=== PATIENT | male | born 1955 | race Caucasian/White ===

== ENCOUNTER 2016-12-03 18:49 | Inpatient (IN) | payer MEDICARE, OTHER ==
[2016-12-03] MEDS ORDERED: NS 0.9% 1000 ML* 1,000 ML IV ONE (20:17)
[2016-12-03 20:46] LABS: Hematocrit 45 % (42-52); Hemoglobin 15.4 g/dl (14.0-18.0); Mean Corpuscular HGB Conc 34 g/dl (31-36); Mean Corpuscular Hemoglobin 32 pg (27-31); Mean Corpuscular Volume 94 fL (80-94); Mean Platelet Volume 8 um3 (7.4-10.4); Red Blood Count 4.82 10^6/ul (4.0-5.4); Red Cell Distribution Width 14 % (10.5-15); White Blood Count 17.1 10^3/ul (3.5-10.8)
[2016-12-03 21:00] LABS: Albumin 4.2 g/dL (3.2-5.2); BUN/Creatinine Ratio 23.9 (8-20); C Reactive Protein 15.57 mg/L (< 5.00); Calcium 9.9 mg/dL (8.6-10.3); EGFR African American 88.7 (>60); Globulin 3.9 g/dL (2-4); Total Bilirubin 0.7 mg/dL (0.2-1.0); Total Protein 8.1 g/dL (6.4-8.9)
[2016-12-03 21:04] LABS: Troponin I 0.12 ng/mL (<0.04)
--- NOTE | 2016-12-03 21:22 | RAD ---
INDICATION: Shortness of breath and cough. COMPARISON: Comparison is made with a prior study from February 28, 2015. TECHNIQUE: Dual-energy PA and lateral views of the chest were obtained. FINDINGS: The heart is within normal limits in size. Mediastinal contours appear normal. The lungs are underinflated and clear. No pleural effusion is seen. IMPRESSION: NO EVIDENCE FOR ACUTE FINDING.
[2016-12-03] MEDS ORDERED: Aspirin Low Dose CHEW TAB* 81 MG ONE (21:25)
[2016-12-03] MEDS ORDERED: Aspirin Low Dose CHEW TAB* 81 MG PO ONE (21:25)
[2016-12-03] MEDS ORDERED: Albuterol 2.5 MG/3 ML NEB.SOL* (0.083%) INH PRN (21:27)
[2016-12-03] MEDS ORDERED: Nicotine Inhaler* 10 MG AMP INH PRN (21:27)
[2016-12-03] MEDS ORDERED: Ondansetron INJ* 2 MG/ML VIAL IV PRN (21:27)
[2016-12-03] MEDS ORDERED: Melatonin (NF) 3 MG TAB PO PRN (21:27)
[2016-12-03] MEDS ORDERED: Ropinirole TAB* 0.5 MG TAB PO ONE (21:42)
--- NOTE | 2016-12-03 22:23 | HP ---
H&P (Free Text) History and Physical: PCP: Mark Lowry MD Date/Time of Evaluation: 12/03/20162124 CC: SOB HPI: Mrs Flower is a 61YO male HX DM2, HTN, HLD, obesity who presents reporting onset around noon of SOB progressing over the next 2 hours to a 6/10 including some light-headedness, but without any chest discomfort, N/V, or palpitations. He relates laying still helped the SOB and activity made it worse. Currently he is symptom free. PMedHx DM2 HTN HLD asthma bipolar disorder hypothyroidism GERD Ambulatory Orders Nursing to reconcile. Atorvastatin* [Lipitor*] 40 mg PO DAILY 01/12/15 Divalproex Sodium [Depakote] 1,500 mg PO BEDTIME 01/12/15 Levothyroxine TAB* [Synthroid TAB*] 75 mcg PO DAILY 01/12/15 Lisinopril [Lisinopril 20 MG-] 20 mg PO DAILY 01/12/15 Folic Acid TAB* [Folvite TAB*] 1 mg PO DAILY 03/01/15 tiaGABine TAB(*) [Gabitril*] 4 mg PO BEDTIME 03/01/15 Canagliflozin (NF) [Invokana (NF)] 100 mg PO DAILY 12/03/16 Carbidopa/Levodop 25/100 MG(*) [Sinemet 25/100 TAB(*)] 1.5 tab PO TID 12/03/16 Docusate CAP* [Colace Cap*] 100 mg PO DAILY 12/03/16 Hydrochlorothiazide TAB* [Hydrodiuril TAB*] 12.5 mg PO QAM 12/03/16 Lurasidone (NF) [Latuda (NF)] 40 mg PO DAILY 12/03/16 Melatonin 5 mg PO BEDTIME PRN 12/03/16 Mometasone/Formoter 200/5 MDI* [Dulera 200/5 MDI*] 1 puff INH BID 12/03/16 Promethazine TAB* [Phenergan TAB*] 25 mg PO Q6H PRN 12/03/16 QUEtiapine TAB* [SEROquel TAB*] 200 mg PO BEDTIME 12/03/16 Suvorexant [Belsomra] 10 mg PO BEDTIME 12/03/16 rOPINIRole TAB* [Requip TAB*] 0.5 mg PO DAILY 12/03/16 Allergies Ampicillin Allergy (Unknown, Verified 03/02/15 13:23) Rash And Itching Propranolol [From Inderal] Allergy (Unknown, Verified 03/02/15 13:23) Rash And Itching PSurgHx tonsillectomy hyoid suspension SocHx: trivial smoking HX, no alcohol or recreational drugs; , lives alone; 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 Father is alive at 80 with CAD. ROS: as above, otherwise reviewed and all were negative Constitutional: NAD, normally developed, obese white male vitals: Vital Signs Temp 37.1 C 12/03/16 19:05 Pulse 116 12/03/16 21:39 Resp 20 12/03/16 21:30 BP 169/101 12/03/16 21:39 Pulse Ox 94 12/03/16 21:39 Intake & Output 12/02/16 12/03/16 12/03/16 23:59 11:59 23:59 Weight 117.934 kg HEENM: atraumatic; sclera/conjunctiva: non-icteric/clear; blephara: normal; hearing: clinically intact; oropharynx: clear, mucosa moist Neck: soft tissue: non-tender; thyroid: normal Pulmonary: clear to auscultation bilaterally, good aeration, no accessory muscle use CV: RR/RR, normal S1S2, no carotid bruit, no jugular venous distention, 2+ B DP/ PT, no edema Abdominal: soft, non-distended, non-tender, no rebound/guarding/rigidity, normoactive bowel sounds, no hepatosplenomegaly or masses, no costovertebral angle tenderness Musculoskeletal: general: grossly intact, no palpable tenderness Integumental: normal appearance and texture Psychiatric orientation: AA&O to PPS affect: calm mood: cooperative eye contact: good content: reliable responses: timely insight: good Testing: Lab Results 12/03/16 12/03/16 12/03/16 Range/Units 20:36 20:36 20:36 WBC 17.1 H (3.5-10.8) 10^3/ul RBC 4.82 (4.0-5.4) 10^6/ul Hgb 15.4 (14.0-18.0) g/dl Hct 45 (42-52) % MCV 94 (80-94) fL MCH 32 H (27-31) pg MCHC 34 (31-36) g/dl RDW 14 (10.5-15) % Plt Count 288 (150-450) 10^3/ul MPV 8 (7.4-10.4) um3 Neut % (Auto) 84.4 H (38-83) % Lymph % (Auto) 8.5 L (25-47) % Alfalfa % (Auto) 6.5 (1-9) % Eos % (Auto) 0.1 (0-6) % Baso % (Auto) 0.5 (0-2) % Absolute Neuts (auto) 14.4 H (1.5-7.7) 10^3/ul Absolute Lymphs (auto) 1.4 (1.0-4.8) 10^3/ul Absolute Monos (auto) 1.1 H (0-0.8) 10^3/ul Absolute Eos (auto) 0 (0-0.6) 10^3/ul Absolute Basos (auto) 0.1 (0-0.2) 10^3/ul Absolute Nucleated RBC 0 10^3/ul Nucleated RBC % 0 Sodium 136 (133-145) mmol/L Potassium 4.0 (3.5-5.0) mmol/L Chloride 100 L (101-111) mmol/L Carbon Dioxide 28 (22-32) mmol/L Anion Gap 8 (2-11) mmol/L BUN 26 H (6-24) mg/dL Creatinine 1.09 (0.67-1.17) mg/dL Est GFR ( Amer) 88.7 (>60) Est GFR (Non-Af Amer) 69.0 (>60) BUN/Creatinine Ratio 23.9 H (8-20) Glucose 91 (70-100) mg/dL Lactic Acid 2.0 (0.5-2.0) mmol/L Calcium 9.9 (8.6-10.3) mg/dL Total Bilirubin 0.70 (0.2-1.0) mg/dL AST 43 H (13-39) U/L ALT 5 L (7-52) U/L Alkaline Phosphatase 71 (34-104) U/L Troponin I 0.12 H* (<0.04) ng/mL C-Reactive Protein 15.57 H (< 5.00) mg/L B-Natriuretic Peptide ( - 100) pg/mL Total Protein 8.1 (6.4-8.9) g/dL Albumin 4.2 (3.2-5.2) g/dL Globulin 3.9 (2-4) g/dL Albumin/Globulin Ratio 1.1 (1-3) / Range/Units 20:36 WBC (3.5-10.8) 10^3/ul RBC (4.0-5.4) 10^6/ul Hgb (14.0-18.0) g/dl Hct (42-52) % MCV (80-94) fL MCH (27-31) pg MCHC (31-36) g/dl RDW (10.5-15) % Plt Count (150-450) 10^3/ul MPV (7.4-10.4) um3 Neut % (Auto) (38-83) % Lymph % (Auto) (25-47) % Alfalfa % (Auto) (1-9) % Eos % (Auto) (0-6) % Baso % (Auto) (0-2) % Absolute Neuts (auto) (1.5-7.7) 10^3/ul Absolute Lymphs (auto) (1.0-4.8) 10^3/ul Absolute Monos (auto) (0-0.8) 10^3/ul Absolute Eos (auto) (0-0.6) 10^3/ul Absolute Basos (auto) (0-0.2) 10^3/ul Absolute Nucleated RBC 10^3/ul Nucleated RBC % Sodium (133-145) mmol/L Potassium (3.5-5.0) mmol/L Chloride (101-111) mmol/L Carbon Dioxide (22-32) mmol/L Anion Gap (2-11) mmol/L BUN (6-24) mg/dL Creatinine (0.67-1.17) mg/dL Est GFR ( Amer) (>60) Est GFR (Non-Af Amer) (>60) BUN/Creatinine Ratio (8-20) Glucose (70-100) mg/dL Lactic Acid (0.5-2.0) mmol/L Calcium (8.6-10.3) mg/dL Total Bilirubin (0.2-1.0) mg/dL AST (13-39) U/L ALT (7-52) U/L Alkaline Phosphatase (34-104) U/L Troponin I (<0.04) ng/mL C-Reactive Protein (< 5.00) mg/L B-Natriuretic Peptide 47 ( - 100) pg/mL Total Protein (6.4-8.9) g/dL Albumin (3.2-5.2) g/dL Globulin (2-4) g/dL Albumin/Globulin Ratio (1-3) ECG, personally reviewed: RBBB tachycardia rate 103, no ischemia, Q-waves II/III /AVF CXR, personally reviewed: IMPRESSION: NO EVIDENCE FOR ACUTE FINDING. Impression: 61F HX DM2, obesity & HTN presenting with SOB and elevated troponin DIAGNOSIS & PLAN Primary SOB & elevated troponin ? anginal equivalent : telemetry : trend troponin : aspirin : metoprolol : consider cardiology consult in AM pending above evaluation : supplemental oxygen : plan for chemical NST in AM : supportive care Secondary DM2 : continue canagliflozin : consistent carb diet once taking PO after stress test : Q4H glucometry Parkinsonism : continue carbi/levodopa HTN : continue lisinopril & HCTZ HLD : continue atorvastatin asthma : continue mometasone/formoterol bipolar disorder : continue divalproex, tiagabine, lurasidone, ropinirole, & quetiapine hypothyroidism : continue levothyroxine insomnia : continue suvorexant GERD : omeprazole Admission Rational: CDU observation for r/o ACS DVTp: heparin SQ Code Status: full
[2016-12-03] MEDS ORDERED: CMCS: Melatonin (NF) 3 MG TAB PO PRN (22:47)
[2016-12-03] MEDS ORDERED: Mouth Piece, Nicotine* 1 EACH CARTRIDGE INH ONE (23:00)
--- NOTE | 2016-12-03 23:49 | ED ---
I, Robbie,Ary, scribed for Tyler Pacheco MD on 12/03/16 at 2014 . Shortness of Breath - HPI Summary HPI Summary: This 61 y/o male presents to ED for exertional SOB since 2 days ago. Positive general weakness. Negative SOB or calf swelling. Ambulation makes SOB worse. Lying down does not make SOB worse. Pt expresses concern that his recent start of Ambien may have caused his SOB and weakness. PMHx includes DM type II that is controlled with insulin and oral agent, Parkinson disease, TINO with CPAP, and asthma that is controlled with inhaler. He does not use any long acting inhaler. Pt is not walker dependent at his baseline. Stress test was done about a year ago in [place]. - History of Current Complaint Chief Complaint: EDRespiratoryDistress Time Seen by Provider: 12/03/16 20:01 Hx Obtained From: Patient, Medical Records Onset/Duration: Gradual Onset, Resolved Dyspnea At: Exertion Aggrevating Factors: Movement Alleviating Factors: Oxygen Associated Signs & Symptoms: Negative - Allergy/Home Medications Allergies/Adverse Reactions: Allergies Allergy/AdvReac Type Severity Reaction Status Date / Time Ampicillin Allergy Unknown Rash And Verified 03/02/15 13:23 Itching Propranolol [From Inderal] Allergy Unknown Rash And Verified 03/02/15 13:23 Itching Home Medications: Home Medications Canagliflozin (NF) [Invokana (NF)] 100 mg PO DAILY 12/03/16 [History Confirmed 12/03/16] Carbidopa/Levodop 25/100 MG(*) [Sinemet 25/100 TAB(*)] 1.5 tab PO TID 12/03/16 [ History Confirmed 12/03/16] Docusate CAP* [Colace Cap*] 100 mg PO DAILY 12/03/16 [History Confirmed 12/03/16 ] Hydrochlorothiazide TAB* [Hydrodiuril TAB*] 12.5 mg PO QAM 12/03/16 [History Confirmed 12/03/16] Lurasidone (NF) [Latuda (NF)] 40 mg PO DAILY 12/03/16 [History Confirmed ] Melatonin 5 mg PO BEDTIME PRN 12/03/16 [History Confirmed 12/03/16] Mometasone/Formoter 200/5 MDI* [Dulera 200/5 MDI*] 1 puff INH BID 12/03/16 [ History Confirmed 12/03/16] Promethazine TAB* [Phenergan TAB*] 25 mg PO Q6H PRN 12/03/16 [History Confirmed 12/03/16] QUEtiapine TAB* [SEROquel TAB*] 200 mg PO BEDTIME 12/03/16 [History Confirmed ] Suvorexant [Belsomra] 10 mg PO BEDTIME 12/03/16 [History Confirmed 12/03/16] rOPINIRole TAB* [Requip TAB*] 0.5 mg PO DAILY 12/03/16 [History Confirmed ] PMH/Surg Hx/FS Hx/Imm Hx Endocrine/Hematology History: Reports: Hx Diabetes, Hx Thyroid Disease - hypothyroid medicated with synthroid 75 mcg Cardiovascular History: Reports: Hx Hypercholesterolemia, Hx Hypertension, Other Cardiovascular Problems/Disorders - CAD, IDDM II, HIGH CHOLESTEROL Denies: Hx Angina, Hx Coronary Artery Disease, Hx Myocardial Infarction, Hx Valvular Heart Disease Respiratory History: Reports: Hx Asthma Denies: Hx Chronic Obstructive Pulmonary Disease (COPD) GI History: Reports: Hx Gastroesophageal Reflux Disease Sensory History: Reports: Hx Contacts or Glasses Opthamlomology History: Reports: Hx Contacts or Glasses Psychiatric History: Reports: Hx Anxiety, Hx Depression, Hx Inpatient Treatment - located within [facility] in [place], [place], Hx Bipolar Disorder Denies: Hx Eating Disorder, Hx of Violent Episodes Against Others - Surgical History Hx Anesthesia Reactions: No - Immunization History Date of Tetanus Vaccine: unknown Date of Influenza Vaccine: unknown Infectious Disease History: No Infectious Disease History: Denies: Traveled Outside the in Last 30 Days - Family History Known Family History: Positive: Other - Positive bipolar and schizophrenia - Social History Alcohol Use: Rare Alcohol Amount: 1beer/1 drink daily for a long time Substance Use Type: Reports: None Substance Use Comment - Amount & Last Used: uses 1-2 drinks of alcohol daily and several bowls of marijuana daily. Hx Tobacco Use: Yes Smoking Status (MU): Light Every Day Tobacco Smoker Type: Cigarettes Have You Smoked in the Last Year: Yes Review of Systems Negative: Fever Negative: Chest Pain Positive: Shortness Of Breath Negative: Edema Positive: Weakness - general All Other Systems Reviewed And Are Negative: Yes Physical Exam - Summary Physical Exam Summary: The patient is well-nourished in no acute distress and in no acute pain. The skin is warm and dry and skin color reflects adequate perfusion. HEENT: The head is normocephalic and atraumatic. The pupils are equal and reactive. The conjunctivae are clear and without drainage. Nares are patent and without drainage. Mouth reveals moist mucous membranes and the throat is without erythema and exudate. The external ears are intact. The ear canals are patent and without drainage. The tympanic membranes are intact. Neck is supple with full range of motion and non-tender. There are no carotid bruits. There is no neck vein distension. Respiratory: Chest is non-tender. Lungs are clear to auscultation and breath sounds are symmetrical and equal. Cardiovascular: Hear is regular rate and rhythm. Tachycardia with tremor secondary to Parkinson dz. There is no murmur or rub auscultated. There is no peripheral edema and pulses are symmetrical and equal. Abdomen: The abdomen is soft and non-tender. There are normal bowel sounds heard in all four quadrants and there is no organomegaly palpated. Musculoskeletal: There is no back pain noted. Extremities are non-tender with full range of motion. There is good capillary refill les sthan 2 seconds. There is no peripheral edema or calf tenderness elicited. Neurological: Patient is alert and oriented to person, place and time. The patient has symmetrical motor strength in all four extremities. Cranial nerves are grossly intact. Deep tendon reflexes are symmetrical and equal in all four extremities. Resting tremor secondary to Parkinson disease, mostly involving LUE arm. Psychiatric: The patient has an appropriate affect and does not exhibit any anxiety or depression. Triage Information Reviewed: Yes Vital Signs On Initial Exam: Initial Vitals BP 147/88 12/03/16 19:04 Vital Signs Reviewed: Yes - [place] Coma Scale Coma Scale Total: 15 Diagnostics - Vital Signs Vital Signs Temp Pulse Resp BP Pulse Ox 12/03/16 19:05 98.7 F 109 31 147/88 97 12/03/16 19:04 147/88 - Laboratory Lab Results: Lab Results 12/03/16 12/03/16 12/03/16 Range/Units 20:36 20:36 20:36 WBC 17.1 H (3.5-10.8) 10^3/ul RBC 4.82 (4.0-5.4) 10^6/ul Hgb 15.4 (14.0-18.0) g/dl Hct 45 (42-52) % MCV 94 (80-94) fL MCH 32 H (27-31) pg MCHC 34 (31-36) g/dl RDW 14 (10.5-15) % Plt Count 288 (150-450) 10^3/ul MPV 8 (7.4-10.4) um3 Neut % (Auto) 84.4 H (38-83) % Lymph % (Auto) 8.5 L (25-47) % Bond % (Auto) 6.5 (1-9) % Eos % (Auto) 0.1 (0-6) % Baso % (Auto) 0.5 (0-2) % Absolute Neuts (auto) 14.4 H (1.5-7.7) 10^3/ul Absolute Lymphs (auto) 1.4 (1.0-4.8) 10^3/ul Absolute Monos (auto) 1.1 H (0-0.8) 10^3/ul Absolute Eos (auto) 0 (0-0.6) 10^3/ul Absolute Basos (auto) 0.1 (0-0.2) 10^3/ul Absolute Nucleated RBC 0 10^3/ul Nucleated RBC % 0 Sodium 136 (133-145) mmol/L Potassium 4.0 (3.5-5.0) mmol/L Chloride 100 L (101-111) mmol/L Carbon Dioxide 28 (22-32) mmol/L Anion Gap 8 (2-11) mmol/L BUN 26 H (6-24) mg/dL Creatinine 1.09 (0.67-1.17) mg/dL Est GFR ( Amer) 88.7 (>60) Est GFR (Non-Af Amer) 69.0 (>60) BUN/Creatinine Ratio 23.9 H (8-20) Glucose 91 (70-100) mg/dL Lactic Acid 2.0 (0.5-2.0) mmol/L Calcium 9.9 (8.6-10.3) mg/dL Total Bilirubin 0.70 (0.2-1.0) mg/dL AST 43 H (13-39) U/L ALT 5 L (7-52) U/L Alkaline Phosphatase 71 (34-104) U/L Troponin I 0.12 H* (<0.04) ng/mL C-Reactive Protein 15.57 H (< 5.00) mg/L B-Natriuretic Peptide ( - 100) pg/mL Total Protein 8.1 (6.4-8.9) g/dL Albumin 4.2 (3.2-5.2) g/dL Globulin 3.9 (2-4) g/dL Albumin/Globulin Ratio 1.1 (1-3) 12/03/16 Range/Units 20:36 WBC (3.5-10.8) 10^3/ul RBC (4.0-5.4) 10^6/ul Hgb (14.0-18.0) g/dl Hct (42-52) % MCV (80-94) fL MCH (27-31) pg MCHC (31-36) g/dl RDW (10.5-15) % Plt Count (150-450) 10^3/ul MPV (7.4-10.4) um3 Neut % (Auto) (38-83) % Lymph % (Auto) (25-47) % Bond % (Auto) (1-9) % Eos % (Auto) (0-6) % Baso % (Auto) (0-2) % Absolute Neuts (auto) (1.5-7.7) 10^3/ul Absolute Lymphs (auto) (1.0-4.8) 10^3/ul Absolute Monos (auto) (0-0.8) 10^3/ul Absolute Eos (auto) (0-0.6) 10^3/ul Absolute Basos (auto) (0-0.2) 10^3/ul Absolute Nucleated RBC 10^3/ul Nucleated RBC % Sodium (133-145) mmol/L Potassium (3.5-5.0) mmol/L Chloride (101-111) mmol/L Carbon Dioxide (22-32) mmol/L Anion Gap (2-11) mmol/L BUN (6-24) mg/dL Creatinine (0.67-1.17) mg/dL Est GFR ( Amer) (>60) Est GFR (Non-Af Amer) (>60) BUN/Creatinine Ratio (8-20) Glucose (70-100) mg/dL Lactic Acid (0.5-2.0) mmol/L Calcium (8.6-10.3) mg/dL Total Bilirubin (0.2-1.0) mg/dL AST (13-39) U/L ALT (7-52) U/L Alkaline Phosphatase (34-104) U/L Troponin I (<0.04) ng/mL C-Reactive Protein (< 5.00) mg/L B-Natriuretic Peptide 47 ( - 100) pg/mL Total Protein (6.4-8.9) g/dL Albumin (3.2-5.2) g/dL Globulin (2-4) g/dL Albumin/Globulin Ratio (1-3) Result Diagrams: 12/03/16 20:36 12/03/16 20:36 Lab Statement: Any lab studies that have been ordered have been reviewed, and results considered in the medical decision making process. - Radiology CXR Xray Interpretation: No Acute Changes Radiology Interpretation Completed By: Radiologist Course/Dx - Course Assessment/Plan: This 61 y/o male presents to ED for exertional SOB and weakness since 2 days ago. Pt expresses concerns that his Ambien may be reason for his weakness and exertional dyspnea. Upon examination pt is noted with resting tremor mostly involving LUE arm secondary to Parkinson disease. Blood work indicates elevated trop of 0.12. Plan of care is discussed with primary health organisation manager hospitalist Dr. Cullen, who is agreeable to admit. - Diagnoses Differential Diagnosis/HQI/PQRI: Positive: CHF, NV, Pneumonia, Unstable Angina Provider Diagnoses: Dyspnea on exertion, Elevated troponin - Physician Notifications Discussed Care of Patient With: Jordan Cullen Time Discussed With Above Provider: 21:26 Instructed by Provider To: Admit As Inpatient Discharge - Discharge Plan Condition: Stable Disposition: ADMITTED TO [facility] documentation as recorded by the Robbie bean Soohyun accurately reflects the service I personally performed and the decisions made by , Tyler Pacheco MD.
[2016-12-04] MEDS: Morphine INJ* 2 MG/ML 1 ML SYRINGE IV PRN ×3 (02:31→14:10)
[2016-12-04] MEDS: Acetaminophen TAB* 325 MG PO PRN ×2 (03:55→14:11)
[2016-12-04 04:59] LABS: Hematocrit 42 % (42-52); Mean Corpuscular HGB Conc 33 g/dl (31-36); Mean Corpuscular Hemoglobin 32 pg (27-31); Mean Corpuscular Volume 95 fL (80-94); Mean Platelet Volume 8 um3 (7.4-10.4); Red Blood Count 4.41 10^6/ul (4.0-5.4); Red Cell Distribution Width 15 % (10.5-15); White Blood Count 13.5 10^3/ul (3.5-10.8)
[2016-12-04] MEDS: Heparin VIAL(*) 5000 UNITS/ML VIAL (FIVE THOUSAND) SUBCUT SCH ×2 (05:27→13:05)
[2016-12-04 05:36] LABS: BUN/Creatinine Ratio 22.2 (8-20); Calcium 9.1 mg/dL (8.6-10.3); EGFR African American 81.8 (>60); EGFR Non-African American 63.6 (>60); Potassium 3.8 mmol/L (3.5-5.0)
[2016-12-04 05:38] LABS: Troponin I 0.14 ng/mL (<0.04)
[2016-12-04] MEDS ORDERED: Omeprazole CAP* 20 MG PO SCH (06:00)
[2016-12-04] MEDS ORDERED: Levothyroxine TAB* 100 MCG TAB PO SCH (06:00)
[2016-12-04] MEDS ORDERED: PTO:Canagliflozin (NF) 100 MG TAB PO SCH ×2 (09:00→17:00)
[2016-12-04] MEDS ORDERED: Lisinopril TAB* 10 MG PO SCH (09:00)
[2016-12-04] MEDS ORDERED: Docusate CAP* 100 MG PO SCH ×2 (09:00)
[2016-12-04] MEDS ORDERED: LURASIDONE 40 MG PO SCH ×2 (09:00→17:00)
[2016-12-04] MEDS ORDERED: Atorvastatin* 40 MG TAB PO SCH (09:00)
[2016-12-04] MEDS ORDERED: Folic Acid TAB* 1 MG PO SCH (09:00)
[2016-12-04] MEDS ORDERED: Aspirin EC Low Dose* 81 MG TAB.EC PO SCH (09:00)
[2016-12-04] MEDS ORDERED: Hydrochlorothiazide TAB* 25 MG PO SCH (09:00)
[2016-12-04] MEDS ORDERED: Ropinirole TAB* 0.5 MG TAB PO SCH (09:00)
[2016-12-04] MEDS: Mometasone/Formoter 200/5 MDI INH SCH ×2 (11:20→20:32)
--- NOTE | 2016-12-04 11:31 | RAD ---
INDICATION: Short of breath. Chest pain. Elevated troponins COMPARISON: August 06, 2012 TECHNIQUE: A single day SPECT protocol was utilized. Rest images were acquired following the intravenous injection of 10.7 millicuries of technetium 99m tetrofosmin. Pharmacologic stress images were acquired following the intravenous administration of 25.6 millicuries of technetium 99m tetrofosmin. Examination is limited due to lack of CT attenuation related to shoulder immobility FINDINGS: There is a small fixed lateral wall defect. This defect is smaller on the stress than the rest images. No ischemic defects are seen. The cardiac chamber size is normal. There are no wall motion abnormalities. The ejection fraction is calculated at 74 percent during stress. IMPRESSION: SMALL FIXED LATERAL WALL DEFECT. NO ISCHEMIC DEFECT. NORMAL WALL MOTION AND EJECTION FRACTION ASSESSMENT: LOW-RISK Based on imaging criteria from ACC/AHA 2002 Guideline Update for the Management of Patients With Chronic Stable Angina Table 23. Noninvasive Risk Stratification.
[2016-12-04 11:53] VITALS: BP 146/68
[2016-12-04] MEDS: Carbidopa/Levodop 25/100 MG TAB(*) PO SCH ×2 (11:58→16:18)
[2016-12-04] MEDS ORDERED: Potassium Chlor TAB* 20 MEQ TAB.ER PO ONE (12:41)
[2016-12-04 13:06] LABS: Magnesium 2.1 mg/dL (1.9-2.7)
[2016-12-04] MEDS ORDERED: Iodixanol* (CONTRAST) 320 MG/ML 100 ML SDV IV ONE (14:18)
--- NOTE | 2016-12-04 15:36 | RAD ---
INDICATION: Shortness of breath. Elevated troponin. Weakness. Question potential pulmonary embolism. COMPARISON: December 03, 2016 chest radiograph. TECHNIQUE: Multidetector CT images were obtained from the lung apices to the upper abdomen with 92 mL Visipaque 320 IV contrast. Pulmonary angiogram protocol. Multiplanar reformation including with maximum intensity projection. REPORT: Aside from minimal bilateral dependent subsegmental atelectasis the lungs and pleural spaces are clear. Negative for pneumothorax. Negative for thoracic lymphadenopathy. Negative for cardiomegaly or pericardial effusion. Normal diameter thoracic aorta with minimal atherosclerotic plaque. Negative for thoracic aortic dissection. No filling defects are identified from the main to the subsegmental pulmonary arteries to indicate presence of a pulmonary embolism. Limited images through the upper abdomen are remarkable for prior cholecystectomy. Mild thoracic degenerative spondylosis. Negative for suspicious focal osseous lesions. IMPRESSION: 1. No evidence for pulmonary embolism. 2. No acute intrathoracic process evident.
--- NOTE | 2016-12-04 15:57 | DCNOTE ---
Patient seen this morning. No recurrent episodes today. Feels back to his baseline, has been ambulating around the unit, no chest pain. On exam, RRR, s1 and s2 present, no m/g/r, lungs CTA B/L, no w/r/r, LUE tremor, no LE edema D-dimer mildly elevated, CTA negative. Unclear what may have caused patient's troponin elevation. No ischemia noted on stress test. Will discharge home.
[2016-12-04] MEDS ORDERED: Divalproex DR TAB(*) 500 MG PO SCH (21:00)
[2016-12-04] MEDS ORDERED: TIAGABINE 4 MG PO SCH (21:00)
[2016-12-04] MEDS ORDERED: QUEtiapine TAB* 100 MG PO SCH (21:00)
[2016-12-04] MEDS ORDERED: (Suvorexant [Belsomra] 10 MG) PO SCH (21:00)
--- NOTE | 2016-12-05 06:01 | DS ---
CC: Collin Lowry MD * DISCHARGE SUMMARY: DATE OF ADMISSION: 12/03/16 DATE OF DISCHARGE: 12/04/16 PRIMARY CARE PHYSICIAN: Collin Lowry MD PRINCIPAL DISCHARGE DIAGNOSIS: Shortness of breath. SECONDARY DIAGNOSES: 1. Type 2 diabetes. 2. Hypertension. 3. Hyperlipidemia. 4. Asthma. 5. Bipolar disorder. 6. Hypothyroidism. 7. Gastroesophageal reflux disease. DISCHARGE MEDICATION REGIMEN: 1. Aspirin 81 mg daily by mouth daily. 2. Belsomra 10 mg by mouth at bedtime. 3. Folic acid 1 mg by mouth daily. 4. Dulera 1 puff inhaled 2 times daily. 5. Lisinopril 20 mg by mouth daily. 6. Seroquel 200 mg by mouth at bedtime. 7. Tiagabine 4 mg by mouth at bedtime. 8. Hydrochlorothiazide 12.5 mg by mouth daily. 9. Melatonin 5 mg by mouth at bedtime as needed for sleep. 10. Atorvastatin 40 mg by mouth daily. 11. Invokana 100 mg by mouth daily. 12. Depakote 1500 mg by mouth at bedtime. 13. Sinemet 25/100 1.5 tablets by mouth 3 times daily. 14. Colace 100 mg by mouth daily. 15. Ropinirole 0.5 mg by mouth daily. 16. Latuda 40 mg by mouth daily. 17. Promethazine 25 mg by mouth every 6 hours as needed for nausea. 18. Synthroid 100 mcg by mouth daily. STUDIES DONE DURING HOSPITALIZATION: Chest x-ray, impression: No evidence for acute finding. Nuclear cardiac stress test, impression: Small fixed lateral wall defect, no ischemic defect, normal wall motion and ejection fraction. CTA of the chest, impression: No evidence for pulmonary embolism, no acute intrathoracic process evident. HISTORY OF PRESENT ILLNESS AND HOSPITAL SUMMARY: Please see the full history and physical by Dr. Jordan Cullen for full details. Briefly, Mr. Flower is a 61- year-old male with a past medical history as above who presented to the hospital with about 2 hours of shortness of breath. It was not associated with any chest pain, nausea, vomiting and palpitations. The patient's symptoms resolved shortly after arriving in the hospital. He was found to have a mildly elevated troponin of 0.12. There were no significant EKG changes. The patient underwent a nuclear cardiac stress test that showed a fixed defect; however, no inducible ischemic changes. The etiology of his symptoms was unclear. I checked a D-dimer, which was minimally elevated, which prompted a CTA of the chest, which was also negative. The patient's symptoms did not recur while here at the hospital. It is unclear as to what may have caused this troponin elevation; however, does not seem to be an acute cardiac event. The patient will be discharged on his home medication with the addition of a baby aspirin. He should follow up with his PCP as an outpatient. TIME SPENT: Total time spent on this discharge 45 minutes. This is a summary of the hospitalization. Please see the full medical record for further details. [id number]/[id number] #: [id number] [facility]
== END 2016-12-04 19:15 | disposition home or self-care (01) | DRG 204 ==
LOC: ED 18:49 → MEDTELE 21:24
PROVIDERS: ADMIT Hospitalist; ATTEND Hospitalist
PROC: 4A12XM4 Monitoring of Cardiac Stress, External Approach (ICD-10-PCS; principal; 2016-12-03)
DX: R06.02 Shortness of breath (principal); G20 Parkinson's disease; R79.89 Other specified abnormal findings of blood chemistry; I10 Essential (primary) hypertension; E11.9 Type 2 diabetes mellitus without complications; E78.5 Hyperlipidemia, unspecified; J45.909 Unspecified asthma, uncomplicated; F31.9 Bipolar disorder, unspecified; E03.9 Hypothyroidism, unspecified; K21.9 Gastro-esophageal reflux disease without esophagitis; Z79.82 Long term (current) use of aspirin; E66.9 Obesity, unspecified; Z88.1 Allergy status to other antibiotic agents; Z88.8 Allergy status to other drugs, medicaments and biological substances; Z82.49 Family history of ischemic heart disease and other diseases of the circulatory system; G47.00 Insomnia, unspecified; G47.33 Obstructive sleep apnea (adult) (pediatric); E78.00 Pure hypercholesterolemia, unspecified; F41.9 Anxiety disorder, unspecified; F32.9 Major depressive disorder, single episode, unspecified; Z81.8 Family history of other mental and behavioral disorders; Z72.89 Other problems related to lifestyle; F17.210 Nicotine dependence, cigarettes, uncomplicated
CPT/HCPCS: 36415; 71020; 71275; 78452; 80048; 80053; 83605; 83735; 83880; 84484; 85025; 85379; 85730; 86140; 93005; 93017; 99406; A9270-GY; A9502; J1644; J2270; Q9967

== ENCOUNTER 2016-12-27 03:54 | Observation (INO) | payer MEDICARE, OTHER ==
[2016-12-27] MEDS ORDERED: NS 0.9% 1000 ML* 1,000 ML IV ONE ×2 (04:30→05:12)
[2016-12-27 04:40] LABS: Hematocrit 39 % (42-52); Hemoglobin 13.1 g/dl (14.0-18.0); Mean Corpuscular HGB Conc 34 g/dl (31-36); Mean Corpuscular Hemoglobin 32 pg (27-31); Mean Corpuscular Volume 96 fL (80-94); Mean Platelet Volume 7 um3 (7.4-10.4); Red Blood Count 4.08 10^6/ul (4.0-5.4); Red Cell Distribution Width 15 % (10.5-15); White Blood Count 7.9 10^3/ul (3.5-10.8)
[2016-12-27 04:59] LABS: Albumin 3.6 g/dL (3.2-5.2); BUN/Creatinine Ratio 19.7 (8-20); Calcium 9.2 mg/dL (8.6-10.3); EGFR African American 62.8 (>60); EGFR Non-African American 48.9 (>60); Globulin 3.1 g/dL (2-4); Potassium 3.8 mmol/L (3.5-5.0); Total Bilirubin 0.4 mg/dL (0.2-1.0); Total Protein 6.7 g/dL (6.4-8.9)
[2016-12-27 05:01] LABS: Troponin I 0.01 ng/mL (<0.04)
--- NOTE | 2016-12-27 06:49 | ED ---
Victorino Farias Benjamin, scribed for Seda Tanner MD on 12/27/16 at 0453 . Complex/Multi-Sys Presentation - HPI Summary HPI Summary: 61yo male reports waking up with weakness yesterday around 1700 hour. Pt also reports difficulty urinating for couple of days. Denies CP. Pt is diabetic. Pt is sleepy in room, and isnt giving full history. - History Of Current Complaint Chief Complaint: EDWeakness Time Seen by Provider: 12/27/16 04:07 Hx Obtained From: Patient Onset/Duration: Sudden Onset, Lasting Days - 1 day Timing: Constant Severity Currently: Mild Severity Initially: Mild Location: Negative Associated Signs And Symptoms: Positive: Weakness. Negative: Chest Pain - Allergies/Home Medications Allergies/Adverse Reactions: Allergies Allergy/AdvReac Type Severity Reaction Status Date / Time Ampicillin Allergy Unknown Rash And Verified 12/04/16 14:52 Itching Propranolol [From Inderal] Allergy Unknown Rash And Verified 12/04/16 14:52 Itching PMH/Surg Hx/FS Hx/Imm Hx Endocrine/Hematology History: Reports: Hx Diabetes, Hx Thyroid Disease - hypothyroid medicated with synthroid 75 mcg Cardiovascular History: Reports: Hx Hypercholesterolemia, Hx Hypertension, Other Cardiovascular Problems/Disorders - CAD, IDDM II, HIGH CHOLESTEROL Denies: Hx Angina, Hx Coronary Artery Disease, Hx Myocardial Infarction, Hx Valvular Heart Disease Respiratory History: Reports: Hx Asthma, Hx Sleep Apnea Denies: Hx Chronic Obstructive Pulmonary Disease (COPD) GI History: Reports: Hx Gastroesophageal Reflux Disease Sensory History: Denies: Hx Contacts or Glasses, Hx Hearing Aid Opthamlomology History: Denies: Hx Contacts or Glasses Neurological History: Reports: Other Neuro Impairments/Disorders - parkinson's Psychiatric History: Reports: Hx Anxiety, Hx Depression, Hx Inpatient Treatment - multiple in [place], [place], Hx Bipolar Disorder Denies: Hx Eating Disorder, Hx of Violent Episodes Against Others - Surgical History Surgery Procedure, Year, and Place: tonsillectomy, hyiod suspension Hx Anesthesia Reactions: No - Immunization History Date of Tetanus Vaccine: unknown Date of Influenza Vaccine: unknown Infectious Disease History: Denies: Traveled Outside the in Last 30 Days - Family History Known Family History: Positive: Hypertension, Other - Positive bipolar and schizophrenia - Social History Occupation: Unemployed Lives: Alone Alcohol Use: None Alcohol Amount: 1beer/1 drink daily for a long time Substance Use Type: Reports: None Substance Use Comment - Amount & Last Used: uses 1-2 drinks of alcohol daily and several bowls of marijuana daily. Hx Tobacco Use: Yes Smoking Status (MU): Light Every Day Tobacco Smoker Type: Cigarettes Have You Smoked in the Last Year: Yes Review of Systems Positive: Fatigue Eyes: Negative ENT: Negative Cardiovascular: Negative Negative: Chest Pain Respiratory: Negative Gastrointestinal: Negative Genitourinary: Negative Musculoskeletal: Negative Skin: Negative Positive: Weakness Psychological: Normal All Other Systems Reviewed And Are Negative: Yes Physical Exam Triage Information Reviewed: Yes Vital Signs On Initial Exam: Initial Vitals Temp Pulse Resp BP Pulse Ox 97.8 F 75 18 93/57 96 12/27/16 03:59 12/27/16 03:59 12/27/16 03:59 12/27/16 03:59 12/27/16 03:59 Vital Signs Reviewed: Yes Appearance: Positive: No Pain Distress, Well-Nourished. Negative: Well- Appearing - pt is sleepy on exam Skin: Positive: Warm, Skin Color Reflects Adequate Perfusion, Dry Head/Face: Positive: Normal Head/Face Inspection Eyes: Positive: EOMI, KIRA, Conjunctiva Clear ENT: Positive: Hearing grossly normal, Pharynx normal Neck: Positive: Supple, Nontender Respiratory/Lung Sounds: Positive: Clear to Auscultation, Breath Sounds Present Cardiovascular: Positive: RRR, Pulses are Symmetrical in both Upper and Lower Extremities Abdomen Description: Positive: Nontender, Soft Bowel Sounds: Positive: Present Musculoskeletal: Positive: Strength/ROM Intact Neurological: Positive: Sensory/Motor Intact, Alert, Oriented to Person Place, Time Psychiatric: Positive: Affect/Mood Appropriate - [place] Coma Scale Coma Scale Total: 15 Diagnostics - Vital Signs Vital Signs Temp Pulse Resp BP Pulse Ox 12/27/16 04:31 97 12/27/16 04:04 97.8 F 75 18 93/57 96 12/27/16 03:59 97.8 F 75 18 96 - Laboratory Lab Results: Lab Results 12/27/16 Range/Units 04:10 WBC 7.9 (3.5-10.8) 10^3/ul RBC 4.08 (4.0-5.4) 10^6/ul Hgb 13.1 L (14.0-18.0) g/dl Hct 39 L (42-52) % MCV 96 H (80-94) fL MCH 32 H (27-31) pg MCHC 34 (31-36) g/dl RDW 15 (10.5-15) % Plt Count 264 (150-450) 10^3/ul MPV 7 L (7.4-10.4) um3 Neut % (Auto) 56.8 (38-83) % Lymph % (Auto) 30.0 (25-47) % [place] % (Auto) 9.3 H (1-9) % Eos % (Auto) 2.2 (0-6) % Baso % (Auto) 1.7 (0-2) % Absolute Neuts (auto) 4.5 (1.5-7.7) 10^3/ul Absolute Lymphs (auto) 2.4 (1.0-4.8) 10^3/ul Absolute Monos (auto) 0.7 (0-0.8) 10^3/ul Absolute Eos (auto) 0.2 (0-0.6) 10^3/ul Absolute Basos (auto) 0.1 (0-0.2) 10^3/ul Absolute Nucleated RBC 0 10^3/ul Nucleated RBC % 0 Result Diagrams: 12/27/16 04:10 12/27/16 04:10 Lab Statement: Any lab studies that have been ordered have been reviewed, and results considered in the medical decision making process. - Radiology CXR Xray Interpretation: No Acute Changes Radiology Interpretation Completed By: ED Physician - EKG 0409. Cardiac Rate: NL - 73bpm EKG Rhythm: Sinus Rhythm ST Segment: Normal EKG Interpretation: RBBB EKG Comparison: No Significant Change - unchanged from EKG taken at 12/05/16 Complex Multi-Symp Course/Dx Course Of Treatment: Reviewed pts medication and allergy lists. Blood pressure noted.61 yo male with near syncope labs essentially normal except for a slightly elevated lactic acid, who feels better after 2L NS, who describes difficulty with urination. He is awaiting for a 2nd lactic and for urine and a bladder scan he will be sign out to Dr. Pacheco this am. Of note his room air 02 sat is normal. 0647 pt had an episode where his hr might have dipped into the 30's will get pt admitted for obv - Diagnoses Provider Diagnoses: Near syncope Discharge - Discharge Plan Condition: Stable Disposition: OTHER Discharge Disposition Comment: pt to be signed out to Dr. Pacheco for evaluation Referrals: Collin Lowry MD [Primary Care Provider] - The documentation as recorded by the Victorino bean Benjamin accurately reflects the service I personally performed and the decisions made by me, Seda Tanner MD.
[2016-12-27 07:31] LABS: Urine Bilirubin Negative (Negative); Urine Glucose 3+(>=500 mg/dL) (Negative); Urine Nitrite Negative (Negative)
[2016-12-27] MEDS ORDERED: Promethazine TAB* 25 MG PO PRN (08:06)
--- NOTE | 2016-12-27 08:15 | RAD ---
HISTORY: Shortness of breath COMPARISONS: December 03, 2016 VIEWS: 2: frontal portable view of the chest at 4:50 AM FINDINGS: LINES AND TUBES: None. CARDIOMEDIASTINAL SILHOUETTE: The cardiomediastinal silhouette is normal for portable technique. PLEURA: The costophrenic angles are sharp. No pleural abnormalities are noted. LUNG PARENCHYMA: The lungs are clear. ABDOMEN: The upper abdomen is clear. There is no subphrenic gas. BONES AND SOFT TISSUES: No bone or soft tissue abnormalities are noted. IMPRESSION: NO ACTIVE CARDIOPULMONARY DISEASE.
--- NOTE | 2016-12-27 08:18 | ADMNOTE ---
Subjective Date of Service: 12/27/16 Interval History: ADMISSION HISTORY AND PHYSICAL EXAM: Allergies Allergy/AdvReac Type Severity Reaction Status Date / Time Ampicillin Allergy Unknown Rash And Verified 12/27/16 07:18 Itching Propranolol [From Inderal] Allergy Unknown Rash And Verified 12/27/16 07:18 Itching Home Medications Medication Instructions Recorded Confirmed Type Atorvastatin* [Lipitor 40 MG*] 40 mg PO DAILY 01/12/15 12/27/16 History Divalproex Sodium [Depakote] 1,500 mg PO BEDTIME 01/12/15 12/27/16 History Levothyroxine TAB* [Synthroid 75 100 mcg PO DAILY 01/12/15 12/27/16 History MCG TAB*] Lisinopril [Lisinopril 20 MG-] 20 mg PO DAILY 01/12/15 12/27/16 History Folic Acid TAB* [Folvite TAB*] 1 mg PO DAILY 03/01/15 12/27/16 History tiaGABine TAB(*) [Gabitril 2 MG*] 4 mg PO BEDTIME 03/01/15 12/27/16 History Canagliflozin (NF) [Invokana (NF)] 100 mg PO DAILY 12/03/16 12/27/16 History Carbidopa/Levodop 25/100 MG(*) 1.5 tab PO TID 12/03/16 12/27/16 History [Sinemet 25/100 TAB(*)] Hydrochlorothiazide TAB* 12.5 mg PO QAM 12/03/16 12/27/16 History [Hydrodiuril TAB*] Lurasidone (NF) [Latuda (NF)] 40 mg PO DAILY 12/03/16 12/27/16 History Melatonin 5 mg PO BEDTIME PRN 12/03/16 12/27/16 History Promethazine TAB* [Phenergan Tab*] 25 mg PO Q6H PRN 12/03/16 12/27/16 History QUEtiapine TAB* [Seroquel TAB*] 200 mg PO BEDTIME 12/03/16 12/27/16 History rOPINIRole TAB* [Requip TAB*] 0.5 mg PO DAILY 12/03/16 12/27/16 History Aspirin EC Low Dose* [Ecotrin EC 81 mg PO DAILY #30 tab.ec 12/04/16 12/27/16 Rx Low Dose 81 MG*] Suvorexant [Belsomra] 10 mg PO BEDTIME 12/04/16 12/27/16 Rx HPI: Patient awoke at 2 AM to urinate, could not get OOB and called 911. He fell 2 days ago and skinned his knees, bumped his head. He states he has frequent falls. No assistive devices. Hungry. Family History: Findings - Mother of suicide in her 70's. Father has CAD. Social History: Findings - Lives alone. Father is his SDM. . 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 No alcohol or tobacco use. Past Medical History: Findings - Bipolar, DM, HT, HL Review of Systems - Measurements Intake and Output: Intake and Output Last 24 Hours 12/25/16 12/26/16 12/27/16 12/28/16 06:59 06:59 06:59 06:59 Intake Total 1999 Balance 1999 Weight 260 lb Intake: IV Fluids 1999 - Review of Systems Constitutional Symptoms: Positive: Weight Loss - 10 lbs Dermatology: Positive: Normal HEENT: Positive: Normal Eyes: Positive: Normal Thyroid: Positive: Normal Pulmonary: Positive: Normal Cardiology: Positive: Normal Gastroenterology: Positive: Difficulty Swallowing Genital - Urinary: Positive: Normal Genitourinary - Male: Negative: Prostatism, Erectile Dysfunction, Family Hx of Prostate Cancer, Other Musculoskeletal: Negative: Joint Pain, Joint Stiffness, Arthritis, Osteoporosis, Low Back Pain , Sciatica, Joint Deformities, Kyphoscoliosis, Other Endocrinology: Positive: Diabetes Mellitus Hematologic/Lymphatic: Negative: Anemia, Easy Brusing, Hx Leukemia, Hx Lymphoma, Use of Anticoagulant, Use of Antiplatelet Drugs, Other Neurology: Positive: Other - Parkinson's Psychiatry: Positive: Other - bipolar Allergic/Immunologic: Negative: Hx Anaphylaxis, Hx Angioedema, Hx Environmental, Hx Seasonal, Athsma, Hx HIV, Immunocompromise, Swollen Glands LymphNodes, Other Objective Active Medications: Aspirin (Aspirin Ec Low Dose*) 81 mg PO DAILY YESSY Atorvastatin Calcium (Lipitor*) 40 mg PO DAILY YESSY Canagliflozin (Invokana (Nf)) 100 mg PO DAILY YESSY Carbidopa/Levodopa (Sinemet 25/100 Tab(*)) 1.5 tab PO TID YESSY Divalproex Sodium (Depakote Dr Tab(*)) 1,500 mg PO BEDTIME YESSY Folic Acid (Folvite Tab*) 1 mg PO DAILY [facility] Levothyroxine Sodium (Synthroid Tab*) 100 mcg PO DAILY YESSY Lurasidone HCl (Latuda (Nf)) 40 mg PO DAILY YESSY Promethazine HCl (Phenergan Tab*) 25 mg PO Q6H PRN PRN Reason: NAUSEA Quetiapine Fumarate (Seroquel Tab*) 200 mg PO BEDTIME YESSY Ropinirole HCl (Requip Tab*) 0.5 mg PO DAILY YESSY Tiagabine HCl (Gabitril*) 4 mg PO BEDTIME YESSY Vital Signs 12/27/16 12/27/16 12/27/16 03:59 04:04 04:31 Temperature 97.8 F 97.8 F Pulse Rate 75 75 Respiratory 18 18 Rate Blood Pressure 93/57 93/57 (mmHg) O2 Sat by Pulse 96 96 97 Oximetry 12/27/16 12/27/16 12/27/16 05:00 06:00 06:42 Temperature Pulse Rate 66 65 66 Respiratory 16 13 15 Rate Blood Pressure 116/77 99/67 115/75 (mmHg) O2 Sat by Pulse 98 99 98 Oximetry 12/27/16 12/27/16 12/27/16 07:24 07:25 07:30 Temperature Pulse Rate 63 64 Respiratory Rate Blood Pressure 112/65 111/68 (mmHg) O2 Sat by Pulse 97 95 Oximetry Oxygen Devices in Use Now: None Appearance: Alert, supine on ED stretcher. Neutral affect. Looks comfortable. Eyes: No Scleral Icterus Ears/Nose/Mouth/Throat: Clear Oropharnyx, Mucous Membranes Moist Neck: NL Appearance and Movements; NL JVP, No Thyroid Enlargement, Masses Respiratory: Symmetrical Chest Expansion and Respiratory Effort, Clear to Auscultation, Clear to Percussion Cardiovascular: NL Sounds; No Murmurs; No JVD, RRR, No Edema, - Abdominal: NL Sounds; No Tenderness; No Distention, No Hepatosplenomegaly, - Extremities: No Edema, No Clubbing, Cyanosis Skin: No Nodules or Sclerosis, - - Both knees have fresh abrasions. Red area R zoroastrian/scalp Neurological: Alert and Oriented x 3, NL Sensation, - - marked parkinosonian tremor L arm Result Diagrams: 12/27/16 04:10 12/27/16 04:10 Additional Lab and Data: Lab Results 12/27/16 Range/Units 04:10 WBC 7.9 (3.5-10.8) 10^3/ul RBC 4.08 (4.0-5.4) 10^6/ul Hgb 13.1 L (14.0-18.0) g/dl Hct 39 L (42-52) % MCV 96 H (80-94) fL MCH 32 H (27-31) pg MCHC 34 (31-36) g/dl RDW 15 (10.5-15) % Plt Count 264 (150-450) 10^3/ul MPV 7 L (7.4-10.4) um3 Neut % (Auto) 56.8 (38-83) % Lymph % (Auto) 30.0 (25-47) % [place] % (Auto) 9.3 H (1-9) % Eos % (Auto) 2.2 (0-6) % Baso % (Auto) 1.7 (0-2) % Absolute Neuts (auto) 4.5 (1.5-7.7) 10^3/ul Absolute Lymphs (auto) 2.4 (1.0-4.8) 10^3/ul Absolute Monos (auto) 0.7 (0-0.8) 10^3/ul Absolute Eos (auto) 0.2 (0-0.6) 10^3/ul Absolute Basos (auto) 0.1 (0-0.2) 10^3/ul Absolute Nucleated RBC 0 10^3/ul Nucleated RBC % 0 Assess/Plan/Problems-Billing Assessment: - Patient Problems (1) Frequent falls Current Visit: Yes Status: Acute Code(s): R29.6 - REPEATED FALLS SNOMED Code(s): 362747290 Comment: PT eval requested. Needs outpt fup with PCP, ? neurologist. SW eval. (2) Dizziness Current Visit: Yes Status: Acute Code(s): R42 - DIZZINESS AND GIDDINESS SNOMED Code(s): 190828879 Comment: NSS ordered. Stop thiazide, reduce lisinopril to 5 mg daily. Orthostatic VS requested. (3) Diabetes Current Visit: No Status: Acute Code(s): E11.9 - TYPE 2 DIABETES MELLITUS WITHOUT COMPLICATIONS SNOMED Code(s): 58247699 Comment: FS glucose qid-hs with parameters. Continue home DM med. (4) Bipolar 1 disorder Current Visit: No Status: Acute Code(s): F31.9 - BIPOLAR DISORDER, UNSPECIFIED SNOMED Code(s): 119792961 Comment: Continue home psych meds. (5) Swallowing disorder Current Visit: Yes Status: Acute Code(s): R13.10 - DYSPHAGIA, UNSPECIFIED SNOMED Code(s): 48828628 Comment: SP swallow eval requested.
[2016-12-27] MEDS: Carbidopa/Levodop 25/100 MG TAB(*) PO SCH ×3 (08:28→20:34)
[2016-12-27] MEDS: Atorvastatin* 40 MG TAB PO SCH (08:28)
[2016-12-27] MEDS: Aspirin EC Low Dose* 81 MG TAB.EC PO SCH (08:28)
[2016-12-27] MEDS: Folic Acid TAB* 1 MG PO SCH (08:51)
[2016-12-27 08:52] LABS: TSH (Thyroid Stimulating Horm) 1.08 mcIU/mL (0.34-5.60)
[2016-12-27] MEDS ORDERED: Ropinirole TAB* 0.5 MG TAB PO SCH (09:00)
[2016-12-27] MEDS ORDERED: LURASIDONE 40 MG PO SCH (09:00)
[2016-12-27] MEDS: CANAGLIFLOZIN 100 MG PO SCH (10:33)
[2016-12-27] MEDS: Levothyroxine TAB* 75 MCG TAB PO SCH (10:50)
[2016-12-27] MEDS: Lisinopril TAB* 5 MG PO SCH (10:50)
[2016-12-27] MEDS: NS 0.9% 1000 ML* 1,000 ML IV SCH (10:51)
[2016-12-27] MEDS ORDERED: Saline NASAL SPRAY 0.65%* BTL BOTH NARES PRN (11:46)
[2016-12-27] MEDS ORDERED: Acetaminophen TAB* 325 MG ONE (12:02)
[2016-12-27] MEDS: Acetaminophen TAB* 325 MG PO PRN (12:04)
[2016-12-27] MEDS ORDERED: NS 0.9% 1000 ML* 1,000 ML IV SCH (18:30)
[2016-12-27] MEDS: Ropinirole TAB* 0.5 MG TAB PO SCH (20:34)
--- NOTE | 2016-12-27 20:54 | CONS ---
NEUROLOGY CONSULTATION: DATE OF CONSULT: 12/27/16 REQUESTING PROVIDER: Dr. Yeyo Brice. REASON FOR CONSULT: Frequent falls. 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 He reports that over the past few weeks, he has had increased difficulty with upper extremity weakness where he is having a hard time pushing himself up out of his bed. In addition, he says once he does get up out of bed, at times when he begins walking, he becomes generally weak and will have falls. He denies any vertigo or specific balance problems that are contributing to these falls. He is not aware of these falls being mechanical. He has fallen on his knees several times in the past 3 weeks or so. His father had contacted my office and left a message indicating that he has been "going downhill for 3 weeks in the setting of some medication changes," but Wei indicates that only in the past week has he had any med changes and his falling and weakness have been going on longer than that. He is not exactly sure of the medicine changes, but it appears that he has been started on Latuda about a week ago and he believes also Geodon by Miesha Roche, his psychiatric provider. I tried to inquire with him about how he is taking ropinirole at home, which has been prescribed for his tremor, but he is not sure of the dosing. He has visiting nurses who come in and set up his pill box and it alarms for him 3 times a day so he takes his medication. At this point, in the day, I tried to contact his father, but was unsuccessful. I also tried to contact Miesha Roche, [facility], but the office is already closed. On his medication list as entered in [employer], the ropinirole dose was incorrect. He should be taking according to my office records 0.5 mg twice a day with an additional dose in the afternoon of 0.25 mg. [employer] indicated he was prescribed 0.5 mg daily which is incorrect. He is also taking carbidopa/levodopa 25/100 mg 1-1/2 tablets 3 times daily. In my followup with him in the office, he has indicated variable efficacy of this medication. Most recently, he has been referred to the [facility] and on their evaluation, they felt that his tremor was most likely drug- induced parkinsonism and ordered a DaTscan, which was normal and not supportive of idiopathic Parkinson's disease. The recommendation was for his psychiatric providers to try to get him off some of the potentially offending medications including Depakote and quetiapine as well as limiting promethazine. I am not sure if this may be why Miesha has started some of these new medications in an attempt to then get him off some these other offending medications. PAST MEDICAL HISTORY: 1. Bipolar disorder. 2. 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 3. Diabetes. 4. Hypertension. 5. Hyperlipidemia. HOME MEDICATIONS: 1. Invokana 100 mg daily. 2. Lipitor 40 mg daily. 3. Aspirin 81 mg daily. 4. Hydrochlorothiazide 12.5 mg q.a.m. 5. Folic acid 1 mg daily. 6. Depakote 1500 mg at bedtime. 7. Carbidopa/levodopa 25/100 mg 1-1/2 tablets 3 times daily. 8. Latuda 40 mg daily. 9. Geodon (the patient reported this medication but is unsure of the dose). 10. Lisinopril 20 mg. 11. Levothyroxine 100 mcg daily. 12. Quetiapine 200 mg at bedtime. 13. Promethazine 25 mg q.6 hours p.r.n. 14. Melatonin 5 mg at bedtime p.r.n. 15. Gabitril 4 mg at bedtime. 16. Ropinirole is prescribed 0.5 mg in the morning, 0.25 mg in the afternoon and 0.5 mg in the evening. 17. Belsomra 10 mg at bedtime. ALLERGIES: AMPICILLIN and PROPRANOLOL cause rash and itching. FAMILY HISTORY: Mother of suicide in her 70s. Father has coronary artery disease. SOCIAL HISTORY: He lives alone, but his father lives next door. He is . 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 No alcohol or tobacco abuse. REVIEW OF SYSTEMS: He denies any recent illness or infection. Otherwise as per the HPI. PHYSICAL EXAM: Vital Signs: Temperature 97.6, blood pressure 131/75, heart rate 87, oxygen saturation 95% on room air. I note that orthostatic vital signs were obtained this morning and the blood pressure overall was unremarkable, but the heart rate indicates that in the lying position, he was 75, in the sitting position 118, and standing 87. I am not sure if this is true or if this was semiconductor manufacturing technician error. On general examination, he is an obese man, in no acute distress. His heart is in regular rate and rhythm with no murmurs, rubs, or gallops. Lungs are clear to auscultation bilaterally. Carotids reveal no bruits. No has no significant joint swelling or erythema. Skin exam shows that he has some abrasions in various stages of healing on his knees bilaterally. On neurologic examination, he is fully awake, alert, and oriented. His speech is fluent without dysarthria or aphasia. On cranial nerve testing, pupils are equal, round, and reactive from 4 to 2 mm bilaterally. His versions are full without nystagmus. Mir are full to confrontation. He has mild hypomimia. Face has full strength. Hearing is intact to voice. Palate elevates symmetrically and the tongue is midline. On motor examination, he has cogwheel rigidity in the left upper extremity as well as paratonia versus rigidity in the right upper extremity. There is no pronator drift. He has a variable tremor in the left greater than right arm. At times, this is low amplitude and pill rolling approximately 3 Hz while other times there is a flapping quality to it. When he is engaged in different aspects of the exam, this tremor often quiets down completely. His strength is essentially full in the upper and lower extremities though he indicated with testing his left triceps, he had pain in his left shoulder and testing his left wrist extension, he had pain in the wrist. Sensation is intact to light touch in the upper and lower extremities. Reflexes are 2+ in the upper and lower extremities with downgoing toes. Romberg is negative. His gait is narrow based with short strides. He has flat feet. His variable tremor is noted bilaterally when he walks. DIAGNOSTIC STUDIES/LAB DATA: His CMP was notable for an elevated creatinine of 1.47 and an elevated BUN of 29. Glucose of 120. TSH 1.08. His initial lactate was 2.3 down to 1.3 when measured 2 hours later. CBC is notable for hematocrit of 39, hemoglobin of 13.1, and slightly elevated MCV and MCH of 96 and 32 respectively. His urinalysis showed trace ketones and 3+ glucose. IMPRESSION AND PLAN: Wei Flower is a 61-year-old man with a history of bipolar disorder as well as tremor and parkinsonism, which is likely drug induced related to his psychiatric medications. He is admitted for falls. He is treated with both ropinirole and Sinemet with unclear benefit at this point. He recently had an evaluation at the [facility], which concurs that his tremor is most likely drug induced with possible psychogenic component as opposed to from idiopathic Parkinson's disease. Nevertheless, he has felt that he has potentially gotten some benefit from his tremor medications. It is not clear to me at this time if he is taking his ropinirole as it has been prescribed. Certainly, the medication reconciliation here is incorrect in terms of the ropinirole, but I am not sure if that was the patient reported or not. For the time being, I have changed the dose being given in the hospital to reflect that which is in my outpatient record. Tomorrow, it would be helpful if we could again touch with his father and/or visiting nurse, who prepares his medication to determine whether he is taking it as prescribed or not. I have also added on a CK level. Overall, his exam appears similar to that which I see in the office. So, it is unclear to me neurologically speaking why he is having increased falls and this generalized sense of weakness which he describes intermittently. It may also be helpful to discuss with Miesha Roche NP, her plan going forward with the psychiatric medications in terms of his tremor. There is nothing particularly suspicious in his labs that would explain his recurrent falls either. Thank you for this consultation. Dr. Shahid takes over the service [facility] and will receive sign out on the patient. [id number]/[facility] #: [id number] [facility]IT[facility]issett
[2016-12-27] MEDS ORDERED: Divalproex DR TAB(*) 500 MG PO SCH (21:00)
[2016-12-27] MEDS ORDERED: TIAGABINE 4 MG PO SCH (21:00)
[2016-12-27] MEDS ORDERED: QUEtiapine TAB* 100 MG PO SCH (21:00)
[2016-12-28] MEDS: Acetaminophen TAB* 325 MG PO PRN ×2 (02:17→06:29)
[2016-12-28] MEDS ORDERED: CMCS: Melatonin (NF) 3 MG TAB PO PRN (03:29)
[2016-12-28] MEDS: NS 0.9% 1000 ML* 1,000 ML IV SCH (03:45)
[2016-12-28] MEDS: Levothyroxine TAB* 75 MCG TAB PO SCH (05:21)
[2016-12-28] MEDS ORDERED: Levothyroxine TAB* 100 MCG TAB PO SCH (06:00)
[2016-12-28] MEDS: Ropinirole TAB* 0.5 MG TAB PO SCH (08:21)
[2016-12-28] MEDS: Folic Acid TAB* 1 MG PO SCH (08:22)
[2016-12-28] MEDS: Aspirin EC Low Dose* 81 MG TAB.EC PO SCH (08:22)
[2016-12-28] MEDS: Carbidopa/Levodop 25/100 MG TAB(*) PO SCH (08:22)
[2016-12-28] MEDS: Atorvastatin* 40 MG TAB PO SCH (08:23)
[2016-12-28] MEDS: Lisinopril TAB* 5 MG PO SCH (08:23)
[2016-12-28] MEDS: CANAGLIFLOZIN 100 MG PO SCH (08:24)
[2016-12-28 11:57] VITALS: BP 132/82
[2016-12-28] MEDS ORDERED: Ropinirole TAB* 0.5 MG TAB PO SCH (13:00)
--- NOTE | 2016-12-29 04:56 | DS ---
CC: Dr. Lowry; Dr. Mcgowan DISCHARGE SUMMARY: DATE OF ADMISSION: DATE OF DISCHARGE: 12/28/16 HISTORY OF PRESENT ILLNESS: This 61-year-old came to the emergency room complaining he was too weak to get out of bed at 2 in the morning. He called 911. He is followed by Dr. Mcgowan for movement dis order. He has some Parkinsonian's features from his psychotropic medications that he has taken for many years, but some of his movement disorder is not really explained. The patient has frequent falls at home. He had abrasions on both knees, very superficial, but fresh . He said he was dizzy at times. The patient also said he had trouble swallowing. The patient had a swallow evaluation and the swallowing eval showed he tolerated thin liquids and re gular solids without any difficulty. He also had a physical therapy evaluation. He had decreased b alance on mobility from baseline. He may benefit from PT. He walked with a straight cane. Home an d/or outpatient PT was recommended. The morning of discharge, the patient said he felt better and w as very anxious to go home. He seemed to have a more positive affect. In the hospital, I stopped his thiazide and cut his lisinopril from 20 to 5 mg daily based on the fa ct that his blood pressure was 93/57 during the night, it was 132/81 at 11 in the morning after rece iving his 5 mg lisinopril dose. His Latuda was also stopped. There was some concern that some of h is new medications may have made him more confused. DISCHARGE DIAGNOSES: 1. Frequent falls. 2. Dizziness. 3. Diabetes. 4. Bipolar disorder. 5. Swallowing disorder, resolved. DISCHARGE MEDICATIONS: 1. Lisinopril 5 mg daily. 2. Ropinirole 0.25 mg daily. 3. Saline nasal spay 1 spray both nares every 4 hours p.r.n. 4. Levothyroxine 100 mcg daily. 5. Divalproex 1500 mg at bedtime. 6. Atorvastatin 40 mg daily. 7. Tiagabine 4 mg h.s. 8. Folic acid 1 mg daily. 9. Promethazine 25 mg every 6 hours p.r.n. 10. Ropinirole 0.5 mg daily. 11. Carbidopa/L-dopa 25/100 one and a half tablets t.i.d. 12. Invokana 100 mg daily. 13. Melatonin 5 mg h.s. p.r.n. 14. Quetiapine 200 mg h.s. 15. Aspirin 81 mg daily. [id number]/[facility] #: [id number]
== END 2016-12-28 13:03 | disposition home or self-care (01) ==
LOC: ED 03:54 → MEDTELE 07:51
PROVIDERS: ADMIT Internal Medicine; ATTEND Internal Medicine
DX: R53.1 Weakness (principal); Z91.81 History of falling; R42 Dizziness and giddiness; E11.9 Type 2 diabetes mellitus without complications; F31.9 Bipolar disorder, unspecified; R13.19 Other dysphagia; K21.9 Gastro-esophageal reflux disease without esophagitis; E03.9 Hypothyroidism, unspecified; I45.10 Unspecified right bundle-branch block; Z79.899 Other long term (current) drug therapy; Z79.82 Long term (current) use of aspirin; Z79.84 Long term (current) use of oral hypoglycemic drugs; F17.210 Nicotine dependence, cigarettes, uncomplicated; R55 Syncope and collapse
CPT/HCPCS: 36415; 71010; 80053; 81003; 82550; 83605; 83880; 84443; 84484; 85025; 85379; 85610; 85730; 87040; 93005; 96360; 96361; 99284; A9270-GY; G0378; G8978-GP-CI; G8979-GP-CH; G8980-GP-CI; G8996-GN-CH; G8997-GN-CH; G8998-GN-CH

== ENCOUNTER 2016-12-29 07:10 | Inpatient (IN) | payer MEDICARE, OTHER ==
[2016-12-29] MEDS: Carbidopa/Levodop 25/100 MG TAB(*) PO SCH ×3 (10:33→21:07)
[2016-12-29] MEDS: Ropinirole TAB* 0.5 MG TAB PO SCH ×2 (10:34→10:35)
[2016-12-29] MEDS: Atorvastatin* 40 MG TAB PO SCH (10:35)
[2016-12-29] MEDS: Levothyroxine TAB* 75 MCG TAB PO SCH (10:35)
[2016-12-29] MEDS: Folic Acid TAB* 1 MG PO SCH (10:36)
[2016-12-29] MEDS: Aspirin EC Low Dose* 81 MG TAB.EC PO SCH (10:36)
[2016-12-29] MEDS: Enoxaparin(*) 40 MG/0.4 ML SYR SUBCUT SCH (10:37)
--- NOTE | 2016-12-29 10:49 | ED ---
Eve Farias Edward, scribed for Porfirio Agee MD on 12/29/16 at 0717 . Neurological HPI - HPI Summary HPI Summary: 61 y/o male presents to the ED s/p sudden onset fall out of bed this morning (1x ). Pt reports epistaxis and abrasions on his forehead and bilateral knees s/p fall. The sx are not alleviated or aggravated by anything. Associated sx: resting tremor - chronic. Pt was seen in the hospital yesterday for similar symptoms by Dr. Brice. Denies neck pain. Pt accompanied by his father in the ED. - History of Current Complaint Stated Complaint: WEAKNESS, FALL OUT OF BED Hx Obtained From: Patient Onset/Duration: Sudden Onset, Started minutes ago - This morning Number of Episodes: 1 Frequency: Episodes x___ - 1 Aggravating: Nothing Alleviating: Nothing Associated Signs and Symptoms: Positive: Trauma: Recent - Fall out of bed, Epistaxis - 1x s/p fall. With abrasions on forehead and knees. Negative: Neck Pain/Stiffness - Additional Pertinent History Primary Care Physician: VITALY - Allergy/Home Medications Allergies/Adverse Reactions: Allergies Allergy/AdvReac Type Severity Reaction Status Date / Time Ampicillin Allergy Unknown Rash And Verified 12/27/16 07:18 Itching Propranolol [From Inderal] Allergy Unknown Rash And Verified 12/27/16 07:18 Itching PMH/Surg Hx/FS Hx/Imm Hx Previously Healthy: No Endocrine/Hematology History: Reports: Hx Diabetes, Hx Thyroid Disease - hypothyroid medicated with synthroid 75 mcg Cardiovascular History: Reports: Hx Hypercholesterolemia, Hx Hypertension, Other Cardiovascular Problems/Disorders - CAD, IDDM II, HIGH CHOLESTEROL Denies: Hx Angina, Hx Coronary Artery Disease, Hx Myocardial Infarction, Hx Valvular Heart Disease Respiratory History: Reports: Hx Asthma, Hx Sleep Apnea Denies: Hx Chronic Obstructive Pulmonary Disease (COPD) GI History: Reports: Hx Gastroesophageal Reflux Disease Musculoskeletal History: Denies: Hx Arthritis, Hx Osteoporosis Sensory History: Denies: Hx Contacts or Glasses, Hx Hearing Aid Opthamlomology History: Denies: Hx Contacts or Glasses Neurological History: Reports: Other Neuro Impairments/Disorders - parkinson's Psychiatric History: Reports: Hx Anxiety, Hx Depression, Hx Inpatient Treatment - multiple in [place], [place], Hx Bipolar Disorder Denies: Hx Eating Disorder, Hx of Violent Episodes Against Others - Surgical History Surgery Procedure, Year, and Place: tonsillectomy, hyiod suspension Hx Anesthesia Reactions: No - Immunization History Date of Tetanus Vaccine: unknown Date of Influenza Vaccine: unknown - Family History Known Family History: Positive: Hypertension, Other - Positive bipolar and schizophrenia - Social History Alcohol Use: None Alcohol Amount: 1beer/1 drink daily for a long time Hx Substance Use: No Substance Use Type: Reports: None Substance Use Comment - Amount & Last Used: uses 1-2 drinks of alcohol daily and several bowls of marijuana daily. Hx Tobacco Use: Yes Smoking Status (MU): Light Every Day Tobacco Smoker Type: Cigarettes Have You Smoked in the Last Year: Yes Review of Systems Constitutional: Negative Eyes: Negative Positive: Epistaxis - s/p fall Cardiovascular: Negative Respiratory: Negative Gastrointestinal: Negative Genitourinary: Negative Musculoskeletal: Negative Skin: Other - Abrasions on forehead and bilateral knees Neurological: Other - Resting tremor Psychological: Normal All Other Systems Reviewed And Are Negative: Yes Physical Exam Triage Information Reviewed: Yes Vital Signs On Initial Exam: Initial Vitals Temp Pulse Resp BP Pulse Ox 98.5 F 93 20 148/81 94 12/29/16 07:19 12/29/16 07:19 12/29/16 07:19 12/29/16 07:19 12/29/16 07:19 Vital Signs Reviewed: Yes Appearance: Positive: Well-Appearing, No Pain Distress Skin: Positive: Warm, Skin Color Reflects Adequate Perfusion, Dry, Other - Abrasions on forehead and bilateral knees of varying ages Head/Face: Positive: Normal Head/Face Inspection Eyes: Positive: Normal ENT: Positive: Normal ENT inspection Neck: Positive: Supple, Nontender Respiratory/Lung Sounds: Positive: Clear to Auscultation, Breath Sounds Present Cardiovascular: Positive: RRR Abdomen Description: Positive: Nontender, Soft Bowel Sounds: Positive: Present Musculoskeletal: Positive: Edema Left - Mild peripheral edema of the ankles, Edema Right - Mild peripheral edema of the ankles Neurological: Positive: Other - Resting tremor Psychiatric: Positive: Normal, Affect/Mood Appropriate Diagnostics - Vital Signs Vital Signs Temp Pulse Resp BP Pulse Ox 12/29/16 09:30 99.3 F 99 18 156/76 99 12/29/16 09:27 98.5 F 87 18 151/93 12/29/16 08:00 87 151/93 97 12/29/16 07:30 91 130/88 93 12/29/16 07:27 98.5 F 93 20 148/81 94 12/29/16 07:26 94 94 12/29/16 07:25 148/81 12/29/16 07:19 98.5 F 93 20 148/81 94 - Laboratory Lab Results: Lab Results 12/29/16 Range/Units 10:09 POC Glucose (mg/dL) 110 H (70-100) mg/dL Lab Statement: Any lab studies that have been ordered have been reviewed, and results considered in the medical decision making process. Course/Dx - Course Course Of Treatment: Mr. Flower just went home yesterday and then was unable to get out of bed safetly this AM. He fell again sustaining some mild abrasions. He is being admitted back to the hospitalist. - Diagnoses Provider Diagnoses: Weakness - Physician Notifications Discussed Care Of Patient With: Jhonatan Brice Time Discussed With Above Provider: 19:25 Instructed by Provider To: Admit As Inpatient Discharge - Discharge Plan Condition: Stable Disposition: ADMITTED TO [facility] Referrals: Collin Lowry MD [Primary Care Provider] - The documentation as recorded by the Eve bean Edward accurately reflects the service I personally performed and the decisions made by me, Porfirio Agee MD.
[2016-12-29] MEDS ORDERED: Ibuprofen TAB* 600 MG ONE (14:32)
[2016-12-29] MEDS: Ibuprofen TAB* 600 MG PO PRN ×2 (14:33→21:06)
--- NOTE | 2016-12-29 16:01 | ADMNOTE ---
Subjective Date of Service: 12/29/16 Interval History: ADMISSION HISTORY AND PHYSICAL EXAM: Allergies Allergy/AdvReac Type Severity Reaction Status Date / Time Ampicillin Allergy Unknown Rash And Verified 12/27/16 07:18 Itching Propranolol [From Inderal] Allergy Unknown Rash And Verified 12/27/16 07:18 Itching Home Medications Medication Instructions Recorded Confirmed Type Atorvastatin* [Lipitor 40 MG*] 40 mg PO DAILY 01/12/15 12/29/16 History Divalproex Sodium [Depakote] 1,500 mg PO BEDTIME 01/12/15 12/29/16 History Levothyroxine TAB* [Synthroid 75 100 mcg PO DAILY 01/12/15 12/29/16 History MCG TAB*] Folic Acid TAB* [Folvite TAB*] 1 mg PO DAILY 03/01/15 12/29/16 History tiaGABine TAB(*) [Gabitril 2 MG*] 4 mg PO BEDTIME 03/01/15 12/29/16 History Canagliflozin (NF) [Invokana (NF)] 100 mg PO DAILY 12/03/16 12/29/16 History Carbidopa/Levodop 25/100 MG(*) 1.5 tab PO TID 12/03/16 12/29/16 History [Sinemet 25/100 TAB(*)] Melatonin 5 mg PO BEDTIME PRN 12/03/16 12/29/16 History Promethazine TAB* [Phenergan Tab*] 25 mg PO Q6H PRN 12/03/16 12/29/16 History QUEtiapine TAB* [Seroquel TAB*] 200 mg PO BEDTIME 12/03/16 12/29/16 History rOPINIRole TAB* [Requip TAB*] 0.5 mg PO DAILY 12/03/16 12/29/16 History Aspirin EC Low Dose* [Ecotrin EC 81 mg PO DAILY #30 tab.ec 12/04/16 12/29/16 Rx Low Dose 81 MG*] Lisinopril TAB* [Prinivil TAB 5 5 mg PO DAILY #30 tab 12/28/16 12/29/16 Rx MG*] Ropinirole TAB* [Requip TAB*] 0.25 mg PO DAILY tab 12/28/16 12/29/16 Rx Saline NASAL SPRAY 0.65%* [Sodium 1 spray BOTH NARES Q4H PRN #0 btl 12/28/16 Rx Chloride 0.65% Nasal [place]*] HPI: Patient called 911 when he fell at home and could not get up. C/O L shoulder pain. Review of Systems - Measurements Intake and Output: Intake and Output Last 24 Hours 12/27/16 12/28/16 12/29/16 12/30/16 06:59 06:59 06:59 06:59 Intake Total 120 Balance 120 Weight 260 lb Intake: Oral 120 Other: Estimated Void Medium # Bowel Movements 0 # Voids 1 - Review of Systems Constitutional Symptoms: Negative: Weight Gain, Weight Loss, Weakness, Fatigue, Fever, Night Sweats, Unexplained Falls, Other Dermatology: Positive: Normal HEENT: Positive: Normal Eyes: Positive: Normal Thyroid: Positive: Normal Pulmonary: Positive: Normal Cardiology: Positive: Normal Gastroenterology: Positive: Normal Genital - Urinary: Positive: Normal Musculoskeletal: Positive: Joint Pain - L shoulder Endocrinology: Positive: Normal Hematologic/Lymphatic: Negative: Anemia, Easy Brusing, Hx Leukemia, Hx Lymphoma, Use of Anticoagulant, Use of Antiplatelet Drugs, Other Neurology: Positive: Other - movement disorder Psychiatry: Positive: Other - bipolar Allergic/Immunologic: Negative: Hx Anaphylaxis, Hx Angioedema, Hx Environmental, Hx Seasonal, Athsma, Hx HIV, Immunocompromise, Swollen Glands LymphNodes, Other Objective Active Medications: Aspirin (Aspirin Ec Low Dose*) 81 mg PO DAILY [facility] Last Admin: 12/29/16 10:36 Dose: 81 mg Atorvastatin Calcium (Lipitor*) 40 mg PO DAILY [facility] Last Admin: 12/29/16 10:35 Dose: 40 mg Carbidopa/Levodopa (Sinemet 25/100 Tab(*)) 1.5 tab PO TID [facility] Last Admin: 12/29/16 13:11 Dose: 1.5 tab Divalproex Sodium (Depakote Dr Tab(*)) 1,500 mg PO BEDTIME [facility] Enoxaparin Sodium (Lovenox(*)) 40 mg SUBCUT Q24H [facility] Last Admin: 12/29/16 10:37 Dose: 40 mg Folic Acid (Folvite Tab*) 1 mg PO DAILY [facility] Last Admin: 12/29/16 10:36 Dose: 1 mg Ibuprofen (Motrin Tab*) 600 mg PO Q6H PRN PRN Reason: PAIN Last Admin: 12/29/16 14:33 Dose: 600 mg Levothyroxine Sodium (Synthroid Tab*) 100 mcg PO DAILY@0600 [facility] Last Admin: 12/29/16 10:35 Dose: 100 mcg Promethazine HCl (Phenergan Tab*) 25 mg PO Q6H PRN PRN Reason: NAUSEA Quetiapine Fumarate (Seroquel Tab*) 200 mg PO BEDTIME [facility] Ropinirole HCl (Requip Tab*) 0.25 mg PO DAILY [facility] Last Admin: 12/29/16 10:34 Dose: 0.25 mg Ropinirole HCl (Requip Tab*) 0.5 mg PO DAILY [facility] Last Admin: 12/29/16 10:35 Dose: 0.5 mg Sodium Chloride (Sodium Chloride 0.65% Nasal [place]*) 1 spray BOTH NARES Q4H PRN PRN Reason: CONGESTION Tiagabine HCl (Gabitril*) 4 mg PO BEDTIME [facility] Vital Signs 12/29/16 12/29/16 09:27 09:30 Temperature 98.5 F 99.3 F Pulse Rate 87 99 Respiratory 18 18 Rate Blood Pressure 151/93 156/76 (mmHg) O2 Sat by Pulse 99 Oximetry Oxygen Devices in Use Now: None Appearance: Alert, in a chair. Looks apprehensive. Ears/Nose/Mouth/Throat: Clear Oropharnyx, Mucous Membranes Moist Neck: NL Appearance and Movements; NL JVP, No Thyroid Enlargement, Masses Respiratory: Symmetrical Chest Expansion and Respiratory Effort, Clear to Auscultation, Clear to Percussion Cardiovascular: NL Sounds; No Murmurs; No JVD, RRR, No Edema, - Abdominal: NL Sounds; No Tenderness; No Distention, No Hepatosplenomegaly, - Extremities: No Edema, No Clubbing, Cyanosis, - Skin: No Nodules or Sclerosis, - - abrasions both knees. Red area R forehead nuchanged from 2 days ago. Neurological: Alert and Oriented x 3, NL Sensation, - - violent large tremor L arm, stops when he concentrates on something else. Additional Lab and Data: Lab Results 12/29/16 Range/Units 10:09 POC Glucose (mg/dL) 110 H (70-100) mg/dL Assess/Plan/Problems-Billing Assessment: - Patient Problems (1) Bipolar 1 disorder Current Visit: No Status: Acute Code(s): F31.9 - BIPOLAR DISORDER, UNSPECIFIED SNOMED Code(s): 906796378 Comment: Continue home psych meds. Psych consult requested. (2) Frequent falls Current Visit: No Status: Acute Code(s): R29.6 - REPEATED FALLS SNOMED Code(s): 151510439 Comment: PT eval requested. Needs outpt fup with PCP, ? neurologist. MARCUS muse. (3) Hypothyroid Current Visit: No Status: Acute Code(s): E03.9 - HYPOTHYROIDISM, UNSPECIFIED SNOMED Code(s): 65827096 Comment: Continue levothyroxine. TSH wnl 12/27/16. (4) Diabetes Current Visit: No Status: Acute Code(s): E11.9 - TYPE 2 DIABETES MELLITUS WITHOUT COMPLICATIONS SNOMED Code(s): 92012221 Comment: FS glucose qid-hs with parameters. Home DM med not available.
--- NOTE | 2016-12-29 17:14 | RAD ---
Indication: Left shoulder pain after fall. 3 views of left shoulder are reviewed. AC joint arthritis is noted. Cortical irregularity is noted at the humeral head of uncertain etiology. This may represent degenerative changes although an impaction fracture of the humeral head is not totally excluded. The study is limited due to body habitus. IMPRESSION: Cortical irregularity humeral head at the glenohumeral articulation which may represent degenerative changes although a small impaction fracture is not totally excluded.
[2016-12-29] MEDS: TIAGABINE PO SCH (21:05)
[2016-12-29] MEDS: Divalproex DR TAB(*) 500 MG PO SCH (21:05)
[2016-12-29] MEDS: QUEtiapine TAB* 100 MG PO SCH (21:06)
[2016-12-30] MEDS: Ibuprofen TAB* 600 MG PO PRN ×3 (03:32→19:35)
[2016-12-30] MEDS: Levothyroxine TAB* 75 MCG TAB PO SCH (05:35)
[2016-12-30] MEDS ORDERED: Acetaminophen TAB* 325 MG ONE (07:55)
[2016-12-30] MEDS ORDERED: oxyCODONE TAB* 5 MG TAB ONE (07:56)
[2016-12-30] MEDS: oxyCODONE TAB* 5 MG TAB PO PRN ×4 (07:59→21:29)
[2016-12-30] MEDS: Aspirin EC Low Dose* 81 MG TAB.EC PO SCH (08:00)
[2016-12-30] MEDS: Acetaminophen TAB* 325 MG PO SCH ×4 (08:01→21:22)
[2016-12-30] MEDS: Atorvastatin* 40 MG TAB PO SCH (08:02)
[2016-12-30] MEDS: Carbidopa/Levodop 25/100 MG TAB(*) PO SCH ×4 (08:03→21:23)
[2016-12-30] MEDS: Enoxaparin(*) 40 MG/0.4 ML SYR SUBCUT SCH (08:04)
[2016-12-30] MEDS: Ropinirole TAB* 0.5 MG TAB PO SCH ×2 (08:05)
[2016-12-30] MEDS: Folic Acid TAB* 1 MG PO SCH (08:05)
[2016-12-30] MEDS ORDERED: Pneumococcal *Vac Polyvalent 0.5 ML VIAL IM ONE (09:00)
[2016-12-30] MEDS ORDERED: Influenza VAC *QUAD* 2017-18* 0.5 ML SYRINGE IM ONE (09:00)
[2016-12-30] MEDS ORDERED: Magnesium Hydroxide LIQ* 30 ML UDC PO ONE (10:36)
--- NOTE | 2016-12-30 10:45 | PN ---
Subjective Date of Service: 12/30/16 Interval History: C/O abdominal pain. He states his last BM was 2 days ago. No other new c/o. Objective Active Medications: Acetaminophen (Tylenol Tab*) 650 mg PO QID [facility] Last Admin: 12/30/16 08:01 Dose: 650 mg Aspirin (Aspirin Ec Low Dose*) 81 mg PO DAILY [facility] Last Admin: 12/30/16 08:00 Dose: 81 mg Atorvastatin Calcium (Lipitor*) 40 mg PO DAILY [facility] Last Admin: 12/30/16 08:02 Dose: 40 mg Carbidopa/Levodopa (Sinemet 25/100 Tab(*)) 1.5 tab PO TID [facility] Last Admin: 12/30/16 08:03 Dose: 1.5 tab Divalproex Sodium (Depakote Dr Tab(*)) 1,500 mg PO BEDTIME [facility] Last Admin: 12/29/16 21:05 Dose: 1,500 mg Enoxaparin Sodium (Lovenox(*)) 40 mg SUBCUT Q24H [facility] Last Admin: 12/30/16 08:04 Dose: 40 mg Folic Acid (Folvite Tab*) 1 mg PO DAILY [facility] Last Admin: 12/30/16 08:05 Dose: 1 mg Ibuprofen (Motrin Tab*) 600 mg PO Q6H PRN PRN Reason: PAIN Last Admin: 12/30/16 07:37 Dose: 600 mg Levothyroxine Sodium (Synthroid Tab*) 100 mcg PO DAILY@0600 [facility] Last Admin: 12/30/16 05:35 Dose: 100 mcg Magnesium Hydroxide (Milk Of Magnesia Liq*) 60 ml PO ONCE ONE Stop: 12/30/16 10:37 Oxycodone HCl (Roxycodone Tab*) 5 mg PO Q4H PRN PRN Reason: PAIN Last Admin: 12/30/16 07:59 Dose: 5 mg Polyethylene Glycol/Electrolytes (Miralax*) 17 gm PO 0800,2100 [facility] Promethazine HCl (Phenergan Tab*) 25 mg PO Q6H PRN PRN Reason: NAUSEA Quetiapine Fumarate (Seroquel Tab*) 200 mg PO BEDTIME [facility] Last Admin: 12/29/16 21:06 Dose: 200 mg Ropinirole HCl (Requip Tab*) 0.25 mg PO DAILY [facility] Last Admin: 12/30/16 08:05 Dose: 0.25 mg Ropinirole HCl (Requip Tab*) 0.5 mg PO DAILY [facility] Last Admin: 12/30/16 08:05 Dose: 0.5 mg Sodium Chloride (Sodium Chloride 0.65% Nasal [place]*) 1 spray BOTH NARES Q4H PRN PRN Reason: CONGESTION Tiagabine HCl (Gabitril*) 4 mg PO BEDTIME [facility] Last Admin: 12/29/16 21:05 Dose: 4 mg Vital Signs 12/29/16 12/29/16 12/29/16 11:47 16:04 19:13 Temperature 97.9 F 97.8 F 97.5 F Pulse Rate 101 122 146 Respiratory 20 20 Rate Blood Pressure 119/97 130/96 123/87 (mmHg) O2 Sat by Pulse 97 100 95 Oximetry 12/29/16 12/30/16 12/30/16 23:35 03:57 07:38 Temperature 98.2 F 97.8 F 97.5 F Pulse Rate 71 74 76 Respiratory 16 16 14 Rate Blood Pressure 106/52 149/71 166/125 (mmHg) O2 Sat by Pulse 97 94 99 Oximetry 12/30/16 12/30/16 12/30/16 07:40 07:59 08:13 Temperature Pulse Rate 71 Respiratory 16 16 Rate Blood Pressure 121/88 (mmHg) O2 Sat by Pulse Oximetry 12/30/16 09:59 Temperature Pulse Rate Respiratory 16 Rate Blood Pressure (mmHg) O2 Sat by Pulse Oximetry Oxygen Devices in Use Now: None Appearance: Alert, supine and partly on his L side in bed. Neutral affect. Looks comfortable. Eyes: No Scleral Icterus Neck: NL Appearance and Movements; NL JVP, No Thyroid Enlargement, Masses Cardiovascular: NL Sounds; No Murmurs; No JVD, RRR, No Edema, - Extremities: No Edema, No Clubbing, Cyanosis, - Skin: No Nodules or Sclerosis, - - Red area R forehead unchanged. Both knees bandaged. Neurological: Alert and Oriented x 3, NL Sensation, - - Gross tremors of LUE start when he notices me in the room. Additional Lab and Data: Lab Results 12/29/16 Range/Units 10:09 POC Glucose (mg/dL) 110 H (70-100) mg/dL Assess/Plan/Problems-Billing Assessment: - Patient Problems (1) Bipolar 1 disorder Current Visit: No Status: Acute Code(s): F31.9 - BIPOLAR DISORDER, UNSPECIFIED SNOMED Code(s): 254401821 Comment: Continue home psych meds. Psych consult requested. (2) Frequent falls Current Visit: No Status: Acute Code(s): R29.6 - REPEATED FALLS SNOMED Code(s): 555319662 Comment: PT eval requested. Needs outpt fup with PCP, ? neurologist. MARCUS muse. (3) Hypothyroid Current Visit: No Status: Acute Code(s): E03.9 - HYPOTHYROIDISM, UNSPECIFIED SNOMED Code(s): 45962972 Comment: Continue levothyroxine. TSH wnl 12/27/16. (4) Diabetes Current Visit: No Status: Acute Code(s): E11.9 - TYPE 2 DIABETES MELLITUS WITHOUT COMPLICATIONS SNOMED Code(s): 17657192 Comment: FS glucose qid-hs with parameters. Home DM med not available. (5) NIRANJAN (acute kidney injury) Current Visit: Yes Status: Acute Code(s): N17.9 - ACUTE KIDNEY FAILURE, UNSPECIFIED SNOMED Code(s): 80267021 Comment: Repeat BMP 12/31. (6) Left humeral fracture Current Visit: Yes Status: Acute Code(s): S42.302A - UNSP FRACTURE OF SHAFT OF HUMERUS, LEFT ARM, INIT SNOMED Code(s): 25425919 Comment: Small cortical irregularity may or may not be an impacted fx. Discussed with Dr. Yarbrough. Activity as tolerated, fup with orthopedist as outpt.
[2016-12-30] MEDS: Promethazine TAB* 25 MG PO PRN ×2 (13:16→19:35)
[2016-12-30] MEDS ORDERED: Polyethylene Glycol 3350* 17 GM PACKET ONE (14:30)
--- NOTE | 2016-12-30 15:58 | CONS ---
PSYCHIATRIC CONSULTATION: DATE OF CONSULT/DICTATION: 12/30/16 ATTENDING PHYSICIAN: Yeyo Brice MD. 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 SUBJECTIVE HISTORY: Mr. Flower is a 61-year-old white male with a history of bipolar disorder as well as alcohol and cannabis use disorders, who is currently admitted to the medical service secondary to several recent falls, who Psychiatry is asked to see due to questions as to whether his psychotropic medications are contributing to his unsteadiness and tendency to fall. The patient was initially admitted for falls on the of this month, discharged a day later on the , only to return soon thereafter following another fall in his home. The patient states that he lives alone in an apartment here in [place] and has very little support. I noticed as I entered the room that he is tremulous with purposeless movements in his upper extremities, in particular a flapping tremor to his left upper extremity. The patient indicates that this started only approximately 6 months ago. Around that time he saw a neurologist , Dr. Mcgowan, who stopped his Abilify. Unfortunately, this did not improve. When I ask him about his mood functioning, he states that he is fine and has not had a mood episode in over 2 years. With that being said, he has undergone several recent med changes mostly due to concerns over his movement disorder. The patient denies suicidal or homicidal ideations at this time. He denies recent abuse of drugs or alcohol; however, I do not see any toxicology studies from his 2 recent visits. He denies any need for psychiatric hospitalization. PAST PSYCHIATRIC HISTORY: The patient does have several prior psychiatric admissions. He states that he had close to 6 hospitalizations in [place], [place] prior to moving back to the [facility]. Here at [facility] he has had 3 admissions including 1 in 2009 and 2 in 2015. He states that he has been on Depakote for several years and feels like this medication is working. His valproic acid level is therapeutic at 95. Seroquel has been in his regimen for several years as well and he denies having an issue with this. For several months during early 2016 he was on Abilify, but blames this medication for causing his tremulousness. Thereafter he was started on Latuda by Miesha Roche at the [facility], but this was discontinued upon presentation to the hospital due to concerns that it may be causing parkinsonian symptoms. Prior med trials include fluoxetine, sertraline, escitalopram, citalopram, bupropion, venlafaxine, duloxetine and lithium as well as aripiprazole and lurasidone. The patient does endorse a history of suicidal ideations, but he denies any suicide attempts. For years he has been seeing Dr. Sanchez at the [facility], but since Dr. Sanchez has retired he has been seeing Miesha Roche. SUBSTANCE ABUSE HISTORY: The patient has a history of drinking roughly 5 days per week according to prior documentation, although he denies abusing alcohol or drugs recently. He did have an extensive history of cannabis abuse, but states that he has discontinued this. He also used to abuse cigarettes roughly a quarter pack per day, although he denies doing this recently. 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 He has also had an umbilical hernia repair and uvuloplasty for sleep apnea. CURRENT MEDICATIONS: Include the followin. He is taking aspirin 81 mg daily. 2. Lipitor 40 mg daily. 3. L-dopa 1.5 tablets p.o. t.i.d. 4. Depakote 1500 mg p.o. at bedtime. 5. Lovenox 40 mg subcutaneously once daily. 6. Folic acid 1 mg p.o. daily. 7. Ibuprofen 600 mg every 6 hours for pain. 8. Synthroid 100 mcg p.o. daily. 9. MiraLAX 17 g twice daily. 10. Promethazine 25 mg every 6 hours as needed for nausea. 11. Quetiapine 200 mg p.o. q.h.s. 12. Mirapex 0.75 mg daily. 13. Oxycodone 5 mg every 4 hours as needed for pain. 14. Tiagabine 4 mg p.o. q. bedtime. ALLERGIES: He is allergic to AMPICILLIN and PROPRANOLOL. FAMILY HISTORY: Both his mother and his brother of completed suicide. SOCIAL HISTORY: The patient is currently living in the [address] next door to his father. He was born in [place], but raised in [place], [place] , to an intact family, although his mother did 10 years ago apparently of suicide. He is the oldest of 3 brothers and as previously noted, one of his brothers is of suicide. The patient has been twice and twice, his last divorce was approximately 4 years ago. He does have 3 children through his second marriage, ages 23, 21 and 15, and all 3 of them live with their mother in [place], [place]. Currently, he is somewhat estranged from his family. He does state he has 2 grandkids. 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 He has no formal or legal history. He is currently and he is denying jewish or spiritual interests. MENTAL STATUS EXAM: The patient is an aging white male with a golden who is sitting upright in a chair watching football, is dressed in a patient gown and is somewhat disheveled. He makes fairly good eye contact, although at times he closes his eyes, appearing to fall asleep. Speech is somewhat garbled and difficult to understand. Mood is euthymic with a full affect. Thought process is linear, although somewhat slowed. Thought content is significant for his concern over his movement disorder. Psychomotor functioning shows that he does show tremulousness in both upper extremities with worst tremors on the left hand side. He denies suicidal or homicidal ideations. Insight and judgment are fair given his willingness to follow up with outpatient treatment. He denies auditory or visual hallucinations. Cognitively, he is awake and alert with what would appear to be an average intellect. DIAGNOSES: As follows: Juliette I: Bipolar disorder, currently euthymic. Alcohol use disorder by history and cannabis use disorder by history. Juliette II: Deferred. Juliette III: Parkinsonism, diabetes, asthma, hypothyroidism, gastroesophageal reflux disease, hypertension, chronic obstructive pulmonary disease, history of ulcers, sinusitis, history of football related traumatic brain injury, chronic back pain. Juliette IV: Severe primary support stressors. Juliette V: Currently 51. ASSESSMENT: The patient is a 61-year-old white male with a history of bipolarity as well as alcohol and cannabis abuse, which are in questionable remission, who returns for his second hospitalization in 2 days due to difficulty ambulating, unsteadiness and falling in his apartment. Psychiatry is asked to ascertain whether his psychiatric medications might be contributing to his medical status. He is only on one neuroleptic at this time, which is quetiapine, which is less likely to cause parkinsonian symptoms. I think he would benefit from a neurological consultation for this problem, but I certainly would not recommend changing his psychotropic regimen as he appears to be psychiatrically stable at this time. RECOMMENDATIONS TO PRIMARY TEAM: Recommend continuation of Depakote 1500 mg p.o. q.h.s. and Seroquel 200 mg p.o. q.h.s. Would exercise caution on the use of further neuroleptics given his obvious parkinsonian symptoms. Primary team may wish to consult the neurology service for adjustments in his L-dopa. His outpatient followup is set with Miesha Roche at [facility]. Psychiatry is grateful for the consultation. We are signing off at this time, but can be re-consulted if any acute issues arise or if there are further questions. [id number]/[facility] #: [id number] DENEEN
[2016-12-30] MEDS: Polyethylene Glycol 3350* 17 GM PACKET PO SCH ×2 (17:02→21:25)
[2016-12-30] MEDS: Saline NASAL SPRAY 0.65%* BTL BOTH NARES PRN (17:18)
[2016-12-30] MEDS: Divalproex DR TAB(*) 500 MG PO SCH (21:21)
[2016-12-30] MEDS: TIAGABINE PO SCH (21:22)
[2016-12-30] MEDS: QUEtiapine TAB* 100 MG PO SCH (21:23)
[2016-12-30] MEDS: CMCS: Melatonin (NF) 3 MG TAB PO PRN (22:22)
[2016-12-31] MEDS: Levothyroxine TAB* 75 MCG TAB PO SCH (06:16)
[2016-12-31] MEDS: oxyCODONE TAB* 5 MG TAB PO PRN ×4 (06:18→19:43)
[2016-12-31 06:33] LABS: Hematocrit 38 % (42-52); Hemoglobin 12.7 g/dl (14.0-18.0); Mean Corpuscular HGB Conc 33 g/dl (31-36); Mean Corpuscular Hemoglobin 32 pg (27-31); Mean Corpuscular Volume 95 fL (80-94); Mean Platelet Volume 8 um3 (7.4-10.4); Red Blood Count 3.99 10^6/ul (4.0-5.4); Red Cell Distribution Width 15 % (10.5-15); White Blood Count 8.6 10^3/ul (3.5-10.8)
[2016-12-31 06:49] LABS: BUN/Creatinine Ratio 18.3 (8-20); Calcium 8.8 mg/dL (8.6-10.3); EGFR African American 88.7 (>60); Potassium 3.6 mmol/L (3.5-5.0)
[2016-12-31] MEDS: Promethazine TAB* 25 MG PO PRN ×2 (08:55→17:53)
--- NOTE | 2016-12-31 09:13 | PN ---
Subjective Date of Service: 12/31/16 Interval History: No new c/o, seems content. Objective Active Medications: Acetaminophen (Tylenol Tab*) 650 mg PO QID [facility] Last Admin: 12/30/16 21:22 Dose: 650 mg Aspirin (Aspirin Ec Low Dose*) 81 mg PO DAILY [facility] Last Admin: 12/30/16 08:00 Dose: 81 mg Atorvastatin Calcium (Lipitor*) 40 mg PO DAILY [facility] Last Admin: 12/30/16 08:02 Dose: 40 mg Canagliflozin (Invokana (Nf)) 100 mg PO DAILY [facility] Carbidopa/Levodopa (Sinemet 25/100 Tab(*)) 1.5 tab PO TID [facility] Last Admin: 12/30/16 21:23 Dose: 1.5 tab Divalproex Sodium (Depakote Dr Tab(*)) 1,500 mg PO BEDTIME [facility] Last Admin: 12/30/16 21:21 Dose: 1,500 mg Enoxaparin Sodium (Lovenox(*)) 40 mg SUBCUT Q24H [facility] Last Admin: 12/30/16 08:04 Dose: 40 mg Folic Acid (Folvite Tab*) 1 mg PO DAILY [facility] Last Admin: 12/30/16 08:05 Dose: 1 mg Ibuprofen (Motrin Tab*) 600 mg PO Q6H PRN PRN Reason: PAIN Last Admin: 12/30/16 19:35 Dose: 600 mg Levothyroxine Sodium (Synthroid Tab*) 100 mcg PO DAILY@0600 [facility] Last Admin: 12/31/16 06:16 Dose: 100 mcg Melatonin (Melatonin (Nf)) 3 mg PO BEDTIME PRN PRN Reason: INSOMNIA Last Admin: 12/30/16 22:22 Dose: 3 mg Oxycodone HCl (Roxycodone Tab*) 5 mg PO Q4H PRN PRN Reason: PAIN Last Admin: 12/31/16 06:18 Dose: 5 mg Polyethylene Glycol/Electrolytes (Miralax*) 17 gm PO 0800,2100 [facility] Last Admin: 12/30/16 21:25 Dose: Not Given Promethazine HCl (Phenergan Tab*) 25 mg PO Q6H PRN PRN Reason: NAUSEA Last Admin: 12/31/16 08:55 Dose: 25 mg Quetiapine Fumarate (Seroquel Tab*) 200 mg PO BEDTIME [facility] Last Admin: 12/30/16 21:23 Dose: 200 mg Ropinirole HCl (Requip Tab*) 0.25 mg PO DAILY [facility] Last Admin: 12/30/16 08:05 Dose: 0.25 mg Ropinirole HCl (Requip Tab*) 0.5 mg PO DAILY [facility] Last Admin: 12/30/16 08:05 Dose: 0.5 mg Sodium Chloride (Sodium Chloride 0.65% Nasal [place]*) 1 spray BOTH NARES Q4H PRN PRN Reason: CONGESTION Last Admin: 12/30/16 17:18 Dose: 1 spray Tiagabine HCl (Gabitril*) 4 mg PO BEDTIME [facility] Last Admin: 12/30/16 21:22 Dose: 4 mg Vital Signs 12/30/16 12/30/16 12/30/16 09:59 11:28 12:00 Temperature 97.6 F Pulse Rate 73 Respiratory 16 14 18 Rate Blood Pressure 146/79 (mmHg) O2 Sat by Pulse 96 Oximetry 12/30/16 12/30/16 12/30/16 14:00 17:02 18:57 Temperature 98.0 F Pulse Rate 64 Respiratory 16 16 20 Rate Blood Pressure 135/66 (mmHg) O2 Sat by Pulse 91 Oximetry 12/30/16 12/30/16 12/30/16 19:02 21:29 23:22 Temperature 98.1 F Pulse Rate 64 Respiratory 16 16 18 Rate Blood Pressure 153/83 (mmHg) O2 Sat by Pulse 92 Oximetry 12/30/16 12/31/16 12/31/16 23:29 03:36 06:18 Temperature Pulse Rate 63 Respiratory 18 15 16 Rate Blood Pressure 113/54 (mmHg) O2 Sat by Pulse 95 Oximetry 12/31/16 07:57 Temperature 97.5 F Pulse Rate 62 Respiratory 13 Rate Blood Pressure 128/63 (mmHg) O2 Sat by Pulse 96 Oximetry Oxygen Devices in Use Now: None Appearance: Alert, in a chair. In good spirits. Looks comfortable. Eyes: No Scleral Icterus Neurological: Alert and Oriented x 3, NL Sensation, - Result Diagrams: 12/31/16 06:18 12/31/16 06:19 Additional Lab and Data: Lab Results 12/29/16 Range/Units 10:09 POC Glucose (mg/dL) 110 H (70-100) mg/dL Assess/Plan/Problems-Billing Assessment: - Patient Problems (1) Bipolar 1 disorder Current Visit: No Status: Acute Code(s): F31.9 - BIPOLAR DISORDER, UNSPECIFIED SNOMED Code(s): 163943446 Comment: Continue home psych meds. Psych consult requested. (2) Frequent falls Current Visit: No Status: Acute Code(s): R29.6 - REPEATED FALLS SNOMED Code(s): 538576878 Comment: PT eval requested. Needs outpt fup with PCP, ? neurologist. SW eval. (3) Hypothyroid Current Visit: No Status: Acute Code(s): E03.9 - HYPOTHYROIDISM, UNSPECIFIED SNOMED Code(s): 09258009 Comment: Continue levothyroxine. TSH wnl 12/27/16. (4) Diabetes Current Visit: No Status: Acute Code(s): E11.9 - TYPE 2 DIABETES MELLITUS WITHOUT COMPLICATIONS SNOMED Code(s): 02794447 Comment: FS glucose qid-hs with parameters. Home DM med not available. (5) NIRANJAN (acute kidney injury) Current Visit: Yes Status: Acute Code(s): N17.9 - ACUTE KIDNEY FAILURE, UNSPECIFIED SNOMED Code(s): 70292059 Comment: Repeat BMP 12/31. (6) Left humeral fracture Current Visit: Yes Status: Acute Code(s): S42.302A - UNSP FRACTURE OF SHAFT OF HUMERUS, LEFT ARM, INIT SNOMED Code(s): 63189779 Comment: Small cortical irregularity may or may not be an impacted fx. Discussed with Dr. Yarbrough. Activity as tolerated, fup with orthopedist as outpt.
[2016-12-31] MEDS: Saline NASAL SPRAY 0.65%* BTL BOTH NARES PRN ×2 (09:42→21:17)
[2016-12-31] MEDS: Acetaminophen TAB* 325 MG PO SCH ×4 (09:43→21:14)
[2016-12-31] MEDS: Aspirin EC Low Dose* 81 MG TAB.EC PO SCH (09:43)
[2016-12-31] MEDS: Atorvastatin* 40 MG TAB PO SCH (09:44)
[2016-12-31] MEDS: Enoxaparin(*) 40 MG/0.4 ML SYR SUBCUT SCH ×2 (09:44→09:54)
[2016-12-31] MEDS: Carbidopa/Levodop 25/100 MG TAB(*) PO SCH ×3 (09:44→21:14)
[2016-12-31] MEDS: Folic Acid TAB* 1 MG PO SCH (09:44)
[2016-12-31] MEDS: Polyethylene Glycol 3350* 17 GM PACKET PO SCH ×2 (09:45→21:40)
[2016-12-31] MEDS: Ropinirole TAB* 0.5 MG TAB PO SCH ×2 (09:45)
[2016-12-31] MEDS: PTO: Canagliflozin (NF) 100 MG TAB PO SCH (10:45)
[2016-12-31] MEDS: Divalproex DR TAB(*) 500 MG PO SCH (21:14)
[2016-12-31] MEDS: TIAGABINE PO SCH (21:15)
[2016-12-31] MEDS: QUEtiapine TAB* 100 MG PO SCH (21:15)
[2016-12-31] MEDS: CMCS: Melatonin (NF) 3 MG TAB PO PRN (21:53)
[2017-01-01] MEDS: oxyCODONE TAB* 5 MG TAB PO PRN ×3 (00:17→13:16)
[2017-01-01] MEDS: Levothyroxine TAB* 75 MCG TAB PO SCH (06:15)
[2017-01-01] MEDS: Saline NASAL SPRAY 0.65%* BTL BOTH NARES PRN ×3 (07:01→12:32)
[2017-01-01] MEDS: Ropinirole TAB* 0.5 MG TAB PO SCH ×2 (07:47→07:48)
[2017-01-01] MEDS: Polyethylene Glycol 3350* 17 GM PACKET PO SCH ×2 (07:47→20:58)
[2017-01-01] MEDS: Enoxaparin(*) 40 MG/0.4 ML SYR SUBCUT SCH (07:47)
[2017-01-01] MEDS: Carbidopa/Levodop 25/100 MG TAB(*) PO SCH ×3 (07:48→20:54)
[2017-01-01] MEDS: Atorvastatin* 40 MG TAB PO SCH (07:49)
[2017-01-01] MEDS: Aspirin EC Low Dose* 81 MG TAB.EC PO SCH (07:49)
[2017-01-01] MEDS: Acetaminophen TAB* 325 MG PO SCH ×4 (07:49→20:51)
[2017-01-01] MEDS: Folic Acid TAB* 1 MG PO SCH (07:49)
[2017-01-01] MEDS: Promethazine TAB* 25 MG PO PRN ×3 (07:50→21:00)
[2017-01-01] MEDS: PTO: Canagliflozin (NF) 100 MG TAB PO SCH (07:50)
[2017-01-01] MEDS: TIAGABINE PO SCH (20:51)
[2017-01-01] MEDS: CMCS: Melatonin (NF) 3 MG TAB PO PRN (20:51)
[2017-01-01] MEDS: QUEtiapine TAB* 100 MG PO SCH (20:52)
[2017-01-01] MEDS: Divalproex DR TAB(*) 500 MG PO SCH (20:52)
--- NOTE | 2017-01-01 20:57 | PN ---
Subjective Date of Service: 01/01/17 Interval History: Pt attests has not been able to get up out of bed without assistance since admission. Uses lowered bed at home to roll out then gets up on fours(learned "trained" at "[facility]". Does not feel safe going home yet as his weakness comes at night (likely related to psych meds). Father also does not think safe for home-going yet. Debo (CM at [facility]) denies pt had been using geodon, though does list gabapentin. Mood stable. s/p abilify depot ~ 1 month ago. Objective Active Medications: Acetaminophen (Tylenol Tab*) 650 mg PO QID [facility] Last Admin: 01/01/17 17:40 Dose: 650 mg Aspirin (Aspirin Ec Low Dose*) 81 mg PO DAILY [facility] Last Admin: 01/01/17 07:49 Dose: 81 mg Atorvastatin Calcium (Lipitor*) 40 mg PO DAILY [facility] Last Admin: 01/01/17 07:49 Dose: 40 mg Canagliflozin (Invokana (Nf)) 100 mg PO DAILY [facility] Last Admin: 01/01/17 07:50 Dose: 100 mg Carbidopa/Levodopa (Sinemet 25/100 Tab(*)) 1.5 tab PO TID [facility] Last Admin: 01/01/17 13:14 Dose: 1.5 tab Divalproex Sodium (Depakote Dr Tab(*)) 1,500 mg PO BEDTIME [facility] Last Admin: 12/31/16 21:14 Dose: 1,500 mg Enoxaparin Sodium (Lovenox(*)) 40 mg SUBCUT Q24H [facility] Last Admin: 01/01/17 07:47 Dose: 40 mg Folic Acid (Folvite Tab*) 1 mg PO DAILY [facility] Last Admin: 01/01/17 07:49 Dose: 1 mg Ibuprofen (Motrin Tab*) 600 mg PO Q6H PRN PRN Reason: PAIN Last Admin: 12/30/16 19:35 Dose: 600 mg Levothyroxine Sodium (Synthroid Tab*) 100 mcg PO DAILY@0600 [facility] Last Admin: 01/01/17 06:15 Dose: 100 mcg Melatonin (Melatonin (Nf)) 3 mg PO BEDTIME PRN PRN Reason: INSOMNIA Last Admin: 12/31/16 21:53 Dose: 3 mg Oxycodone HCl (Roxycodone Tab*) 5 mg PO Q4H PRN PRN Reason: PAIN Last Admin: 01/01/17 13:16 Dose: 5 mg Polyethylene Glycol/Electrolytes (Miralax*) 17 gm PO 0800,2100 [facility] Last Admin: 01/01/17 07:47 Dose: Not Given Promethazine HCl (Phenergan Tab*) 25 mg PO Q6H PRN PRN Reason: NAUSEA Last Admin: 01/01/17 13:16 Dose: 25 mg Quetiapine Fumarate (Seroquel Tab*) 200 mg PO BEDTIME [facility] Last Admin: 12/31/16 21:15 Dose: 200 mg Ropinirole HCl (Requip Tab*) 0.25 mg PO DAILY [facility] Last Admin: 01/01/17 07:48 Dose: 0.25 mg Ropinirole HCl (Requip Tab*) 0.5 mg PO DAILY [facility] Last Admin: 01/01/17 07:47 Dose: 0.5 mg Sodium Chloride (Sodium Chloride 0.65% Nasal [place]*) 1 spray BOTH NARES Q4H PRN PRN Reason: CONGESTION Last Admin: 01/01/17 12:32 Dose: 1 spray Tiagabine HCl (Gabitril*) 4 mg PO BEDTIME [facility] Last Admin: 12/31/16 21:15 Dose: 4 mg Vital Signs 12/31/16 12/31/16 01/01/17 21:43 23:22 00:17 Temperature 97.5 F Pulse Rate 72 Respiratory 18 20 16 Rate Blood Pressure 123/69 (mmHg) O2 Sat by Pulse 94 Oximetry 01/01/17 01/01/17 01/01/17 02:17 03:47 07:29 Temperature 97.5 F 97.3 F Pulse Rate 74 69 Respiratory 16 16 16 Rate Blood Pressure 120/66 149/72 (mmHg) O2 Sat by Pulse 97 97 Oximetry 01/01/17 01/01/17 01/01/17 07:50 08:00 09:50 Temperature Pulse Rate Respiratory 18 18 18 Rate Blood Pressure (mmHg) O2 Sat by Pulse Oximetry 01/01/17 01/01/17 01/01/17 10:57 10:58 13:16 Temperature 98.1 F 98.1 F Pulse Rate 84 84 Respiratory 18 18 18 Rate Blood Pressure 157/60 157/60 (mmHg) O2 Sat by Pulse 90 90 Oximetry 01/01/17 01/01/17 01/01/17 15:16 16:07 17:16 Temperature 97.9 F Pulse Rate 85 Respiratory 18 16 18 Rate Blood Pressure 163/87 (mmHg) O2 Sat by Pulse 94 Oximetry 01/01/17 20:04 Temperature 98.1 F Pulse Rate 91 Respiratory 16 Rate Blood Pressure 131/82 (mmHg) O2 Sat by Pulse 99 Oximetry Oxygen Devices in Use Now: None Appearance: Uncomfortable appearing. Eyes: No Scleral Icterus, PERRLA Ears/Nose/Mouth/Throat: NL Teeth, Lips, Gums, Mucous Membranes Moist Neck: NL Appearance and Movements; NL JVP Respiratory: Symmetrical Chest Expansion and Respiratory Effort, Clear to Auscultation Cardiovascular: NL Sounds; No Murmurs; No JVD, RRR Neurological: Alert and Oriented x 3, - - Intermittent resting and intention tremor much worse on left >right. FTN worse on left. No pronator drift. CNII- XII seemingly intact vs slight inability to track fully to right? Rigidity in b/ l UE. tenderness right shoulder but active ROM intact Result Diagrams: 12/31/16 06:18 12/31/16 06:19 Additional Lab and Data: Lab Results 12/29/16 Range/Units 10:09 POC Glucose (mg/dL) 110 H (70-100) mg/dL Assess/Plan/Problems-Billing Assessment: 61 year old male PMH bipolar disorder with suicidal ideation, likely drug induced tremor/dystonia 2/2 psychiatric medication presenting with worsening tremor and inability to get out of bed at night 2/2. Likely medication side effects causing secondary parkinsonism. Multiple falls. Bounceback. Able to ambulate well once standing. - Patient Problems (1) Other drug induced secondary Parkinsonism Current Visit: Yes Status: Acute Code(s): G21.19 - OTHER DRUG INDUCED SECONDARY PARKINSONISM SNOMED Code(s): 8370769 Comment: Appreciate recent Psych and Neuro recs. Suspect abilify depot (very long lasting) and other psych meds contributing to tremor, rigidity and intermittent akathisia. Will touch base with Neuro about potential benzotropine trial and possible wean off l-dopa (and then also could stop phenergan). (2) Medication side effect Current Visit: Yes Status: Acute Code(s): T88.7XXA - UNSP ADVERSE EFFECT OF DRUG OR MEDICAMENT, INIT ENCNTR SNOMED Code(s): 09374274 Comment: long half lives and severe mood disorder increase complexity and risk. Will need close outpatient follow-up with [facility]. Consider taper off l-dopa. Hold gabapentin qpm (3) Bipolar 1 disorder Current Visit: No Status: Acute Code(s): F31.9 - BIPOLAR DISORDER, UNSPECIFIED SNOMED Code(s): 475601904 Comment: continue seroquel, depakote. Appreciate pysch recs. ?Continue ropinirole, tiagabine and l-dopa for now but would like to wean off. (4) Diabetes Current Visit: No Status: Acute Code(s): E11.9 - TYPE 2 DIABETES MELLITUS WITHOUT COMPLICATIONS SNOMED Code(s): 16131044 Comment: FS glucose qid-hs with parameters. Home DM med not available. (5) Frequent falls Current Visit: No Status: Acute Code(s): R29.6 - REPEATED FALLS SNOMED Code(s): 966496516 Comment: OT eval requested. PT discharged though pt states they needed to help him get out of bed. Status and Disposition: medicine inpatient. Goal discharge 01/02 Attending: Payam Manley
[2017-01-02] MEDS ORDERED: Levothyroxine TAB* 100 MCG TAB PO SCH (06:00)
[2017-01-02 08:18] VITALS: BP 130/60
[2017-01-02] MEDS: Polyethylene Glycol 3350* 17 GM PACKET PO SCH (08:33)
[2017-01-02] MEDS: Acetaminophen TAB* 325 MG PO SCH (08:33)
[2017-01-02] MEDS: Aspirin EC Low Dose* 81 MG TAB.EC PO SCH (08:35)
[2017-01-02] MEDS: Atorvastatin* 40 MG TAB PO SCH (08:35)
[2017-01-02] MEDS: Carbidopa/Levodop 25/100 MG TAB(*) PO SCH (08:36)
[2017-01-02] MEDS: PTO: Canagliflozin (NF) 100 MG TAB PO SCH (08:36)
[2017-01-02] MEDS: Enoxaparin(*) 40 MG/0.4 ML SYR SUBCUT SCH (08:37)
[2017-01-02] MEDS: Ropinirole TAB* 0.5 MG TAB PO SCH ×2 (08:38)
[2017-01-02] MEDS: Folic Acid TAB* 1 MG PO SCH (08:38)
[2017-01-02] MEDS: oxyCODONE TAB* 5 MG TAB PO PRN (08:39)
[2017-01-02] MEDS: Promethazine TAB* 25 MG PO PRN (08:39)
--- NOTE | 2017-01-03 15:50 | DS ---
DISCHARGE SUMMARY: DATE OF ADMISSION: 12/30/16 DATE OF DISCHARGE: 01/02/17 ADMITTING PHYSICIAN: Yeyo Brice MD ATTENDING PHYSICIANS: While inpatient, Yeyo Brice MD and Payam Manley MD PRIMARY CARE PHYSICIAN: Collin Lowry MD PRIMARY PSYCHIATRIST: Miesha Roche NP, of [facility]. PRIMARY NEUROLOGIST: Maria Eugenia Mcgowan MD CHIEF COMPLAINT: Inability to get out of bed secondary to weakness and continued progressive tremors. 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 HISTORY OF PRESENT ILLNESS AND HOSPITAL COURSE: The patient with past medical history of severe bipolar disorder with suicidal ideation and recent inpatient psychiatric admission for same, which required Abilify Depo injections, tremors , insomnia, obesity, diabetes mellitus, hypertension, hyperlipidemia, asthma, GERD, hypothyroidism, who was recently admitted with falls and progressive tremors. The patient had been admitted on 12/27/16 to 12/28/16 for exactly the same symptoms as bringing in this admission and unable to get out of bed in the middle of the night and therefore called 911. He follows with Dr. Mcgowan for movement disorders and has been evaluated in [place] with Dr. Barrett, who evaluated for idiopathic Parkinson disease, but with that study, which was negative. At that time, his Latuda had been stopped. There had been coordination in the outpatient setting between Dr. Mcgowan and [facility] or the planned cooperation in terms of adjusting his psychiatric medications to try to relieve his tremors, which are thought to be side effects from his antipsychotic medications, which also would include the Abilify Depo shot he got. As mentioned, his Latuda was stopped. He was also noted on this admission to, at some point, be taking gabapentin at night after discussion with Flores, bottle caser of [facility] and this was not continued on admission into the hospital. Dr. Fernandez of Psychiatry evaluated the patient and suggested continuing the patient's Seroquel 200 mg at night along with Depakote [address] Mcgowan was also consulted with concern for potential titration of L-dopa and questioning the indication for his tiagabine 4 mg p.o. q. bedtime (she did not prescribe this medication). She had evaluated him on previous admission on and at that time had clarified her suggestions for his home going and correct dose of ropinirole 0.5 mg b.i.d. with additional 0.25 mg in the afternoon and on this admission suggested no further changes until outpatient followup could be had between her and Miesha Roche NP. The patient was evaluated by Physical Therapy and was deemed to have no acute needs for further physical therapy while inpatient. The patient was an inconsistent historian and family members were appropriately concerned about his tremors, ability to care for himself at home especially at night concerning his long list of psychoactive medications that are likely contributing to some of his potential altered mental status or weakness at night in the setting of trying to treat his both insomnia and severe mood disorder. The patient was further evaluated by Occupational Therapy after concern by patient's father that the patient had not been able to get out of bed unassisted. This was not corroborated by multiple reports from nurses and eventually the patient himself that he had indeed been able to get in and out of his hospital bed without issue for several days during admission and this was confirmed with occupational and physical therapy documentation. DISCHARGE MEDICATIONS: Include: 1. Aspirin 81 mg daily. 2. Lipitor 40 mg daily. 3. Invokana 100 mg p.o. daily. 4. Carbidopa/levodopa 25/100 mg 1.5 tabs p.o. t.i.d. 5. Depakote 1500 mg p.o. at bedtime. 6. Folic acid 1 mg p.o. daily. 7. Synthroid 75 mcg p.o. daily. 8. Lisinopril 5 mg p.o. daily. 9. Phenergan 12.5 mg p.o. q.6 p.r.n. 10. Seroquel 200 mg p.o. at bedtime. 11. Ropinirole 0.5 mg p.o. b.i.d. morning and night with additional 0.25 mg in the afternoon. 12. Tiagabine 4 mg p.o. at bedtime. 13. Melatonin 12 mg p.o. at bedtime. DISCHARGE DISPOSITION: Home. DISCHARGE DIET: Carbohydrate consistent, unchanged. FOLLOWUP: The patient will need to be seen by primary care physician, Dr. Mcgowan (Neurology) and psychiatrist at [facility] (Miesha Roche). [id number]/[facility] #: [id number] DENEEN
== END 2017-01-02 13:55 | disposition home health service (06) | DRG 57 ==
LOC: ED 07:10 → MED 08:37 → OBSVTOIN 12-30 09:00 → INTOOBSV 12-31 09:00 → MED 01-01 16:31
PROVIDERS: ADMIT Internal Medicine; ATTEND Internal Medicine
PROC: 3E0234Z Introduction of Serum, Toxoid and Vaccine into Muscle, Percutaneous Approach (ICD-10-PCS; principal; 2016-12-30)
PROC: 3E0234Z Introduction of Serum, Toxoid and Vaccine into Muscle, Percutaneous Approach (ICD-10-PCS; 2016-12-30)
DX: G21.19 Other drug induced secondary parkinsonism (principal); N17.9 Acute kidney failure, unspecified; R45.851 Suicidal ideations; Z68.42 Body mass index [BMI] 45.0-49.9, adult; F31.81 Bipolar II disorder; S42.302A Unspecified fracture of shaft of humerus, left arm, initial encounter for closed fracture; E11.9 Type 2 diabetes mellitus without complications; I10 Essential (primary) hypertension; E03.9 Hypothyroidism, unspecified; R29.6 Repeated falls; W06.XXXA Fall from bed, initial encounter; E78.00 Pure hypercholesterolemia, unspecified; I25.10 Atherosclerotic heart disease of native coronary artery without angina pectoris; K21.9 Gastro-esophageal reflux disease without esophagitis; F41.9 Anxiety disorder, unspecified; F12.90 Cannabis use, unspecified, uncomplicated; F17.210 Nicotine dependence, cigarettes, uncomplicated; G47.33 Obstructive sleep apnea (adult) (pediatric); G89.29 Other chronic pain; M54.9 Dorsalgia, unspecified; J44.9 Chronic obstructive pulmonary disease, unspecified; R41.82 Altered mental status, unspecified; R53.1 Weakness; E66.9 Obesity, unspecified; E78.5 Hyperlipidemia, unspecified; T43.505A Adverse effect of unspecified antipsychotics and neuroleptics, initial encounter; Z88.0 Allergy status to penicillin; Z88.8 Allergy status to other drugs, medicaments and biological substances; Y92.003 Bedroom of unspecified non-institutional (private) residence as the place of occurrence of the external cause; Z82.49 Family history of ischemic heart disease and other diseases of the circulatory system; Z81.8 Family history of other mental and behavioral disorders; Z72.89 Other problems related to lifestyle; Y92.9 Unspecified place or not applicable; Z87.820 Personal history of traumatic brain injury; Z23 Encounter for immunization; Z79.82 Long term (current) use of aspirin
CPT/HCPCS: 36415; 80048; 80164; 85025; 90686; 90732; A9270-GY; G0378; J1650

== ENCOUNTER 2017-03-28 13:58 | Emergency (ER) | payer MEDICARE, MEDICAID ==
[2017-03-28 15:05] LABS: Urine Appearance Clear; Urine Blood Negative (Negative); Urine Color Yellow; Urine Ketones Trace (Negative); Urine Protein Negative (Negative); Urine Specific Gravity 1.033 (1.010-1.030); Urine Urobilinogen Negative (Negative)
[2017-03-28 15:13] LABS: ABS Basophils 0.1 10^3/ul (0-0.2); ABS Eosinophils 0.2 10^3/ul (0-0.6); ABS Lymphocytes 2.2 10^3/ul (1.0-4.8); ABS Monocytes 0.7 10^3/ul (0-0.8); ABS Neutrophils 5.4 10^3/ul (1.5-7.7); ABS Nucleated RBC 0 10^3/ul; Eosinophil % 1.9 % (0-6); Hematocrit 43 % (42-52); Hemoglobin 14.4 g/dl (14.0-18.0); Lymphocyte % 25.6 % (25-47); Mean Corpuscular HGB Conc 33 g/dl (31-36); Mean Corpuscular Hemoglobin 32 pg (27-31); Mean Corpuscular Volume 96 fL (80-94); Mean Platelet Volume 7 um3 (7.4-10.4); Nucleated Red Blood Cells % 0; Platelet Count 284 10^3/ul (150-450); Red Blood Count 4.49 10^6/ul (4.0-5.4); Red Cell Distribution Width 14 % (10.5-15); White Blood Count 8.5 10^3/ul (3.5-10.8)
[2017-03-28 15:26] LABS: EGFR Non-African American 78.9 (>60)
--- NOTE | 2017-03-28 15:46 | RAD ---
HISTORY: Worsening parkinsonism, weakness, diaphoresis COMPARISONS: December 27, 2016 VIEWS: 2: Frontal and lateral views of the chest. FINDINGS: CARDIOMEDIASTINAL SILHOUETTE: The cardiomediastinal silhouette is normal. NOREEN: The noreen are normal. PLEURA: The costophrenic angles are sharp. No pleural abnormalities are noted. LUNG PARENCHYMA: The lungs are clear. ABDOMEN: The upper abdomen is clear. There is no subphrenic gas. BONES AND SOFT TISSUES: No bone or soft tissue abnormalities are noted. OTHER: None. IMPRESSION: NO ACTIVE CARDIOPULMONARY DISEASE.
[2017-03-28 17:11] VITALS: BP 183/132
--- NOTE | 2017-04-18 20:14 | ED ---
Eve Farias Edward, scribed for Bart Santiago MD on 03/28/17 at 1445 . Neurological HPI - HPI Summary HPI Summary: 61 y/o male L[place] c/o multiple episodes of LE motor weakness this morning. Not aggravated or alleviated by anything. Pt states he stumbled a couple of times this morning while at [employer]. Pt is part of their day program. Pt lives alone at [place]. Denies injury. PMHx Parkinson's. Pt normally uses no support. Denies LÓPEZ. - History of Current Complaint Chief Complaint: EDHypertension Stated Complaint: WEAKNESS Hx Obtained From: Patient Onset/Duration: Started hours ago Timing: Intermittent Episodes Lasting: Pain Intensity: 0 Aggravating: Nothing Alleviating: Nothing Associated Signs and Symptoms: Positive: Weakness - LE motor weakness - stumbled multiple times today. Negative: Headache - Additional Pertinent History Primary Care Physician: VITALY - Allergy/Home Medications Allergies/Adverse Reactions: Allergies Allergy/AdvReac Type Severity Reaction Status Date / Time Ampicillin Allergy Unknown Rash And Verified 03/30/17 23:05 Itching Propranolol [From Inderal] Allergy Unknown Rash And Verified 03/30/17 23:05 Itching PMH/Surg Hx/FS Hx/Imm Hx Previously Healthy: No Endocrine/Hematology History: Reports: Hx Diabetes, Hx Thyroid Disease - hypothyroid medicated with synthroid 75 mcg Cardiovascular History: Reports: Hx Hypercholesterolemia, Hx Hypertension, Other Cardiovascular Problems/Disorders - CAD, IDDM II, HIGH CHOLESTEROL Denies: Hx Angina, Hx Coronary Artery Disease, Hx Myocardial Infarction, Hx Valvular Heart Disease Respiratory History: Reports: Hx Asthma, Hx Sleep Apnea Denies: Hx Chronic Obstructive Pulmonary Disease (COPD) GI History: Reports: Hx Gastroesophageal Reflux Disease Musculoskeletal History: Denies: Hx Arthritis, Hx Osteoporosis Sensory History: Denies: Hx Contacts or Glasses, Hx Hearing Aid Opthamlomology History: Denies: Hx Contacts or Glasses Neurological History: Reports: Other Neuro Impairments/Disorders - parkinson's Psychiatric History: Reports: Hx Anxiety, Hx Depression, Hx Inpatient Treatment - multiple in [place], [place], Hx Bipolar Disorder Denies: Hx Eating Disorder, Hx of Violent Episodes Against Others - Surgical History Surgery Procedure, Year, and Place: tonsillectomy, hyiod suspension Hx Anesthesia Reactions: No - Immunization History Date of Tetanus Vaccine: UTD Date of Influenza Vaccine: 01/2017 Infectious Disease History: No Infectious Disease History: Denies: Traveled Outside the [place] in Last 30 Days - Family History Known Family History: Positive: Hypertension, Other - Positive bipolar and schizophrenia - Social History Alcohol Use: Rare Alcohol Amount: 1beer/1 drink daily for a long time Hx Substance Use: No Substance Use Type: Reports: Marijuana Substance Use Comment - Amount & Last Used: uses 1-2 drinks of alcohol daily and several bowls of marijuana daily. Hx Tobacco Use: Yes Smoking Status (MU): Former Smoker Type: Cigarettes Have You Smoked in the Last Year: Yes Review of Systems Constitutional: Negative Eyes: Negative ENT: Negative Cardiovascular: Negative Respiratory: Negative Gastrointestinal: Negative Genitourinary: Negative Musculoskeletal: Negative Skin: Negative Positive: Weakness - motor weakness - stumbled Psychological: Normal All Other Systems Reviewed And Are Negative: Yes Physical Exam - Summary Physical Exam Summary: Appearance: Well-appearing, Well-nourished Skin: Warm, Dry, No rash Eyes: Normal, PERRL, EOMI, sclera anicteric ENT: Normal Neck: Supple, nontender Respiratory: Clear to auscultation Cardiovascular: S1, S2, no murmur, no rub, no gallop Abdomen: Soft, nontender, no organomegaly Bowel sounds: Present Musculoskeletal: Normal, Strength/ROM Intact, no edema, pulses symmetrical Neurological: A&Ox3, cranial nerves II-XII WNL, follows commands, gait not tested, sensation intact to pin and light touch. Resting tremor, intermittently worse. Worse on the L than on the R. Cog wheeling on both sides. Psychiatric: flat affect, behavior appropriate, dressed appropriately, judgment intact Triage Information Reviewed: Yes Vital Signs On Initial Exam: Initial Vitals Temp Pulse Resp BP Pulse Ox 98.8 F 93 16 150/110 96 03/28/17 14:13 03/28/17 14:13 03/28/17 14:13 03/28/17 14:13 03/28/17 14:13 Vital Signs Reviewed: Yes - Ayla Coma Scale Coma Scale Total: 15 Diagnostics - Vital Signs Vital Signs Temp Pulse Resp BP Pulse Ox 03/28/17 14:13 98.8 F 93 16 150/110 96 - Laboratory Lab Results: Lab Results 03/28/17 03/28/17 03/28/17 Range/Units 14:08 14:58 14:58 WBC 8.5 (3.5-10.8) 10^3/ul RBC 4.49 (4.0-5.4) 10^6/ul Hgb 14.4 (14.0-18.0) g/dl Hct 43 (42-52) % MCV 96 H (80-94) fL MCH 32 H (27-31) pg MCHC 33 (31-36) g/dl RDW 14 (10.5-15) % Plt Count 284 (150-450) 10^3/ul MPV 7 L (7.4-10.4) um3 Neut % (Auto) 63.5 (38-83) % Lymph % (Auto) 25.6 (25-47) % [place] % (Auto) 8.0 (1-9) % Eos % (Auto) 1.9 (0-6) % Baso % (Auto) 1.0 (0-2) % Absolute Neuts (auto) 5.4 (1.5-7.7) 10^3/ul Absolute Lymphs (auto) 2.2 (1.0-4.8) 10^3/ul Absolute Monos (auto) 0.7 (0-0.8) 10^3/ul Absolute Eos (auto) 0.2 (0-0.6) 10^3/ul Absolute Basos (auto) 0.1 (0-0.2) 10^3/ul Absolute Nucleated RBC 0 10^3/ul Nucleated RBC % 0 Sodium 138 (133-145) mmol/L Potassium TNP Chloride 103 (101-111) mmol/L Carbon Dioxide 29 (22-32) mmol/L Anion Gap 6 (2-11) mmol/L BUN 22 (6-24) mg/dL Creatinine 0.97 (0.67-1.17) mg/dL Est GFR ( Amer) 101.5 (>60) Est GFR (Non-Af Amer) 78.9 (>60) BUN/Creatinine Ratio 22.7 H (8-20) Glucose 109 H (70-100) mg/dL Calcium 9.1 (8.6-10.3) mg/dL Total Bilirubin 0.40 (0.2-1.0) mg/dL AST TNP ALT 9 (7-52) U/L Alkaline Phosphatase 71 (34-104) U/L Total Protein 7.2 (6.4-8.9) g/dL Albumin 3.8 (3.2-5.2) g/dL Globulin 3.4 (2-4) g/dL Albumin/Globulin Ratio 1.1 (1-3) Urine Color Yellow Urine Appearance Clear Urine pH 5.0 (5-9) Ur Specific [place] 1.033 H (1.010-1.030) Urine Protein Negative (Negative) Urine Ketones Trace H (Negative) Urine Blood Negative (Negative) Urine Nitrate Negative (Negative) Urine Bilirubin Negative (Negative) Urine Urobilinogen Negative (Negative) Ur Leukocyte Esterase Negative (Negative) Urine Glucose 3+(>=500 mg/dl) H (Negative) 03/28/17 Range/Units 15:40 WBC (3.5-10.8) 10^3/ul RBC (4.0-5.4) 10^6/ul Hgb (14.0-18.0) g/dl Hct (42-52) % MCV (80-94) fL MCH (27-31) pg MCHC (31-36) g/dl RDW (10.5-15) % Plt Count (150-450) 10^3/ul MPV (7.4-10.4) um3 Neut % (Auto) (38-83) % Lymph % (Auto) (25-47) % [place] % (Auto) (1-9) % Eos % (Auto) (0-6) % Baso % (Auto) (0-2) % Absolute Neuts (auto) (1.5-7.7) 10^3/ul Absolute Lymphs (auto) (1.0-4.8) 10^3/ul Absolute Monos (auto) (0-0.8) 10^3/ul Absolute Eos (auto) (0-0.6) 10^3/ul Absolute Basos (auto) (0-0.2) 10^3/ul Absolute Nucleated RBC 10^3/ul Nucleated RBC % Sodium (133-145) mmol/L Potassium 4.1 Chloride (101-111) mmol/L Carbon Dioxide (22-32) mmol/L Anion Gap (2-11) mmol/L BUN (6-24) mg/dL Creatinine (0.67-1.17) mg/dL Est GFR ( Amer) (>60) Est GFR (Non-Af Amer) (>60) BUN/Creatinine Ratio (8-20) Glucose (70-100) mg/dL Calcium (8.6-10.3) mg/dL Total Bilirubin (0.2-1.0) mg/dL AST 14 ALT (7-52) U/L Alkaline Phosphatase (34-104) U/L Total Protein (6.4-8.9) g/dL Albumin (3.2-5.2) g/dL Globulin (2-4) g/dL Albumin/Globulin Ratio (1-3) Urine Color Urine Appearance Urine pH (5-9) Ur Specific [place] (1.010-1.030) Urine Protein (Negative) Urine Ketones (Negative) Urine Blood (Negative) Urine Nitrate (Negative) Urine Bilirubin (Negative) Urine Urobilinogen (Negative) Ur Leukocyte Esterase (Negative) Urine Glucose (Negative) Result Diagrams: 03/28/17 14:58 03/28/17 15:40 Lab Statement: Any lab studies that have been ordered have been reviewed, and results considered in the medical decision making process. - Radiology CXR Xray Interpretation: No Acute Changes Radiology Interpretation Completed By: ED Physician Course/Dx - Course Assessment/Plan: CXR NAD. LABS WITHOUT SIGNIFICANT ABNORMALITIES. SPOKE WITH Dr. WINN, WHO DOESN'T RECOMMEND PT BE ADMITTED. SUGGESTS PSYCHOTROPIC MEDICATION INDUCED PARKINSONISM. PT WILL BE D/C HOME. - Diagnoses Provider Diagnoses: Parkinsonian induced stumbling - Physician Notifications Discussed Care Of Patient With: Maria Eugenia Winn Time Discussed With Above Provider: 15:40 Instructed by Provider To: Other - D/C Discharge - Discharge Plan Condition: Good Disposition: HOME Patient Education Materials: Parkinson Disease (ED) Referrals: Collin Lowry MD [Primary Care Provider] - The documentation as recorded by the Eve bean Edward accurately reflects the service I personally performed and the decisions made by me, Bart Santiago MD.
== END 2017-03-28 17:11 | disposition home or self-care (01) ==
LOC: ED 13:58
DX: G20 Parkinson's disease (principal); R53.1 Weakness; E11.9 Type 2 diabetes mellitus without complications; Z86.79 Personal history of other diseases of the circulatory system
CPT/HCPCS: 36415; 71020; 80053; 81003; 85025; 99282

== ENCOUNTER 2017-03-29 01:05 | Emergency (ER) | payer MEDICARE, OTHER ==
--- NOTE | 2017-03-29 01:48 | ED ---
Complex/Multi-Sys Presentation - HPI Summary HPI Summary: 61M presents with increase weakness and SOB today. He states that the SOB started this evening. He was seen today in the ED and discharge with weakness. He had normal labs then. He states he may feel like he has the flu. He denies any chest pain or abdominal pain. He was started on tegretol today instead of levodopa. He states he has been on this medication in the past and it has caused weakness. He does not know if the weakness is a medication reaction or if he is becoming ill. He denies any cough. He denies any n/v. He denies any dysuria. He denies any fever. He denies any palpitation. nothing makes the weakness or SOB better. He has PMH of Parkinsonism. He had normal wbc, cmp, and chest xray earlier today. - History Of Current Complaint Chief Complaint: EDWeakness Time Seen by Provider: 03/29/17 01:29 - Allergies/Home Medications Allergies/Adverse Reactions: Allergies Allergy/AdvReac Type Severity Reaction Status Date / Time Ampicillin Allergy Unknown Rash And Verified 12/27/16 07:18 Itching Propranolol [From Inderal] Allergy Unknown Rash And Verified 12/27/16 07:18 Itching Home Medications: Home Medications Lisinopril TAB* [Prinivil TAB 5 MG*] 20 mg PO DAILY 03/29/17 [History Confirmed 03/29/17] Pantoprazole TAB (NF) [Protonix TAB (NF)] 40 mg PO DAILY 03/29/17 [History Confirmed 03/29/17] carBAMazepine TAB(*) [TEGretol TAB(*)] 200 mg PO BID 03/29/17 [History Confirmed 03/29/17] rOPINIRole TAB* [Requip TAB*] 0.5 mg PO TID 03/29/17 [History Confirmed 03/29/17 ] PMH/Surg Hx/FS Hx/Imm Hx Endocrine/Hematology History: Reports: Hx Diabetes, Hx Thyroid Disease - hypothyroid medicated with synthroid 75 mcg Cardiovascular History: Reports: Hx Hypercholesterolemia, Hx Hypertension, Other Cardiovascular Problems/Disorders - CAD, IDDM II, HIGH CHOLESTEROL Denies: Hx Angina, Hx Coronary Artery Disease, Hx Myocardial Infarction, Hx Valvular Heart Disease Respiratory History: Reports: Hx Asthma, Hx Sleep Apnea Denies: Hx Chronic Obstructive Pulmonary Disease (COPD) GI History: Reports: Hx Gastroesophageal Reflux Disease Musculoskeletal History: Denies: Hx Arthritis, Hx Osteoporosis Sensory History: Denies: Hx Contacts or Glasses, Hx Hearing Aid Opthamlomology History: Denies: Hx Contacts or Glasses Neurological History: Reports: Other Neuro Impairments/Disorders - parkinson's Psychiatric History: Reports: Hx Anxiety, Hx Depression, Hx Inpatient Treatment - multiple in [place], [place], Hx Bipolar Disorder Denies: Hx Eating Disorder, Hx of Violent Episodes Against Others - Surgical History Surgery Procedure, Year, and Place: tonsillectomy, hyiod suspension Hx Anesthesia Reactions: No - Immunization History Date of Tetanus Vaccine: UTD Date of Influenza Vaccine: 01/2017 Infectious Disease History: No Infectious Disease History: Denies: Traveled Outside the [place] in Last 30 Days - Family History Known Family History: Positive: Hypertension, Other - Positive bipolar and schizophrenia - Social History Alcohol Use: Rare Alcohol Amount: 1beer/1 drink daily for a long time Hx Substance Use: No Substance Use Type: Reports: Marijuana Substance Use Comment - Amount & Last Used: uses 1-2 drinks of alcohol daily and several bowls of marijuana daily. Hx Tobacco Use: Yes Smoking Status (MU): Former Smoker Type: Cigarettes Have You Smoked in the Last Year: Yes Review of Systems Negative: Fever Negative: Chest Pain Positive: Shortness Of Breath Positive: Weakness All Other Systems Reviewed And Are Negative: Yes Physical Exam Triage Information Reviewed: Yes Vital Signs On Initial Exam: Initial Vitals Temp Pulse Resp BP Pulse Ox 97.3 F 97 20 128/78 94 03/29/17 01:07 03/29/17 01:07 03/29/17 01:07 03/29/17 01:07 03/29/17 01:07 Vital Signs Reviewed: Yes Appearance: Positive: Well-Appearing Skin: Positive: Warm, Dry Head/Face: Positive: Normal Head/Face Inspection Eyes: Positive: Normal, EOMI, KIRA, Conjunctiva Clear ENT: Positive: Normal ENT inspection, Pharynx normal, TMs normal Respiratory/Lung Sounds: Positive: Clear to Auscultation, Breath Sounds Present Cardiovascular: Positive: Normal, RRR Abdomen Description: Positive: Nontender, Soft Bowel Sounds: Positive: Present Musculoskeletal: Positive: Other - tremor greater L>R Neurological: Positive: Sensory/Motor Intact Psychiatric: Positive: Other - flat Diagnostics - Vital Signs Vital Signs Temp Pulse Resp BP Pulse Ox 03/29/17 01:07 97.3 F 97 20 128/78 94 - Laboratory Lab Statement: Any lab studies that have been ordered have been reviewed, and results considered in the medical decision making process. - EKG No standard instances Cardiac Rate: NL EKG Rhythm: Sinus Rhythm EKG Interpretation: similiar to previous ekg, sinus rhythm EKG Comparison: No Significant Change Complex Multi-Symp Course/Dx Course Of Treatment: 61M presents with increase weakness and SOB today. He states that the SOB started this evening. He was seen today in the ED and discharge with weakness. He had normal labs then. He states he may feel like he has the flu. He denies any chest pain or abdominal pain. He was started on tegretol today instead of levodopa. He states he has been on this medication in the past and it has caused weakness. He does not know if the weakness is a medication reaction or if he is becoming ill. He denies any cough. He denies any n/v. He denies any dysuria. He denies any fever. He denies any palpitation. nothing makes the weakness or SOB better. He has PMH of Parkinsonism. He had normal wbc, cmp, and chest xray earlier today. lungs CTA. abdomen soft nontender. will get troponin, d-dimer and ekg. ekg same as previous. patient signed out to dr schultz pending lab work up. - Diagnoses Differential Diagnoses/HQI/PQRI: Urinary Tract Infection, Other - flu, PE Provider Diagnoses: Weakness, Shortness of breath Discharge - Discharge Plan Condition: Stable Disposition: OTHER Discharge Disposition Comment: signed out to dr schultz pending lab work Referrals: Collin Lowry MD [Primary Care Provider] -
[2017-03-29 02:42] LABS: Magnesium 1.9 mg/dL (1.9-2.7)
[2017-03-29 02:45] LABS: Troponin I 0.03 ng/mL (<0.04)
[2017-03-29 03:30] VITALS: BP 124/92
--- NOTE | 2017-03-29 06:15 | ED ---
Teddy Farias Angela, lucilleed for Abelardo Jorge on 03/29/17 at 0242 . Progress - Progress Note Progress Note: This pt was signed out by LOY Tejeda, pending disposition, awaiting lab work. Pt is a 61 y/o male presenting to [facility] c/o increased weakness and SOB today. He states that the SOB started this evening. He was seen in the ED last night ( 03/28/17) and discharged with weakness. He had normal labs then. Pt will be discharged to home, in stable condition, with a diagnosis of weakness and history of Parkinson's disease. Course/Dx - Course Course Of Treatment: Pt is a 61 y/o male presenting to [facility] c/o increased weakness and SOB today. This pt was signed out by LOY Tejeda. Pt was seen in the ED yesterday (03/28/17) and had normal labs. All bloodwork today within normal limits. Therefore, pt will be discharged to home. Pt will be discharged to home, in stable condition, with a diagnosis of weakness and history of Parkinson's disease. - Diagnoses Provider Diagnoses: Weakness, History of Parkinson's disease The documentation as recorded by the Teddy bean Angela accurately reflects the service I personally performed and the decisions made by Luisito rocha Emmanuel.
== END 2017-03-29 03:49 ==
LOC: ED 01:05
DX: R53.1 Weakness (principal); R06.02 Shortness of breath; Z86.69 Personal history of other diseases of the nervous system and sense organs
CPT/HCPCS: 36415; 83735; 83880; 84484; 85379; 87502; 93005; 99283

== ENCOUNTER 2017-03-30 21:16 | Inpatient (IN) | payer MEDICARE, OTHER ==
[2017-03-30] MEDS ORDERED: NS 0.9% 1000 ML* 1,000 ML IV ONE ×2 (21:28→23:02)
[2017-03-30] MEDS ORDERED: Acetaminophen TAB* 325 MG PO ONE (21:31)
[2017-03-30 22:11] LABS: Hematocrit 43 % (42-52); Hemoglobin 14.9 g/dl (14.0-18.0); Mean Corpuscular HGB Conc 35 g/dl (31-36); Mean Corpuscular Hemoglobin 33 pg (27-31); Mean Corpuscular Volume 95 fL (80-94); Mean Platelet Volume 8 um3 (7.4-10.4); Red Blood Count 4.54 10^6/ul (4.0-5.4); Red Cell Distribution Width 14 % (10.5-15); White Blood Count 14.1 10^3/ul (3.5-10.8)
[2017-03-30 22:13] LABS: Urine Bacteria Absent (Absent); Urine Bilirubin Negative (Negative); Urine Glucose 3+(>=500 mg/dL) (Negative); Urine Nitrite Negative (Negative)
[2017-03-30 22:17] LABS: Albumin 3.8 g/dL (3.2-5.2); BUN/Creatinine Ratio 30.5 (8-20); Calcium 9.5 mg/dL (8.6-10.3); EGFR African American 92.7 (>60); Globulin 3.6 g/dL (2-4); Potassium 4.5 mmol/L (3.5-5.0); Total Bilirubin 0.6 mg/dL (0.2-1.0); Total Protein 7.4 g/dL (6.4-8.9)
[2017-03-30 22:19] LABS: Troponin I 0.03 ng/mL (<0.04)
--- NOTE | 2017-03-30 23:27 | ED ---
Jennifer Farias Jason, scribed for Abelardo Jorge on 03/30/17 at 2144 . Complex/Multi-Sys Presentation - HPI Summary HPI Summary: This patient is a 61 year old M presenting [facility] accompanied by male with a chief complaint of weakness since 3 days ago. The patient complains of increased weakness and "not feeling well" for the past 3 days. The patient was found on floor and has had repeated falls. The patient rates the pain 0/10 in severity. Symptoms aggravated by nothing. Symptoms alleviated by nothing. Patient denies loss of consciousness and injury. - History Of Current Complaint Chief Complaint: EDWeakness Time Seen by Provider: 03/30/17 21:23 Hx Obtained From: Patient Onset/Duration: Gradual Onset, Lasting Days - since 3 days ago, Still Present Timing: Constant Aggravating Factor(s): nothing Alleviating Factor(s): nothing Associated Signs And Symptoms: Positive: Other - general weakness. Pt denies LOC and injury. - Allergies/Home Medications Allergies/Adverse Reactions: Allergies Allergy/AdvReac Type Severity Reaction Status Date / Time Ampicillin Allergy Unknown Rash And Verified 03/30/17 23:05 Itching Propranolol [From Inderal] Allergy Unknown Rash And Verified 03/30/17 23:05 Itching PMH/Surg Hx/FS Hx/Imm Hx Previously Healthy: No Endocrine/Hematology History: Reports: Hx Diabetes, Hx Thyroid Disease - hypothyroid medicated with synthroid 75 mcg Cardiovascular History: Reports: Hx Hypercholesterolemia, Hx Hypertension, Other Cardiovascular Problems/Disorders - CAD, IDDM II, HIGH CHOLESTEROL Denies: Hx Angina, Hx Coronary Artery Disease, Hx Myocardial Infarction, Hx Valvular Heart Disease Respiratory History: Reports: Hx Asthma, Hx Sleep Apnea Denies: Hx Chronic Obstructive Pulmonary Disease (COPD) GI History: Reports: Hx Gastroesophageal Reflux Disease Musculoskeletal History: Denies: Hx Arthritis, Hx Osteoporosis Sensory History: Denies: Hx Contacts or Glasses, Hx Hearing Aid Opthamlomology History: Denies: Hx Contacts or Glasses Neurological History: Reports: Other Neuro Impairments/Disorders - parkinson's Psychiatric History: Reports: Hx Anxiety, Hx Depression, Hx Inpatient Treatment - multiple in [place], [place], Hx Bipolar Disorder Denies: Hx Eating Disorder, Hx of Violent Episodes Against Others - Surgical History Surgery Procedure, Year, and Place: tonsillectomy, hyiod suspension Hx Anesthesia Reactions: No - Immunization History Date of Tetanus Vaccine: UTD Date of Influenza Vaccine: 01/2017 Infectious Disease History: No Infectious Disease History: Denies: Traveled Outside the [place] in Last 30 Days - Family History Known Family History: Positive: Hypertension, Other - Positive bipolar and schizophrenia - Social History Alcohol Use: Rare Alcohol Amount: 1beer/1 drink daily for a long time Hx Substance Use: No Substance Use Type: Reports: Marijuana Substance Use Comment - Amount & Last Used: uses 1-2 drinks of alcohol daily and several bowls of marijuana daily. Hx Tobacco Use: Yes Smoking Status (MU): Former Smoker Type: Cigarettes Have You Smoked in the Last Year: Yes Review of Systems Negative: Fever Neurological: Negative - LOC, injury Positive: Weakness All Other Systems Reviewed And Are Negative: Yes Physical Exam - Summary Physical Exam Summary: Appearance: weak Skin: warm, dry, reflects adequate perfusion Head/face: normal Eyes: EOMI, KIRA ENT: normal Neck: supple, non-tender Respiratory: CTA, breath sounds present Cardiovascular: tachycardia Abdomen: non-tender, soft Bowel: present Musculoskeletal: abrasion of the bilateral knees. Neuro: involuntary tremors Triage Information Reviewed: Yes Vital Signs On Initial Exam: Initial Vitals Temp Pulse Resp BP Pulse Ox 101 F 125 26 169/78 98 03/30/17 21:25 03/30/17 21:25 03/30/17 21:25 03/30/17 21:25 03/30/17 21:25 Vital Signs Reviewed: Yes Diagnostics - Vital Signs Vital Signs Temp Pulse Resp BP Pulse Ox 03/30/17 21:25 101 F 125 26 169/78 98 - Laboratory Lab Results: Lab Results 03/30/17 03/30/17 03/30/17 Range/Units 21:52 21:52 21:52 WBC 14.1 H (3.5-10.8) 10^3/ul RBC 4.54 (4.0-5.4) 10^6/ul Hgb 14.9 (14.0-18.0) g/dl Hct 43 (42-52) % MCV 95 H (80-94) fL MCH 33 H (27-31) pg MCHC 35 (31-36) g/dl RDW 14 (10.5-15) % Plt Count 300 (150-450) 10^3/ul MPV 8 (7.4-10.4) um3 Neut % (Auto) 82.5 (38-83) % Lymph % (Auto) 9.5 L (25-47) % [place] % (Auto) 7.3 (1-9) % Eos % (Auto) 0.2 (0-6) % Baso % (Auto) 0.5 (0-2) % Absolute Neuts (auto) 11.6 H (1.5-7.7) 10^3/ul Absolute Lymphs (auto) 1.3 (1.0-4.8) 10^3/ul Absolute Monos (auto) 1.0 H (0-0.8) 10^3/ul Absolute Eos (auto) 0 (0-0.6) 10^3/ul Absolute Basos (auto) 0.1 (0-0.2) 10^3/ul Absolute Nucleated RBC 0.01 10^3/ul Nucleated RBC % 0 Sodium 138 (133-145) mmol/L Potassium 4.5 (3.5-5.0) mmol/L Chloride 104 (101-111) mmol/L Carbon Dioxide 27 (22-32) mmol/L Anion Gap 7 (2-11) mmol/L BUN 32 H (6-24) mg/dL Creatinine 1.05 (0.67-1.17) mg/dL Est GFR ( Amer) 92.7 (>60) Est GFR (Non-Af Amer) 72.0 (>60) BUN/Creatinine Ratio 30.5 H (8-20) Glucose 110 H (70-100) mg/dL Calcium 9.5 (8.6-10.3) mg/dL Total Bilirubin 0.60 (0.2-1.0) mg/dL AST 30 (13-39) U/L ALT 13 (7-52) U/L Alkaline Phosphatase 61 (34-104) U/L Total Creatine Kinase 1106 H (10-223) U/L Troponin I 0.03 (<0.04) ng/mL Total Protein 7.4 (6.4-8.9) g/dL Albumin 3.8 (3.2-5.2) g/dL Globulin 3.6 (2-4) g/dL Albumin/Globulin Ratio 1.1 (1-3) Urine Color Yellow Urine Appearance Clear Urine pH 5.0 (5-9) Ur Specific [place] 1.029 (1.010-1.030) Urine Protein Negative (Negative) Urine Ketones 1+ H (Negative) Urine Blood 1+ H (Negative) Urine Nitrate Negative (Negative) Urine Bilirubin Negative (Negative) Urine Urobilinogen Negative (Negative) Ur Leukocyte Esterase Negative (Negative) Urine WBC (Auto) Absent (Absent) Urine RBC (Auto) 1+(3-5/hpf) H (Absent) Ur Squamous Epith Cells Present H (Absent) Urine Bacteria Absent (Absent) Urine Glucose 3+(>=500 mg/dl) H (Negative) Influenza A (Rapid) (Negative) Influenza B (Rapid) (Negative) 03/30/17 Range/Units 22:12 WBC (3.5-10.8) 10^3/ul RBC (4.0-5.4) 10^6/ul Hgb (14.0-18.0) g/dl Hct (42-52) % MCV (80-94) fL MCH (27-31) pg MCHC (31-36) g/dl RDW (10.5-15) % Plt Count (150-450) 10^3/ul MPV (7.4-10.4) um3 Neut % (Auto) (38-83) % Lymph % (Auto) (25-47) % [place] % (Auto) (1-9) % Eos % (Auto) (0-6) % Baso % (Auto) (0-2) % Absolute Neuts (auto) (1.5-7.7) 10^3/ul Absolute Lymphs (auto) (1.0-4.8) 10^3/ul Absolute Monos (auto) (0-0.8) 10^3/ul Absolute Eos (auto) (0-0.6) 10^3/ul Absolute Basos (auto) (0-0.2) 10^3/ul Absolute Nucleated RBC 10^3/ul Nucleated RBC % Sodium (133-145) mmol/L Potassium (3.5-5.0) mmol/L Chloride (101-111) mmol/L Carbon Dioxide (22-32) mmol/L Anion Gap (2-11) mmol/L BUN (6-24) mg/dL Creatinine (0.67-1.17) mg/dL Est GFR ( Amer) (>60) Est GFR (Non-Af Amer) (>60) BUN/Creatinine Ratio (8-20) Glucose (70-100) mg/dL Calcium (8.6-10.3) mg/dL Total Bilirubin (0.2-1.0) mg/dL AST (13-39) U/L ALT (7-52) U/L Alkaline Phosphatase (34-104) U/L Total Creatine Kinase (10-223) U/L Troponin I (<0.04) ng/mL Total Protein (6.4-8.9) g/dL Albumin (3.2-5.2) g/dL Globulin (2-4) g/dL Albumin/Globulin Ratio (1-3) Urine Color Urine Appearance Urine pH (5-9) Ur Specific [place] (1.010-1.030) Urine Protein (Negative) Urine Ketones (Negative) Urine Blood (Negative) Urine Nitrate (Negative) Urine Bilirubin (Negative) Urine Urobilinogen (Negative) Ur Leukocyte Esterase (Negative) Urine WBC (Auto) (Absent) Urine RBC (Auto) (Absent) Ur Squamous Epith Cells (Absent) Urine Bacteria (Absent) Urine Glucose (Negative) Influenza A (Rapid) Negative (Negative) Influenza B (Rapid) Negative (Negative) Result Diagrams: 03/30/17 21:52 03/30/17 21:52 Lab Statement: Any lab studies that have been ordered have been reviewed, and results considered in the medical decision making process. - Radiology cxr Radiology Interpretation Completed By: ED Physician - Normal x-ray, no findings. - EKG 2135 Cardiac Rate: Tachycardia EKG Rhythm: Sinus Tachycardia - 110 bpm Complex Multi-Symp Course/Dx Course Of Treatment: This patient is a 61 year old M presenting to [facility] accompanied by male with a chief complaint of weakness since 3 days ago. Bloodwork/UA obtained. An EKG reveals sinus tachycardia at 110 bpm and a RBBB. CXR reveals no findings. Influenza A and B test result is negative. We discussed patient care with Dr. Robles and they recommended admission. The patient is agreeable with this plan. Dx of Weakness, fever, dehydration, and Parkinsons. - Diagnoses Differential Diagnoses/HQI/PQRI: Metabolic Abnormality, Sepsis, Urinary Tract Infection, Other - parkinson disease Provider Diagnoses: Weakness, Dehydration, Fever, Parkinson disease, Falls frequently Discharge - Discharge Plan Condition: Stable Disposition: ADMITTED TO [facility] Referrals: Collin Lowry MD [Primary Care Provider] - The documentation as recorded by the Jennifer bean Jason accurately reflects the service I personally performed and the decisions made by Luisito rocha Emmanuel.
[2017-03-30] MEDS ORDERED: Dextrose 50% Syringe 50 ML* 25 GM/50 ML SYRINGE IV PUSH PRN (23:50)
[2017-03-31 00:24] LABS: C Reactive Protein 10.42 mg/L (< 5.00)
[2017-03-31] MEDS: CMCS: Melatonin (NF) 3 MG TAB PO SCH ×2 (01:13→22:35)
[2017-03-31] MEDS: Divalproex DR TAB(*) 500 MG PO SCH ×2 (01:53→21:18)
[2017-03-31] MEDS: QUEtiapine TAB* 100 MG PO SCH ×2 (01:53→21:19)
--- NOTE | 2017-03-31 02:17 | HP ---
CC: Dr. Lowry; Dr. Mcgowan * HISTORY AND PHYSICAL: DATE OF ADMISSION: 03/30/17 PRIMARY CARE PROVIDER: Dr. Lowry. CHIEF COMPLAINT: Falls and generalized weakness. HISTORY OF PRESENT ILLNESS: Mr. 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 The previous two times , the patient had no leukocytosis and his workup is basically unremarkable and was sent home. Today, he presents with his younger brother who found him down. The patient stated that he had been falling almost on a daily basis. Today, once again he tried to get up and he stated that his legs were so weak, they gave up from underneath him and he fell. He stated that he did not lose consciousness. He is a rather poor historian and very withdrawn and it is difficulty to get the entire history from him. He prefers answering to the questioning with yes and no only and he stated himself that he is a man of few words. Either way, his CPKs are elevated over 1000 and his temperature when he presented to the ED was 101 degrees and he is going to be admitted with a diagnosis of falls and fever. So far, there is no source of infection evident and it is possible that he has an inflammatory reaction to rhabdomyolysis. PAST MEDICAL HISTORY: 1. History of bipolar disorder, severe with hospitalizations in the past and suicidal attempts in the past. 2. 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 The patient had an evaluation in [place] movement disorders and had a DaTscan, which was normal and not supportive of Parkinson's disease. 3. History of diabetes type 2. 4. Hypertension. 5. Hyperlipidemia. 6. Hypothyroidism. 7. Status post uvuloplasty for obstructive sleep apnea in the past. 8. Obesity. 9. 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 10. Chronic back pain. 11. History of umbilical hernia repair. CURRENT MEDICATIONS: Include: 1. Aspirin 81 mg daily. 2. Lipitor 40 mg daily. 3. Invokana 100 mg daily. 4. Depakote 1500 mg at bedtime. 5. Folic acid 1 mg daily. 6. Synthroid 75 mcg daily. 7. Lisinopril 5 mg daily. 8. Seroquel 200 mg at bedtime. 9. Melatonin 12 mg at bedtime. 10. Tegretol 200 mg b.i.d. FAMILY HISTORY: Mother and brother of suicide. Father had history of heart disease. SOCIAL HISTORY: The patient has history of cannabis and alcohol abuse. Currently he denies. He denies smoking. 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 His father who lives next door is his surrogate. REVIEW OF SYSTEMS: Please see history of present illness. Apart from fall and generalized weakness, the patient has no other complaints. Specifically, he has had fevers in the past. He denies losing consciousness. He denies chest pain or shortness of breath. All the remaining 12 systems were reviewed with the patient and were otherwise negative. PHYSICAL EXAMINATION GENERAL: The patient is a very pleasant 61-year-old obese male, who is in no acute distress. The patient is alert and oriented x3, rather poor historian. VITAL SIGNS: Blood pressure 154/79, heart rate of 116 and regular, respiratory rate 29, oxygen saturation 96% on room air, temperature of 101.0. HEENT: Head: Atraumatic, normocephalic. Eyes: Pupils are equal, reactive to light and accommodation. Oropharynx clear. Mucosa moist. NECK: Supple. No JVD, no bruits bilaterally. RESPIRATORY: Clear to auscultation bilaterally. CARDIOVASCULAR: Regular rate and rhythm. No murmurs. ABDOMEN: Soft and nontender. Bowel sounds are present in all 4 quadrants. EXTREMITIES: There is no edema. Pulses are 2+ bilaterally. There is no clubbing or cyanosis. NEURO EVALUATION: Speech clear. Cranial nerves II through XII are grossly intact. Motor strength is 5/5 bilaterally. The patient has coarse resting tremors, the worst in the left upper extremity than right upper extremity. There are no tremors in bilateral lower extremities. SKIN: On evaluation of the patient's skin, the patient has nonblanchable petechiae like pinpoint lesions in bilateral feet, which are in linear distribution and according to the patient are due to bug bites in his house. The patient has very superficial abrasions in bilateral knees. DIAGNOSTIC STUDIES/LAB DATA: Shows white blood cell count of 14.1, hemoglobin of 14.9, hematocrit of 43, and platelets of 300. Sodium was 138, potassium 4.5, chloride 104, carbon dioxide 27, BUN 32, creatinine 1.05. Liver function tests unremarkable. CPK of 1106. Troponin of 0.03. C-reactive protein is pending at the time of dictation. Portable chest x-ray reviewed by myself prior to the official radiologist's report and it shows no pulmonary infiltrates. The patient's EKG shows sinus tachycardia with a heart rate of 110 beats per minute, right bundle branch block. ASSESSMENT AND PLAN: 1. Generalized weakness, falls, and increased tremors and the patient with history of parkinsonian tremor with possibility of psychogenic component. At this point, the patient is going to be continued on his medications which is Tegretol, Depakote, and Seroquel. I will ask the patient to be evaluated by Physical Therapy, Occupational Therapy as well as Neurology consultation in regards to medications adjustment. The patient stated that Sinemet as well as Requip was discontinued in the recent past. 2. In regards to the patient's fever. So far, there are no symptoms that would indicate that the patient has a source of infection some place. His flu test was also negative. At this point, I will observe the patient without any empiric antibiotic treatment. Blood cultures were already obtained. There is also no evidence of infection on physical exam. It is possible that the patient has an inflammatory reaction due to rhabdomyolysis. 3. In regards to the patient's rhabdomyolysis, the patient is going to be placed on intravenous hydration. His CPKs are planning to be rechecked in the morning. 4. For his diabetes, the patient is going to be placed on a sliding scale and his Invokana is going to be held. 5. For dyslipidemia, Lipitor is going to be held due to elevated CPKs. 6. The patient's code status is full and his surrogate is his father. TIME SPENT: Approximately 70 minutes were spent on admission of this patient. [id number]/[facility] #: [id number] DENEEN
[2017-03-31] MEDS: NS 0.9% 1000 ML* 1,000 ML IV SCH ×3 (03:26→20:54)
[2017-03-31] MEDS: Levothyroxine TAB* 75 MCG TAB PO SCH (05:39)
[2017-03-31] MEDS: Heparin VIAL(*) 5000 UNITS/ML VIAL (FIVE THOUSAND) SUBCUT SCH ×3 (05:39→22:35)
[2017-03-31] MEDS: Acetaminophen TAB* 325 MG PO PRN (05:39)
[2017-03-31] MEDS: Morphine INJ* 2 MG/ML 1 ML SYRINGE (TWO MG - NEW SYRINGE VERSION) IV PRN ×3 (07:09→21:19)
[2017-03-31 07:19] LABS: Hematocrit 40 % (42-52); Hemoglobin 13.4 g/dl (14.0-18.0); Mean Corpuscular HGB Conc 34 g/dl (31-36); Mean Corpuscular Hemoglobin 32 pg (27-31); Mean Corpuscular Volume 96 fL (80-94); Mean Platelet Volume 7 um3 (7.4-10.4); Red Blood Count 4.13 10^6/ul (4.0-5.4); Red Cell Distribution Width 14 % (10.5-15); White Blood Count 9.7 10^3/ul (3.5-10.8)
[2017-03-31 07:30] LABS: Albumin 3.3 g/dL (3.2-5.2); BUN/Creatinine Ratio 30.9 (8-20); Calcium 8.8 mg/dL (8.6-10.3); EGFR African American 105.3 (>60); EGFR Non-African American 81.9 (>60); Globulin 3.1 g/dL (2-4); Potassium 3.8 mmol/L (3.5-5.0); Total Bilirubin 0.5 mg/dL (0.2-1.0); Total Protein 6.4 g/dL (6.4-8.9)
--- NOTE | 2017-03-31 07:43 | RAD ---
HISTORY: Fever COMPARISONS: March 28, 2017 VIEWS: 1: frontal portable view of the chest at 10:05 PM FINDINGS: LINES AND TUBES: None. CARDIOMEDIASTINAL SILHOUETTE: The cardiomediastinal silhouette is normal for portable technique. PLEURA: The costophrenic angles are sharp. No pleural abnormalities are noted. LUNG PARENCHYMA: The lungs are clear. ABDOMEN: The upper abdomen is clear. There is no subphrenic gas. BONES AND SOFT TISSUES: No bone or soft tissue abnormalities are noted. IMPRESSION: NO ACTIVE CARDIOPULMONARY DISEASE.
[2017-03-31] MEDS: Folic Acid TAB* 1 MG PO SCH (08:06)
[2017-03-31] MEDS: carBAMazepine TAB(*) 200 MG PO SCH ×2 (08:06→21:18)
[2017-03-31] MEDS: Docusate CAP* 100 MG PO SCH ×2 (08:06→21:19)
[2017-03-31] MEDS: Aspirin EC Low Dose* 81 MG TAB.EC PO SCH (08:06)
[2017-03-31] MEDS: Insulin LISPRO* 1 UNITS UNIT SUBCUT SCH ×4 (08:13→21:20)
--- NOTE | 2017-03-31 14:06 | PN ---
Subjective Date of Service: 03/31/17 Interval History: . Interviewed and examined patient at bedside; Discussed case with Dr. Robles (hosp) and Dr. Hendricks (neuro); Reviewed previous notes and radiology results; Head CT ordered for fall and headache. Repeat CK levels in AM for rhabdo patient is still weak and with tremor that in a bit atypical, as per neuro. EMG ordered for tomorrow AM. Family History: Unchanged from Admission Social History: Unchanged from Admission Past Medical History: Unchanged from Admission Objective Active Medications: . Acetaminophen (Tylenol Tab*) 650 mg PO Q4H PRN PRN Reason: FEVER/PAIN Last Admin: 03/31/17 05:39 Dose: 650 mg Aspirin (Aspirin Ec Low Dose*) 81 mg PO DAILY [facility] Last Admin: 03/31/17 08:06 Dose: 81 mg Carbamazepine (Tegretol Tab(*)) 200 mg PO BID [facility] Last Admin: 03/31/17 08:06 Dose: 200 mg Dextrose (D50w Syringe 50 Ml*) 12.5 gm IV PUSH .FOR FS < 60 - SS PRN PRN Reason: FS < 60 Divalproex Sodium (Depakote Dr Tab(*)) 1,500 mg PO BEDTIME [facility] Last Admin: 03/31/17 01:53 Dose: 1,500 mg Docusate Sodium (Colace Cap*) 100 mg PO BID [facility] Last Admin: 03/31/17 08:06 Dose: 100 mg Folic Acid (Folvite Tab*) 1 mg PO DAILY [facility] Last Admin: 03/31/17 08:06 Dose: 1 mg Heparin Sodium (Porcine) (Heparin Vial(*)) 5,000 units SUBCUT Q8HR [facility] Last Admin: 03/31/17 05:39 Dose: 5,000 units Sodium Chloride (Ns 0.9% 1000 Ml*) 1,000 mls @ 125 mls/hr IV PER RATE [facility] Last Admin: 03/31/17 12:03 Dose: 125 mls/hr Insulin Human Lispro (Humalog*) 0 units SUBCUT ACHS [facility] PRN Reason: Protocol Last Admin: 03/31/17 12:03 Dose: 1 unit Levothyroxine Sodium (Synthroid Tab*) 75 mcg PO DAILY@0600 [facility] Last Admin: 03/31/17 05:39 Dose: 75 mcg Melatonin (Melatonin (Nf)) 3 mg PO BEDTIME [facility] Last Admin: 03/31/17 01:13 Dose: 3 mg Morphine Sulfate (Morphine Inj (Syringe)*) 1 mg IV Q4H PRN PRN Reason: PAIN Last Admin: 03/31/17 11:22 Dose: 1 mg Quetiapine Fumarate (Seroquel Tab*) 200 mg PO BEDTIME [facility] Last Admin: 03/31/17 01:53 Dose: 200 mg . Vital Signs - 8 hr 03/31/17 03/31/17 03/31/17 07:09 07:28 08:14 Temperature 97.5 F Pulse Rate 73 Respiratory 16 14 16 Rate Blood Pressure 121/77 (mmHg) O2 Sat by Pulse 92 Oximetry 03/31/17 03/31/17 03/31/17 09:07 11:22 11:53 Temperature 98.2 F Pulse Rate 76 Respiratory 16 16 18 Rate Blood Pressure 135/87 (mmHg) O2 Sat by Pulse 96 Oximetry Oxygen Devices in Use Now: None Appearance: NAD at rest. Ears/Nose/Mouth/Throat: Clear Oropharnyx Neck: Trachea Midline Respiratory: Symmetrical Chest Expansion and Respiratory Effort Cardiovascular: NL Sounds; No Murmurs; No JVD Abdominal: NL Sounds; No Tenderness; No Distention Lymphatic: No Cervical Adenopathy Extremities: No Edema Skin: No Rash or Ulcers Neurological: Alert and Oriented x 3, NL Sensation, - - resting tremor in hands bilaterally. Lines/Tubes/Other Access: Clean, Dry and Intact Peripheral IV Nutrition: Taking PO's Result Diagrams: 03/31/17 07:10 03/31/17 07:10 Additional Lab and Data: . Assess/Plan/Problems-Billing . Assessment: 61 yo man with h/o drug-induced Parkinsonism, bipolar disorder, h/o TBI as child , DM-II, htn, hl, hypothyroid, now with generalized weakness, falls, increased tremor and elevated tremor Admitted to medicine with neurology consult Appreciate neurology guidance Head CT --> no ICH, but involutional changes and sulcal enlargement raising possibility of NPH... EMG pending tomorrow consider LP to assess for NPH... repeating CK to ensure to inflammatory myopathy and truly related to fall/crush injury as the most likely explanation. - Patient Problems (1) Fall Current Visit: Yes Status: Chronic Priority: High Comment: - unclear reason - neuro workup underway - NPH? - parkinsonism / tremor --> EMG pending (2) Rhabdomyolysis Current Visit: Yes Status: Acute Priority: High Code(s): M62.82 - RHABDOMYOLYSIS Comment: - follow CK...
--- NOTE | 2017-03-31 15:22 | RAD ---
HISTORY: Fall, head trauma COMPARISONS: February 28, 2015 TECHNIQUE: Multiple contiguous axial CT scans were obtained of the head without intravenous contrast. FINDINGS: HEMORRHAGE/INFARCT: There is no hemorrhage or acute infarct. MASSES/SHIFT: There is no mass or shift. EXTRA-AXIAL SPACES: There are no extra-axial fluid collections. SULCI AND VENTRICLES: There is diffuse enlargement of the sulci and ventricles. This is slightly progressed from the previous examination. There is somewhat disproportionate enlargement of the sulci and ventricles. CEREBRUM: There are no focal parenchymal abnormalities. BRAINSTEM: There are no focal parenchymal abnormalities. CEREBELLUM: There are no focal parenchymal abnormalities. VESSELS: The vessels are grossly normal. PARANASAL SINUSES: There is opacification right maxillary sinus with osteitis of the surrounding bone ORBITS: The orbits are unremarkable. BONES AND SOFT TISSUE: No bone or soft tissue abnormalities are noted. OTHER: None IMPRESSION: 1. DIFFUSE INVOLUTIONAL CHANGE, WITH SOMEWHAT DISPROPORTIONATE SULCAL ENLARGEMENT. THIS MAY SUGGEST THE PRESENCE OF NORMAL PRESSURE HYDROCEPHALUS IN THE CORRECT CLINICAL SETTING. 2. NO ACUTE INTRACRANIAL PATHOLOGY. 3. CHRONIC RIGHT MAXILLARY SINUSITIS
[2017-03-31] MEDS ORDERED: QUEtiapine TAB* 100 MG PO SCH (21:00)
[2017-03-31] MEDS ORDERED: Divalproex DR TAB(*) 500 MG PO SCH (21:00)
--- NOTE | 2017-03-31 23:59 | CONS ---
CONSULTATION REPORT: DATE OF CONSULT: 03/31/17 PATIENT OF: Dr. Robles, Dr. Lowry, and Dr. Mcgowan. HISTORY OF PRESENT ILLNESS: I am seeing this 61-year-old man for increasing falls with a history of drug-induced parkinsonism as well as possible psychogenic component to his tremor. He presented to the ER 3 times in the past few days because of generalized weakness and falls. His younger brother found him the day of admission, yesterday, down on the ground and his legs were so weak, they gave out from under him and he notes that this increased falling has been going on for the past 3 weeks' [address] and that Dr[address] Mcgowan was not aware of it; however, on reviewing prior notes, both in-hospital and outpatient, she has dealt with increasing falling in this man. He notes he does not lose consciousness and he says he trips when he falls, but it is hard to get a consistent history. His tremor is persisting, but it is not worse. He was admitted yesterday for repeated presentation to the ER, but now with a fever to 101 and an elevated CPK. Dr. Mcgowan had seen him in December in hospital for the generalized sense of weakness and increased falls and did not have good neurological explanation for this. His strength is 5/5 at that point and his gait was narrow based and was short stride. She also saw him more recently on 02/05/17 as an outpatient and at that point, his CAT scan done up at [facility] was normal. His Romberg was negative and his gait was narrow based and stable with short stride. PAST MEDICAL HISTORY: Other medical problems include bipolar disorder, drug- induced parkinsonism, diabetes, hypertension, hyperlipidemia, chronic back pain , past history of traumatic brain injury, hypothyroidism, and bipolar disease. PAST SURGICAL HISTORY: He is status post uvuloplasty and umbilical herniorrhaphy. MEDICATIONS: On admission include: 1. Aspirin 81 mg daily. 2. Lipitor 40 mg daily. 3. Invokana 100 mg daily. 4. Depakote 1500 at bedtime. 5. Folic acid 1 mg daily. 6. Synthroid 75 mcg daily. 7. Lisinopril 5 mg daily. 8. Seroquel 200 mg at bedtime. 9. Melatonin 12 mg at bedtime. 10. Tegretol 200 mg b.i.d. FAMILY HISTORY: His mother and brother of suicide. The father had a history of heart disease. SOCIAL HISTORY: He has history of cannabis and alcohol abuse. He denies any drug or alcohol abuse currently and does not smoke. 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 REVIEW OF SYSTEMS: Negative other than some headache that is mild, now 2/10, but it was worse earlier today and he could not put a number to it. PHYSICAL EXAM: Temperature 98.2, pulse 76, respiratory rate 18, blood pressure 135/87. He is alert and oriented with normal speech and comprehension. Cranial nerves II through XII are normal. Discs were sharp. Motor exam revealed an odd tremor that would fluctuate, it is usually more prominent on the left side but occasionally would become more prominent on the right, it would go down. It was progressing tremor that fluctuated greatly in intensity over the course of time, but it also had a forceful wrist extension component at times. There was some resistance to range of movement, but I could not detect for sure any cogwheel rigidity. He was able to stand, but his gait was wide based and it was somewhat shuffling. Reflexes were 1+ and equal. Toes were downgoing. Chest: Clear. Cardiovascular: Regular rate and rhythm. Abdomen: Soft with positive bowel sounds. DIAGNOSTIC STUDIES/LAB DATA: His workup included a CPK of initially 1106 upon presentation; today, it is 819. Rest of the BMP was normal other than BUN initially of 32, now 29. Today, his glucose has been 131. His C-reactive protein was 10.4. White count initially 14.1, currently today 9.7; hematocrit 40; platelets 245. UA had 1+ ketones, 1+ blood, glucose 3+. No CT scan was obtained on admission. IMPRESSION AND PLAN: I discussed with Dr. Thomas I would get a CT of his head to make sure that there is no head trauma from his recent fall that was high enough to bump his CPK up to above 1000. I think his elevated CPK is likely from the fall and seems to be going back to baseline, but Dr. Thomas will be getting another one in the morning as well as a sed rate. I do not think this is likely to be an underlying myopathy. His strength is 5/5 today and was with Dr. Mcgowan in the past. His gait was different today than it had been when she had seen him most recently as January. This is hard to evaluate in a person who may have some functional overlay in terms of his tremor. So, I am not sure if this is a clear finding but it would make sense to check an EMG/ nerve conduction study on him tomorrow. His gait was narrow based within the past month or two. Even at the time when he was having falls in his history that he told me today distinctly that his falls began after he had last seen Dr. Mcgowan 3 or 4 weeks ago. So, it is hard to sort this all out, but it would be reasonable to follow up the CPK, check his sed rate, and do EMG/nerve conduction on him as well as obtain a CT scan as outlined. Dr. Walker will be picking up his care tomorrow. Thank you for sharing his care. [id number]/[facility] #: [id number] DENEEN
[2017-04-01] MEDS: NS 0.9% 1000 ML* 1,000 ML IV SCH (05:21)
[2017-04-01] MEDS: Heparin VIAL(*) 5000 UNITS/ML VIAL (FIVE THOUSAND) SUBCUT SCH ×3 (05:59→21:43)
[2017-04-01] MEDS: Levothyroxine TAB* 75 MCG TAB PO SCH (05:59)
[2017-04-01 07:11] LABS: Hematocrit 38 % (42-52); Hemoglobin 12.9 g/dl (14.0-18.0); Mean Corpuscular HGB Conc 34 g/dl (31-36); Mean Corpuscular Hemoglobin 32 pg (27-31); Mean Corpuscular Volume 96 fL (80-94); Mean Platelet Volume 7 um3 (7.4-10.4); Red Blood Count 3.98 10^6/ul (4.0-5.4); Red Cell Distribution Width 14 % (10.5-15); White Blood Count 6.5 10^3/ul (3.5-10.8)
[2017-04-01 07:26] LABS: BUN/Creatinine Ratio 24.7 (8-20); Calcium 8.5 mg/dL (8.6-10.3); EGFR African American 118.2 (>60); EGFR Non-African American 91.9 (>60); Potassium 4.1 mmol/L (3.5-5.0)
[2017-04-01] MEDS: Insulin LISPRO* 1 UNITS UNIT SUBCUT SCH ×4 (07:40→20:24)
[2017-04-01] MEDS: Morphine INJ* 2 MG/ML 1 ML SYRINGE (TWO MG - NEW SYRINGE VERSION) IV PRN ×4 (07:47→21:44)
[2017-04-01] MEDS: carBAMazepine TAB(*) 200 MG PO SCH ×2 (07:48→20:23)
[2017-04-01] MEDS: Docusate CAP* 100 MG PO SCH ×2 (07:48→20:23)
[2017-04-01] MEDS: Folic Acid TAB* 1 MG PO SCH (07:48)
[2017-04-01] MEDS: Aspirin EC Low Dose* 81 MG TAB.EC PO SCH (07:48)
--- NOTE | 2017-04-01 10:42 | PN ---
PROGRESS NOTE: DATE OF SERVICE: 04/01/17 LOCATION: Currently in room 404, bed 1. PATIENT OF: Dr. Robles, Dr. Lowry and Dr. Mcgowan. HISTORY OF PRESENT ILLNESS: Overnight, the patient states that he has had no new issues. He continues to have tremor. He is complaining of some left shoulder pain, reported 8/10 by the nurse overnight. Morphine was given. Otherwise, no new issues overnight. CURRENT MEDICATIONS: 1. Tylenol. 2. Aspirin 81 mg daily. 3. Tegretol 200 mg p.o. b.i.d. 4. Depakote 1500 mg p.o. at bedtime. 5. Colace 100 mg p.o. b.i.d. 6. Folic acid 1 mg p.o. daily. 7. Insulin. 8. Synthroid 75 mcg daily. 9. Melatonin 3 mg at bedtime. 10. Morphine 1 mg IV q.4 hours p.r.n. pain. 11. Seroquel 200 mg p.o. at bedtime. PHYSICAL EXAMINATION: Vital Signs: Temperature of 97.3, pulse is 66, respiratory rate of 18, blood pressure 148/92 to 132/77 to 152/81, satting in the high 90s. General: He is a well-nourished, well-developed gentleman in no acute distress sitting up in this hospital bed. He is awake, pleasant, responsive. Chest: Clear to auscultation bilaterally. Cardiovascular: Regular rate and rhythm. Abdomen: Soft, nontender. Extremities: No significant clubbing. He has a bruise on his right knee with a small laceration healing. Speech is fluent. There is no dysarthria. He is alert and oriented x3. Cranial nerves II through XII are intact. Motor exam: He is moving all extremities. Tone is normal. When I initially saw him this morning , he had no tremor. When I started speaking with him, he had tremor bilaterally in the upper extremities. It appeared to be symmetric. His tone appeared to be increased throughout, but no cogwheeling was appreciated. Tremor with [id number] bilaterally. There was no ataxia. No past pointing. [id number] was normal. DTRs were 1+ throughout with downgoing Babinski. Sensation was intact to light touch and pinprick throughout. I did not walk him this morning. Physical Therapy will see him. LABORATORY DATA: White count 6.5 this morning, down from 14.1 on admission. Hemoglobin is 12.9, hematocrit 38. His CK is improved to 288 this morning, glucose of 148 to 154 to 124. He did have a CT of the brain yesterday, I reviewed, which showed some atrophy with questionable disproportionate focal enlargement. No acute intracranial pathology noted. ASSESSMENT AND PLAN: Mr. Flower is a 61-year-old gentleman with a history of possible drug-induced tremor, fluctuating course, but concerned that there may be a psychogenic component to the tremor as well, apparently has been seen in the ER multiple times over the last few days due to weakness and falls, was admitted on the 16 after a fall, used to complain of some shoulder pain and is receiving morphine for that. Initial CK was elevated but has improved and suspect it was likely related to the trauma or the fall. He is scheduled for an EMG nerve conduction study today to rule out any underlying myopathy, although my suspicion is low. His CT scan did show some focal enlargement, ventriculomegaly, which suggests a possibility of underlying normal pressure hydrocephalus, although he is young for this diagnosis. I am going to hold on a lumbar puncture at this point. I would consider formal neurocognitive testing first. He denies any history of bladder or bowel problems. Gait reported to be more shuffling. We will have Physical Therapy evaluate him today and get a better sense of his functionality and gait. Follow up his EMG and make further recommendations, although at this point my suspicion for an underlying myopathy is low. Certainly, he could have some underlying drug-induced Parkinson's, which could be predisposing him to falls as well. I would not start him on any parkinsonian medications at this point given his history of psychiatric disease. He is on Seroquel, he typically has the least amount of parkinsonism symptoms, would continue this for now, but Psychiatry may want to consider removing the antipsychotic in the future given his symptoms. We will continue to follow him and make further recommendations as necessary. [id number]/[facility] #: [id number] DENEEN
[2017-04-01] MEDS: Acetaminophen TAB* 325 MG PO PRN (17:23)
[2017-04-01] MEDS: Divalproex DR TAB(*) 500 MG PO SCH (20:22)
[2017-04-01] MEDS: QUEtiapine TAB* 100 MG PO SCH (20:23)
[2017-04-01] MEDS: CMCS: Melatonin (NF) 3 MG TAB PO SCH (20:23)
[2017-04-01] MEDS ORDERED: diPHENhydraMINE PO* 25 MG PO ONE (22:43)
[2017-04-02] MEDS: Morphine INJ* 2 MG/ML 1 ML SYRINGE (TWO MG - NEW SYRINGE VERSION) IV PRN ×4 (03:12→16:35)
[2017-04-02] MEDS: Levothyroxine TAB* 75 MCG TAB PO SCH (05:52)
[2017-04-02] MEDS: Heparin VIAL(*) 5000 UNITS/ML VIAL (FIVE THOUSAND) SUBCUT SCH ×3 (05:52→21:24)
[2017-04-02] MEDS: Acetaminophen TAB* 325 MG PO PRN ×2 (07:43→11:48)
[2017-04-02] MEDS: Insulin LISPRO* 1 UNITS UNIT SUBCUT SCH ×4 (08:10→21:25)
[2017-04-02] MEDS: Folic Acid TAB* 1 MG PO SCH (09:28)
[2017-04-02] MEDS: Docusate CAP* 100 MG PO SCH ×2 (09:28→21:25)
[2017-04-02] MEDS: carBAMazepine TAB(*) 200 MG PO SCH ×2 (09:28→21:24)
[2017-04-02] MEDS: Aspirin EC Low Dose* 81 MG TAB.EC PO SCH (09:28)
[2017-04-02] MEDS ORDERED: HYDROmorphone INJ* 2 MG/ML CARPUJECT SYRINGE IV SLOW PU ONE (11:04)
--- NOTE | 2017-04-02 16:37 | PN ---
Subjective Date of Service: 04/01/17 Interval History: . - no new complaints - originally refused placement, but on reconsideration, he was mainly concerned about the financial cost and acknowledges he needs subacute rehab and assistance to bedpan, etc. (it took several nurses to get him up to the commode) - labs improved (CK) - gentle hydration - EMG reportedly normal Family History: Unchanged from Admission Social History: Unchanged from Admission Past Medical History: Unchanged from Admission Objective Active Medications: . Acetaminophen (Tylenol Tab*) 650 mg PO Q4H PRN PRN Reason: FEVER/PAIN Last Admin: 04/02/17 11:48 Dose: 650 mg Aspirin (Aspirin Ec Low Dose*) 81 mg PO DAILY [facility] Last Admin: 04/02/17 09:28 Dose: 81 mg Carbamazepine (Tegretol Tab(*)) 200 mg PO BID [facility] Last Admin: 04/02/17 09:28 Dose: 200 mg Dextrose (D50w Syringe 50 Ml*) 12.5 gm IV PUSH .FOR FS < 60 - SS PRN PRN Reason: FS < 60 Divalproex Sodium (Depakote Dr Tab(*)) 1,500 mg PO BEDTIME [facility] Last Admin: 04/01/17 20:22 Dose: 1,500 mg Docusate Sodium (Colace Cap*) 100 mg PO BID [facility] Last Admin: 04/02/17 09:28 Dose: 100 mg Folic Acid (Folvite Tab*) 1 mg PO DAILY [facility] Last Admin: 04/02/17 09:28 Dose: 1 mg Heparin Sodium (Porcine) (Heparin Vial(*)) 5,000 units SUBCUT Q8HR [facility] Last Admin: 04/02/17 14:46 Dose: 5,000 units Insulin Human Lispro (Humalog*) 0 units SUBCUT ACHS [facility] PRN Reason: Protocol Last Admin: 04/02/17 12:56 Dose: Not Given Levothyroxine Sodium (Synthroid Tab*) 75 mcg PO DAILY@0600 [facility] Last Admin: 04/02/17 05:52 Dose: 75 mcg Melatonin (Melatonin (Nf)) 3 mg PO BEDTIME [facility] Last Admin: 04/01/17 20:23 Dose: 3 mg Morphine Sulfate (Morphine Inj (Syringe)*) 1 mg IV Q4H PRN PRN Reason: PAIN Last Admin: 04/02/17 11:34 Dose: 1 mg Quetiapine Fumarate (Seroquel Tab*) 200 mg PO BEDTIME [facility] Last Admin: 04/01/17 20:23 Dose: 200 mg . Vital Signs - 8 hr 04/02/17 04/02/17 04/02/17 08:45 11:28 11:34 Temperature 97.6 F Pulse Rate 165 Respiratory 16 18 16 Rate Blood Pressure 157/84 (mmHg) O2 Sat by Pulse 84 Oximetry 04/02/17 12:55 Temperature Pulse Rate Respiratory 16 Rate Blood Pressure (mmHg) O2 Sat by Pulse Oximetry Oxygen Devices in Use Now: None Appearance: NAD at rest. variable tremor Eyes: No Scleral Icterus Ears/Nose/Mouth/Throat: Clear Oropharnyx Neck: NL Appearance and Movements; NL JVP Respiratory: Symmetrical Chest Expansion and Respiratory Effort, Clear to Auscultation Cardiovascular: NL Sounds; No Murmurs; No JVD Abdominal: NL Sounds; No Tenderness; No Distention Lymphatic: No Cervical Adenopathy Extremities: No Edema, - - upper extremity tremor - variable in nature (comes and goes randomly) Skin: No Rash or Ulcers Neurological: Alert and Oriented x 3, - Lines/Tubes/Other Access: Clean, Dry and Intact Peripheral IV Nutrition: Taking PO's Result Diagrams: 04/01/17 07:02 04/01/17 07:02 Additional Lab and Data: . Assess/Plan/Problems-Billing . Assessment: 61 yo man with h/o drug-induced Parkinsonism, bipolar disorder, h/o TBI as child , DM-II, htn, hl, hypothyroid, now with generalized weakness, falls, increased tremor and elevated tremor Admitted to medicine with neurology consult Appreciate neurology guidance Head CT --> no ICH, but involutional changes and sulcal enlargement raising possibility of NPH...though clinically not a likely dx. EMG normal. - Patient Problems (1) Fall Current Visit: Yes Status: Chronic Priority: High Comment: - unclear reasons - neuro workup inconclusive - possible drug induced parkinsonism - plan to place in rehab...will request psych consult for possible psychogenic component. (2) Rhabdomyolysis Current Visit: Yes Status: Acute Priority: High Code(s): M62.82 - RHABDOMYOLYSIS Comment: - resolved.
--- NOTE | 2017-04-02 16:46 | PN ---
Subjective Date of Service: 04/02/17 Interval History: . Stable clinically No improvement Requesting more opiates secondary to "tremor-related pain" Family History: Unchanged from Admission Social History: Unchanged from Admission Past Medical History: Unchanged from Admission Objective Active Medications: . Acetaminophen (Tylenol Tab*) 650 mg PO Q4H PRN PRN Reason: FEVER/PAIN Last Admin: 04/02/17 11:48 Dose: 650 mg Aspirin (Aspirin Ec Low Dose*) 81 mg PO DAILY [facility] Last Admin: 04/02/17 09:28 Dose: 81 mg Carbamazepine (Tegretol Tab(*)) 200 mg PO BID [facility] Last Admin: 04/02/17 09:28 Dose: 200 mg Dextrose (D50w Syringe 50 Ml*) 12.5 gm IV PUSH .FOR FS < 60 - SS PRN PRN Reason: FS < 60 Divalproex Sodium (Depakote Dr Tab(*)) 1,500 mg PO BEDTIME [facility] Last Admin: 04/01/17 20:22 Dose: 1,500 mg Docusate Sodium (Colace Cap*) 100 mg PO BID [facility] Last Admin: 04/02/17 09:28 Dose: 100 mg Folic Acid (Folvite Tab*) 1 mg PO DAILY [facility] Last Admin: 04/02/17 09:28 Dose: 1 mg Heparin Sodium (Porcine) (Heparin Vial(*)) 5,000 units SUBCUT Q8HR [facility] Last Admin: 04/02/17 14:46 Dose: 5,000 units Insulin Human Lispro (Humalog*) 0 units SUBCUT ACHS [facility] PRN Reason: Protocol Last Admin: 04/02/17 12:56 Dose: Not Given Levothyroxine Sodium (Synthroid Tab*) 75 mcg PO DAILY@0600 [facility] Last Admin: 04/02/17 05:52 Dose: 75 mcg Melatonin (Melatonin (Nf)) 3 mg PO BEDTIME [facility] Last Admin: 04/01/17 20:23 Dose: 3 mg Morphine Sulfate (Morphine Inj (Syringe)*) 1 mg IV Q4H PRN PRN Reason: PAIN Last Admin: 04/02/17 11:34 Dose: 1 mg Quetiapine Fumarate (Seroquel Tab*) 200 mg PO BEDTIME [facility] Last Admin: 04/01/17 20:23 Dose: 200 mg . Vital Signs - 8 hr 04/02/17 04/02/17 04/02/17 08:45 11:28 11:34 Temperature 97.6 F Pulse Rate 165 Respiratory 16 18 16 Rate Blood Pressure 157/84 (mmHg) O2 Sat by Pulse 84 Oximetry 04/02/17 12:55 Temperature Pulse Rate Respiratory 16 Rate Blood Pressure (mmHg) O2 Sat by Pulse Oximetry Oxygen Devices in Use Now: None Appearance: NAD Eyes: No Scleral Icterus Ears/Nose/Mouth/Throat: Clear Oropharnyx Neck: NL Appearance and Movements; NL JVP Respiratory: Symmetrical Chest Expansion and Respiratory Effort, Clear to Auscultation Cardiovascular: NL Sounds; No Murmurs; No JVD Abdominal: NL Sounds; No Tenderness; No Distention Lymphatic: No Cervical Adenopathy Extremities: No Edema, - - waxing/waning tremor in upper extremities primarily Skin: No Rash or Ulcers Neurological: Alert and Oriented x 3 Lines/Tubes/Other Access: Clean, Dry and Intact Peripheral IV Nutrition: Taking PO's Result Diagrams: 04/01/17 07:02 04/01/17 07:02 Additional Lab and Data: . Assess/Plan/Problems-Billing . Assessment: 61 yo man with h/o drug-induced Parkinsonism, bipolar disorder, h/o TBI as child , DM-II, htn, hl, hypothyroid, now with generalized weakness, falls, increased tremor and elevated tremor Admitted to medicine with neurology consult Appreciate neurology guidance Head CT --> no ICH, but involutional changes and sulcal enlargement raising possibility of NPH...though clinically not a likely dx. EMG normal. Accepts [facility] placement. . - Patient Problems (1) Fall Current Visit: Yes Status: Chronic Priority: High Comment: - unclear reasons - neuro workup inconclusive - possible drug induced parkinsonism - plan to place in rehab...will request psych consult for possible psychogenic component. (2) Rhabdomyolysis Current Visit: Yes Status: Acute Priority: High Code(s): M62.82 - RHABDOMYOLYSIS Comment: - resolved.
[2017-04-02] MEDS ORDERED: NS 0.9% 1000 ML* 1,000 ML IV ONE (16:57)
[2017-04-02] MEDS: QUEtiapine TAB* 100 MG PO SCH (21:24)
[2017-04-02] MEDS: Divalproex DR TAB(*) 500 MG PO SCH (21:24)
[2017-04-02] MEDS: CMCS: Melatonin (NF) 3 MG TAB PO SCH (21:25)
--- NOTE | 2017-04-02 22:30 | PN ---
PROGRESS NOTE: DATE OF SERVICE: 04/02/17 LOCATION: Currently in room 404, bed 1. SUBJECTIVE: Overnight, no new issues. The patient continues to have difficulty ambulating, but was able to ambulate with assist. Tremors were about the same. No worsening. No improvement. He states that he feels at his baseline at this point. 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 Apparently, he does not want skill nursing facility, but would rather prefer to return home. No other new issues overnight. STUDIES DONE: EMG: I spoke with Dr. Hendricks, who did the EMG yesterday. He states that there is no evidence of myopathy. OBJECTIVE: Vital Signs: Temp of 97.7, pulse rate of 76, respiratory rate of 20 , pulse ox 95%, blood pressure 140s to 179/80s to 103, currently 147/90. General: He is a well-nourished, well-developed gentleman in no acute distress, lying in his hospital bed, sleeping. He awakens easily. HEENT: He is normocephalic and atraumatic. Sclera anicteric. Mucosa membranes are moist. Oropharynx is clear. Neck is supple. No thyromegaly or carotid bruits. Clear to auscultation bilaterally. Cardiovascular: Regular rate and rhythm. Abdomen is soft, nontender. Extremities: No clubbing, cyanosis or edema. Skin : Warm and dry. Neurologic: He is awake, alert and oriented x3. Speech is fluent. No dysarthria. He does have decreased facial expression. Decreased blink. Cranial nerves: Pupils equal and reactive to light. Extraocular muscles are intact. Visual lange are full. Face is symmetric. Sensation is intact. Hearing is intact to finger rub bilaterally. Tongue is midline. Oropharynx elevates symmetrically. He is spontaneously moving all extremities antigravity with good effort, 5/5 throughout. He does have increased tone in the upper and lower extremities symmetrically. No cogwheeling noted in the upper extremities. DTRs: He has 1+ patella, downgoing Babinski, 2+ at the biceps bilaterally. Tremors: He has some resting tremor bilaterally, which waxes and wanes, some more flapping type tremor in the left arm at times. No significant [id number] tremor appreciated. Sensation is grossly intact to light and pinprick. LABORATORY DATA: Blood glucose 124 to 104, 171 to 108. No other new labs. EMG is as noted above. ASSESSMENT AND PLAN: Mr. Flower is a 61-year-old gentleman who presents to the hospital with worsening weakness and fall, has a history of medication- induced Parkinson disease, previous negative DaTscan, has been on Sinemet in the past with no significant benefit. I did speak with his treating neurologist yesterday. Plan is to continue his care. He needs physical therapy as he is deconditioned. He will need gait therapy as well, although he remains a high risk for falling. At this point, treatment of his Parkinson symptoms is difficult given the fact that this is medication induced. I would recommend the followin. Work with his psychiatrist to see if there is an alternative to the atypical antipsychotic, Seroquel that he is on as this could worsen his symptoms , although Seroquel is the best antipsychotic for Parkinson disease and in that it tends to cause least amount of Parkinsonian symptoms. 2. Depakote could be causing some of his tremors as well. Some of his tremors may be psychogenic, but he does have evidence of Parkinsonism symptoms rather. Again, his psychiatrist may be able to choose an alternative medication, Lamictal would be one thought as it does not typically have the tremor associations that Depakote can. 3. 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 Again, this is something that needs to be followed shelter supportive therapy. 4. He has been on Sinemet in the past. I am hesitant to restart this medication as it could worsen his psychiatric symptoms. He should follow up with Dr. Mcgowan as an outpatient, who can make further recommendations; but at this point, I would not actively treat his Parkinsonian symptoms. 5. He is going to be going home soon. I spoke with his treating physician, Dr. Wilbert Thomas, who states that they are trying to get him into some rehab , which I think is a good idea. I will sign off for now, but remain available for any further problems or issues. Thank you for the opportunity to participate in his care. [id number]/[facility] #: [id number] DENEEN
[2017-04-02] MEDS: hydrALAZINE IV* 20 MG/ML VIAL IV PRN (22:47)
[2017-04-03] MEDS: Morphine INJ* 2 MG/ML 1 ML SYRINGE (TWO MG - NEW SYRINGE VERSION) IV PRN ×5 (04:46→20:51)
[2017-04-03] MEDS: Heparin VIAL(*) 5000 UNITS/ML VIAL (FIVE THOUSAND) SUBCUT SCH ×3 (05:24→22:17)
[2017-04-03] MEDS: Levothyroxine TAB* 75 MCG TAB PO SCH (05:25)
[2017-04-03 07:27] LABS: Hematocrit 49 % (42-52); Hemoglobin 16.3 g/dl (14.0-18.0); Mean Corpuscular HGB Conc 34 g/dl (31-36); Mean Corpuscular Hemoglobin 32 pg (27-31); Mean Corpuscular Volume 96 fL (80-94); Red Blood Count 5.08 10^6/ul (4.0-5.4); Red Cell Distribution Width 14 % (10.5-15); White Blood Count 11.6 10^3/ul (3.5-10.8)
[2017-04-03 07:28] LABS: Add Diff/Slide Review? Slide Review Added; Comments Flag Yes
[2017-04-03] MEDS: Insulin LISPRO* 1 UNITS UNIT SUBCUT SCH ×4 (08:00→20:55)
[2017-04-03] MEDS: Folic Acid TAB* 1 MG PO SCH (08:00)
[2017-04-03] MEDS: Aspirin EC Low Dose* 81 MG TAB.EC PO SCH (08:00)
[2017-04-03] MEDS: Docusate CAP* 100 MG PO SCH ×2 (08:00→20:54)
[2017-04-03] MEDS: carBAMazepine TAB(*) 200 MG PO SCH ×2 (08:00→20:54)
[2017-04-03 08:11] LABS: BUN/Creatinine Ratio 16.9 (8-20); Calcium 9.6 mg/dL (8.6-10.3); EGFR African American 112.1 (>60); EGFR Non-African American 87.2 (>60); Potassium 4.2 mmol/L (3.5-5.0)
--- NOTE | 2017-04-03 09:53 | PN ---
Subjective Date of Service: 04/03/17 Interval History: Pt states he is feeling poorly today because he feels sweaty. He denies any pain at this time. He is agreeable currently for going to rehab. Family History: Unchanged from Admission Social History: Unchanged from Admission Past Medical History: Unchanged from Admission Objective Active Medications: Acetaminophen (Tylenol Tab*) 650 mg PO Q4H PRN PRN Reason: FEVER/PAIN Last Admin: 04/02/17 11:48 Dose: 650 mg Aspirin (Aspirin Ec Low Dose*) 81 mg PO DAILY [facility] Last Admin: 04/03/17 08:00 Dose: 81 mg Canagliflozin (Invokana (Nf)) 100 mg PO DAILY [facility] Carbamazepine (Tegretol Tab(*)) 200 mg PO BID [facility] Last Admin: 04/03/17 08:00 Dose: 200 mg Dextrose (D50w Syringe 50 Ml*) 12.5 gm IV PUSH .FOR FS < 60 - SS PRN PRN Reason: FS < 60 Divalproex Sodium (Depakote Dr Tab(*)) 1,500 mg PO BEDTIME [facility] Last Admin: 04/02/17 21:24 Dose: 1,500 mg Docusate Sodium (Colace Cap*) 100 mg PO BID [facility] Last Admin: 04/03/17 08:00 Dose: 100 mg Folic Acid (Folvite Tab*) 1 mg PO DAILY [facility] Last Admin: 04/03/17 08:00 Dose: 1 mg Heparin Sodium (Porcine) (Heparin Vial(*)) 5,000 units SUBCUT Q8HR [facility] Last Admin: 04/03/17 05:24 Dose: 5,000 units Hydralazine HCl (Apresoline Iv*) 10 mg IV Q4H PRN PRN Reason: Systolic >170 Last Admin: 04/02/17 22:47 Dose: 10 mg Insulin Human Lispro (Humalog*) 0 units SUBCUT ACHS [facility] PRN Reason: Protocol Last Admin: 04/03/17 08:00 Dose: 1 unit Levothyroxine Sodium (Synthroid Tab*) 75 mcg PO DAILY@0600 [facility] Last Admin: 04/03/17 05:25 Dose: 75 mcg Lisinopril (Prinivil Tab*) 20 mg PO DAILY [facility] Melatonin (Melatonin (Nf)) 3 mg PO BEDTIME [facility] Last Admin: 04/02/17 21:25 Dose: 3 mg Morphine Sulfate (Morphine Inj (Syringe)*) 1 mg IV Q4H PRN PRN Reason: PAIN Last Admin: 04/03/17 08:01 Dose: 1 mg Quetiapine Fumarate (Seroquel Tab*) 200 mg PO BEDTIME [facility] Last Admin: 04/02/17 21:24 Dose: 200 mg Vital Signs - 8 hr 04/03/17 04/03/17 04/03/17 03:19 04:46 06:11 Temperature 97.8 F Pulse Rate 89 Respiratory 20 18 16 Rate Blood Pressure 142/98 (mmHg) O2 Sat by Pulse 97 Oximetry 04/03/17 08:01 Temperature Pulse Rate Respiratory 20 Rate Blood Pressure (mmHg) O2 Sat by Pulse Oximetry Oxygen Devices in Use Now: None Appearance: Middle aged male sitting up in bed, NAD Eyes: No Scleral Icterus Ears/Nose/Mouth/Throat: Mucous Membranes Moist Respiratory: Symmetrical Chest Expansion and Respiratory Effort, Clear to Auscultation Cardiovascular: NL Sounds; No Murmurs; No JVD, RRR, No Edema Abdominal: NL Sounds; No Tenderness; No Distention Extremities: No Clubbing, Cyanosis Skin: No Rash or Ulcers, No Nodules or Sclerosis Neurological: Alert and Oriented x 3, - - subtle resting tremor noted initially upon walking into the room but as I addressed the patient his tremor became dramatically increased Result Diagrams: 04/03/17 06:02 04/03/17 06:02 Additional Lab and Data: . 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 - Patient Problems (1) Rhabdomyolysis Current Visit: Yes Status: Acute Priority: High Code(s): M62.82 - RHABDOMYOLYSIS SNOMED Code(s): 065241546 Comment: Resolved with IVF hydration. (2) Tremor due to multiple drugs Current Visit: Yes Status: Acute Code(s): G25.1 - DRUG-INDUCED TREMOR SNOMED Code(s): 30819164 Comment: The patient is felt to have drug induced parkinsonism. Neurology does not want to initiate sinemet at this time as it can worse his psychiatric symptoms. Psych to see the patient today for possible medication adjustments. (3) Fall Current Visit: Yes Status: Chronic Priority: High Comment: Likely secondary to his parkinsonism. It appears from his PT evals the patient would benefit from STR. He is currently agreeable. (4) Bipolar 1 disorder Current Visit: Yes Status: Acute Code(s): F31.9 - BIPOLAR DISORDER, UNSPECIFIED SNOMED Code(s): 204323696 Comment: Continue seroquel and depakote for now. ? if depakote may be worsening his tremors. Psychiatry eval pending for medication recommendations. ? if lamictal would be better for the tremor than depakote. Atypical antipsychotics can also worsen tremor (seroquel is the best atypical antipsychotic to be used in someone who has parkinsonism but is still not ideal) . ? if pt can come off the seroquel. (5) Diabetes Current Visit: Yes Status: Acute Code(s): E11.9 - TYPE 2 DIABETES MELLITUS WITHOUT COMPLICATIONS SNOMED Code(s): 94346503 Comment: Invokana is non-formulary. His sugars are currently well controlled. Continue sliding scale lispro. (6) HTN (hypertension) Current Visit: Yes Status: Acute Code(s): I10 - ESSENTIAL (PRIMARY) HYPERTENSION SNOMED Code(s): 80952882 Comment: BP is elevated currently. Will resume lisinopril 20mg daily. (7) HLD (hyperlipidemia) Current Visit: Yes Status: Acute Code(s): E78.5 - HYPERLIPIDEMIA, UNSPECIFIED SNOMED Code(s): 22134799 Comment: Continue Atorvastatin. (8) Hypothyroid Current Visit: Yes Status: Acute Code(s): E03.9 - HYPOTHYROIDISM, UNSPECIFIED SNOMED Code(s): 68712731 Comment: Continue levothyroxine at home dose. (9) DVT prophylaxis Current Visit: Yes Status: Acute Code(s): FJY6329 - SNOMED Code(s): 526207807 Comment: SQ heparin (10) Patient is full code Current Visit: Yes Status: Acute Priority: High Onset Date: 02/04/15 Code(s): Z78.9 - OTHER SPECIFIED HEALTH STATUS SNOMED Code(s): 156750254
[2017-04-03] MEDS ORDERED: PTO:Canagliflozin (NF) 100 MG TAB PO SCH (10:00)
[2017-04-03] MEDS: Lisinopril TAB* 5 MG PO SCH (10:04)
[2017-04-03] MEDS: hydrALAZINE IV* 20 MG/ML VIAL IV PRN ×2 (13:57→18:45)
[2017-04-03] MEDS: amLODIPine TAB* 5 MG PO SCH (15:04)
[2017-04-03] MEDS: Acetaminophen TAB* 325 MG PO PRN (15:04)
--- NOTE | 2017-04-03 15:21 | CONSULT ---
Consult Consult: S: Psychiatry is asked to re-consult on this 61 y.o. , white male with a history of bipolar disorder as well as alcohol and cannabis use disorders, who is currently admitted to the medical service secondary to several recent falls, due to questions of whether his psychotropic medication regimen might be altered in some way that reduces his tremulousness and gait instability. Please refer to our full consultation report, dictated by this clinician on 12/30, for further history. The patient's presentation is, in many ways, identical to then, with several falls leading to repeat ED evaluations and admissions. The patient has been identified as someone who would benefit from subacute rehab and he is pending transfer to a rehab facility as soon as tomorrow. In the meantime, neurology was consulted and opined that the patient' s motor disturbance is likely secondary to psychotropics, either quetiapine or Depakote. One difference between this hospitalization and his last, is the presence of carbamazepine on his med list, presumably to reduce tremors, although it's unclear who prescribed this. Carbamazepine can effect liver metabolism of valproic acid but neither serum level is available at this time. On exam, Wei remembers me and is calm and cooperative, although slightly irritated by a recent room switch. He notes that he continues to see psychiatric nurse practitioner Miesha Roche at [facility] and has not had any recent med changes. His mood has been stable and he denies any SI or HI "for years." He is reluctant to change his psychiatric medications for fear of decompensation, given the fact that he acknowledges a history of 9 prior psychiatric admissions for bipolar illness, with [place] [facility]. "I've been doing so good on these medicines, I don't think I'd want to change them." He denies recent abuse of alcohol or cannabis. O: middle aged, bearded white male in patient gown, clean; fair grooming; calm, cooperative, euthymic with full affect; denies SI, HI, AH, VH; insight and judgment are intact A/P: 1: Movement disorder: likely secondary to quetiapine; patient reluctant to alter med regimen as he has been comparatively stable since being on this. Recommend keeping on current quetiapine and Depakote doses. Will get serum carbamazepine and valproate levels in the AM. Could use low dose propranolol for tremors if hemodynamically safe to try. 2: Bipolar DO: stable on quetiapine and Depakote. Patient to follow up at [facility]. Psychiatry will f/u tomorrow (04/04) once therapeutic blood levels are back.
[2017-04-03] MEDS ORDERED: Ondansetron INJ* 2 MG/ML VIAL IV PRN (17:14)
[2017-04-03] MEDS ORDERED: PROCHLORPERAZINE INJ 5 MG/ML 2 ML VIAL IV PRN (18:36)
[2017-04-03] MEDS ORDERED: PROCHLORPERAZINE INJ 5 MG/ML 2 ML VIAL ONE (18:48)
[2017-04-03] MEDS: QUEtiapine TAB* 100 MG PO SCH (20:53)
[2017-04-03] MEDS: CMCS: Melatonin (NF) 3 MG TAB PO SCH (20:54)
[2017-04-03] MEDS: Divalproex DR TAB(*) 500 MG PO SCH (20:54)
[2017-04-03] MEDS ORDERED: ALPRAZolam TAB* 0.5 MG PO ONE (22:09)
[2017-04-04] MEDS ORDERED: NS 0.9% 1000 ML* 1,000 ML IV SCH (00:30)
[2017-04-04] MEDS: Heparin VIAL(*) 5000 UNITS/ML VIAL (FIVE THOUSAND) SUBCUT SCH ×3 (05:56→22:11)
[2017-04-04] MEDS: Levothyroxine TAB* 75 MCG TAB PO SCH (05:56)
[2017-04-04] MEDS ORDERED: NS 0.9% 250 ML* 250 ML IV ONE (07:56)
[2017-04-04] MEDS: Insulin LISPRO* 1 UNITS UNIT SUBCUT SCH ×4 (09:04→21:54)
[2017-04-04 09:06] LABS: Hematocrit 43 % (42-52); Hemoglobin 14.5 g/dl (14.0-18.0); Mean Corpuscular HGB Conc 34 g/dl (31-36); Mean Corpuscular Hemoglobin 32 pg (27-31); Mean Corpuscular Volume 96 fL (80-94); Mean Platelet Volume 7 um3 (7.4-10.4); Red Blood Count 4.48 10^6/ul (4.0-5.4); Red Cell Distribution Width 14 % (10.5-15); White Blood Count 9.2 10^3/ul (3.5-10.8)
[2017-04-04 09:14] LABS: BUN/Creatinine Ratio 14.6 (8-20); Calcium 9.2 mg/dL (8.6-10.3); EGFR African American 68.2 (>60); Potassium 4.3 mmol/L (3.5-5.0)
[2017-04-04 09:23] LABS: Carbamazepine 5.5 mcg/mL (4.0-12.0)
[2017-04-04] MEDS: Lisinopril TAB* 5 MG PO SCH (09:51)
[2017-04-04] MEDS: Folic Acid TAB* 1 MG PO SCH (09:51)
[2017-04-04] MEDS: Aspirin EC Low Dose* 81 MG TAB.EC PO SCH (09:51)
[2017-04-04] MEDS: Docusate CAP* 100 MG PO SCH ×2 (09:51→21:53)
[2017-04-04] MEDS: carBAMazepine TAB(*) 200 MG PO SCH ×2 (09:51→21:52)
[2017-04-04] MEDS: NS 0.9% 1000 ML* 1,000 ML IV SCH ×3 (09:53→22:16)
[2017-04-04] MEDS: amLODIPine TAB* 5 MG PO SCH (09:53)
--- NOTE | 2017-04-04 12:41 | PN ---
Subjective Date of Service: 04/04/17 Interval History: Pt was noted to go hypotensive overnight. He also had AMS in that he became lethargic. This am he was noted to be very drowsy but somewhat improved by the time I saw him. He denies any pain or SOB. He states he feels well. Family History: Unchanged from Admission Social History: Unchanged from Admission Past Medical History: Unchanged from Admission Objective Active Medications: Acetaminophen (Tylenol Tab*) 650 mg PO Q4H PRN PRN Reason: FEVER/PAIN Last Admin: 04/03/17 15:04 Dose: 650 mg Aspirin (Aspirin Ec Low Dose*) 81 mg PO DAILY [facility] Last Admin: 04/04/17 09:51 Dose: 81 mg Carbamazepine (Tegretol Tab(*)) 200 mg PO BID [facility] Last Admin: 04/04/17 09:51 Dose: 200 mg Dextrose (D50w Syringe 50 Ml*) 12.5 gm IV PUSH .FOR FS < 60 - SS PRN PRN Reason: FS < 60 Divalproex Sodium (Depakote Dr Tab(*)) 1,500 mg PO BEDTIME [facility] Last Admin: 04/03/17 20:54 Dose: 1,500 mg Docusate Sodium (Colace Cap*) 100 mg PO BID [facility] Last Admin: 04/04/17 09:51 Dose: 100 mg Folic Acid (Folvite Tab*) 1 mg PO DAILY [facility] Last Admin: 04/04/17 09:51 Dose: 1 mg Heparin Sodium (Porcine) (Heparin Vial(*)) 5,000 units SUBCUT Q8HR [facility] Last Admin: 04/04/17 05:56 Dose: 5,000 units Hydralazine HCl (Apresoline Iv*) 10 mg IV Q4H PRN PRN Reason: Systolic >170 Last Admin: 04/03/17 18:45 Dose: 10 mg Sodium Chloride (Ns 0.9% 1000 Ml*) 1,000 mls @ 150 mls/hr IV PER RATE [facility] Last Admin: 04/04/17 09:53 Dose: 150 mls/hr Insulin Human Lispro (Humalog*) 0 units SUBCUT ACHS [facility] PRN Reason: Protocol Last Admin: 04/04/17 12:19 Dose: Not Given Levothyroxine Sodium (Synthroid Tab*) 75 mcg PO DAILY@0600 [facility] Last Admin: 04/04/17 05:56 Dose: 75 mcg Lisinopril (Prinivil Tab*) 20 mg PO DAILY [facility] Last Admin: 04/04/17 09:51 Dose: Not Given Melatonin (Melatonin (Nf)) 3 mg PO BEDTIME [facility] Last Admin: 04/03/17 20:54 Dose: 3 mg Morphine Sulfate (Morphine Inj (Syringe)*) 1 mg IV Q4H PRN PRN Reason: PAIN Last Admin: 04/03/17 20:51 Dose: 1 mg Ondansetron HCl (Zofran Inj*) 4 mg IV Q6H PRN PRN Reason: NAUSEA Last Admin: 04/03/17 18:03 Dose: 4 mg Oxycodone HCl (Roxycodone Tab*) 5 mg PO Q6H PRN PRN Reason: PAIN Prochlorperazine Edisylate (Compazine Inj*) 10 mg IV Q6H PRN PRN Reason: NAUSEA/VOMITING Last Admin: 04/03/17 18:57 Dose: 10 mg Quetiapine Fumarate (Seroquel Tab*) 200 mg PO BEDTIME [facility] Last Admin: 04/03/17 20:53 Dose: 200 mg Vital Signs - 8 hr 04/04/17 04/04/17 04/04/17 07:14 07:50 08:00 Temperature 99.2 F 100.0 F Pulse Rate 102 Respiratory 17 26 Rate Blood Pressure 107/62 84/52 (mmHg) O2 Sat by Pulse 94 Oximetry 04/04/17 04/04/17 09:13 11:03 Temperature 98.8 F Pulse Rate 47 94 Respiratory 20 17 Rate Blood Pressure 109/84 106/67 (mmHg) O2 Sat by Pulse 96 98 Oximetry Oxygen Devices in Use Now: None Appearance: Middle aged male sitting up in bed, awake NAD Eyes: No Scleral Icterus Ears/Nose/Mouth/Throat: Mucous Membranes Moist Respiratory: Symmetrical Chest Expansion and Respiratory Effort, Clear to Auscultation Cardiovascular: NL Sounds; No Murmurs; No JVD, RRR, No Edema Abdominal: NL Sounds; No Tenderness; No Distention Extremities: No Clubbing, Cyanosis Skin: No Rash or Ulcers, No Nodules or Sclerosis Neurological: - - alert initially but then becomes slightly drowsy at the end of my visit, tremor noted mostly in L UE Result Diagrams: 04/04/17 08:46 04/04/17 08:46 Additional Lab and Data: . Assess/Plan/Problems-Billing . Assessment: 61 yo man with h/o drug-induced Parkinsonism, bipolar disorder, h/o TBI as child , DM-II, htn, hl, hypothyroid, now with generalized weakness, falls, increased tremor and elevated tremor Admitted to medicine with neurology consult Appreciate neurology guidance Head CT --> no ICH, but involutional changes and sulcal enlargement raising possibility of NPH...though clinically not a likely dx. EMG normal. Accepts SHIELA placement. . - Patient Problems (1) Rhabdomyolysis Current Visit: Yes Status: Acute Priority: High Code(s): M62.82 - RHABDOMYOLYSIS SNOMED Code(s): 686986973 Comment: Resolved with IVF hydration. (2) Tremor due to multiple drugs Current Visit: Yes Status: Acute Code(s): G25.1 - DRUG-INDUCED TREMOR SNOMED Code(s): 31322420 Comment: The patient is felt to have drug induced parkinsonism. No change in medications per psychiatry as the patient is now very stable psychiatrically and it is felt the benefits of the medications outweigh the tremor. (3) Fall Current Visit: Yes Status: Chronic Priority: High Comment: Likely secondary to his parkinsonism. It appears from his PT evals the patient would benefit from STR. He is currently agreeable. (4) Bipolar 1 disorder Current Visit: Yes Status: Acute Code(s): F31.9 - BIPOLAR DISORDER, UNSPECIFIED SNOMED Code(s): 192395688 Comment: Continue seroquel, tegretol and depakote. (5) Diabetes Current Visit: Yes Status: Acute Code(s): E11.9 - TYPE 2 DIABETES MELLITUS WITHOUT COMPLICATIONS SNOMED Code(s): 34698094 Comment: Invokana is non-formulary. His sugars are currently well controlled. Continue sliding scale lispro. (6) HTN (hypertension) Current Visit: Yes Status: Acute Code(s): I10 - ESSENTIAL (PRIMARY) HYPERTENSION SNOMED Code(s): 94776199 Comment: BP very labile yesterday. Stop amlodipine (started yesterday for marked hypertension) and continue just lisinopril if BP allows. (7) HLD (hyperlipidemia) Current Visit: Yes Status: Acute Code(s): E78.5 - HYPERLIPIDEMIA, UNSPECIFIED SNOMED Code(s): 84562492 Comment: Continue Atorvastatin. (8) Hypothyroid Current Visit: Yes Status: Acute Code(s): E03.9 - HYPOTHYROIDISM, UNSPECIFIED SNOMED Code(s): 75088525 Comment: Continue levothyroxine at home dose. (9) DVT prophylaxis Current Visit: Yes Status: Acute Code(s): WOS3532 - SNOMED Code(s): 658669971 Comment: SQ heparin (10) Patient is full code Current Visit: Yes Status: Acute Priority: High Onset Date: 02/04/15 Code(s): Z78.9 - OTHER SPECIFIED HEALTH STATUS SNOMED Code(s): 094413549
--- NOTE | 2017-04-04 13:44 | CONSULT ---
Consult Consult: S: Wei is seen today for psychiatric follow up. He remains calm, cooperative and euthymic. His resting tremor is quite evident as he eats his dessert in bed. I understand that he still awaits transfer to a sub-acute rehab program. He has no acute mental health complaints. O: middle aged, bearded white male in patient gown, clean; fair grooming; calm, cooperative, resting tremor in bilateral upper extremities; euthymic with full affect; denies SI, HI, AH, VH; insight and judgment are intact A/P: 1: Movement disorder: likely secondary to quetiapine; patient reluctant to alter med regimen as he has been comparatively stable since being on this. Recommend keeping on current quetiapine and Depakote doses. Serum levels of carbamazepine (5.5) and valproate (66) are both in the therapeutic range. 2: Bipolar DO: stable on quetiapine and Depakote. Patient to follow up at [facility]. The patient is psychiatrically clear for transfer to sub-acute rehab and we will be signing off the case, but can be re- consulted in the event of any changes in his presentation.
[2017-04-04] MEDS: Acetaminophen TAB* 325 MG PO PRN (17:50)
[2017-04-04] MEDS: oxyCODONE TAB* 5 MG TAB PO PRN (19:51)
[2017-04-04] MEDS: Divalproex DR TAB(*) 500 MG PO SCH (21:51)
[2017-04-04] MEDS: CMCS: Melatonin (NF) 3 MG TAB PO SCH (21:53)
[2017-04-04] MEDS: QUEtiapine TAB* 100 MG PO SCH (21:53)
[2017-04-04] MEDS: Morphine INJ* 2 MG/ML 1 ML SYRINGE (TWO MG - NEW SYRINGE VERSION) IV PRN (22:11)
[2017-04-05] MEDS: NS 0.9% 1000 ML* 1,000 ML IV SCH (05:27)
[2017-04-05] MEDS: Levothyroxine TAB* 75 MCG TAB PO SCH (05:27)
[2017-04-05] MEDS: oxyCODONE TAB* 5 MG TAB PO PRN (05:27)
[2017-04-05] MEDS: Heparin VIAL(*) 5000 UNITS/ML VIAL (FIVE THOUSAND) SUBCUT SCH (05:28)
[2017-04-05 06:59] LABS: Urine Bilirubin Negative (Negative); Urine Glucose Negative (Negative); Urine Nitrite Negative (Negative)
[2017-04-05 07:04] LABS: Hematocrit 40 % (42-52); Hemoglobin 13.6 g/dl (14.0-18.0); Mean Corpuscular HGB Conc 34 g/dl (31-36); Mean Corpuscular Hemoglobin 33 pg (27-31); Mean Corpuscular Volume 96 fL (80-94); Mean Platelet Volume 7 um3 (7.4-10.4); Red Blood Count 4.19 10^6/ul (4.0-5.4); Red Cell Distribution Width 14 % (10.5-15); White Blood Count 6.9 10^3/ul (3.5-10.8)
[2017-04-05 07:19] LABS: BUN/Creatinine Ratio 19.2 (8-20); EGFR African American 99.2 (>60); EGFR Non-African American 77.1 (>60); Potassium 4.6 mmol/L (3.5-5.0)
[2017-04-05] MEDS: Morphine INJ* 2 MG/ML 1 ML SYRINGE (TWO MG - NEW SYRINGE VERSION) IV PRN (08:02)
[2017-04-05] MEDS: Insulin LISPRO* 1 UNITS UNIT SUBCUT SCH ×2 (08:11→12:22)
[2017-04-05 08:18] LABS: Calcium 8.9 mg/dL (8.6-10.3)
[2017-04-05] MEDS: Lisinopril TAB* 5 MG PO SCH (10:03)
[2017-04-05] MEDS: carBAMazepine TAB(*) 200 MG PO SCH (10:04)
[2017-04-05] MEDS: Docusate CAP* 100 MG PO SCH (10:04)
[2017-04-05] MEDS: Aspirin EC Low Dose* 81 MG TAB.EC PO SCH (10:04)
[2017-04-05] MEDS: Folic Acid TAB* 1 MG PO SCH (10:04)
[2017-04-05 13:08] VITALS: BP 145/73
--- NOTE | 2017-04-05 14:08 | DS ---
CC: Dianna; Dr. Lowry * DATE OF ADMISSION: 03/30/2017. DATE OF DISCHARGE: 04/05/2017. PRIMARY CARE PHYSICIAN: Dr. Lowry. PRINCIPAL DIAGNOSIS: Fall with secondary traumatic rhabdomyolysis secondary to drug-induced Parkinsonism. SECONDARY DIAGNOSES: 1. Bipolar disorder. 2. Type 2 diabetes. 3. Hypertension. 4. Hyperlipidemia. 5. Hypothyroidism. 6. Obesity. 7. History of traumatic brain injury. DISCHARGE MEDICATIONS: 1. Tegretol 200 mg p.o. b.i.d. 2. Invokana 100 mg p.o. daily. 3. Folic acid 1 mg p.o. daily. 4. Depakote 1500 mg p.o. at bedtime. 5. Lisinopril 20 mg p.o. daily. 6. Synthroid 100 mcg p.o. daily. 7. Aspirin 81 mg p.o. daily. 8. Requip 0.25 mg p.o. daily. 9. Seroquel 200 mg p.o. at bedtime. 10. Melatonin 12 mg p.o. at bedtime prn insomnia. 11. Lipitor 40 mg p.o. daily. 12. Protonix 40 mg p.o. daily. 13. Gabitril 4 mg p.o. at bedtime. 14. Oxycodone 5 mg p.o. q.6 hours prn pain. HOSPITAL COURSE: Mr. Flower is a 61-year-old male who has a history of severe bipolar disorder with numerous psychiatric hospitalizations for suicidal ideation and attempts who is on atypical antipsychotic, Seroquel, Depakote, and Tegretol for mood stabilization who has a history of drug-induced Parkinsonism likely secondary to the Seroquel, who presents to the emergency room after sustaining a mechanical fall at home. The patient was found to have mild rhabdomyolysis. The patient was treated for this. The patient was seen in consultation by Neurology who recommended having Psychiatry weigh in getting him off the atypical antipsychotic; however, Psychiatry did not feel that this would be warranted as the patient is currently psychiatrically stable and coming off the Seroquel would put him at very high risk of becoming unstable. No treatment options have bene proposed for the drug-induced Parkinsonism tremor. Sinemet was considered; however, it can worsen his psychiatric symptoms and therefore was not started. It is felt that the patient would benefit from short-term rehab to work on balance, induration, and stability. The patient at this point is now stable for transfer. Of note, the day prior to discharge, the patient's blood pressure went low. The day prior to that he had been markedly hypertensive for an unclear cause. He received multiple medications for that and this is likely the cause of the hypotension. The patient was maintained on IV fluid with good response in his blood pressure. At this point, the patient is stable for discharge to [facility] for subacute rehab. FOLLOW-UP CONCERNS: The patient is being discharged to [facility] today, 04/05/2017. ACTIVITY LEVEL: As tolerated. DIET: Diabetic. CONDITION ON DISCHARGE: Stable. Thirty-five minutes were spent discharging this patient. [id number]/[facility] #: [id number] DENEEN
== END 2017-04-05 14:45 | DRG 565 ==
LOC: ED 21:16 → MED 23:44
PROVIDERS: ADMIT Internal Medicine; ATTEND Hospitalist
DX: T79.6XXA Traumatic ischemia of muscle, initial encounter (principal); G21.19 Other drug induced secondary parkinsonism; F44.4 Conversion disorder with motor symptom or deficit; I95.9 Hypotension, unspecified; E03.9 Hypothyroidism, unspecified; E11.9 Type 2 diabetes mellitus without complications; F31.9 Bipolar disorder, unspecified; W19.XXXA Unspecified fall, initial encounter; I10 Essential (primary) hypertension; E78.5 Hyperlipidemia, unspecified; E66.9 Obesity, unspecified; G89.29 Other chronic pain; M54.9 Dorsalgia, unspecified; R53.1 Weakness; R29.6 Repeated falls; I25.10 Atherosclerotic heart disease of native coronary artery without angina pectoris; J45.909 Unspecified asthma, uncomplicated; G47.33 Obstructive sleep apnea (adult) (pediatric); K21.9 Gastro-esophageal reflux disease without esophagitis; F41.9 Anxiety disorder, unspecified; F12.90 Cannabis use, unspecified, uncomplicated; G25.1 Drug-induced tremor; Y92.009 Unspecified place in unspecified non-institutional (private) residence as the place of occurrence of the external cause; Z91.5 Personal history of self-harm; Z68.31 Body mass index [BMI] 31.0-31.9, adult; Z87.820 Personal history of traumatic brain injury; Z81.8 Family history of other mental and behavioral disorders; Z82.49 Family history of ischemic heart disease and other diseases of the circulatory system; Z88.1 Allergy status to other antibiotic agents; Z88.8 Allergy status to other drugs, medicaments and biological substances; Z87.891 Personal history of nicotine dependence; Z72.89 Other problems related to lifestyle; Z79.82 Long term (current) use of aspirin
CPT/HCPCS: 36415; 70450; 71010; 71020; 80048; 80053; 80156; 80164; 81003; 81015; 82550; 83735; 83880; 84484; 85025; 85379; 86140; 87040; 87502; 93005; 95885; 95909; 99283; A9270-GY; J0360; J0780; J1644; J2270; J2405

== ENCOUNTER 2017-04-16 01:52 | Observation (INO) | payer MEDICARE, OTHER ==
[2017-04-16] MEDS ORDERED: Naloxone* 0.4 MG/ML 10 ML VIAL ONE (02:05)
[2017-04-16] MEDS ORDERED: Naloxone* 0.4 MG/ML 1 ML VIAL IV PUSH ONE (02:15)
[2017-04-16] MEDS ORDERED: NS 0.9% 1000 ML* 1,000 ML IV ONE (02:15)
[2017-04-16 02:25] LABS: ABS Basophils 0.1 10^3/ul (0-0.2); ABS Eosinophils 0.2 10^3/ul (0-0.6); ABS Lymphocytes 2.8 10^3/ul (1.0-4.8); ABS Monocytes 0.9 10^3/ul (0-0.8); ABS Neutrophils 5.8 10^3/ul (1.5-7.7); ABS Nucleated RBC 0 10^3/ul; Eosinophil % 1.5 % (0-6); Hematocrit 42 % (42-52); Hemoglobin 14.1 g/dl (14.0-18.0); Lymphocyte % 29.1 % (25-47); Mean Corpuscular HGB Conc 34 g/dl (31-36); Mean Corpuscular Hemoglobin 32 pg (27-31); Mean Corpuscular Volume 95 fL (80-94); Mean Platelet Volume 7 um3 (7.4-10.4); Nucleated Red Blood Cells % 0; Platelet Count 361 10^3/ul (150-450); Red Cell Distribution Width 14 % (10.5-15); White Blood Count 9.7 10^3/ul (3.5-10.8)
[2017-04-16 02:36] LABS: EGFR Non-African American 48.9 (>60)
[2017-04-16 02:40] LABS: INR 1.01 (0.77-1.02)
[2017-04-16] MEDS ORDERED: Ondansetron INJ* 2 MG/ML VIAL IV PRN (03:56)
[2017-04-16] MEDS ORDERED: Albuterol 2.5 MG/3 ML NEB.SOL* (0.083%) INH PRN (03:56)
[2017-04-16] MEDS ORDERED: Acetaminophen SUPP* 650 MG SUPP PR PRN (03:56)
[2017-04-16 04:58] LABS: Urine Appearance Clear; Urine Blood Negative (Negative); Urine Color Yellow; Urine Ketones Trace (Negative); Urine Protein Negative (Negative); Urine Specific Gravity 1.024 (1.010-1.030); Urine Urobilinogen Negative (Negative)
[2017-04-16] MEDS ORDERED: CMCS: Melatonin (NF) 3 MG TAB PO PRN (05:10)
--- NOTE | 2017-04-16 05:26 | HP ---
H&P (Free Text) History and Physical: PCP: Mark Lowry MD Date/Time of Evaluation: 12/03/20162124 CC: SOB HPI: Mrs Flower is a 61YO male residing at [facility] HX DM2, HTN, HLD, obesity who was sent in for evaluation of AMS/lethargy & hypotension. Mr Flower is unable to give a history. He only says "yeah" to vocal stimuli regardless of the question, but does not open his eyes with noxious stimuli. Per [facility] report he had a fall earlier in the day. Otherwise, this history is obtained via ED staff and the available medical record. 2mg naloxone in ED produced small amount of improvement. PMedHx DM2 HTN HLD asthma bipolar disorder hypothyroidism GERD Ambulatory Orders Atorvastatin* [Lipitor 40 MG*] 40 mg PO DAILY 01/12/15 Divalproex Sodium [Depakote] 1,500 mg PO BEDTIME 01/12/15 Levothyroxine TAB* [Synthroid 75 MCG TAB*] 100 mcg PO DAILY 01/12/15 Folic Acid TAB* [Folvite TAB*] 1 mg PO DAILY 03/01/15 tiaGABine TAB(*) [Gabitril 2 MG*] 4 mg PO BEDTIME 03/01/15 Canagliflozin (NF) [Invokana (NF)] 100 mg PO DAILY 12/03/16 Melatonin 12 mg PO BEDTIME PRN 12/03/16 QUEtiapine TAB* [Seroquel TAB*] 200 mg PO BEDTIME 12/03/16 Aspirin EC Low Dose* [Ecotrin EC Low Dose 81 MG*] 81 mg PO DAILY #30 tab.ec Ropinirole TAB* [Requip TAB*] 0.25 mg PO DAILY tab 12/28/16 Lisinopril TAB* [Prinivil TAB 5 MG*] 20 mg PO DAILY 03/29/17 Pantoprazole TAB (NF) [Protonix TAB (NF)] 40 mg PO DAILY 03/29/17 carBAMazepine TAB(*) [Tegretol TAB(*)] 200 mg PO BID 03/29/17 oxyCODONE TAB* [Roxycodone TAB 5 mg*] 5 mg PO Q6H PRN tab MDD 4 tabs 04/05/17 Allergies Ampicillin Allergy (Unknown, Verified 03/30/17 23:05) Rash And Itching Propranolol [From Inderal] Allergy (Unknown, Verified 03/30/17 23:05) Rash And Itching PSurgHx tonsillectomy hyoid suspension SocHx: trivial smoking HX, HX alcohol & marijuana use/none currently per previous HX; , currently residing at [facility]; 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 Father is alive at 80 with CAD. ROS: as above, otherwise reviewed and all were negative Constitutional: NAD, normally developed, obese white male vitals: Vital Signs Temp 37.1 C 04/16/17 02:25 Pulse 84 04/16/17 04:25 Resp 14 04/16/17 04:25 BP 115/69 04/16/17 04:25 Pulse Ox 98 04/16/17 04:25 Intake & Output 04/15/17 04/15/17 04/16/17 11:59 23:59 11:59 Intake Total 1000 Balance 1000 Weight 113.398 kg Intake: IV Fluids 1000 HEENM: atraumatic; sclera/conjunctiva: non-icteric/clear; blephara: normal; hearing: unable to assess; oropharynx: clear, mucosa moist Neck: soft tissue: non-tender; thyroid: normal Pulmonary: clear to auscultation bilaterally, good aeration, no accessory muscle use CV: RR/RR, normal S1S2, no carotid bruit, no jugular venous distention, 2+ B DP/ PT, no edema Abdominal: soft, non-distended, non-tender, no rebound/guarding/rigidity, normoactive bowel sounds, no hepatosplenomegaly or masses, no costovertebral angle tenderness Musculoskeletal: general: grossly intact, no palpable tenderness Integumental: normal appearance and texture Psychiatric orientation: lethargic, disoriented affect: calm mood: acquiescent eye contact: absent content: nearly absent responses: slowed, only verbalized the word "yeah" insight: poor to absent currently Testing: Lab Results 04/16/17 04/16/17 04/16/17 Range/Units 02:06 02:06 02:06 WBC 9.7 (3.5-10.8) 10^3/ul RBC 4.40 (4.0-5.4) 10^6/ul Hgb 14.1 (14.0-18.0) g/dl Hct 42 (42-52) % MCV 95 H (80-94) fL MCH 32 H (27-31) pg MCHC 34 (31-36) g/dl RDW 14 (10.5-15) % Plt Count 361 (150-450) 10^3/ul MPV 7 L (7.4-10.4) um3 Neut % (Auto) 59.8 (38-83) % Lymph % (Auto) 29.1 (25-47) % Andrews % (Auto) 8.8 (1-9) % Eos % (Auto) 1.5 (0-6) % Baso % (Auto) 0.8 (0-2) % Absolute Neuts (auto) 5.8 (1.5-7.7) 10^3/ul Absolute Lymphs (auto) 2.8 (1.0-4.8) 10^3/ul Absolute Monos (auto) 0.9 H (0-0.8) 10^3/ul Absolute Eos (auto) 0.2 (0-0.6) 10^3/ul Absolute Basos (auto) 0.1 (0-0.2) 10^3/ul Absolute Nucleated RBC 0 10^3/ul Nucleated RBC % 0 INR (Anticoag Therapy) 1.01 (0.77-1.02) APTT 36.3 (26.0-36.3) seconds Sodium 135 (133-145) mmol/L Potassium 4.2 (3.5-5.0) mmol/L Chloride 100 L (101-111) mmol/L Carbon Dioxide 28 (22-32) mmol/L Anion Gap 7 (2-11) mmol/L BUN 16 (6-24) mg/dL Creatinine 1.47 H (0.67-1.17) mg/dL Est GFR ( Amer) 62.8 (>60) Est GFR (Non-Af Amer) 48.9 (>60) BUN/Creatinine Ratio 10.9 (8-20) Glucose 162 H (70-100) mg/dL Lactic Acid (0.5-2.0) mmol/L Calcium 9.4 (8.6-10.3) mg/dL Total Bilirubin 0.30 (0.2-1.0) mg/dL AST 13 (13-39) U/L ALT 11 (7-52) U/L Alkaline Phosphatase 78 (34-104) U/L Troponin I 0.01 (<0.04) ng/mL C-Reactive Protein 12.57 H (< 5.00) mg/L Total Protein 7.0 (6.4-8.9) g/dL Albumin 3.6 (3.2-5.2) g/dL Globulin 3.4 (2-4) g/dL Albumin/Globulin Ratio 1.1 (1-3) Urine Color Urine Appearance Urine pH (5-9) Ur Specific Bostic (1.010-1.030) Urine Protein (Negative) Urine Ketones (Negative) Urine Blood (Negative) Urine Nitrate (Negative) Urine Bilirubin (Negative) Urine Urobilinogen (Negative) Ur Leukocyte Esterase (Negative) Urine Glucose (Negative) Valproic Acid 110.0 H (50-100) mcg/mL Carbamazepine 5.5 (4.0-12.0) mcg/mL Blood Type Antibody Screen 04/16/17 04/16/17 04/16/17 Range/Units 02:06 02:06 04:46 WBC (3.5-10.8) 10^3/ul RBC (4.0-5.4) 10^6/ul Hgb (14.0-18.0) g/dl Hct (42-52) % MCV (80-94) fL MCH (27-31) pg MCHC (31-36) g/dl RDW (10.5-15) % Plt Count (150-450) 10^3/ul MPV (7.4-10.4) um3 Neut % (Auto) (38-83) % Lymph % (Auto) (25-47) % Andrews % (Auto) (1-9) % Eos % (Auto) (0-6) % Baso % (Auto) (0-2) % Absolute Neuts (auto) (1.5-7.7) 10^3/ul Absolute Lymphs (auto) (1.0-4.8) 10^3/ul Absolute Monos (auto) (0-0.8) 10^3/ul Absolute Eos (auto) (0-0.6) 10^3/ul Absolute Basos (auto) (0-0.2) 10^3/ul Absolute Nucleated RBC 10^3/ul Nucleated RBC % INR (Anticoag Therapy) (0.77-1.02) APTT (26.0-36.3) seconds Sodium (133-145) mmol/L Potassium (3.5-5.0) mmol/L Chloride (101-111) mmol/L Carbon Dioxide (22-32) mmol/L Anion Gap (2-11) mmol/L BUN (6-24) mg/dL Creatinine (0.67-1.17) mg/dL Est GFR ( Amer) (>60) Est GFR (Non-Af Amer) (>60) BUN/Creatinine Ratio (8-20) Glucose (70-100) mg/dL Lactic Acid 1.8 (0.5-2.0) mmol/L Calcium (8.6-10.3) mg/dL Total Bilirubin (0.2-1.0) mg/dL AST (13-39) U/L ALT (7-52) U/L Alkaline Phosphatase (34-104) U/L Troponin I (<0.04) ng/mL C-Reactive Protein (< 5.00) mg/L Total Protein (6.4-8.9) g/dL Albumin (3.2-5.2) g/dL Globulin (2-4) g/dL Albumin/Globulin Ratio (1-3) Urine Color Yellow Urine Appearance Clear Urine pH 5.0 (5-9) Ur Specific Bostic 1.024 (1.010-1.030) Urine Protein Negative (Negative) Urine Ketones Trace H (Negative) Urine Blood Negative (Negative) Urine Nitrate Negative (Negative) Urine Bilirubin Negative (Negative) Urine Urobilinogen Negative (Negative) Ur Leukocyte Esterase Negative (Negative) Urine Glucose 3+(>=500 mg/dl) H (Negative) Valproic Acid (50-100) mcg/mL Carbamazepine (4.0-12.0) mcg/mL Blood Type O Positive Antibody Screen Negative ECG, personally reviewed: sinus RBBB rate 82, no ischemia, Q-waves III/AVF CXR, personally reviewed: no acute process CT brain WO, personally reviewed: IMPRESSION: No intra-cranial mass or bleed. Chronic appearing involutional changes of aging. Right maxillary sinusitis Impression: 61F HX DM2, obesity & HTN presenting with SOB and elevated troponin DIAGNOSIS & PLAN Primary AMS, suspect multifactorial : supplemental oxygen : check UA : trend lab work valproic acid toxicity : hold & trend Secondary DM2 : review meds once reconciled Parkinsonism, drug-induced : review meds once reconciled HTN : review meds once reconciled HLD : review meds once reconciled asthma : review meds once reconciled bipolar disorder : review meds once reconciled hypothyroidism : review meds once reconciled insomnia : review meds once reconciled GERD : review meds once reconciled Admission Rational: CDU observation for multifactorial AMS DVTp: heparin SQ & SCDs Code Status: DNR/I HCP: father
[2017-04-16] MEDS: Levothyroxine TAB* 100 MCG TAB PO SCH (05:48)
[2017-04-16 07:32] LABS: ABS Basophils 0.1 10^3/ul (0-0.2); ABS Eosinophils 0.1 10^3/ul (0-0.6); ABS Lymphocytes 2.1 10^3/ul (1.0-4.8); ABS Monocytes 0.6 10^3/ul (0-0.8); ABS Neutrophils 5.5 10^3/ul (1.5-7.7); ABS Nucleated RBC 0 10^3/ul; Eosinophil % 0.8 % (0-6); Hematocrit 40 % (42-52); Hemoglobin 13.5 g/dl (14.0-18.0); Lymphocyte % 25.1 % (25-47); Mean Corpuscular HGB Conc 34 g/dl (31-36); Mean Corpuscular Hemoglobin 32 pg (27-31); Mean Corpuscular Volume 95 fL (80-94); Mean Platelet Volume 8 um3 (7.4-10.4); Nucleated Red Blood Cells % 0; Platelet Count 327 10^3/ul (150-450); Red Blood Count 4.18 10^6/ul (4.0-5.4); Red Cell Distribution Width 14 % (10.5-15); White Blood Count 8.4 10^3/ul (3.5-10.8)
--- NOTE | 2017-04-16 07:52 | RAD ---
HISTORY: Fall, hypertension COMPARISONS: March 31, 2017 TECHNIQUE: Multiple contiguous axial CT scans were obtained of the head without intravenous contrast. FINDINGS: HEMORRHAGE/INFARCT: There is no hemorrhage or acute infarct. MASSES/SHIFT: There is no mass or shift. EXTRA-AXIAL SPACES: There are no extra-axial fluid collections. SULCI AND VENTRICLES: There is diffuse enlargement of the sulci and ventricles, with somewhat disproportionate sulcal enlargement. CEREBRUM: There are no focal parenchymal abnormalities. BRAINSTEM: There are no focal parenchymal abnormalities. CEREBELLUM: There are no focal parenchymal abnormalities. VESSELS: The vessels are grossly normal. PARANASAL SINUSES: There is opacification of the right maxillary sinus with osteitis of the surrounding maxilla. There is opacification of the ethmoid air cells on the right ORBITS: The orbits are unremarkable. BONES AND SOFT TISSUE: No bone or soft tissue abnormalities are noted. OTHER: None IMPRESSION: 1. NO ACUTE INTRACRANIAL PATHOLOGY. 2. AGAIN NOTED IS DIFFUSE VOLUME LOSS WITH DISPROPORTIONATE SULCAL ENLARGEMENT WHICH CAN BE SEEN WITH ADULT ONSET COMMUNICATING HYDROCEPHALUS, INCLUDING NORMAL PRESSURE HYDROCEPHALUS. 3. CHRONIC RIGHT MAXILLARY SINUSITIS
--- NOTE | 2017-04-16 07:53 | RAD ---
INDICATION: Shortness of breath. COMPARISON: Comparison is made with a prior chest x-ray study from March 30, 2017. TECHNIQUE: A portable view of the chest was obtained. FINDINGS: Cardiac and mediastinal contours appear to be within normal limits. The lungs are underinflated and grossly clear. No pleural effusion is seen. IMPRESSION: NO EVIDENCE FOR ACUTE DISEASE.
[2017-04-16] MEDS: carBAMazepine TAB(*) 200 MG PO SCH ×2 (09:25→20:03)
[2017-04-16] MEDS: Aspirin EC Low Dose* 81 MG TAB.EC PO SCH (09:25)
[2017-04-16] MEDS: Atorvastatin* 40 MG TAB PO SCH (09:25)
[2017-04-16] MEDS: Ropinirole TAB* 0.5 MG TAB PO SCH (09:25)
[2017-04-16] MEDS: Folic Acid TAB* 1 MG PO SCH (09:26)
[2017-04-16] MEDS: Canagliflozin (NF) 100 MG TAB PO SCH (09:26)
--- NOTE | 2017-04-16 11:01 | PN ---
Subjective Date of Service: 04/16/17 Interval History: Patient seen and examined at bedside. This is a 61 yo male from [facility] who was sent in after a fall and for evaluation of AMS/lethargy. Today, Mr. Flower is alert and responds appropriately, although minimally, to questions. He denies CP, SOB, abd pain but is concerned that he has not had a BM x 4 days and states he is nauseous. Patient previously passed swallow eval and is doing well with regular foods/textures. Family History: Unchanged from Admission Social History: Unchanged from Admission Past Medical History: Unchanged from Admission Objective Active Medications: Acetaminophen (Tylenol Supp*) 650 mg SC Q6H PRN PRN Reason: FEVER/PAIN Albuterol (Ventolin 2.5 Mg/3 Ml Neb.Eli*) 2.5 mg INH Q2H PRN PRN Reason: SOB/WHEEZING Aspirin (Aspirin Ec Low Dose*) 81 mg PO DAILY [facility] Last Admin: 04/16/17 09:25 Dose: 81 mg Atorvastatin Calcium (Lipitor*) 40 mg PO DAILY [facility] Last Admin: 04/16/17 09:25 Dose: 40 mg Canagliflozin (Invokana (Nf)) 100 mg PO DAILY [facility] Last Admin: 04/16/17 09:26 Dose: Not Given Carbamazepine (Tegretol Tab(*)) 200 mg PO BID [facility] Last Admin: 04/16/17 09:25 Dose: 200 mg Folic Acid (Folvite Tab*) 1 mg PO DAILY [facility] Last Admin: 04/16/17 09:26 Dose: 1 mg Heparin Sodium (Porcine) (Heparin Vial(*)) 5,000 units SUBCUT Q8HR [facility] Sodium Chloride (Ns 0.9% 1000 Ml*) 1,000 mls @ 125 mls/hr IV PER RATE [facility] Levothyroxine Sodium (Synthroid Tab*) 100 mcg PO 0600 [facility] Last Admin: 04/16/17 05:48 Dose: 100 mcg Melatonin (Melatonin (Nf)) 12 mg PO BEDTIME PRN PRN Reason: INSOMNIA Ondansetron HCl (Zofran Inj*) 4 mg IV Q6H PRN PRN Reason: NAUSEA Oxycodone HCl (Roxycodone Tab*) 5 mg PO Q6H PRN PRN Reason: PAIN Quetiapine Fumarate (Seroquel Tab*) 200 mg PO BEDTIME [facility] Ropinirole HCl (Requip Tab*) 0.25 mg PO DAILY [facility] Last Admin: 04/16/17 09:25 Dose: 0.25 mg Tiagabine HCl (Gabitril(*)) 4 mg PO BEDTIME [facility] Vital Signs - 8 hr 04/16/17 04/16/17 04/16/17 04:25 05:27 05:44 Temperature 97.0 F 98.8 F Pulse Rate 84 95 84 Respiratory 14 20 14 Rate Blood Pressure 115/69 146/81 115/69 (mmHg) O2 Sat by Pulse 98 99 98 Oximetry 04/16/17 04/16/17 07:39 08:51 Temperature 97.3 F Pulse Rate 73 73 Respiratory 20 19 Rate Blood Pressure 119/62 (mmHg) O2 Sat by Pulse 97 95 Oximetry Oxygen Devices in Use Now: Nasal Cannula Appearance: Male patient, lying in bed, NAD Eyes: No Scleral Icterus Ears/Nose/Mouth/Throat: Clear Oropharnyx, Mucous Membranes Moist Neck: NL Appearance and Movements; NL JVP Respiratory: Symmetrical Chest Expansion and Respiratory Effort, Clear to Auscultation Cardiovascular: NL Sounds; No Murmurs; No JVD Abdominal: NL Sounds; No Tenderness; No Distention Extremities: No Edema Neurological: - - Alert, oriented to self, place but disoriented to time Lines/Tubes/Other Access: Clean, Dry and Intact Peripheral IV Nutrition: Taking PO's Result Diagrams: 04/16/17 07:00 04/16/17 07:00 Microbiology and Other Data: Microbiology 04/16/17 05:38 Nasal Screen MRSA (PCR)(BRYAN) - Final Nasal Mrsa Negative Assess/Plan/Problems-Billing Assessment: Mr. Flower is a 61 yo male with a PMH of DM2, HTN, HLD, hypothyroidism, and bipolar disorder who presented to the ED with concern for AMS following a fall at [facility]. - Patient Problems (1) Altered mental status Code(s): R41.82 - ALTERED MENTAL STATUS, UNSPECIFIED Comment: May be secondary to elevated valproic acid levels Continue to monitor Resume medication tomorrow with continued monitoring of levels. Appears to be at baseline - plan to check in with [facility] to determine initial concern (2) Constipation Code(s): K59.00 - CONSTIPATION, UNSPECIFIED Comment: Per patient, no BM x 4 days BS hyperactive, tolerating PO Start bowel regimen (3) Diabetes Code(s): E11.9 - TYPE 2 DIABETES MELLITUS WITHOUT COMPLICATIONS Comment: Javier is non-formulary. His sugars are currently well controlled per labs. Lispro SSI ordered (4) HLD (hyperlipidemia) Code(s): E78.5 - HYPERLIPIDEMIA, UNSPECIFIED Comment: Continue statin. (5) HTN (hypertension) Code(s): I10 - ESSENTIAL (PRIMARY) HYPERTENSION Comment: BP labile, but normo to hypertensive Resume lisinopril (6) Hypothyroid Code(s): E03.9 - HYPOTHYROIDISM, UNSPECIFIED Comment: Continue levothyroxine at home dose. (7) Frequent falls Code(s): R29.6 - REPEATED FALLS Comment: Continue rehab at [facility] (8) Bipolar 1 disorder Code(s): F31.9 - BIPOLAR DISORDER, UNSPECIFIED Comment: Continue Seroquel, Tegretol Resume Depakote tomorrow and follow levels. (9) DVT prophylaxis Comment: SQ heparin Status and Disposition: OBV admit. d/c to [facility] when medically stable
[2017-04-16] MEDS: Polyethylene Glycol 3350* 17 GM PACKET PO SCH (12:07)
[2017-04-16] MEDS: NS 0.9% 1000 ML* 1,000 ML IV SCH ×2 (13:53→22:36)
[2017-04-16] MEDS: Magnesium Hydroxide LIQ* 30 ML UDC PO PRN ×2 (14:39→18:46)
[2017-04-16] MEDS: oxyCODONE TAB* 5 MG TAB PO PRN (15:40)
[2017-04-16] MEDS ORDERED: Dextrose 50% Syringe 50 ML* 25 GM/50 ML SYRINGE IV PUSH PRN (19:17)
[2017-04-16] MEDS ORDERED: QUEtiapine TAB* 100 MG PO SCH (21:00)
[2017-04-16] MEDS ORDERED: TIAGABINE 4 MG PO SCH (21:00)
[2017-04-17] MEDS: oxyCODONE TAB* 5 MG TAB PO PRN ×2 (03:17→10:35)
[2017-04-17] MEDS: Levothyroxine TAB* 100 MCG TAB PO SCH (05:41)
[2017-04-17] MEDS ORDERED: Heparin VIAL(*) 5000 UNITS/ML VIAL (FIVE THOUSAND) SUBCUT SCH (06:00)
[2017-04-17] MEDS ORDERED: Acetaminophen TAB* 325 MG PO PRN (06:55)
[2017-04-17] MEDS ORDERED: Insulin LISPRO* 1 UNITS UNIT SUBCUT SCH (07:30)
[2017-04-17] MEDS: NS 0.9% 1000 ML* 1,000 ML IV SCH (07:32)
[2017-04-17 08:10] VITALS: BP 142/93
[2017-04-17] MEDS: carBAMazepine TAB(*) 200 MG PO SCH (08:22)
[2017-04-17] MEDS: Aspirin EC Low Dose* 81 MG TAB.EC PO SCH (08:22)
[2017-04-17] MEDS: Folic Acid TAB* 1 MG PO SCH (08:22)
[2017-04-17] MEDS: Atorvastatin* 40 MG TAB PO SCH (08:23)
[2017-04-17] MEDS: Ropinirole TAB* 0.5 MG TAB PO SCH (08:23)
[2017-04-17] MEDS: Polyethylene Glycol 3350* 17 GM PACKET PO SCH (08:23)
[2017-04-17] MEDS: Magnesium Hydroxide LIQ* 30 ML UDC PO PRN (08:23)
[2017-04-17] MEDS: Canagliflozin (NF) 100 MG TAB PO SCH (08:24)
[2017-04-17] MEDS ORDERED: Bisacodyl SUPP* 10 MG SUPP PR ONE (08:41)
[2017-04-17] MEDS ORDERED: Lisinopril TAB* 10 MG PO SCH (09:00)
[2017-04-17] MEDS ORDERED: Lidocaine 2% VISCOUS* 15 ML UDC PO ONE (10:03)
[2017-04-17] MEDS ORDERED: Al Hydrox/Mg Hydrox/Simet LIQ* 30 ML UDC PO ONE (10:03)
--- NOTE | 2017-04-17 10:03 | PN ---
Subjective Date of Service: 04/17/17 Family History: Unchanged from Admission Social History: Unchanged from Admission Past Medical History: Unchanged from Admission Objective Active Medications: Acetaminophen (Tylenol Tab*) 650 mg PO Q6H PRN PRN Reason: FEVER/PAIN Last Admin: 04/17/17 08:23 Dose: 650 mg Albuterol (Ventolin 2.5 Mg/3 Ml Neb.Eli*) 2.5 mg INH Q2H PRN PRN Reason: SOB/WHEEZING Aspirin (Aspirin Ec Low Dose*) 81 mg PO DAILY [facility] Last Admin: 04/17/17 08:22 Dose: 81 mg Atorvastatin Calcium (Lipitor*) 40 mg PO DAILY [facility] Last Admin: 04/17/17 08:23 Dose: 40 mg Carbamazepine (Tegretol Tab(*)) 200 mg PO BID [facility] Last Admin: 04/17/17 08:22 Dose: 200 mg Dextrose (D50w Syringe 50 Ml*) 12.5 gm IV PUSH .FOR FS < 60 - SS PRN PRN Reason: FS < 60 Divalproex Sodium (Depakote Dr Tab(*)) 1,000 mg PO BEDTIME [facility] Folic Acid (Folvite Tab*) 1 mg PO DAILY [facility] Last Admin: 04/17/17 08:22 Dose: 1 mg Heparin Sodium (Porcine) (Heparin Vial(*)) 5,000 units SUBCUT Q8HR [facility] Last Admin: 04/17/17 05:42 Dose: 5,000 units Sodium Chloride (Ns 0.9% 1000 Ml*) 1,000 mls @ 125 mls/hr IV PER RATE [facility] Last Admin: 04/17/17 07:32 Dose: 125 mls/hr Insulin Human Lispro (Humalog*) 0 units SUBCUT AC [facility] PRN Reason: Protocol Last Admin: 04/17/17 07:37 Dose: Not Given Levothyroxine Sodium (Synthroid Tab*) 100 mcg PO 0600 [facility] Last Admin: 04/17/17 05:41 Dose: 100 mcg Lisinopril (Prinivil Tab*) 20 mg PO DAILY [facility] Last Admin: 04/17/17 08:23 Dose: 20 mg Magnesium Hydroxide (Milk Of Magnesia Liq*) 30 ml PO Q4H PRN PRN Reason: CONSTIPATION Last Admin: 04/17/17 08:23 Dose: 30 ml Melatonin (Melatonin (Nf)) 12 mg PO BEDTIME PRN PRN Reason: INSOMNIA Last Admin: 04/16/17 20:07 Dose: 12 mg Ondansetron HCl (Zofran Inj*) 4 mg IV Q6H PRN PRN Reason: NAUSEA Oxycodone HCl (Roxycodone Tab*) 5 mg PO Q6H PRN PRN Reason: PAIN Last Admin: 04/17/17 03:17 Dose: 5 mg Polyethylene Glycol/Electrolytes (Miralax*) 17 gm PO DAILY [facility] Last Admin: 04/17/17 08:23 Dose: 17 gm Quetiapine Fumarate (Seroquel Tab*) 200 mg PO BEDTIME [facility] Last Admin: 04/16/17 20:03 Dose: 200 mg Ropinirole HCl (Requip Tab*) 0.25 mg PO DAILY [facility] Last Admin: 04/17/17 08:23 Dose: 0.25 mg Tiagabine HCl (Gabitril(*)) 4 mg PO BEDTIME [facility] Last Admin: 04/16/17 20:03 Dose: 4 mg Vital Signs - 8 hr 04/17/17 04/17/17 04/17/17 02:18 03:09 03:17 Temperature 97.3 F Pulse Rate 78 68 Respiratory 20 16 18 Rate Blood Pressure 141/92 (mmHg) O2 Sat by Pulse 97 99 Oximetry 04/17/17 04/17/17 05:39 07:28 Temperature 97.4 F Pulse Rate 71 Respiratory 18 14 Rate Blood Pressure 142/93 (mmHg) O2 Sat by Pulse 96 Oximetry Oxygen Devices in Use Now: None Result Diagrams: 04/16/17 07:00 04/16/17 07:00 Microbiology and Other Data: Microbiology 04/16/17 05:38 Nasal Screen MRSA (PCR)(BRYAN) - Final Nasal Mrsa Negative Assess/Plan/Problems-Billing Assessment: Mr. Flower is a 61 yo male with a PMH of DM2, HTN, HLD, hypothyroidism, and bipolar disorder who presented to the ED with concern for AMS following a fall at [facility]. - Patient Problems (1) Altered mental status Code(s): R41.82 - ALTERED MENTAL STATUS, UNSPECIFIED Comment: May be secondary to elevated valproic acid levels Continue to monitor Resume medication tomorrow with continued monitoring of levels. Appears to be at baseline - plan to check in with [facility] to determine initial concern (2) Constipation Code(s): K59.00 - CONSTIPATION, UNSPECIFIED Comment: Per patient, no BM x 4 days BS hyperactive, tolerating PO Start bowel regimen (3) Diabetes Code(s): E11.9 - TYPE 2 DIABETES MELLITUS WITHOUT COMPLICATIONS Comment: Javier is non-formulary. His sugars are currently well controlled per labs. Lispro SSI ordered (4) HLD (hyperlipidemia) Code(s): E78.5 - HYPERLIPIDEMIA, UNSPECIFIED Comment: Continue statin. (5) HTN (hypertension) Code(s): I10 - ESSENTIAL (PRIMARY) HYPERTENSION Comment: BP labile, but normo to hypertensive Resume lisinopril (6) Hypothyroid Code(s): E03.9 - HYPOTHYROIDISM, UNSPECIFIED Comment: Continue levothyroxine at home dose. (7) Frequent falls Code(s): R29.6 - REPEATED FALLS Comment: Continue rehab at [facility] (8) Bipolar 1 disorder Code(s): F31.9 - BIPOLAR DISORDER, UNSPECIFIED Comment: Continue Seroquel, Tegretol Resume Depakote tomorrow and follow levels. (9) DVT prophylaxis Comment: SQ heparin Status and Disposition: OBV admit. d/c to [facility] when medically stable
--- NOTE | 2017-04-17 12:27 | DS ---
CC: Dr. Coliln Lowry; [facility] * DATE OF ADMISSION: 04/16/2017. DATE OF DISCHARGE: 04/17/2017. PROVIDER: Zina Snow NP. ATTENDING PHYSICIAN: Dr. Zenia Robles * (as dictated by Zina Snow NP). PRIMARY CARE PHYSICIAN: Dr. Collin Lowry. PRIMARY DISCHARGE DIAGNOSIS: 1. Altered mental status, now resolved. 2. Valproic acid toxicity. 3. Constipation. SECONDARY DISCHARGE DIAGNOSES: 1. Type 2 diabetes. 2. Parkinsonism, drug-induced. 3. Hypertension. 4. Hyperlipidemia. 5. Asthma. 6. Bipolar disorder. 7. Hypothyroidism. 8. GERD. 9. Insomnia. MEDICATIONS AT DISCHARGE: 1. Oxycodone 5 mg q.6 hours prn. 2. Ondansetron 4 mg q.6 hours prn. 3. Levothyroxine 100 mcg daily. 4. Seroquel 200 mg at bedtime. 5. Pantoprazole 40 mg daily. 6. Atorvastatin 40 mg daily. 7. Ropinirole 0.25 mg daily. 8. Lisinopril 20 mg daily. 9. Aspirin 81 mg daily. 10. Tiagabine 4 mg at bedtime. 11. Folic acid 1 mg daily. 12. Invokana 100 mg daily. 13. Carbamazepine 200 mg b.i.d. 14. MiraLax 17 gm daily. This is a new medication. 15. Milk of Magnesia 30 ml q.4 hours prn. This is a new medication. 16. Depakote DR 1000 mg at bedtime. This is a change in dosing. The patient's Valproic acid level was noted to be 110 on admission which is in the supratherapeutic range and was able to be resolved down to 78 once medication was held. HOSPITAL COURSE OF STAY: For full details, please refer to the history and physical provided by Dr. Cullen on admission. In summary, Mr. Flower is a 61-year-old male with a complicated and complex past medical history who is residing at [facility]. He was sent into the ER with concern for altered mental status. He had previously fallen earlier in the day. The extent of the altered mental status is unclear. He was admitted overnight for further observation. Labs and urine were checked, as well as a brain CT and chest x-ray , all of which was unremarkable. The only notable finding was elevated valproic acid level to indicate toxicity. Mr. Flower was monitored overnight and into the following day. He resolved back to baseline and had no complaints other than abdominal discomfort secondary to constipation. He states he has not had a bowel movement in four days. The patient was started on a bowel regimen with good effect. He was able to have two bowel movements here at the hospital prior to discharge. He has complained intermittently of abdominal discomfort. It is relieved by prn Zofran and Maalox. He has been afebrile and vital signs are stable. No other acute concerns were noted. In regards to his valproic acid level, I have decreased his dose from 1500 mg at bedtime to 1000 mg at bedtime. The patient should have a follow-up lab drawn in two days on 04/19/2017. Medication can continue to be titrated based on patient behaviors and Depakote levels. No other acute concerns or findings. The patient appears again to be at baseline. ASSESSMENT: Vital signs: Temperature 97.4, pulse rate 70, respiratory rate 16 , blood pressure 142/93, O2 saturation 96 percent on room air. HEENT: Atraumatic, normocephalic. Face is symmetrical. Pupils are equal, round and reactive to light. Extraocular movements are intact. Oral mucosa is moist. Neck: Supple. No lymphadenopathy appreciated. Cardiac: S1, S2 heart sounds. Regular rate and rhythm. No murmurs, rubs or gallops. No peripheral edema noted. Lungs: Clear to auscultation. Abdomen: Soft, nontender, nondistended. Bowel sounds are hyperactive and present in all four quadrants. Extremities: No clubbing or cyanosis. Neuro: The patient is alert, oriented to self and place, has some mild forgetfulness at times, but is able to make his needs known. No focal deficits noted. Psych: The patient has a flat affect and a history of bipolar disorder. Per nursing staff, he appears to be within his baseline. DIET: Consistent carbohydrate diet. ACTIVITY: As tolerated. CONDITION ON DISCHARGE: Improved, stable. DISPOSITION: To [facility]. FOLLOW-UP NEEDS: Again, the patient needs to have a follow-up Depakote level this Saturday and medication should be adjusted according to the patient's behaviors and medication levels to avoid extreme toxicity and altered mental status. Approximately 45 minutes were spent on this discharge. Again, this is only a brief summary of the patient's hospital course of stay. For full details, please refer to the full medical record. If you have any further questions or need further assistance, please feel free to contact me at [phone]. ZINA SNOW NP [id number]/[facility] #: [id number] DENEEN
[2017-04-17] MEDS ORDERED: Divalproex DR TAB(*) 500 MG PO SCH (21:00)
--- NOTE | 2017-04-18 05:58 | ED ---
Fernando Farias Gabriel, scribed for Pawan Rodriguez MD on 04/16/17 at 0247 . Altered Mental Status - HPI Summary HPI Summary: This patient is a 61 year old M [facility] [facility] [place] [facility] The nursing facility states he fell earlier and they found him unresponsive with low BP today. Patient responded positively to NARCAN and is now responding. He states he fell out of his bed and did not hit his head. He ambulates with a walker. Patient is reporting ABD pain. He is stating he hasnt had a BM in 4 days. - History Of Current Complaint Chief Complaint: EDAltMentalStatus Stated Complaint: HYPOTENSION Time Seen by Provider: 04/16/17 02:12 Hx Obtained From: Patient, Medical Records Last Known Well Date: yesterday Onset/Duration: Still Present Timing: Constant Severity Initially: Mild Severity Currently: Mild Character: Responsiveness - decreased Alleviating Factor(s): Other - NARCAN Associated Signs And Symptoms: Negative: Vomiting - Allergies/Home Medications Allergies/Adverse Reactions: Allergies Allergy/AdvReac Type Severity Reaction Status Date / Time Ampicillin Allergy Unknown Rash And Verified 03/30/17 23:05 Itching Propranolol [From Inderal] Allergy Unknown Rash And Verified 03/30/17 23:05 Itching PMH/Surg Hx/FS Hx/Imm Hx Endocrine/Hematology History: Reports: Hx Diabetes, Hx Thyroid Disease - hypothyroid medicated with synthroid 75 mcg Cardiovascular History: Reports: Hx Hypercholesterolemia, Hx Hypertension, Other Cardiovascular Problems/Disorders - CAD, IDDM II, HIGH CHOLESTEROL Denies: Hx Angina, Hx Coronary Artery Disease, Hx Myocardial Infarction, Hx Valvular Heart Disease Respiratory History: Reports: Hx Asthma, Hx Sleep Apnea Denies: Hx Chronic Obstructive Pulmonary Disease (COPD) GI History: Reports: Hx Gastroesophageal Reflux Disease Musculoskeletal History: Denies: Hx Arthritis, Hx Osteoporosis Sensory History: Denies: Hx Cataracts, Hx Contacts or Glasses, Hx Eye Injury, Hx Hearing Aid, Hx Hearing Problem, Other Sensory Impairments Opthamlomology History: Denies: Hx Cataracts, Hx Contacts or Glasses, Hx Eye Injury, Other Sensory Impairments Neurological History: Reports: Other Neuro Impairments/Disorders - parkinson's Psychiatric History: Reports: Hx Anxiety, Hx Depression, Hx Inpatient Treatment - multiple in [place], [place], Hx Bipolar Disorder Denies: Hx Eating Disorder, Hx of Violent Episodes Against Others - Surgical History Surgery Procedure, Year, and Place: tonsillectomy, hyiod suspension Hx Anesthesia Reactions: No - Immunization History Date of Tetanus Vaccine: UTD Date of Influenza Vaccine: 01/2017 Infectious Disease History: Unable to Obtain/Confirm Infectious Disease History: Denies: Hx of Known/Suspected MRSA, Traveled Outside the [place] in Last 30 Days - Family History Known Family History: Positive: Hypertension, Other - Positive bipolar and schizophrenia - Social History Alcohol Use: Occasionally Alcohol Amount: 1beer/1 drink daily for a long time Hx Substance Use: No Substance Use Type: Reports: Marijuana Substance Use Comment - Amount & Last Used: uses 1-2 drinks of alcohol daily and several bowls of marijuana daily. Hx Tobacco Use: Yes Smoking Status (MU): Former Smoker Type: Cigarettes Have You Smoked in the Last Year: Yes Review of Systems Negative: Fever Positive: Abdominal Pain, Other - consitpation Musculoskeletal: Negative - head trauma All Other Systems Reviewed And Are Negative: Yes Physical Exam - Summary Physical Exam Summary: VITAL SIGNS: Reviewed. GENERAL: Patient is a well-developed and nourished male who is lying comfortable in the stretcher. Patient is not in any acute respiratory distress. Patient appears drowsy HEAD AND FACE: No signs of trauma. No ecchymosis, hematomas or skull depressions. No sinus tenderness. EYES: PERRLA, EOMI x 2, No injected conjunctiva, no nystagmus. EARS: Hearing grossly intact. Ear canals and tympanic membranes are within normal limits. MOUTH: Oropharynx within normal limits. NECK: Supple, trachea is midline, no adenopathy, no JVD, no carotid bruit, no c- spine tenderness, neck with full ROM. CHEST: Symmetric, no tenderness at palpation LUNGS: No wheezing or crackles. Decreased breath sounds bilaterally and is breathing with reduced effort CVS: Regular rate and rhythm, S1 and S2 present, no murmurs or gallops appreciated. ABDOMEN: Soft, non-tender. Shows distention. No rebound no guarding, and no masses palpated. Bowel sounds are normal. EXTREMITIES: FROM in all major joints, no edema, no cyanosis or clubbing. NEURO: Alert. No acute neurological deficits. Speech is normal and follows commands. Patient is non focal SKIN: Dry and warm Patient was given 2 mg of IV NARCAN and is more awake and is answering questions and vitals are improving Triage Information Reviewed: Yes Vital Signs On Initial Exam: Initial Vitals Temp Pulse Resp BP Pulse Ox 95.9 F 86 18 75/51 89 04/16/17 02:04 04/16/17 02:04 04/16/17 02:04 04/16/17 02:04 04/16/17 02:04 Vital Signs Reviewed: Yes Diagnostics - Vital Signs Vital Signs Temp Pulse Resp BP Pulse Ox 04/16/17 02:25 98.8 F 04/16/17 02:04 95.9 F 86 18 75/51 89 - Laboratory Lab Results: Lab Results 04/16/17 04/16/17 04/16/17 Range/Units 02:06 02:06 02:06 WBC 9.7 (3.5-10.8) 10^3/ul RBC 4.40 (4.0-5.4) 10^6/ul Hgb 14.1 (14.0-18.0) g/dl Hct 42 (42-52) % MCV 95 H (80-94) fL MCH 32 H (27-31) pg MCHC 34 (31-36) g/dl RDW 14 (10.5-15) % Plt Count 361 (150-450) 10^3/ul MPV 7 L (7.4-10.4) um3 Neut % (Auto) 59.8 (38-83) % Lymph % (Auto) 29.1 (25-47) % [place] % (Auto) 8.8 (1-9) % Eos % (Auto) 1.5 (0-6) % Baso % (Auto) 0.8 (0-2) % Absolute Neuts (auto) 5.8 (1.5-7.7) 10^3/ul Absolute Lymphs (auto) 2.8 (1.0-4.8) 10^3/ul Absolute Monos (auto) 0.9 H (0-0.8) 10^3/ul Absolute Eos (auto) 0.2 (0-0.6) 10^3/ul Absolute Basos (auto) 0.1 (0-0.2) 10^3/ul Absolute Nucleated RBC 0 10^3/ul Nucleated RBC % 0 INR (Anticoag Therapy) 1.01 (0.77-1.02) APTT 36.3 (26.0-36.3) seconds Sodium 135 (133-145) mmol/L Potassium 4.2 (3.5-5.0) mmol/L Chloride 100 L (101-111) mmol/L Carbon Dioxide 28 (22-32) mmol/L Anion Gap 7 (2-11) mmol/L BUN 16 (6-24) mg/dL Creatinine 1.47 H (0.67-1.17) mg/dL Est GFR ( Amer) 62.8 (>60) Est GFR (Non-Af Amer) 48.9 (>60) BUN/Creatinine Ratio 10.9 (8-20) Glucose 162 H (70-100) mg/dL Lactic Acid (0.5-2.0) mmol/L Calcium 9.4 (8.6-10.3) mg/dL Total Bilirubin 0.30 (0.2-1.0) mg/dL AST 13 (13-39) U/L ALT 11 (7-52) U/L Alkaline Phosphatase 78 (34-104) U/L Troponin I 0.01 (<0.04) ng/mL C-Reactive Protein 12.57 H (< 5.00) mg/L Total Protein 7.0 (6.4-8.9) g/dL Albumin 3.6 (3.2-5.2) g/dL Globulin 3.4 (2-4) g/dL Albumin/Globulin Ratio 1.1 (1-3) Blood Type Antibody Screen 04/16/17 04/16/17 Range/Units 02:06 02:06 WBC (3.5-10.8) 10^3/ul RBC (4.0-5.4) 10^6/ul Hgb (14.0-18.0) g/dl Hct (42-52) % MCV (80-94) fL MCH (27-31) pg MCHC (31-36) g/dl RDW (10.5-15) % Plt Count (150-450) 10^3/ul MPV (7.4-10.4) um3 Neut % (Auto) (38-83) % Lymph % (Auto) (25-47) % [place] % (Auto) (1-9) % Eos % (Auto) (0-6) % Baso % (Auto) (0-2) % Absolute Neuts (auto) (1.5-7.7) 10^3/ul Absolute Lymphs (auto) (1.0-4.8) 10^3/ul Absolute Monos (auto) (0-0.8) 10^3/ul Absolute Eos (auto) (0-0.6) 10^3/ul Absolute Basos (auto) (0-0.2) 10^3/ul Absolute Nucleated RBC 10^3/ul Nucleated RBC % INR (Anticoag Therapy) (0.77-1.02) APTT (26.0-36.3) seconds Sodium (133-145) mmol/L Potassium (3.5-5.0) mmol/L Chloride (101-111) mmol/L Carbon Dioxide (22-32) mmol/L Anion Gap (2-11) mmol/L BUN (6-24) mg/dL Creatinine (0.67-1.17) mg/dL Est GFR ( Amer) (>60) Est GFR (Non-Af Amer) (>60) BUN/Creatinine Ratio (8-20) Glucose (70-100) mg/dL Lactic Acid 1.8 (0.5-2.0) mmol/L Calcium (8.6-10.3) mg/dL Total Bilirubin (0.2-1.0) mg/dL AST (13-39) U/L ALT (7-52) U/L Alkaline Phosphatase (34-104) U/L Troponin I (<0.04) ng/mL C-Reactive Protein (< 5.00) mg/L Total Protein (6.4-8.9) g/dL Albumin (3.2-5.2) g/dL Globulin (2-4) g/dL Albumin/Globulin Ratio (1-3) Blood Type O Positive Antibody Screen Pending Result Diagrams: 04/16/17 07:00 04/16/17 07:00 Lab Statement: Any lab studies that have been ordered have been reviewed, and results considered in the medical decision making process. - Radiology CXR Radiology Interpretation Completed By: ED Physician - no acute processes. - EKG 03:06 Cardiac Rate: NL EKG Rhythm: Sinus Rhythm - at 82 BPM EKG Interpretation: first degree av block, RBBB Altered Mental Statu Course/Dx - Course Assessment/Plan: This patient is a 61 year old M BIBA to [facility] from [facility]. The nursing facility states he fell earlier and they found him unresponsive with low BP today. Patient responded positively to NARCAN and is now responding. He states he fell out of his bed and did not hit his head. He ambulates with a walker. Patient is reporting ABD pain. He is stating he hasnt had a BM in 4 days. An EKG reveals first degree av, block RBBB. CXR reveals no acute processes. CT Head reveals, per radiology, no intracranial mass or bleed, chronic appearing involution changes of aging, right maxillary sinusitis. Test results with no significant abnormalities except for a valproic acid of 110. In the ED course the patient was given Narcan and IV fluids. Patient will be admitted with follow up from Dr. Davis. The patient is agreeable with this plan. - Diagnoses Discharge Diagnoses: Valproic acid toxicity - Provider Notifications Discussed Care Of Patient With: Jordan Cullen Time Discussed With Above Provider: 03:36 Instructed by Provider To: Admit As Inpatient Discharge - Discharge Plan Condition: Improved Disposition: ADMITTED TO [facility] The documentation as recorded by the Fernando bean Gabriel accurately reflects the service I personally performed and the decisions made by me, Pawan Rodriguez MD.
== END 2017-04-17 12:40 ==
LOC: ED 01:52 → MEDTELE 03:48
PROVIDERS: ADMIT Hospitalist; ATTEND Internal Medicine
DX: R41.82 Altered mental status, unspecified (principal); T42.6X1A Poisoning by other antiepileptic and sedative-hypnotic drugs, accidental (unintentional), initial encounter; Y92.9 Unspecified place or not applicable; K59.00 Constipation, unspecified; R10.9 Unspecified abdominal pain; E11.9 Type 2 diabetes mellitus without complications; G20 Parkinson's disease; I45.10 Unspecified right bundle-branch block; I10 Essential (primary) hypertension; E78.5 Hyperlipidemia, unspecified; J45.909 Unspecified asthma, uncomplicated; F31.9 Bipolar disorder, unspecified; E03.9 Hypothyroidism, unspecified; K21.9 Gastro-esophageal reflux disease without esophagitis; G47.00 Insomnia, unspecified; Z79.899 Other long term (current) drug therapy; Z88.0 Allergy status to penicillin; Z88.8 Allergy status to other drugs, medicaments and biological substances
CPT/HCPCS: 36415; 70450; 71045; 80048; 80053; 80156; 80164; 81003; 83605; 84484; 85025; 85610; 85730; 86140; 86850; 86900; 86901; 87641; 93005; 94760; 96361; 96372; 96374; 96375; 99284; A9270-GY; G0378; J1644; J2310

== ENCOUNTER 2017-09-27 07:01 | Emergency (ER) | payer MEDICARE, OTHER ==
[2017-09-27] MEDS ORDERED: Famotidine TAB* 20 MG PO ONE (07:23)
[2017-09-27] MEDS ORDERED: Lidocaine 2% VISCOUS* 15 ML UDC PO ONE (07:23)
[2017-09-27] MEDS ORDERED: Al Hydrox/Mg Hydrox/Simet LIQ* 30 ML UDC PO ONE (07:23)
[2017-09-27 07:32] LABS: ABS Basophils 0.1 10^3/ul (0-0.2); ABS Eosinophils 0.2 10^3/ul (0-0.6); ABS Lymphocytes 2.4 10^3/ul (1.0-4.8); ABS Monocytes 0.7 10^3/ul (0-0.8); ABS Neutrophils 5.1 10^3/ul (1.5-7.7); ABS Nucleated RBC 0 10^3/ul; Eosinophil % 2.3 % (0-6); Hematocrit 41 % (42-52); Hemoglobin 14.2 g/dl (14.0-18.0); Lymphocyte % 28.1 % (25-47); Mean Corpuscular HGB Conc 35 g/dl (31-36); Mean Corpuscular Hemoglobin 32 pg (27-31); Mean Corpuscular Volume 92 fL (80-94); Mean Platelet Volume 6.9 um3 (7.4-10.4); Nucleated Red Blood Cells % 0; Platelet Count 306 10^3/ul (150-450); Red Blood Count 4.48 10^6/ul (4.00-5.40); Red Cell Distribution Width 14 % (10.5-15); White Blood Count 8.4 10^3/ul (3.5-10.8)
[2017-09-27 07:44] LABS: INR 0.94 (0.77-1.02)
[2017-09-27 07:50] LABS: EGFR Non-African American 74.2 (>60)
--- NOTE | 2017-09-27 07:59 | RAD ---
HISTORY: chest pain COMPARISONS: April 16, 2017 VIEWS: 1: frontal portable view of the chest at 7:50 AM. The right costophrenic angle is partially cut off. FINDINGS: LINES AND TUBES: None. CARDIOMEDIASTINAL SILHOUETTE: The cardiomediastinal silhouette is normal for portable technique. PLEURA: The visualized costophrenic angles are sharp. No pleural abnormalities are noted. LUNG PARENCHYMA: The lungs are clear. ABDOMEN: The upper abdomen is clear. There is no subphrenic gas. BONES AND SOFT TISSUES: No bone or soft tissue abnormalities are noted. IMPRESSION: NO ACTIVE CARDIOPULMONARY DISEASE.
[2017-09-27] MEDS ORDERED: HYDROcodone/ACETAMIN 5-325 MG* 1 TAB PO ONE (08:00)
[2017-09-27 08:35] VITALS: BP 117/80
--- NOTE | 2017-09-27 09:11 | ED ---
John Farias Stephanie, scribed for Jeff North MD on 09/27/17 at 0724 . HPI Chest Pain - HPI Summary HPI Summary: The pt is a 62 y/o M BIBA to the ED with c/o CP that began at 05:00 today. It is located in the mid-chest and is described as pressure. He denies nausea, abd pain, blood in stool, diaphoresis, SOB and cough. The pt states over the past two days it has felt like his joints have been on fire. The pt received aspirin and nitro [facility] MESH in ambulance. - History of Current Complaint Chief Complaint: EDChestPainROMI Time Seen by Provider: 09/27/17 07:12 Hx Obtained From: Patient Onset/Duration: Started Hours Ago - 2, Still Present Time of Onset: 05:00 Timing: Constant Current Severity: Moderate Pain Intensity: 8 Pain Scale Used: 0-10 Numeric Chest Pain Location: Mid Sternal Chest Pain Radiates: No Character: Tightness Aggravating Factor(s): Nothing Alleviating Factor(s): Nothing Associated Signs and Symptoms: Positive: Negative - blood in stool, Chest Pain. Negative: Shortness of Breath, Diaphoresis, Nausea, Cough, Abdominal Pain - Additional Pertinent History Primary Care Physician: SEAN - Allergy/Home Medications Allergies/Adverse Reactions: Allergies Allergy/AdvReac Type Severity Reaction Status Date / Time ampicillin Allergy Unknown Rash And Verified 09/27/17 07:07 Itching propranolol Allergy Unknown Rash And Verified 09/27/17 07:07 Itching PMH/Surg Hx/FS Hx/Imm Hx Endocrine/Hematology History: Reports: Hx Diabetes, Hx Thyroid Disease - hypothyroid medicated with synthroid 75 mcg Cardiovascular History: Reports: Hx Hypercholesterolemia, Hx Hypotension, Hx Hypertension, Other Cardiovascular Problems/Disorders - CAD, IDDM II, HIGH CHOLESTEROL Denies: Hx Angina, Hx Coronary Artery Disease, Hx Myocardial Infarction, Hx Pacemaker/ICD, Hx Valvular Heart Disease Respiratory History: Reports: Hx Asthma, Hx Sleep Apnea Denies: Hx Chronic Obstructive Pulmonary Disease (COPD) GI History: Reports: Hx Gastroesophageal Reflux Disease History: Denies: Hx Renal Disease Musculoskeletal History: Denies: Hx Arthritis, Hx Osteoporosis Sensory History: Denies: Hx Cataracts, Hx Contacts or Glasses, Hx Eye Injury, Hx Hearing Aid, Hx Hearing Problem, Other Sensory Impairments Opthamlomology History: Denies: Hx Cataracts, Hx Contacts or Glasses, Hx Eye Injury, Other Sensory Impairments Neurological History: Reports: Other Neuro Impairments/Disorders - parkinson's Psychiatric History: Reports: Hx Anxiety, Hx Depression, Hx Inpatient Treatment - multiple in [place], [place], Hx Bipolar Disorder Denies: Hx Eating Disorder, Hx Panic Disorder, Hx of Violent Episodes Against Others - Surgical History Surgery Procedure, Year, and Place: tonsillectomy, hyiod suspension Hx Anesthesia Reactions: No - Immunization History Date of Tetanus Vaccine: UTD Date of Influenza Vaccine: 01/2017 Infectious Disease History: No Infectious Disease History: Denies: Hx of Known/Suspected MRSA, Traveled Outside the [place] in Last 30 Days - Family History Known Family History: Positive: Hypertension, Other - Positive bipolar and schizophrenia - Social History Occupation: Disabled Lives: Alone Alcohol Use: Occasionally Alcohol Amount: 1beer/1 drink daily for a long time Hx Substance Use: No Substance Use Type: Reports: Marijuana Substance Use Comment - Amount & Last Used: uses 1-2 drinks of alcohol daily and several bowls of marijuana daily. Hx Tobacco Use: Yes Smoking Status (MU): Former Smoker Type: Cigarettes Have You Smoked in the Last Year: Yes Review of Systems Negative: Fever, Skin Diaphoresis Positive: Chest Pain Negative: Shortness Of Breath, Cough Gastrointestinal: Negative - blood in stool Negative: Abdominal Pain, Nausea All Other Systems Reviewed And Are Negative: Yes Physical Exam - Summary Physical Exam Summary: Appearance: Well appearing, no pain distress Skin: warm, dry, reflects adequate perfusion Head/face: normal Eyes: EOMI, KIRA ENT: normal Neck: supple, non-tender Respiratory: CTA, breath sounds present Cardiovascular: RRR, pulses symmetrical Abdomen: non-tender, soft Bowel Sounds: present Musculoskeletal: normal, strength/ROM intact Neuro: normal, sensory motor intact, A&Ox3 Triage Information Reviewed: Yes Vital Signs On Initial Exam: Initial Vitals Temp Pulse Resp BP Pulse Ox 97.2 F 83 15 127/87 95 09/27/17 07:03 09/27/17 07:03 09/27/17 07:03 09/27/17 07:03 09/27/17 07:03 Vital Signs Reviewed: Yes Diagnostics - Vital Signs Vital Signs Temp Pulse Resp BP Pulse Ox 09/27/17 07:03 97.2 F 83 15 127/87 95 - Laboratory Lab Results: Lab Results 09/27/17 09/27/17 09/27/17 Range/Units 07:21 07:21 07:21 WBC 8.4 (3.5-10.8) 10^3/ul RBC 4.48 (4.00-5.40) 10^6/ul Hgb 14.2 (14.0-18.0) g/dl Hct 41 L (42-52) % MCV 92 (80-94) fL MCH 32 H (27-31) pg MCHC 35 (31-36) g/dl RDW 14 (10.5-15) % Plt Count 306 (150-450) 10^3/ul MPV 6.9 L (7.4-10.4) um3 Neut % (Auto) 59.9 (38-83) % Lymph % (Auto) 28.1 (25-47) % [place] % (Auto) 8.7 H (0-7) % Eos % (Auto) 2.3 (0-6) % Baso % (Auto) 1.0 (0-2) % Absolute Neuts (auto) 5.1 (1.5-7.7) 10^3/ul Absolute Lymphs (auto) 2.4 (1.0-4.8) 10^3/ul Absolute Monos (auto) 0.7 (0-0.8) 10^3/ul Absolute Eos (auto) 0.2 (0-0.6) 10^3/ul Absolute Basos (auto) 0.1 (0-0.2) 10^3/ul Absolute Nucleated RBC 0 10^3/ul Nucleated RBC % 0 INR (Anticoag Therapy) (0.77-1.02) Sodium 136 (135-145) mmol/L Potassium 4.0 (3.5-5.0) mmol/L Chloride 102 (101-111) mmol/L Carbon Dioxide 27 (22-32) mmol/L Anion Gap 7 (2-11) mmol/L BUN 22 (6-24) mg/dL Creatinine 1.02 (0.67-1.17) mg/dL Est GFR ( Amer) 95.5 (>60) Est GFR (Non-Af Amer) 74.2 (>60) BUN/Creatinine Ratio 21.6 H (8-20) Glucose 120 H (70-100) mg/dL Lactic Acid 1.5 (0.5-2.0) mmol/L Calcium 9.1 (8.6-10.3) mg/dL Total Bilirubin 0.30 (0.2-1.0) mg/dL AST 16 (13-39) U/L ALT 19 (7-52) U/L Alkaline Phosphatase 133 H (34-104) U/L Troponin I 0.00 (<0.04) ng/mL C-Reactive Protein 8.98 H (< 5.00) mg/L B-Natriuretic Peptide ( - 100) pg/mL Total Protein 6.4 (6.4-8.9) g/dL Albumin 3.5 (3.2-5.2) g/dL Globulin 2.9 (2-4) g/dL Albumin/Globulin Ratio 1.2 (1-3) TSH 0.62 (0.34-5.60) mcIU/mL 09/27/17 09/27/17 Range/Units 07:21 07:21 WBC (3.5-10.8) 10^3/ul RBC (4.00-5.40) 10^6/ul Hgb (14.0-18.0) g/dl Hct (42-52) % MCV (80-94) fL MCH (27-31) pg MCHC (31-36) g/dl RDW (10.5-15) % Plt Count (150-450) 10^3/ul MPV (7.4-10.4) um3 Neut % (Auto) (38-83) % Lymph % (Auto) (25-47) % [place] % (Auto) (0-7) % Eos % (Auto) (0-6) % Baso % (Auto) (0-2) % Absolute Neuts (auto) (1.5-7.7) 10^3/ul Absolute Lymphs (auto) (1.0-4.8) 10^3/ul Absolute Monos (auto) (0-0.8) 10^3/ul Absolute Eos (auto) (0-0.6) 10^3/ul Absolute Basos (auto) (0-0.2) 10^3/ul Absolute Nucleated RBC 10^3/ul Nucleated RBC % INR (Anticoag Therapy) 0.94 (0.77-1.02) Sodium (135-145) mmol/L Potassium (3.5-5.0) mmol/L Chloride (101-111) mmol/L Carbon Dioxide (22-32) mmol/L Anion Gap (2-11) mmol/L BUN (6-24) mg/dL Creatinine (0.67-1.17) mg/dL Est GFR ( Amer) (>60) Est GFR (Non-Af Amer) (>60) BUN/Creatinine Ratio (8-20) Glucose (70-100) mg/dL Lactic Acid (0.5-2.0) mmol/L Calcium (8.6-10.3) mg/dL Total Bilirubin (0.2-1.0) mg/dL AST (13-39) U/L ALT (7-52) U/L Alkaline Phosphatase (34-104) U/L Troponin I (<0.04) ng/mL C-Reactive Protein (< 5.00) mg/L B-Natriuretic Peptide 12 ( - 100) pg/mL Total Protein (6.4-8.9) g/dL Albumin (3.2-5.2) g/dL Globulin (2-4) g/dL Albumin/Globulin Ratio (1-3) TSH (0.34-5.60) mcIU/mL Result Diagrams: 18 07:21 18 07:21 Lab Statement: Any lab studies that have been ordered have been reviewed, and results considered in the medical decision making process. - Radiology CXR Xray Interpretation: No Acute Changes Radiology Interpretation Completed By: Radiologist - NO ACTIVE CARDIOPULMONARY DISEASE. ED physician has reviewed this report. - EKG 07:13 Cardiac Rate: NL EKG Rhythm: Sinus Rhythm - [address] Segment: Non-Specific EKG Interpretation: occasional PVCs, 1st degree AV block, RBBB Re-Evaluation - Re-Evaluation First Eval Re-Evaluation Time: 08:01 Change: Improved - The pt's chest tightness has resolved. He is complaining about his joint pain. Chest Pain Course/Dx - Course Course Of Treatment: Patient just completed a round of doxycycline for sinusitis. He took 2 Aleve this morning or tingling takes it. He also takes aspirin daily. EMS provided him aspirin due to his chest pain. The symptoms are epigastric/substernal only. Pepcid, Maalox and viscous lidocaine relieved his symptoms. Nitroglycerin had not. Troponin is 0. EKG is showing no acute ST changes. His biggest complaint is his polyarthralgia. He was given pain medication for this and referred back to his primary care physician. A test for Lyme was taken. - Chest Pain Differential Diagnosis/HQI/PQRI: Acute SC, CHF, Chest Wall, GI Disease, Lower Respiratory Infection - Diagnoses Provider Diagnoses: Acute gastritis, Polyarthralgia, Chest pain, atypical Discharge - Sign-Out/Discharge Documenting (check all that apply): Discharge/Admit/Transfer - Discharge - Discharge Plan Condition: Improved Disposition: HOME Prescriptions: Famotidine TAB* [Pepcid 20 MG TAB*] 20 mg PO BID #10 tab Pantoprazole Sodium [Protonix] 40 mg PO DAILY #30 granpkt. Sucralfate TAB* [Carafate*] 1 gm PO ACHS #40 tab Patient Education Materials: Chest Pain (ED), Gastritis (ED), Arthralgia (ED) Referrals: Collin Lowry MD [Primary Care Provider] - 1 Day Additional Instructions: Call today for follow-up with your doctor .The combination of Aleve, doxycycline and aspirin likely is caused these symptoms. Maalox can be taken at the medications prescribed aren't controlling the pain under your sternum. Call your doctor today for further help in controlling your arthritis. Cardiac back on the use of Aleve. Doxycycline has been stopped. Return with increased pain, shortness of breath, nausea, blood in the stool or vomit, worse or other concerns. - Billing Disposition and Condition Condition: STABLE Disposition: Home The documentation as recorded by the John bean Stephanie accurately reflects the service I personally performed and the decisions made by me, Jeff North MD.
== END 2017-09-27 08:15 | disposition home or self-care (01) ==
LOC: ED 07:01
DX: K29.00 Acute gastritis without bleeding (principal); M25.50 Pain in unspecified joint; R07.89 Other chest pain; Z88.1 Allergy status to other antibiotic agents; Z88.8 Allergy status to other drugs, medicaments and biological substances; E11.9 Type 2 diabetes mellitus without complications; E03.9 Hypothyroidism, unspecified; I10 Essential (primary) hypertension; E78.00 Pure hypercholesterolemia, unspecified; J45.909 Unspecified asthma, uncomplicated; Z87.891 Personal history of nicotine dependence; I49.3 Ventricular premature depolarization; I45.10 Unspecified right bundle-branch block
CPT/HCPCS: 36415; 71045; 80053; 83605; 83880; 84443; 84484; 85025; 85610; 86140; 87476; 87798; 93005; 99284; A9270-GY

== ENCOUNTER 2017-09-27 21:34 | Emergency (ER) | payer MEDICARE, OTHER ==
[2017-09-27] MEDS ORDERED: Ketorolac INJ* 30 MG/ML 1 ML VIAL IV PUSH ONE (22:00)
[2017-09-27 22:12] LABS: ABS Basophils 0.1 10^3/ul (0-0.2); ABS Eosinophils 0.1 10^3/ul (0-0.6); ABS Lymphocytes 2.7 10^3/ul (1.0-4.8); ABS Monocytes 0.7 10^3/ul (0-0.8); ABS Neutrophils 4.7 10^3/ul (1.5-7.7); ABS Nucleated RBC 0 10^3/ul; Eosinophil % 1.3 % (0-6); Hematocrit 42 % (42-52); Hemoglobin 14.5 g/dl (14.0-18.0); Lymphocyte % 32.4 % (25-47); Mean Corpuscular HGB Conc 35 g/dl (31-36); Mean Corpuscular Hemoglobin 32 pg (27-31); Mean Corpuscular Volume 92 fL (80-94); Mean Platelet Volume 6.8 um3 (7.4-10.4); Nucleated Red Blood Cells % 0.1; Platelet Count 317 10^3/ul (150-450); Red Blood Count 4.56 10^6/ul (4.00-5.40); Red Cell Distribution Width 13 % (10.5-15); White Blood Count 8.3 10^3/ul (3.5-10.8)
[2017-09-27 22:44] LABS: EGFR Non-African American 70.3 (>60)
[2017-09-27] MEDS ORDERED: traMADol TAB* 50 MG PO ONE (22:53)
[2017-09-27 23:16] VITALS: BP 151/83
--- NOTE | 2017-10-15 10:46 | ED ---
Chris Farias Natalie, scribed for Baljinder William MD on 09/27/17 at 2209 . Complex/Multi-Sys Presentation - HPI Summary HPI Summary: The patient is a 62 y/o M presenting to the ED c/o generalized muscle pain all over his body. He states that his muscles suddenly began hurting while he was lying down. He describes the pain as feeling like his "skin is falling off." He took two Ibuprofen at 18:00 today to no pain relief. He rates the pain 10/10 in severity. He denies runny nose, cough, congestion, vomiting, and fever. He has been urinating normally. He additionally c/o numbness in his lips. He reports no prior similar episode. The pt has hx of bipolar disorder and general anxiety. - History Of Current Complaint Chief Complaint: EDGeneral Time Seen by Provider: 09/27/17 21:47 Hx Obtained From: Patient Onset/Duration: Sudden Onset, Lasting Hours, Still Present Timing: Constant Severity Currently: Severe Severity Initially: Severe Location: Pain At: - generalized all over his body Aggravating Factor(s): nothing Alleviating Factor(s): nothing Associated Signs And Symptoms: Positive: Other - POSITIVE: numbness in lips; NEGATIVE: abnormal urination, congestion. Negative: Cough, Vomiting, Fever - Allergies/Home Medications Allergies/Adverse Reactions: Allergies Allergy/AdvReac Type Severity Reaction Status Date / Time ampicillin Allergy Unknown Rash And Verified 09/27/17 21:39 Itching propranolol Allergy Unknown Rash And Verified 09/27/17 21:39 Itching PMH/Surg Hx/FS Hx/Imm Hx Endocrine/Hematology History: Reports: Hx Diabetes, Hx Thyroid Disease - hypothyroid medicated with synthroid 75 mcg Cardiovascular History: Reports: Hx Hypercholesterolemia, Hx Hypotension, Hx Hypertension, Other Cardiovascular Problems/Disorders - CAD, IDDM II, HIGH CHOLESTEROL Denies: Hx Angina, Hx Coronary Artery Disease, Hx Myocardial Infarction, Hx Pacemaker/ICD, Hx Valvular Heart Disease Respiratory History: Reports: Hx Asthma, Hx Sleep Apnea Denies: Hx Chronic Obstructive Pulmonary Disease (COPD) GI History: Reports: Hx Gastroesophageal Reflux Disease History: Denies: Hx Renal Disease Musculoskeletal History: Denies: Hx Arthritis, Hx Osteoporosis Sensory History: Denies: Hx Cataracts, Hx Contacts or Glasses, Hx Eye Injury, Hx Hearing Aid, Hx Hearing Problem, Other Sensory Impairments Opthamlomology History: Denies: Hx Cataracts, Hx Contacts or Glasses, Hx Eye Injury, Other Sensory Impairments Neurological History: Reports: Other Neuro Impairments/Disorders - parkinson's Psychiatric History: Reports: Hx Anxiety, Hx Depression, Hx Inpatient Treatment - multiple in [place], [place], Hx Bipolar Disorder Denies: Hx Eating Disorder, Hx Panic Disorder, Hx of Violent Episodes Against Others - Surgical History Surgery Procedure, Year, and Place: tonsillectomy, hyiod suspension Hx Anesthesia Reactions: No - Immunization History Date of Tetanus Vaccine: UTD Date of Influenza Vaccine: 01/2017 Infectious Disease History: No Infectious Disease History: Denies: Hx of Known/Suspected MRSA, Traveled Outside the US in Last 30 Days - Family History Known Family History: Positive: Hypertension, Other - Positive bipolar and schizophrenia - Social History Alcohol Use: Occasionally Alcohol Amount: 1beer/1 drink daily for a long time Hx Substance Use: No Substance Use Type: Reports: Marijuana Substance Use Comment - Amount & Last Used: uses 1-2 drinks of alcohol daily and several bowls of marijuana daily. Hx Tobacco Use: Yes Smoking Status (MU): Former Smoker Type: Cigarettes Have You Smoked in the Last Year: Yes Review of Systems Negative: Fever ENT: Negative - nasal congestion Negative: Nasal Discharge Negative: Vomiting Positive: no symptoms reported Musculoskeletal: Other - generalized muscle pain Positive: Numbness - in lips Physical Exam - Summary Physical Exam Summary: Appearance: Well-appearing, no distress, Well-nourished Skin: Warm, color reflects adequate perfusion Head: Normal Head/Face inspection Eyes: Conjunctiva clear ENT: Normal inspection Neck: Supple, no nodes, no JVD. Respiratory: Lungs clear, Normal breath sounds, no respiratory distress Cardio: RRR, No murmur, pulses normal, brisk capillary refill Abdomen: soft, nontender, no guarding, no rebound Bowel sounds: present Musculoskeletal: Strength Intact/ ROM intact. No calf tenderness. No edema. Neuro: Alert, muscle tone normal, facial symmetry, speech normal, sensory/motor intact Psychological: Normal Triage Information Reviewed: Yes Vital Signs On Initial Exam: Initial Vitals Temp Pulse Resp BP Pulse Ox 97.7 F 93 18 162/87 98 09/27/17 21:36 09/27/17 21:36 09/27/17 21:36 09/27/17 21:36 09/27/17 21:36 Vital Signs Reviewed: Yes Diagnostics - Vital Signs Vital Signs Temp Pulse Resp BP Pulse Ox 09/27/17 21:36 97.7 F 93 18 162/87 98 - Laboratory Lab Results: Lab Results 09/27/17 09/27/17 Range/Units 22:03 22:03 WBC 8.3 (3.5-10.8) 10^3/ul RBC 4.56 (4.00-5.40) 10^6/ul Hgb 14.5 (14.0-18.0) g/dl Hct 42 (42-52) % MCV 92 (80-94) fL MCH 32 H (27-31) pg MCHC 35 (31-36) g/dl RDW 13 (10.5-15) % Plt Count 317 (150-450) 10^3/ul MPV 6.8 L (7.4-10.4) um3 Neut % (Auto) 56.8 (38-83) % Lymph % (Auto) 32.4 (25-47) % [place] % (Auto) 8.4 H (0-7) % Eos % (Auto) 1.3 (0-6) % Baso % (Auto) 1.1 (0-2) % Absolute Neuts (auto) 4.7 (1.5-7.7) 10^3/ul Absolute Lymphs (auto) 2.7 (1.0-4.8) 10^3/ul Absolute Monos (auto) 0.7 (0-0.8) 10^3/ul Absolute Eos (auto) 0.1 (0-0.6) 10^3/ul Absolute Basos (auto) 0.1 (0-0.2) 10^3/ul Absolute Nucleated RBC 0 10^3/ul Nucleated RBC % 0.1 Sodium 137 (135-145) mmol/L Potassium 4.5 (3.5-5.0) mmol/L Chloride 102 (101-111) mmol/L Carbon Dioxide 28 (22-32) mmol/L Anion Gap 7 (2-11) mmol/L BUN 20 (6-24) mg/dL Creatinine 1.07 (0.67-1.17) mg/dL Est GFR ( Amer) 90.4 (>60) Est GFR (Non-Af Amer) 70.3 (>60) BUN/Creatinine Ratio 18.7 (8-20) Glucose 97 (70-100) mg/dL Calcium 9.1 (8.6-10.3) mg/dL Total Bilirubin 0.20 (0.2-1.0) mg/dL AST 15 (13-39) U/L ALT 19 (7-52) U/L Alkaline Phosphatase 139 H (34-104) U/L Total Protein 6.7 (6.4-8.9) g/dL Albumin 3.7 (3.2-5.2) g/dL Globulin 3.0 (2-4) g/dL Albumin/Globulin Ratio 1.2 (1-3) Result Diagrams: 09/27/17 22:03 09/27/17 22:03 Lab Statement: Any lab studies that have been ordered have been reviewed, and results considered in the medical decision making process. Re-Evaluation - Re-Evaluation First Eval Re-Evaluation Time: 22:50 Comment: Pt resting comfortably in bed. pt with negative lab w/u. Pt requesting Oxycodone for pain. I advised pt that he will need to f/u with his PCP for medication refill. Complex Multi-Symp Course/Dx - Diagnoses Differential Diagnoses/HQI/PQRI: Metabolic Abnormality, Sepsis, Urinary Tract Infection Provider Diagnoses: Generalized pain Discharge - Sign-Out/Discharge Documenting (check all that apply): Discharge/Admit/Transfer - Discharge Plan Condition: Stable Disposition: HOME Prescriptions: Ketorolac TAB * [Toradol TAB *] 10 mg PO Q6H PRN #10 tab PRN Reason: Pain Referrals: Collin Lowry MD [Primary Care Provider] - 3 Days Additional Instructions: Please take medication as prescribed. Follow up with your primary care provider in 3 days. Return to the emergency department for any new or worsening symptoms. - Billing Disposition and Condition Condition: STABLE Disposition: Home The documentation as recorded by the Chris bean Natalie accurately reflects the service I personally performed and the decisions made by , Baljinder William MD.
== END 2017-09-27 23:15 | disposition home or self-care (01) ==
LOC: ED 21:34
DX: R52 Pain, unspecified (principal); R20.0 Anesthesia of skin; Z87.891 Personal history of nicotine dependence
CPT/HCPCS: 36415; 80053; 85025; 96374; 99282; A9270-GY; J1885

== ENCOUNTER 2017-09-30 08:53 | Emergency (ER) | payer MEDICARE, OTHER ==
[2017-09-30] MEDS ORDERED: diPHENhydraMINE PO* 50 MG PO ONE (10:11)
[2017-09-30] MEDS ORDERED: Ketorolac INJ* 30 MG/ML 1 ML VIAL IV PUSH ONE (10:11)
[2017-09-30] MEDS ORDERED: Metoclopramide IV* 5 MG/ML 2 ML VIAL IV ONE (10:11)
[2017-09-30] MEDS ORDERED: NS 0.9% 1000 ML* 1,000 ML IV ONE (10:11)
[2017-09-30] MEDS ORDERED: diPHENhydraMINE IV* 50 MG/ML 1 ml VIAL (BENADRYL) ONE (10:32)
[2017-09-30] MEDS ORDERED: diPHENhydraMINE IV* 50 MG/ML 1 ml VIAL (BENADRYL) IV ONE (10:34)
[2017-09-30 10:37] LABS: ABS Basophils 0.1 10^3/ul (0-0.2); ABS Eosinophils 0.1 10^3/ul (0-0.6); ABS Lymphocytes 1.4 10^3/ul (1.0-4.8); ABS Monocytes 0.5 10^3/ul (0-0.8); ABS Neutrophils 5.2 10^3/ul (1.5-7.7); ABS Nucleated RBC 0 10^3/ul; Eosinophil % 1.5 % (0-6); Hematocrit 40 % (42-52); Hemoglobin 14.1 g/dl (14.0-18.0); Lymphocyte % 18.8 % (25-47); Mean Corpuscular HGB Conc 35 g/dl (31-36); Mean Corpuscular Hemoglobin 32 pg (27-31); Mean Corpuscular Volume 91 fL (80-94); Mean Platelet Volume 6.7 um3 (7.4-10.4); Nucleated Red Blood Cells % 0; Platelet Count 281 10^3/ul (150-450); Red Blood Count 4.42 10^6/ul (4.00-5.40); Red Cell Distribution Width 13 % (10.5-15); White Blood Count 7.3 10^3/ul (3.5-10.8)
[2017-09-30 10:55] LABS: EGFR Non-African American 71.8 (>60)
--- NOTE | 2017-09-30 11:05 | RAD ---
HISTORY: right hip pain COMPARISONS: None VIEWS: 4, Frontal view of the pelvis with frontal and frog-leg views of the right hip FINDINGS: BONE DENSITY: Normal. BONES: There is no displaced fracture. JOINTS: There is mild osteoarthritis of the hips bilaterally. ALIGNMENT: There is no dislocation. SOFT TISSUES: Unremarkable. OTHER FINDINGS: None. IMPRESSION: NO ACUTE OSSEOUS INJURY. IF SYMPTOMS PERSIST, RECOMMEND REPEAT IMAGING.
--- NOTE | 2017-09-30 11:07 | RAD ---
HISTORY: radicular pain COMPARISONS: February 28, 2015 TECHNIQUE: Multiple contiguous axial CT scans were obtained of the cervical spine without intravenous contrast, with coronal and sagittal multiplanar reformations. FINDINGS: BRAIN: The visualized brain is unremarkable CENTRAL CANAL: Evaluation of the central canal is limited on CT technique; however, there is no obvious canalicular mass or epidural hemorrhage. ALIGNMENT: The alignment is normal, without subluxation or dislocation. VERTEBRAL BODIES: There is multilevel anterolateral marginal osteophyte formation. JOINTS: There is osteoarthritis of the atlantoaxial articulation. There is mild uncovertebral and facet hypertrophy. MUSCULATURE: Unremarkable INTERVERTEBRAL DISCS: There is diffuse loss of intervertebral disc height. AXIAL IMAGES: C2-C3: There is no osseous neural foraminal narrowing or central canal stenosis. C3-C4: There is bilateral uncovertebral facet hypertrophy. There is severe right and moderate left neural foraminal narrowing. There is no osseous central canal stenosis. C4-C5: There is bilateral uncovertebral and facet hypertrophy. There is moderate bilateral neuroforaminal narrowing. There is no osseous central canal stenosis. C5-C6: There is recommended left uncovertebral and facet hypertrophy. There is mild right neural foraminal narrowing. There is no osseous central canal stenosis. C6-C7: There is mild bilateral neural foraminal narrowing. There is no osseous central canal stenosis. C7-T1: There is no osseous neural foraminal narrowing or central canal stenosis. SOFT TISSUES: The visualized soft tissues of the neck are unremarkable. The prevertebral fat stripe is preserved. OTHER: None. IMPRESSION: DEGENERATIVE DISC DISEASE AND OSTEOARTHRITIS. THERE IS MULTILEVEL NEURAL FORAMINAL NARROWING DESCRIBED ABOVE. THERE IS NO OSSEOUS CENTRAL CANAL STENOSIS.
[2017-09-30] MEDS ORDERED: traMADol TAB* 50 MG PO ONE (13:10)
[2017-09-30 14:07] VITALS: BP 163/104
--- NOTE | 2017-09-30 17:53 | ED ---
Ayesha Farias Tenzin, scribed for Porfirio Agee MD on 09/30/17 at 0924 . HPI Chest Pain - HPI Summary HPI Summary: Pt is a 62 years old male presenting to the ED complaining of chest tightness at 7 AM after waking up this morning. Pt rates the pain at 8/10 in severity and describes it as aching. Pt went to sleep with no chest tightness. Pt is also complaining of constant pain in his neck; shoulder, right hip and in both his hands and feet. He is NIDDM. He is also complaining of feeling nausea with constant headache that feels like "it is going to blow up". He reports that he normally gets headache often. Pt denies SOB. No aggravating and alleviating factors were noted. Pt had a similar episode of chest tightness few days ago. - History of Current Complaint Chief Complaint: EDChestPainROMI Time Seen by Provider: 09/30/17 09:13 Hx Obtained From: Patient Onset/Duration: Still Present Time of Onset: 07:00 - after waking up this morning. Current Severity: Moderate Pain Intensity: 8 Pain Scale Used: 0-10 Numeric Character: Tightness Aggravating Factor(s): Nothing Alleviating Factor(s): Nothing Associated Signs and Symptoms: Positive: Headaches, Nausea, Other: - neck, shoulder, right hip and both hands and feet.. Negative: Shortness of Breath - Additional Pertinent History Primary Care Physician: [id number] - Allergy/Home Medications Allergies/Adverse Reactions: Allergies Allergy/AdvReac Type Severity Reaction Status Date / Time ampicillin Allergy Unknown Rash And Verified 09/30/17 09:36 Itching propranolol Allergy Unknown Rash And Verified 09/30/17 09:36 Itching divalproex sodium Allergy Unknown Verified 09/30/17 09:36 [From Depakote] Reaction Details Home Medications: Home Medications Hydrochlorothiazide TAB* [Hydrodiuril TAB*] 12.5 mg PO DAILY 09/30/17 [History Confirmed 09/30/17] Zolpidem TAB* [Ambien TAB*] 10 mg PO BEDTIME PRN 09/30/17 [History Confirmed ] amLODIPine TAB* [Norvasc 5 mg TAB*] 10 mg PO DAILY 09/30/17 [History Confirmed 09/30/17] oxyCODONE TAB* [Roxycodone TAB 5 mg*] 10 mg PO Q8H PRN 09/30/17 [History Confirmed 09/30/17] PMH/Surg Hx/FS Hx/Imm Hx Endocrine/Hematology History: Reports: Hx Diabetes, Hx Thyroid Disease - hypothyroid medicated with synthroid 75 mcg Cardiovascular History: Reports: Hx Hypercholesterolemia, Hx Hypotension, Hx Hypertension, Other Cardiovascular Problems/Disorders - CAD, IDDM II, HIGH CHOLESTEROL Denies: Hx Angina, Hx Coronary Artery Disease, Hx Myocardial Infarction, Hx Pacemaker/ICD, Hx Valvular Heart Disease Respiratory History: Reports: Hx Asthma, Hx Sleep Apnea Denies: Hx Chronic Obstructive Pulmonary Disease (COPD) GI History: Reports: Hx Gastroesophageal Reflux Disease History: Denies: Hx Renal Disease Musculoskeletal History: Denies: Hx Arthritis, Hx Osteoporosis Sensory History: Denies: Hx Cataracts, Hx Contacts or Glasses, Hx Eye Injury, Hx Hearing Aid, Hx Hearing Problem, Other Sensory Impairments Opthamlomology History: Denies: Hx Cataracts, Hx Contacts or Glasses, Hx Eye Injury, Other Sensory Impairments Neurological History: Reports: Other Neuro Impairments/Disorders - parkinson's Psychiatric History: Reports: Hx Anxiety, Hx Depression, Hx Inpatient Treatment - multiple in [place], [place], Hx Bipolar Disorder Denies: Hx Eating Disorder, Hx Panic Disorder, Hx of Violent Episodes Against Others - Surgical History Surgery Procedure, Year, and Place: tonsillectomy, hyiod suspension Hx Anesthesia Reactions: No - Immunization History Date of Tetanus Vaccine: UTD Date of Influenza Vaccine: 01/2017 Infectious Disease History: No Infectious Disease History: Denies: Hx of Known/Suspected MRSA, Traveled Outside the [place] in Last 30 Days - Family History Known Family History: Positive: Hypertension, Other - Positive bipolar and schizophrenia - Social History Alcohol Use: Rare Alcohol Amount: 1beer/1 drink daily for a long time Hx Substance Use: No Substance Use Type: Reports: None Substance Use Comment - Amount & Last Used: uses 1-2 drinks of alcohol daily and several bowls of marijuana daily. Hx Tobacco Use: Yes Smoking Status (MU): Former Smoker Type: Cigarettes Have You Smoked in the Last Year: Yes Review of Systems Positive: Chest Pain Negative: Shortness Of Breath Positive: Nausea Positive: Headache All Other Systems Reviewed And Are Negative: Yes Physical Exam - Summary Physical Exam Summary: Appearance: The patient is well-nourished in no acute distress and in no acute pain. Skin: The skin is warm and dry and skin color reflects adequate perfusion. HEENT: The head is normocephalic and atraumatic. The pupils are equal and reactive. The conjunctivae are clear and without drainage. Nares are patent and without drainage. Mouth reveals moist mucous membranes and the throat is without erythema and exudate. The external ears are intact. The ear canals are patent and without drainage. The tympanic membranes are intact. Neck: the neck is supple with full range of motion and non-tender. There are no carotid bruits. There is no neck vein distension. Respiratory: Chest is non-tender. Lungs are clear to auscultation and breath sounds are symmetrical and equal. Cardiovascular: Heart is regular rate and rhythm. There is no murmur or rub auscultated. There is no peripheral edema and pulses are symmetrical and equal. Abdomen: The abdomen is soft and non-tender. There are normal bowel sounds heard in all four quadrants and there is no organomegaly palpated. Musculoskeletal: Tenderness in paracervical and right hip. Decreased ROM in right hip. There is good capillary refill. There is no peripheral edema or calf tenderness elicited. Neurological: Patient is alert and oriented to person, place and time. The patient has symmetrical motor strength in all four extremities. Cranial nerves are grossly intact. Deep tendon reflexes are symmetrical and equal in all four extremities. Psychiatric: The patient has an appropriate affect and does not exhibit any anxiety or depression. Triage Information Reviewed: Yes Vital Signs On Initial Exam: Initial Vitals Pulse Pulse Ox 73 97 09/30/17 09:03 09/30/17 09:03 Vital Signs Reviewed: Yes Diagnostics - Vital Signs Vital Signs Temp Pulse Resp BP Pulse Ox 09/30/17 09:09 97.5 F 72 21 160/102 97 09/30/17 09:03 73 97 - Laboratory Lab Results: Lab Results 09/30/17 09/30/17 Range/Units 10:22 10:22 WBC 7.3 (3.5-10.8) 10^3/ul RBC 4.42 (4.00-5.40) 10^6/ul Hgb 14.1 (14.0-18.0) g/dl Hct 40 L (42-52) % MCV 91 (80-94) fL MCH 32 H (27-31) pg MCHC 35 (31-36) g/dl RDW 13 (10.5-15) % Plt Count 281 (150-450) 10^3/ul MPV 6.7 L (7.4-10.4) um3 Neut % (Auto) 72.3 (38-83) % Lymph % (Auto) 18.8 L (25-47) % [place] % (Auto) 6.6 (0-7) % Eos % (Auto) 1.5 (0-6) % Baso % (Auto) 0.8 (0-2) % Absolute Neuts (auto) 5.2 (1.5-7.7) 10^3/ul Absolute Lymphs (auto) 1.4 (1.0-4.8) 10^3/ul Absolute Monos (auto) 0.5 (0-0.8) 10^3/ul Absolute Eos (auto) 0.1 (0-0.6) 10^3/ul Absolute Basos (auto) 0.1 (0-0.2) 10^3/ul Absolute Nucleated RBC 0 10^3/ul Nucleated RBC % 0 ESR 14 (0-20) mm/Hr Sodium 132 L (135-145) mmol/L Potassium 4.4 (3.5-5.0) mmol/L Chloride 99 L (101-111) mmol/L Carbon Dioxide 26 (22-32) mmol/L Anion Gap 7 (2-11) mmol/L BUN 23 (6-24) mg/dL Creatinine 1.05 (0.67-1.17) mg/dL Est GFR ( Amer) 92.3 (>60) Est GFR (Non-Af Amer) 71.8 (>60) BUN/Creatinine Ratio 21.9 H (8-20) Glucose 108 H (70-100) mg/dL Calcium 9.1 (8.6-10.3) mg/dL Total Bilirubin 0.30 (0.2-1.0) mg/dL AST 12 L (13-39) U/L ALT 13 (7-52) U/L Alkaline Phosphatase 128 H (34-104) U/L Troponin I 0.00 (<0.04) ng/mL C-Reactive Protein 6.25 H (< 5.00) mg/L Total Protein 6.6 (6.4-8.9) g/dL Albumin 3.7 (3.2-5.2) g/dL Globulin 2.9 (2-4) g/dL Albumin/Globulin Ratio 1.3 (1-3) Result Diagrams: 09/30/17 10:22 09/30/17 10:22 Lab Statement: Any lab studies that have been ordered have been reviewed, and results considered in the medical decision making process. - Radiology Hip/Pelvis XRAY Radiology Interpretation Completed By: Radiologist - IMPRESSION: NO ACUTE OSSEOUS INJURY. IF SYMPTOMS PERSIST, RECOMMEND REPEAT IMAGING. Dr. Agee reviewed the report. - CT CERVICAL SPINE CT CT Interpretation Completed By: Radiologist - IMPRESSION: DEGENERATIVE DISC DISEASE AND OSTEOARTHRITIS. THERE IS MULTILEVEL NEURAL FORAMINAL NARROWING DESCRIBED ABOVE. THERE IS NO OSSEOUS CENTRAL CANAL STENOSIS. Dr. Agee reviewed the report. Re-Evaluation - Re-Evaluation First Eval Re-Evaluation Time: 13:10 Change: Unchanged - He still has pain. Chest Pain Course/Dx - Course Course Of Treatment: Mr. Flower presents to the emergency department complaining of several pains. He has a headache which she has very frequently, neck pain, pain in his right hip, and pain in his bilateral lower chest and sides. All of his pains are chronic and have been worked up here in the past and recently. His labs were within normal limits here. I obtained a CT of his neck with a concern for radicular pain. He had had a CT of his neck about 5 years ago which showed spondylosis. He did have a lot of DDD in his neck and I think he likely does have a radicular pain. I will give him a temporary prescription for tramadol to help relieve the pain and recommend follow-up. - Diagnoses Provider Diagnoses: Cervical radiculopathy Discharge - Sign-Out/Discharge Documenting (check all that apply): Discharge/Admit/Transfer - Discharge Plan Condition: Stable Disposition: HOME Prescriptions: traMADol TAB* [Ultram*] 50 mg PO Q6HR PRN #20 tab MDD 4 PRN Reason: Pain Patient Education Materials: Cervical Radiculopathy (ED) Referrals: Collin Lowry MD [Primary Care Provider] - 3 Days Additional Instructions: Follow up with your primary care physician in three days. Return to the emergency department for any new or worsening symptoms. - Billing Disposition and Condition Condition: STABLE Disposition: Home The documentation as recorded by the scribe, Dolkar,Teddy accurately reflects the service I personally performed and the decisions made by me, Porfirio Agee MD.
== END 2017-09-30 14:06 | disposition home or self-care (01) ==
LOC: ED 08:53
DX: M47.22 Other spondylosis with radiculopathy, cervical region (principal); M50.30 Other cervical disc degeneration, unspecified cervical region; R07.89 Other chest pain; G89.29 Other chronic pain; E11.9 Type 2 diabetes mellitus without complications; E03.9 Hypothyroidism, unspecified; Z79.899 Other long term (current) drug therapy; Z87.891 Personal history of nicotine dependence; Z88.3 Allergy status to other anti-infective agents; Z88.8 Allergy status to other drugs, medicaments and biological substances
CPT/HCPCS: 36415; 72125; 80053; 84484; 85025; 85652; 86140; 96361; 96374; 96375; 99284; A9270-GY; J1200; J1885; J2765

== ENCOUNTER 2017-10-10 10:07 | Inpatient (IN) | payer MEDICARE, OTHER ==
[2017-10-10 11:29] LABS: ABS Basophils 0.1 10^3/ul (0-0.2); ABS Eosinophils 0.2 10^3/ul (0-0.6); ABS Lymphocytes 1.8 10^3/ul (1.0-4.8); ABS Monocytes 0.7 10^3/ul (0-0.8); ABS Neutrophils 6.9 10^3/ul (1.5-7.7); ABS Nucleated RBC 0 10^3/ul; Eosinophil % 1.7 % (0-6); Hematocrit 44 % (42-52); Hemoglobin 15.3 g/dl (14.0-18.0); Lymphocyte % 18.8 % (25-47); Mean Corpuscular HGB Conc 35 g/dl (31-36); Mean Corpuscular Hemoglobin 32 pg (27-31); Mean Corpuscular Volume 93 fL (80-94); Mean Platelet Volume 6.8 um3 (7.4-10.4); Nucleated Red Blood Cells % 0.1; Platelet Count 358 10^3/ul (150-450); Red Blood Count 4.72 10^6/ul (4.00-5.40); Red Cell Distribution Width 14 % (10.5-15); White Blood Count 9.6 10^3/ul (3.5-10.8)
[2017-10-10 11:57] LABS: EGFR Non-African American 67.3 (>60)
--- NOTE | 2017-10-10 12:03 | RAD ---
INDICATION: Chest pain COMPARISON: April 16, 2017 TECHNIQUE: An AP portable view obtained at 1136 hours is submitted. FINDINGS: Bones/Soft Tissues: There are no acute bony findings. Cardiomediastinal: The cardiomediastinal silhouette is normal. Lungs: There are no infiltrates. Pleura: There are no pleural effusions. Other: None IMPRESSION: NO ACTIVE DISEASE.
[2017-10-10] MEDS ORDERED: LORazepam TAB(*) 1 MG PO ONE (15:59)
--- NOTE | 2017-10-10 17:51 | ED ---
Teddy Farias Angela, scribed for Porfirio Agee MD on 10/10/17 at 1013 . HPI Chest Pain - HPI Summary HPI Summary: This pt is a 62 y/o male presenting to [facility] via EMS for chest pain since 07:00 today. Pt reports he was at rest when his chest pain began this morning. He describes chest pain as pressure and tight. Denies SOB, fever, nausea, vomiting. EMS administered 324 mg aspiring and nitroglycerin x1 en route [employer] without relief. Pt was last seen in the ED on 09/27/17 and on 09/30/17 for the same, chest pain. PMHx includes HTN. His PCP is Dr. Lowry. Pt has not had a stress test done yet. Current blood pressure on evaluation is 136/90. - History of Current Complaint Hx Obtained From: Patient Onset/Duration: Started Hours Ago, Still Present Timing: Lasting Hours Current Severity: Severe Pain Intensity: 8 Pain Scale Used: 0-10 Numeric Chest Pain Location: Diffuse Chest Pain Radiates: No Character: Pressure/Squeezing - Pressure, Tightness Aggravating Factor(s): Nothing Alleviating Factor(s): Nothing Associated Signs and Symptoms: Positive: Chest Pain. Negative: Shortness of Breath, Fever - Additional Pertinent History Primary Care Physician: [id number] - Allergy/Home Medications Allergies/Adverse Reactions: Allergies Allergy/AdvReac Type Severity Reaction Status Date / Time ampicillin Allergy Unknown Rash And Verified 10/10/17 10:18 Itching propranolol Allergy Unknown Rash And Verified 10/10/17 10:18 Itching divalproex sodium Allergy Unknown Verified 10/10/17 10:18 [From Depakote] Reaction Details PMH/Surg Hx/FS Hx/Imm Hx Endocrine/Hematology History: Reports: Hx Diabetes, Hx Thyroid Disease - hypothyroid medicated with synthroid 75 mcg Cardiovascular History: Reports: Hx Hypercholesterolemia, Hx Hypotension, Hx Hypertension, Other Cardiovascular Problems/Disorders - CAD, IDDM II, HIGH CHOLESTEROL Denies: Hx Angina, Hx Coronary Artery Disease, Hx Myocardial Infarction, Hx Pacemaker/ICD, Hx Valvular Heart Disease Respiratory History: Reports: Hx Asthma, Hx Sleep Apnea Denies: Hx Chronic Obstructive Pulmonary Disease (COPD) GI History: Reports: Hx Gastroesophageal Reflux Disease History: Denies: Hx Renal Disease Musculoskeletal History: Denies: Hx Arthritis, Hx Osteoporosis Sensory History: Denies: Hx Cataracts, Hx Contacts or Glasses, Hx Eye Injury, Hx Hearing Aid, Hx Hearing Problem, Other Sensory Impairments Opthamlomology History: Denies: Hx Cataracts, Hx Contacts or Glasses, Hx Eye Injury, Other Sensory Impairments Neurological History: Reports: Other Neuro Impairments/Disorders - parkinson's Psychiatric History: Reports: Hx Anxiety, Hx Depression, Hx Inpatient Treatment - multiple in [place], [place], Hx Bipolar Disorder Denies: Hx Eating Disorder, Hx Panic Disorder, Hx of Violent Episodes Against Others - Surgical History Surgery Procedure, Year, and Place: tonsillectomy, hyiod suspension Hx Anesthesia Reactions: No - Immunization History Date of Tetanus Vaccine: UTD Date of Influenza Vaccine: 01/2017 Infectious Disease History: Denies: Hx of Known/Suspected MRSA - Family History Known Family History: Positive: Hypertension, Other - Positive bipolar and schizophrenia - Social History Alcohol Use: Rare Alcohol Amount: 1beer/1 drink daily for a long time Hx Substance Use: No Substance Use Type: Reports: None Substance Use Comment - Amount & Last Used: uses 1-2 drinks of alcohol daily and several bowls of marijuana daily. Hx Tobacco Use: Yes Smoking Status (MU): Former Smoker Type: Cigarettes Have You Smoked in the Last Year: Yes Review of Systems Negative: Fever, Chills Eyes: Negative Positive: Chest Pain Negative: Shortness Of Breath Negative: Vomiting, Nausea Neurological: Negative All Other Systems Reviewed And Are Negative: Yes Physical Exam - Summary Physical Exam Summary: Appearance: The patient is well-nourished in no acute distress and in no acute pain. Skin: The skin is warm and dry and skin color reflects adequate perfusion. HEENT: The head is normocephalic and atraumatic. The pupils are equal and reactive. The conjunctivae are clear and without drainage. Nares are patent and without drainage. Mouth reveals moist mucous membranes and the throat is without erythema and exudate. The external ears are intact. The ear canals are patent and without drainage. The tympanic membranes are intact. Neck: the neck is supple with full range of motion and non-tender. There are no carotid bruits. There is no neck vein distension. Respiratory: Chest is non-tender. Lungs are clear to auscultation and breath sounds are symmetrical and equal. Cardiovascular: Heart is regular rate and rhythm. There is no murmur or rub auscultated. There is no peripheral edema and pulses are symmetrical and equal. Abdomen: The abdomen is soft and non-tender. There are normal bowel sounds heard in all four quadrants and there is no organomegaly palpated. Musculoskeletal: There is no back tenderness noted. Extremities are non-tender with full range of motion. There is good capillary refill. There is no peripheral edema or calf tenderness elicited. Neurological: Patient is alert and oriented to person, place and time. Psychiatric: The patient has an appropriate affect and does not exhibit any anxiety or depression. Triage Information Reviewed: Yes Vital Signs On Initial Exam: Initial Vitals Temp Pulse Resp BP Pulse Ox 98.1 F 98 22 136/90 96 10/10/17 10:13 10/10/17 10:13 10/10/17 10:13 10/10/17 10:13 10/10/17 10:13 Vital Signs Reviewed: Yes Diagnostics - Vital Signs Vital Signs Temp Pulse Resp BP Pulse Ox 10/10/17 16:20 16 10/10/17 13:21 98.4 F 97 16 143/93 98 10/10/17 11:20 85 16 159/96 95 10/10/17 10:13 98.1 F 98 22 136/90 96 - Laboratory Lab Results: Lab Results 10/10/17 10/10/17 10/10/17 Range/Units 11:21 11:21 11:21 WBC 9.6 (3.5-10.8) 10^3/ul RBC 4.72 (4.00-5.40) 10^6/ul Hgb 15.3 (14.0-18.0) g/dl Hct 44 (42-52) % MCV 93 (80-94) fL MCH 32 H (27-31) pg MCHC 35 (31-36) g/dl RDW 14 (10.5-15) % Plt Count 358 (150-450) 10^3/ul MPV 6.8 L (7.4-10.4) um3 Neut % (Auto) 71.7 (38-83) % Lymph % (Auto) 18.8 L (25-47) % Lewis % (Auto) 7.0 (0-7) % Eos % (Auto) 1.7 (0-6) % Baso % (Auto) 0.8 (0-2) % Absolute Neuts (auto) 6.9 (1.5-7.7) 10^3/ul Absolute Lymphs (auto) 1.8 (1.0-4.8) 10^3/ul Absolute Monos (auto) 0.7 (0-0.8) 10^3/ul Absolute Eos (auto) 0.2 (0-0.6) 10^3/ul Absolute Basos (auto) 0.1 (0-0.2) 10^3/ul Absolute Nucleated RBC 0 10^3/ul Nucleated RBC % 0.1 Sodium 137 (135-145) mmol/L Potassium 4.0 (3.5-5.0) mmol/L Chloride 101 (101-111) mmol/L Carbon Dioxide 27 (22-32) mmol/L Anion Gap 9 (2-11) mmol/L BUN 19 (6-24) mg/dL Creatinine 1.11 (0.67-1.17) mg/dL Est GFR ( Amer) 81.5 (>60) Est GFR (Non-Af Amer) 67.3 (>60) BUN/Creatinine Ratio 17.1 (8-20) Glucose 107 H (70-100) mg/dL Lactic Acid 1.3 (0.5-2.0) mmol/L Calcium 9.5 (8.6-10.3) mg/dL Total Bilirubin 0.40 (0.2-1.0) mg/dL AST 13 (13-39) U/L ALT 18 (7-52) U/L Alkaline Phosphatase 135 H (34-104) U/L Troponin I 0.01 (<0.04) ng/mL Total Protein 7.1 (6.4-8.9) g/dL Albumin 4.1 (3.2-5.2) g/dL Globulin 3.0 (2-4) g/dL Albumin/Globulin Ratio 1.4 (1-3) 10/10/17 Range/Units 14:44 WBC (3.5-10.8) 10^3/ul RBC (4.00-5.40) 10^6/ul Hgb (14.0-18.0) g/dl Hct (42-52) % MCV (80-94) fL MCH (27-31) pg MCHC (31-36) g/dl RDW (10.5-15) % Plt Count (150-450) 10^3/ul MPV (7.4-10.4) um3 Neut % (Auto) (38-83) % Lymph % (Auto) (25-47) % Lewis % (Auto) (0-7) % Eos % (Auto) (0-6) % Baso % (Auto) (0-2) % Absolute Neuts (auto) (1.5-7.7) 10^3/ul Absolute Lymphs (auto) (1.0-4.8) 10^3/ul Absolute Monos (auto) (0-0.8) 10^3/ul Absolute Eos (auto) (0-0.6) 10^3/ul Absolute Basos (auto) (0-0.2) 10^3/ul Absolute Nucleated RBC 10^3/ul Nucleated RBC % Sodium (135-145) mmol/L Potassium (3.5-5.0) mmol/L Chloride (101-111) mmol/L Carbon Dioxide (22-32) mmol/L Anion Gap (2-11) mmol/L BUN (6-24) mg/dL Creatinine (0.67-1.17) mg/dL Est GFR ( Amer) (>60) Est GFR (Non-Af Amer) (>60) BUN/Creatinine Ratio (8-20) Glucose (70-100) mg/dL Lactic Acid (0.5-2.0) mmol/L Calcium (8.6-10.3) mg/dL Total Bilirubin (0.2-1.0) mg/dL AST (13-39) U/L ALT (7-52) U/L Alkaline Phosphatase (34-104) U/L Troponin I 0.00 (<0.04) ng/mL Total Protein (6.4-8.9) g/dL Albumin (3.2-5.2) g/dL Globulin (2-4) g/dL Albumin/Globulin Ratio (1-3) Result Diagrams: 10/10/17 11:21 10/10/17 11:21 Lab Statement: Any lab studies that have been ordered have been reviewed, and results considered in the medical decision making process. - Radiology Chest XR Xray Interpretation: No Acute Changes - IMPRESSION: No active disease. Dr. Agee has reviewed this radiology report. Radiology Interpretation Completed By: Radiologist - EKG 10:12 Cardiac Rate: NL - at 87 bpm EKG Rhythm: Sinus Rhythm EKG Interpretation: RBBB. Probable old inferior infarct. EKG Comparison: No Significant Change - No change from prior EKG on 09/27/17. Chest Pain Course/Dx - Course Course Of Treatment: Mr. Flower has presented a couple of times to the emergency department with chest pain recently. No acute pathology has been noted and he has been unsuccessfully reassured. He has underlying anxiety. He presented in similar fashion this morning and underwent a rule out in the emergency department. He began to express helplessness and hopelessness while here and requested a mental health eval. Once medically cleared he went over to the flex unit and was evaluated for admission. Assessment/Plan: Pt is medically cleared at 12:27. - Diagnoses Provider Diagnoses: Anxiety and depression Discharge - Sign-Out/Discharge Documenting (check all that apply): Discharge/Admit/Transfer - Admit - Discharge Plan Condition: Stable Disposition: [facility]IATRIC FAC[place] [place] Referrals: Collin Lowry MD [Primary Care Provider] - - Billing Disposition and Condition Condition: STABLE Disposition: Psychiatric Facility [facility] [place] The documentation as recorded by the Teddy bean Angela accurately reflects the service I personally performed and the decisions made by , Porfirio Agee MD.
[2017-10-10] MEDS ORDERED: Al Hydrox/Mg Hydrox/Simet LIQ* 30 ML UDC PO PRN (21:13)
[2017-10-10] MEDS ORDERED: MELATONIN 20 MG PO PRN (22:05)
[2017-10-10] MEDS ORDERED: Magnesium Hydroxide LIQ* 30 ML UDC PO PRN (22:07)
[2017-10-10] MEDS ORDERED: Ondansetron TAB* 4 MG PO PRN (22:12)
[2017-10-10] MEDS: carBAMazepine TAB(*) 200 MG PO SCH (23:05)
[2017-10-10] MEDS: Sucralfate TAB* 1 GM PO SCH (23:06)
[2017-10-10] MEDS: TIAGABINE 4 MG PO SCH (23:06)
[2017-10-10] MEDS: QUEtiapine TAB* 100 MG PO SCH (23:06)
[2017-10-10] MEDS: Zolpidem TAB* 10 MG PO PRN (23:07)
[2017-10-11] MEDS: traMADol TAB* 50 MG PO PRN (06:20)
[2017-10-11] MEDS: Levothyroxine TAB* 100 MCG TAB PO SCH (06:20)
[2017-10-11] MEDS: Omeprazole CAP* 20 MG PO SCH (06:20)
[2017-10-11] MEDS: oxyCODONE TAB* 5 MG TAB PO PRN ×2 (06:20→14:12)
[2017-10-11] MEDS: Sucralfate TAB* 1 GM PO SCH ×4 (08:24→21:45)
[2017-10-11] MEDS: Vitamin THERAPEUTIC TAB PO SCH (08:25)
[2017-10-11] MEDS: amLODIPine TAB* 5 MG PO SCH (08:25)
[2017-10-11] MEDS: Lisinopril TAB* 10 MG PO SCH (08:25)
[2017-10-11] MEDS: Atorvastatin* 40 MG TAB PO SCH (08:26)
[2017-10-11] MEDS: Aspirin EC TAB* 81 MG TAB.EC PO SCH (08:26)
[2017-10-11] MEDS: Folic Acid TAB* 1 MG PO SCH (08:26)
[2017-10-11] MEDS: Ropinirole TAB* 0.5 MG TAB PO SCH ×2 (08:27→09:34)
[2017-10-11] MEDS: Hydrochlorothiazide TAB* 25 MG PO SCH (08:28)
[2017-10-11] MEDS: Polyethylene Glycol 3350* 17 GM PACKET PO SCH (08:29)
[2017-10-11] MEDS: carBAMazepine TAB(*) 200 MG PO SCH ×2 (08:30→21:46)
[2017-10-11] MEDS: PTO:Canagliflozin (NF) 100 MG TAB PO SCH (09:38)
[2017-10-11] MEDS ORDERED: hydrOXYzine HCL TAB* 50 MG PO ONE (10:30)
[2017-10-11] MEDS: BuPROPion XL* 150 MG TAB.XL PO SCH (12:52)
[2017-10-11] MEDS: hydrOXYzine HCL TAB* 50 MG PO PRN (12:52)
[2017-10-11] MEDS: QUEtiapine TAB* 100 MG PO SCH ×2 (13:03→21:46)
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
[2017-10-11] MEDS: TIAGABINE 4 MG PO SCH (21:46)
[2017-10-11] MEDS: Melatonin 3 MG TAB PO SCH (21:47)
[2017-10-11] MEDS: Zolpidem TAB* 10 MG PO PRN (21:49)
[2017-10-12] MEDS: oxyCODONE TAB* 5 MG TAB PO PRN ×2 (02:05→10:30)
[2017-10-12] MEDS: hydrOXYzine HCL TAB* 50 MG PO PRN (04:35)
[2017-10-12] MEDS: traMADol TAB* 50 MG PO PRN (05:23)
[2017-10-12] MEDS: Hydrochlorothiazide TAB* 25 MG PO SCH (08:12)
[2017-10-12] MEDS: Aspirin EC TAB* 81 MG TAB.EC PO SCH (08:13)
[2017-10-12] MEDS: Sucralfate TAB* 1 GM PO SCH ×5 (08:13→21:46)
[2017-10-12] MEDS: Vitamin THERAPEUTIC TAB PO SCH (08:14)
[2017-10-12] MEDS: Lisinopril TAB* 10 MG PO SCH (08:14)
[2017-10-12] MEDS: Atorvastatin* 40 MG TAB PO SCH (08:15)
[2017-10-12] MEDS: BuPROPion XL* 150 MG TAB.XL PO SCH (08:15)
[2017-10-12] MEDS: QUEtiapine TAB* 100 MG PO SCH ×2 (08:16→21:45)
[2017-10-12] MEDS: Folic Acid TAB* 1 MG PO SCH (08:16)
[2017-10-12] MEDS: amLODIPine TAB* 5 MG PO SCH (08:16)
[2017-10-12] MEDS: Levothyroxine TAB* 100 MCG TAB PO SCH (08:17)
[2017-10-12] MEDS: Omeprazole CAP* 20 MG PO SCH (08:17)
[2017-10-12] MEDS: carBAMazepine TAB(*) 200 MG PO SCH ×2 (08:17→21:45)
[2017-10-12] MEDS: PTO:Canagliflozin (NF) 100 MG TAB PO SCH (08:18)
[2017-10-12] MEDS: Polyethylene Glycol 3350* 17 GM PACKET PO SCH (08:18)
[2017-10-12] MEDS ORDERED: clonazePAM TAB(*) 0.5 MG PO ONE (21:00)
[2017-10-12] MEDS: Melatonin 3 MG TAB PO SCH (21:44)
[2017-10-12] MEDS: TIAGABINE 4 MG PO SCH (21:45)
[2017-10-12] MEDS: Zolpidem TAB* 10 MG PO PRN (21:46)
[2017-10-13] MEDS: oxyCODONE TAB* 5 MG TAB PO PRN ×2 (02:58→11:03)
[2017-10-13] MEDS: hydrOXYzine HCL TAB* 50 MG PO PRN ×2 (04:36→16:43)
[2017-10-13] MEDS: traMADol TAB* 50 MG PO PRN ×2 (05:51→13:56)
[2017-10-13] MEDS: Levothyroxine TAB* 100 MCG TAB PO SCH (07:35)
[2017-10-13] MEDS: amLODIPine TAB* 5 MG PO SCH (07:36)
[2017-10-13] MEDS: Vitamin THERAPEUTIC TAB PO SCH (07:36)
[2017-10-13] MEDS: BuPROPion XL* 150 MG TAB.XL PO SCH (07:36)
[2017-10-13] MEDS: Lisinopril TAB* 10 MG PO SCH (07:36)
[2017-10-13] MEDS: QUEtiapine TAB* 100 MG PO SCH ×2 (07:37→21:32)
[2017-10-13] MEDS: Omeprazole CAP* 20 MG PO SCH (07:37)
[2017-10-13] MEDS: Aspirin EC TAB* 81 MG TAB.EC PO SCH (07:37)
[2017-10-13] MEDS: Sucralfate TAB* 1 GM PO SCH ×4 (07:38→21:33)
[2017-10-13] MEDS: Folic Acid TAB* 1 MG PO SCH (07:38)
[2017-10-13] MEDS: PTO:Canagliflozin (NF) 100 MG TAB PO SCH (07:39)
[2017-10-13] MEDS: Atorvastatin* 40 MG TAB PO SCH (07:39)
[2017-10-13] MEDS: Hydrochlorothiazide TAB* 25 MG PO SCH (07:40)
[2017-10-13] MEDS: Polyethylene Glycol 3350* 17 GM PACKET PO SCH (07:40)
[2017-10-13] MEDS: carBAMazepine TAB(*) 200 MG PO SCH ×2 (07:40→21:31)
[2017-10-13] MEDS: Acetaminophen TAB* 325 MG PO PRN (07:41)
--- NOTE | 2017-10-13 19:27 | PN ---
Subjective - Subjective Date of Service: 10/13/17 Service Type: 49179 Hosp care 15 min low complexity Subjective: Sudahkar has been continuously asking for Ativan for anxiety. Pacing the halls and appearing restless. 0.5 mg of Klonopin worked per Sudhakar but still wants Ativan. Explained the difference and he agrees to try again tonight. Denies SI/HI or psychosis. Objective - Appearance Appearance: Obese Dysmorphic Features: No Hygiene: Normal Grooming: Disheveled - Behavior Psychomotor Activities: Abnormal-Increased Exhibits Abnormal Movement: No - Attitude and Relatedness Attitude and Relatedness: Cooperative Eye Contact: Good - Speech Quality: Unpressured Latencies: Normal Quantity: Appropriate - Mood Patient's Decription of Mood: "Anxious" - Affect Observed Affect: Constricted Affect Consistent with: Dysphoria - Thought Process Patient's Thought Process: Coherent, Goal Directed Thought Content: No Passive Wish, No Suicidal Planning, No Homicidal Ideation, No Paranoid Ideation - Sensorium Experiencing Hallucinations: No, Sensorium is Clear Type of Hallucinations: Visual: No, Auditory: No, Command: No - Level of Consciousness Level of Consciousness: Alert Orientation: Yes Intact, Yes Orientated to Time, Yes Orientated to Place, Yes Orientated to Person - Impulse Control Impulse Control: Intact - Insight and Judgement Insight and Judgement: Poor - Group Participation Particating in Group Activities: Yes - Medication Management Medication Management Adherence: Yes Assessment - Assessment Merits Inpatient Hospitalization: For Stabilization, For Discharge Planning Clinical Impression: Still symptomatic but not a risk for violence or self harm. Plan - Plan Treatment Plan: Name: SUDHAKAR HILL Birthdate: 1955 [id number] Continued Medication Management: Continue Outpt Medication Medications: Current Medications Acetaminophen (Tylenol Tab*) 650 mg PO Q4H PRN PRN Reason: PAIN or TEMP > 101 F Last Admin: 10/13/17 07:41 Dose: 650 mg Al Hydrox/Mg Hydrox/Simethicone (Maalox Plus*) 30 ml PO Q4H PRN PRN Reason: INDIGESTION Last Admin: 10/11/17 08:23 Dose: 30 ml Amlodipine Besylate (Norvasc Tab*) 5 mg PO DAILY [facility] Last Admin: 10/13/17 07:36 Dose: 5 mg Aspirin (Aspirin Ec Tab*) 81 mg PO DAILY [facility] Last Admin: 10/13/17 07:37 Dose: 81 mg Atorvastatin Calcium (Lipitor*) 40 mg PO DAILY [facility] Last Admin: 10/13/17 07:39 Dose: 40 mg Bupropion HCl (Wellbutrin Xl *) 150 mg PO DAILY [facility]; Protocol Last Admin: 10/13/17 07:36 Dose: 150 mg Canagliflozin (Invokana (Nf)) 100 mg PO DAILY [facility] Last Admin: 10/13/17 07:39 Dose: 100 mg Carbamazepine (Tegretol Tab(*)) 200 mg PO BID [facility] Last Admin: 10/13/17 07:40 Dose: 200 mg Folic Acid (Folvite Tab*) 1 mg PO DAILY [facility] Last Admin: 10/13/17 07:38 Dose: 1 mg Hydrochlorothiazide (Hydrodiuril Tab*) 12.5 mg PO DAILY [facility] Last Admin: 10/13/17 07:40 Dose: 12.5 mg Hydroxyzine HCl (Atarax Tab*) 50 mg PO Q4H PRN PRN Reason: ANXIETY Last Admin: 10/13/17 16:43 Dose: 50 mg Levothyroxine Sodium (Synthroid Tab*) 100 mcg PO DAILY@0600 [facility] Last Admin: 10/13/17 07:35 Dose: 100 mcg Lisinopril (Prinivil Tab*) 20 mg PO DAILY [facility] Last Admin: 10/13/17 07:36 Dose: 20 mg Magnesium Hydroxide (Milk Of Magnesia Liq*) 30 ml PO Q4H PRN PRN Reason: CONSTIPATION Melatonin (Melatonin) 18 mg PO BEDTIME [facility]; Protocol Last Admin: 10/12/17 21:44 Dose: 18 mg Multivitamins (Theragran Tab*) 1 tab PO DAILY [facility] Last Admin: 10/13/17 07:36 Dose: 1 tab Omeprazole (Prilosec Cap*) 20 mg PO DAILY@0730 [facility] Last Admin: 10/13/17 07:37 Dose: 20 mg Ondansetron HCl (Zofran Tab*) 4 mg PO Q6H PRN PRN Reason: NAUSEA Oxycodone HCl (Roxycodone Tab*) 10 mg PO Q8H PRN PRN Reason: PAIN Last Admin: 10/13/17 11:03 Dose: 10 mg Polyethylene Glycol/Electrolytes (Miralax*) 17 gm PO DAILY [facility] Last Admin: 10/13/17 07:40 Dose: 17 gm Quetiapine Fumarate (Seroquel Tab*) 200 mg PO BEDTIME [facility] Last Admin: 10/12/17 21:45 Dose: 200 mg Quetiapine Fumarate (Seroquel Tab*) 100 mg PO DAILY [facility] Last Admin: 10/13/17 07:37 Dose: 100 mg Sucralfate (Carafate*) 1 gm PO ACHS [facility] Last Admin: 10/13/17 16:44 Dose: Not Given Tiagabine HCl (Gabitril(*)) 4 mg PO BEDTIME [facility] Last Admin: 10/12/17 21:45 Dose: 4 mg Tramadol HCl (Ultram*) 50 mg PO Q6H PRN PRN Reason: PAIN Last Admin: 10/13/17 13:56 Dose: 50 mg Zolpidem Tartrate (Ambien Tab*) 10 mg PO BEDTIME PRN PRN Reason: SLEEP Last Admin: 10/12/17 21:46 Dose: 10 mg - Discharge Plan Discharge Plan: Outpatient Follow Up Outpatient Program: [facility]
[2017-10-13] MEDS ORDERED: clonazePAM TAB(*) 0.5 MG PO ONE (19:29)
[2017-10-13] MEDS: TIAGABINE 4 MG PO SCH (21:31)
[2017-10-13] MEDS: Melatonin 3 MG TAB PO SCH (21:31)
[2017-10-13] MEDS: Zolpidem TAB* 10 MG PO PRN (21:45)
[2017-10-14] MEDS: oxyCODONE TAB* 5 MG TAB PO PRN (03:27)
[2017-10-14] MEDS: Levothyroxine TAB* 100 MCG TAB PO SCH (06:04)
[2017-10-14] MEDS: hydrOXYzine HCL TAB* 50 MG PO PRN (06:04)
[2017-10-14] MEDS: traMADol TAB* 50 MG PO PRN (07:24)
[2017-10-14] MEDS: Sucralfate TAB* 1 GM PO SCH ×4 (07:24→21:37)
[2017-10-14] MEDS: Omeprazole CAP* 20 MG PO SCH (07:24)
[2017-10-14] MEDS: BuPROPion XL* 150 MG TAB.XL PO SCH (09:14)
[2017-10-14] MEDS: Atorvastatin* 40 MG TAB PO SCH (09:14)
[2017-10-14] MEDS: Lisinopril TAB* 10 MG PO SCH (09:14)
[2017-10-14] MEDS: Vitamin THERAPEUTIC TAB PO SCH (09:14)
[2017-10-14] MEDS: Hydrochlorothiazide TAB* 25 MG PO SCH (09:15)
[2017-10-14] MEDS: Aspirin EC TAB* 81 MG TAB.EC PO SCH (09:15)
[2017-10-14] MEDS: Folic Acid TAB* 1 MG PO SCH (09:15)
[2017-10-14] MEDS: amLODIPine TAB* 5 MG PO SCH (09:15)
[2017-10-14] MEDS: carBAMazepine TAB(*) 200 MG PO SCH ×2 (09:16→21:34)
[2017-10-14] MEDS: Polyethylene Glycol 3350* 17 GM PACKET PO SCH (09:16)
[2017-10-14] MEDS: QUEtiapine TAB* 100 MG PO SCH ×2 (09:17→21:36)
[2017-10-14] MEDS: PTO:Canagliflozin (NF) 100 MG TAB PO SCH (09:19)
[2017-10-14] MEDS ORDERED: clonazePAM TAB(*) 0.5 MG PO ONE (10:25)
--- NOTE | 2017-10-14 11:58 | PN ---
MHU: Group Therapy Note - Service Type Service Type: [id number] Group Psychotherapy - Cognitive Behavioral Group Therapy ( CBT):Patient was attentive and participatory in CBT programming this morning, and remained in good behavioral control. Patient expressed positive insights regarding relevant treatment interventions and goals.
--- NOTE | 2017-10-14 11:59 | PN ---
MHU: Group Therapy Note - Service Type Service Type: [id number] Group Psychotherapy - Cognitive Behavioral Group Therapy ( CBT):Patient was attentive and participatory in CBT programming this morning, and remained in good behavioral control. Patient expressed positive insights regarding relevant treatment interventions and goals.
--- NOTE | 2017-10-14 12:58 | PN ---
Subjective - Subjective Date of Service: 10/14/17 Service Type: 30724 Hosp care 25 min moderate complexity Subjective: Sudhakar's visiting nurse and I spoke and it revealed that Sudhakar has been asking for medications he is not taking outpatient. The oxycodone he was receiving here was stopped two weeks ago by Dr. Lowry. His desire for Ambien and lorazepam were granted before this information was known. Sudhakar has not been participating in groups and declares that he has anxiety. Still, he appears calm. Although he complains that he is in pain, he is walking around without impediment. His anxiety is palpable, however, when it comes to not sleeping well. He worries that he will not sleep. Sudhakar is significantly better than when he came in. He is brighter, his answers come in complete sentences, and he is smiling. He is ready for discharge and will not be prescribed controlled substances. Objective - Appearance Appearance: Well Developed/Nourished, Obese Dysmorphic Features: No Hygiene: Normal Grooming: Disheveled - Behavior Psychomotor Activities: Normal Exhibits Abnormal Movement: No - Attitude and Relatedness Attitude and Relatedness: Well Related Eye Contact: Good - Speech Quality: Unpressured Latencies: Normal Quantity: Appropriate - Mood Patient's Decription of Mood: "Good" - Affect Observed Affect: Good Affect Consistent with: Euthymia - Thought Process Patient's Thought Process: Coherent, Goal Directed Thought Content: No Passive Wish, No Suicidal Planning, No Homicidal Ideation, No Paranoid Ideation - Sensorium Experiencing Hallucinations: No, Sensorium is Clear Type of Hallucinations: Visual: No, Auditory: No, Command: No - Level of Consciousness Level of Consciousness: Alert Orientation: Yes Intact, Yes Orientated to Time, Yes Orientated to Place, Yes Orientated to Person - Impulse Control Impulse Control: Intact - Insight and Judgement Insight and Judgement: Fair - Group Participation Particating in Group Activities: No - Medication Management Medication Management Adherence: Yes - Additional Observations Comments: Sudhakar is cooperative with medications but not with participation. The impression gotten from Sudhakar is that medications are the jiménez to making him better without much participation on his part. Assessment - Assessment Merits Inpatient Hospitalization: For Stabilization Clinical Impression: Sudhakar is a 62-year-old man with a history of bipolar disorder who comes to the hospital with suicidal ideation. He arrived in a depressed state without motivation. We added Wellbutrin to address depression and amotivation. He appears to be feeling better, perhaps independent of medications. Plan - Plan Treatment Plan: Name: SUDHAKAR HILL Birthdate: 1955 [id number] Continued Medication Management: Different Medication Medications: Current Medications Acetaminophen (Tylenol Tab*) 650 mg PO Q4H PRN PRN Reason: PAIN or TEMP > 101 F Last Admin: 10/13/17 07:41 Dose: 650 mg Al Hydrox/Mg Hydrox/Simethicone (Maalox Plus*) 30 ml PO Q4H PRN PRN Reason: INDIGESTION Last Admin: 10/11/17 08:23 Dose: 30 ml Amlodipine Besylate (Norvasc Tab*) 5 mg PO DAILY [facility] Last Admin: 10/14/17 09:15 Dose: 5 mg Aspirin (Aspirin Ec Tab*) 81 mg PO DAILY [facility] Last Admin: 10/14/17 09:15 Dose: 81 mg Atorvastatin Calcium (Lipitor*) 40 mg PO DAILY [facility] Last Admin: 10/14/17 09:14 Dose: 40 mg Bupropion HCl (Wellbutrin Xl *) 150 mg PO DAILY [facility]; Protocol Last Admin: 10/14/17 09:14 Dose: 150 mg Canagliflozin (Invokana (Nf)) 100 mg PO DAILY [facility] Last Admin: 10/14/17 09:19 Dose: 100 mg Carbamazepine (Tegretol Tab(*)) 200 mg PO BID [facility] Last Admin: 10/14/17 09:16 Dose: 200 mg Folic Acid (Folvite Tab*) 1 mg PO DAILY [facility] Last Admin: 10/14/17 09:15 Dose: 1 mg Hydrochlorothiazide (Hydrodiuril Tab*) 12.5 mg PO DAILY [facility] Last Admin: 10/14/17 09:15 Dose: 12.5 mg Hydroxyzine HCl (Atarax Tab*) 50 mg PO Q4H PRN PRN Reason: ANXIETY Last Admin: 10/14/17 06:04 Dose: 50 mg Levothyroxine Sodium (Synthroid Tab*) 100 mcg PO DAILY@0600 [facility] Last Admin: 10/14/17 06:04 Dose: 100 mcg Lisinopril (Prinivil Tab*) 20 mg PO DAILY [facility] Last Admin: 10/14/17 09:14 Dose: 20 mg Magnesium Hydroxide (Milk Of Magnesia Liq*) 30 ml PO Q4H PRN PRN Reason: CONSTIPATION Melatonin (Melatonin) 18 mg PO BEDTIME [facility]; Protocol Last Admin: 10/13/17 21:31 Dose: 18 mg Multivitamins (Theragran Tab*) 1 tab PO DAILY [facility] Last Admin: 10/14/17 09:14 Dose: 1 tab Omeprazole (Prilosec Cap*) 20 mg PO DAILY@0730 [facility] Last Admin: 10/14/17 07:24 Dose: 20 mg Ondansetron HCl (Zofran Tab*) 4 mg PO Q6H PRN PRN Reason: NAUSEA Oxycodone HCl (Roxycodone Tab*) 10 mg PO Q8H PRN PRN Reason: PAIN Last Admin: 10/14/17 03:27 Dose: 10 mg Polyethylene Glycol/Electrolytes (Miralax*) 17 gm PO DAILY [facility] Last Admin: 10/14/17 09:16 Dose: 17 gm Quetiapine Fumarate (Seroquel Tab*) 200 mg PO BEDTIME [facility] Last Admin: 10/13/17 21:32 Dose: 200 mg Quetiapine Fumarate (Seroquel Tab*) 100 mg PO DAILY [facility] Last Admin: 10/14/17 09:17 Dose: Not Given Sucralfate (Carafate*) 1 gm PO ACHS [facility] Last Admin: 10/14/17 12:51 Dose: Not Given Tiagabine HCl (Gabitril(*)) 4 mg PO BEDTIME [facility] Last Admin: 10/13/17 21:31 Dose: 4 mg Tramadol HCl (Ultram*) 50 mg PO Q6H PRN PRN Reason: PAIN Last Admin: 10/14/17 07:24 Dose: 50 mg Zolpidem Tartrate (Ambien Tab*) 10 mg PO BEDTIME PRN PRN Reason: SLEEP Last Admin: 10/13/17 21:45 Dose: 10 mg - Discharge Plan Discharge Plan: Outpatient Follow Up Outpatient Program: [facility] Additional Comments: Sudhakar will be discharged Saturday the 15 of October. He will be discharged without controlled substances and recommendations to stop Ambien.
[2017-10-14] MEDS: Ibuprofen TAB* 600 MG PO PRN (14:02)
[2017-10-14] MEDS: Acetaminophen TAB* 325 MG PO PRN ×2 (15:06→21:38)
[2017-10-14] MEDS ORDERED: Zolpidem TAB* 10 MG PO ONE (21:00)
[2017-10-14] MEDS: Melatonin 3 MG TAB PO SCH (21:34)
[2017-10-14] MEDS: TIAGABINE 4 MG PO SCH (21:37)
[2017-10-15] MEDS: Acetaminophen TAB* 325 MG PO PRN ×3 (02:50→11:46)
[2017-10-15] MEDS: Ibuprofen TAB* 600 MG PO PRN ×2 (05:25→11:46)
[2017-10-15] MEDS: Levothyroxine TAB* 100 MCG TAB PO SCH (06:00)
[2017-10-15] MEDS: Omeprazole CAP* 20 MG PO SCH (07:35)
[2017-10-15] MEDS: Sucralfate TAB* 1 GM PO SCH ×2 (07:35→11:48)
[2017-10-15] MEDS: QUEtiapine TAB* 100 MG PO SCH (07:35)
[2017-10-15 07:48] VITALS: BP 137/95
[2017-10-15] MEDS: Polyethylene Glycol 3350* 17 GM PACKET PO SCH (08:12)
[2017-10-15] MEDS: Vitamin THERAPEUTIC TAB PO SCH (08:14)
[2017-10-15] MEDS: BuPROPion XL* 150 MG TAB.XL PO SCH (08:14)
[2017-10-15] MEDS: carBAMazepine TAB(*) 200 MG PO SCH (08:14)
[2017-10-15] MEDS: Lisinopril TAB* 10 MG PO SCH (08:14)
[2017-10-15] MEDS: amLODIPine TAB* 5 MG PO SCH (08:14)
[2017-10-15] MEDS: Folic Acid TAB* 1 MG PO SCH (08:15)
[2017-10-15] MEDS: PTO:Canagliflozin (NF) 100 MG TAB PO SCH (08:15)
[2017-10-15] MEDS: Aspirin EC TAB* 81 MG TAB.EC PO SCH (08:15)
[2017-10-15] MEDS: Hydrochlorothiazide TAB* 25 MG PO SCH (08:15)
[2017-10-15] MEDS: Atorvastatin* 40 MG TAB PO SCH (08:15)
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
== END 2017-10-15 12:42 | disposition home or self-care (01) | DRG 885 ==
LOC: ED 10:07 → BSU 16:40 → ED 18:45 → BSU 10-11 20:01
PROVIDERS: ADMIT Psychiatry & Neurology Psychiatry; ATTEND Psychiatry & Neurology Psychiatry
PROC: GZHZZZZ Group Psychotherapy (ICD-10-PCS; principal; 2017-10-10)
DX: F31.9 Bipolar disorder, unspecified (principal); R45.851 Suicidal ideations; I10 Essential (primary) hypertension; E11.9 Type 2 diabetes mellitus without complications; E78.00 Pure hypercholesterolemia, unspecified; G47.30 Sleep apnea, unspecified; J45.909 Unspecified asthma, uncomplicated; K21.9 Gastro-esophageal reflux disease without esophagitis; G20 Parkinson's disease; F41.9 Anxiety disorder, unspecified; M54.9 Dorsalgia, unspecified; M25.559 Pain in unspecified hip; M25.569 Pain in unspecified knee; E03.9 Hypothyroidism, unspecified; E66.9 Obesity, unspecified; I25.10 Atherosclerotic heart disease of native coronary artery without angina pectoris; Z72.89 Other problems related to lifestyle; Z87.891 Personal history of nicotine dependence; Z88.8 Allergy status to other drugs, medicaments and biological substances; Z82.49 Family history of ischemic heart disease and other diseases of the circulatory system; Z81.8 Family history of other mental and behavioral disorders; Z79.82 Long term (current) use of aspirin; Z88.0 Allergy status to penicillin; Z68.32 Body mass index [BMI] 32.0-32.9, adult; Z87.820 Personal history of traumatic brain injury; I25.2 Old myocardial infarction
CPT/HCPCS: 36415; 71045; 80053; 80156; 83605; 84484; 85025; 90853; 93005; 99222; 99231; 99232; 99238; 99284; A9270-GY

== ENCOUNTER 2017-11-27 06:31 | Emergency (ER) | payer MEDICARE, OTHER ==
--- NOTE | 2017-11-27 06:48 | ED ---
Shortness of Breath - HPI Summary HPI Summary: Patient is a 62-year-old male who presents emergency department for shortness of breath. Patient states he woke up morning around 2 AM and felt short of breath. He denies chest pain. Patient states she is a history of asthma but does not take any daily maintenance medications. He states he does not use an inhaler at home. Notes that he has had increased productive cough over the last several days. Denies abdominal pain, vomiting, diarrhea, leg swelling, recent surgery, recent long travels. Symptoms are moderate in severity. Activity makes symptoms worse. Rest makes symptoms better. Patient also notes chronic pain to arms and legs. - History of Current Complaint Chief Complaint: EDShortnessOfBreath Time Seen by Provider: 11/27/17 06:36 Hx Obtained From: Patient - Allergy/Home Medications Allergies/Adverse Reactions: Allergies Allergy/AdvReac Type Severity Reaction Status Date / Time ampicillin Allergy Unknown Rash And Verified 11/27/17 07:19 Itching propranolol Allergy Unknown Rash And Verified 11/27/17 07:19 Itching divalproex sodium Allergy Unknown Verified 11/27/17 07:19 [From Depakote] Reaction Details Home Medications: Home Medications Famotidine 20 mg DAILY 11/27/17 [History Confirmed 11/27/17] Gabapentin 100 mg TID 11/27/17 [History Confirmed 11/27/17] Ibuprofen 200 mg Q6HR PRN 11/27/17 [History Confirmed 11/27/17] Magnesium Hydroxide LIQ* [Milk of Magnesia LIQ*] 15 ml PO Q4H PRN 11/27/17 [ History Confirmed 11/27/17] Melatonin 5 mg BEDTIME 11/27/17 [History Confirmed 11/27/17] Polyethylene Glycol 3350* [Miralax*] 17 gm PO DAILY PRN 11/27/17 [History Confirmed 11/27/17] QUEtiapine TAB* [Seroquel 100 MG *] 200 mg PO DAILY 11/27/17 [History Confirmed 11/27/17] Tramadol HCl 50 mg Q6HR PRN 11/27/17 [History Confirmed 11/27/17] PMH/Surg Hx/FS Hx/Imm Hx Previously Healthy: Yes Endocrine/Hematology History: Reports: Hx Diabetes, Hx Thyroid Disease - hypothyroid medicated with synthroid 75 mcg Cardiovascular History: Reports: Hx Angina, Hx Hypercholesterolemia, Hx Hypotension, Hx Hypertension, Other Cardiovascular Problems/Disorders - CAD, IDDM II, HIGH CHOLESTEROL Denies: Hx Coronary Artery Disease, Hx Myocardial Infarction, Hx Pacemaker/ ICD, Hx Valvular Heart Disease Respiratory History: Reports: Hx Asthma, Hx Sleep Apnea Denies: Hx Chronic Obstructive Pulmonary Disease (COPD) GI History: Reports: Hx Gastroesophageal Reflux Disease History: Denies: Hx Renal Disease Musculoskeletal History: Denies: Hx Arthritis, Hx Osteoporosis Sensory History: Denies: Hx Cataracts, Hx Contacts or Glasses, Hx Eye Injury, Hx Hearing Aid, Hx Hearing Problem, Other Sensory Impairments Opthamlomology History: Denies: Hx Cataracts, Hx Contacts or Glasses, Hx Eye Injury, Other Sensory Impairments Neurological History: Reports: Hx Migraine, Other Neuro Impairments/Disorders - parkinson's Psychiatric History: Reports: Hx Anxiety, Hx Depression, Hx Inpatient Treatment - multiple in [place], [place], Hx Bipolar Disorder Denies: Hx Eating Disorder, Hx Panic Disorder, Hx of Violent Episodes Against Others - Surgical History Surgery Procedure, Year, and Place: tonsillectomy, hyiod suspension 10 years ago Hx Anesthesia Reactions: No - Immunization History Date of Tetanus Vaccine: UTD Date of Influenza Vaccine: 01/2017 Infectious Disease History: No Infectious Disease History: Denies: Hx of Known/Suspected MRSA, Traveled Outside the [place] in Last 30 Days - Family History Known Family History: Positive: Hypertension, Other - Positive bipolar and schizophrenia - Social History Occupation: Disabled Lives: Alone Alcohol Use: Rare Alcohol Amount: 1beer/1 drink daily for a long time Hx Substance Use: No Substance Use Type: Reports: Marijuana Substance Use Comment - Amount & Last Used: uses 1-2 drinks of alcohol daily and several bowls of marijuana daily. Hx Tobacco Use: Yes Smoking Status (MU): Former Smoker Type: Cigarettes Have You Smoked in the Last Year: No Review of Systems Constitutional: Negative Negative: Fever, Chills Eyes: Negative ENT: Negative Cardiovascular: Negative Negative: Palpitations, Chest Pain Positive: Shortness Of Breath, Cough Gastrointestinal: Negative Negative: Abdominal Pain, Vomiting, Diarrhea, Nausea Genitourinary: Negative Positive: Other - chronic pain to the arms and legs Neurological: Negative All Other Systems Reviewed And Are Negative: Yes Physical Exam Triage Information Reviewed: Yes Vital Signs On Initial Exam: Initial Vitals Temp Pulse Resp BP Pulse Ox 99.5 F 82 16 128/96 97 08/15/18 06:36 11/27/17 06:36 11/27/17 06:36 11/27/17 06:36 11/27/17 06:36 Vital Signs Reviewed: Yes Appearance: Positive: Well-Appearing - Patient lying in bed in no acute distress. Breathing easily on room air. Skin: Positive: Warm, Dry Head/Face: Positive: Normal Head/Face Inspection Neck: Positive: Supple Respiratory/Lung Sounds: Positive: Clear to Auscultation, Breath Sounds Present , Other - No accessory muscle use, inspiratory stridor or retractions. Cardiovascular: Positive: Normal, RRR Abdomen Description: Positive: Nontender, Soft Musculoskeletal: Positive: Normal. Negative: Edema Left, Edema Right Neurological: Positive: Normal, CN Intact II-III Psychiatric: Positive: Affect/Mood Appropriate Diagnostics - Vital Signs Vital Signs Temp Pulse Resp BP Pulse Ox 11/27/17 06:36 99.5 F 82 16 128/96 97 - Laboratory Result Diagrams: 11/27/17 06:59 11/27/17 08:00 Lab Statement: Any lab studies that have been ordered have been reviewed, and results considered in the medical decision making process. Course/Dx - Course Course Of Treatment: Patient presenting with shortness of breath and a history of asthma. He does have a low-grade fever of 99.5F, we'll obtain rectal temperature. Oxygen saturation is 97% room air which is normal. Patient is no evidence respiratory distress on exam. Will give breathing treatment and obtain basic workup. It appears pt. has been in the ER multiple times over the last several months with complaints of chronic pain and CP. Labs are unremarkable. CXR is negative for infiltrate or effusion. Pt. feeling better after breathing treatment. He was ambulated around the department with pulse ox and O2 saturation stayed above 93%. Results discussed with pt. Will dc him home. To call PCP today to schedule a close f.u apt. To return to ER if sxs change or worsen. Pt. understands and agrees with plan. Rectal temp 97.1F. Blood work is unremarkable. CXR is negative for infiltrate or acute change. ECG done at 0638 shows a sinus rhythm of 80bpm, normal axis, RBBB, no ST elevation of deviaiton, prolonged TN interval, similar to prior tracing. Pt. - Diagnoses Differential Diagnosis/HQI/PQRI: Positive: Asthma, Bronchitis, CHF, Chest Wall Pain, COPD Exacerbation, NH, Pneumonia Provider Diagnoses: Asthma Discharge - Sign-Out/Discharge Documenting (check all that apply): Patient Departure - Discharge Plan Condition: Good Disposition: HOME Patient Education Materials: Asthma (ED) Referrals: Collin Lowry MD [Primary Care Provider] - Additional Instructions: Call PCP today to schedule a follow up appointment Continue home medications as directed Return to ER if symptoms change or worsen - Billing Disposition and Condition Condition: GOOD Disposition: Home
[2017-11-27 07:06] LABS: ABS Basophils 0.1 10^3/ul (0-0.2); ABS Eosinophils 0.3 10^3/ul (0-0.6); ABS Lymphocytes 1.9 10^3/ul (1.0-4.8); ABS Monocytes 0.8 10^3/ul (0-0.8); ABS Nucleated RBC 0 10^3/ul; Eosinophil % 3.3 % (0-6); Hematocrit 41 % (42-52); Mean Corpuscular HGB Conc 35 g/dl (31-36); Mean Corpuscular Hemoglobin 33 pg (27-31); Mean Corpuscular Volume 96 fL (80-94); Mean Platelet Volume 6.7 um3 (7.4-10.4); Nucleated Red Blood Cells % 0.1; Platelet Count 383 10^3/ul (150-450); Red Blood Count 4.24 10^6/ul (4.00-5.40); Red Cell Distribution Width 15 % (10.5-15); White Blood Count 8.1 10^3/ul (3.5-10.8)
[2017-11-27 07:29] LABS: EGFR Non-African American 91.6 (>60)
--- NOTE | 2017-11-27 07:33 | RAD ---
HISTORY: SOB COMPARISONS: October 10, 2017 VIEWS: 5: Frontal dual-energy and lateral views of the chest. FINDINGS: CARDIOMEDIASTINAL SILHOUETTE: The cardiomediastinal silhouette is normal. NOREEN: The noreen are normal. PLEURA: The costophrenic angles are sharp. No pleural abnormalities are noted. LUNG PARENCHYMA: The lungs are clear. ABDOMEN: The upper abdomen is clear. There is no subphrenic gas. BONES AND SOFT TISSUES: No bone or soft tissue abnormalities are noted. OTHER: None. IMPRESSION: NO ACTIVE CARDIOPULMONARY DISEASE. R1
[2017-11-27] MEDS ORDERED: Albuterol 2.5 MG/3 ML NEB.SOL* (0.083%) INH ONE (08:25)
[2017-11-27 09:35] VITALS: BP 147/96
== END 2017-11-27 09:36 | disposition home or self-care (01) ==
LOC: ED 06:31
DX: J45.909 Unspecified asthma, uncomplicated (principal); R07.9 Chest pain, unspecified; I45.10 Unspecified right bundle-branch block; I45.81 Long QT syndrome; G89.29 Other chronic pain; M79.603 Pain in arm, unspecified; M79.606 Pain in leg, unspecified; F41.9 Anxiety disorder, unspecified; F32.9 Major depressive disorder, single episode, unspecified; Z87.891 Personal history of nicotine dependence; Z88.3 Allergy status to other anti-infective agents; Z88.8 Allergy status to other drugs, medicaments and biological substances
CPT/HCPCS: 36415; 71046; 80053; 83605; 84484; 85025; 93005; 99283

== ENCOUNTER 2018-01-08 10:11 | Inpatient (IN) | payer MEDICARE, MEDICAID ==
--- NOTE | 2018-01-08 11:11 | ED ---
Psychiatric Complaint - HPI Summary HPI Summary: This patient is a 62 year old M FREDDYA from [place] to ED with a chief complaint of SI since [facility]. He had a panic attack. He reports his plan is to either hang himself or jump off a building. The patient rates the pain 8/10 in severity which is his baseline. Symptoms aggravated by nothing. Symptoms alleviated by nothing. Patient reports feeling anxious currently. Patient recently had his teeth pulled so he has not been eating right. Patient is not homeless. Patient does not use substances or ETOH. He has not had prior SI attempts. - History Of Current Complaint Chief Complaint: [facility]entalHealth Time Seen by Provider: 01/08/18 10:49 Hx Obtained From: Patient Onset/Duration: Still Present Timing: Constant Severity Initially: Moderate Severity Currently: Moderate Character: Depressed, Anxious Aggravating Factor(s): Nothing Alleviating Factor(s): Nothing Associated Signs And Symptoms: Positive: Appetite Change - probably secondary to dental surgery Has Suicidal: Reports: Thoughts, With A Plan. Denies: Has Prior Attempt(s) Has Homicidal: Denies: Thoughts - Allergies/Home Medications Allergies/Adverse Reactions: Allergies Allergy/AdvReac Type Severity Reaction Status Date / Time ampicillin Allergy Unknown Rash And Verified 11/27/17 07:19 Itching propranolol Allergy Unknown Rash And Verified 11/27/17 07:19 Itching divalproex sodium Allergy Unknown Verified 11/27/17 07:19 [From Depakote] Reaction Details PMH/Surg Hx/FS Hx/Imm Hx Endocrine/Hematology History: Reports: Hx Diabetes, Hx Thyroid Disease - hypothyroid medicated with synthroid 75 mcg Cardiovascular History: Reports: Hx Angina, Hx Hypercholesterolemia, Hx Hypotension, Hx Hypertension, Other Cardiovascular Problems/Disorders - CAD, IDDM II, HIGH CHOLESTEROL Denies: Hx Coronary Artery Disease, Hx Myocardial Infarction, Hx Pacemaker/ ICD, Hx Valvular Heart Disease Respiratory History: Reports: Hx Asthma, Hx Sleep Apnea Denies: Hx Chronic Obstructive Pulmonary Disease (COPD) GI History: Reports: Hx Gastroesophageal Reflux Disease History: Denies: Hx Renal Disease Musculoskeletal History: Denies: Hx Arthritis, Hx Osteoporosis Sensory History: Denies: Hx Cataracts, Hx Contacts or Glasses, Hx Eye Injury, Hx Hearing Aid, Hx Hearing Problem, Other Sensory Impairments Opthamlomology History: Denies: Hx Cataracts, Hx Contacts or Glasses, Hx Eye Injury, Other Sensory Impairments Neurological History: Reports: Hx Migraine, Other Neuro Impairments/Disorders - parkinson's Psychiatric History: Reports: Hx Anxiety, Hx Depression, Hx Inpatient Treatment - multiple in [place], [place], Hx Bipolar Disorder Denies: Hx Eating Disorder, Hx Panic Disorder, Hx of Violent Episodes Against Others - Surgical History Surgery Procedure, Year, and Place: tonsillectomy, hyiod suspension 10 years ago Hx Anesthesia Reactions: No - Immunization History Date of Tetanus Vaccine: UTD Date of Influenza Vaccine: 01/2017 Infectious Disease History: No Infectious Disease History: Denies: Hx of Known/Suspected MRSA, Traveled Outside the [place] in Last 30 Days - Family History Known Family History: Positive: Hypertension, Other - Positive bipolar and schizophrenia - Social History Lives: Alone Alcohol Use: Rare Alcohol Amount: 1beer/1 drink daily for a long time Hx Substance Use: No Substance Use Type: Reports: Marijuana Substance Use Comment - Amount & Last Used: uses 1-2 drinks of alcohol daily and several bowls of marijuana daily. Hx Tobacco Use: Yes Smoking Status (MU): Former Smoker Type: Cigarettes Have You Smoked in the Last Year: No Review of Systems Negative: Fever, Chills Negative: Erythema Negative: Sore Throat Negative: Chest Pain Negative: Shortness Of Breath, Cough Negative: Abdominal Pain, Vomiting, Nausea Negative: dysuria, hematuria Negative: Myalgia, Edema Negative: Rash Neurological: Other - NEGATIVE: Dizziness Positive: Anxious, Depressed, Other - SI with plan All Other Systems Reviewed And Are Negative: Yes Physical Exam - Summary Physical Exam Summary: Constitutional: Well-developed, Well-nourished, Alert. (-) Distressed Skin: Warm, Dry HENT: Normocephalic; Atraumatic Eyes: Conjunctiva normal Neck: Musculoskeletal ROM normal neck. (-) JVD, (-) Stridor, (-) Tracheal deviation Cardio: Rhythm regular, rate normal, Heart sounds normal; Intact distal pulses; The pedal pulses are 2+ and symmetric. Radial pulses are 2+ and symmetric. (-) Murmur Pulmonary/Chest wall: Effort normal. (-) Respiratory distress, (-) Wheezes, (-) Rales Abd: Soft, (-) epigastric tenderness, (-) Distension, (-) Guarding, (-) Rebound Musculoskeletal: (-) Edema Lymph: (-) Cervical adenopathy Neuro: Alert, Oriented x3 Psych: Patient is withdrawn and has a flat affect. Triage Information Reviewed: Yes Vital Signs On Initial Exam: Initial Vitals Temp Pulse Resp BP Pulse Ox 97.8 F 99 18 150/103 99 01/08/18 10:15 01/08/18 10:15 01/08/18 10:15 01/08/18 10:15 01/08/18 10:15 Vital Signs Reviewed: Yes Diagnostics - Vital Signs Vital Signs Temp Pulse Resp BP Pulse Ox 01/08/18 10:15 97.8 F 99 18 150/103 99 - Laboratory Result Diagrams: 01/08/18 12:00 01/08/18 12:00 Lab Statement: Any lab studies that have been ordered have been reviewed, and results considered in the medical decision making process. Course/Dx - Course Course Of Treatment: A 62-year-old M presents to the ED with a CC of SI with a plan since [facility]. (+) anxiety, depression, SI with plan. (-) Substance abuse/EtOH abuse, homelessness, sx aggravation/alleviation. Plan to hang self or jump off of a building. A CXR reveals ___. An EKG reveals ___. In the ED course, pt was given ativan. His labs were nl except for - Differential Dx/Clinical Impression Provider Diagnosis: Depressive disorder, not elsewhere classified - Physician Notifications Discussed Care Of Patient With: Keith Fernandez Time Discussed With Above Provider: 14:25 Instructed by Provider To: Other - Per CHANTEL Tijerina, Pt is to be admitted on a voluntary status with a dx of depressive disorder unspecified. Discharge - Sign-Out/Discharge Documenting (check all that apply): Patient Departure - admit - Discharge Plan Condition: Good [place] [place] Disposition and Condition Condition: GOOD Disposition: [place]iatric [place] [facility] [place] Attestation Statements Document Initiated by Scribe: Yes Documenting Scribe: Brett Sanchez Provider For Whom Henna is Documenting (Include Credential): Dr. Adis Pérez MD Scribe Attestation: Brett Farias scribed for Dr. Adis Pérez MD on 01/09/18 at 1035. Scribe Documentation Reviewed: Yes Provider Attestation: The documentation as recorded by the scribe, Brett Bezirganian accurately reflects the service I personally performed and the decisions made by me, Dr. Adis Pérez MD
[2018-01-08] MEDS ORDERED: LORazepam TAB(*) 1 MG PO ONE (11:15)
[2018-01-08 12:34] LABS: ABS Basophils 0.1 10^3/ul (0-0.2); ABS Eosinophils 0 10^3/ul (0-0.6); ABS Lymphocytes 1.1 10^3/ul (1.0-4.8); ABS Monocytes 0.6 10^3/ul (0-0.8); ABS Neutrophils 6.6 10^3/ul (1.5-7.7); ABS Nucleated RBC 0 10^3/ul; Eosinophil % 0.5 % (0-6); Hematocrit 44 % (42-52); Hemoglobin 14.8 g/dl (14.0-18.0); Lymphocyte % 13.2 % (25-47); Mean Corpuscular HGB Conc 34 g/dl (31-36); Mean Corpuscular Hemoglobin 33 pg (27-31); Mean Corpuscular Volume 97 fL (80-94); Mean Platelet Volume 6.7 um3 (7.4-10.4); Nucleated Red Blood Cells % 0.1; Platelet Count 367 10^3/ul (150-450); Red Blood Count 4.53 10^6/ul (4.00-5.40); Red Cell Distribution Width 14 % (10.5-15); White Blood Count 8.4 10^3/ul (3.5-10.8)
[2018-01-08 13:01] LABS: EGFR Non-African American 64.7 (>60)
[2018-01-08 13:12] LABS: Urine Appearance Clear; Urine Blood Negative (Negative); Urine Color Straw; Urine Ketones Negative (Negative); Urine Protein Negative (Negative); Urine Specific Gravity 1.009 (1.010-1.030); Urine Urobilinogen Negative (Negative)
[2018-01-08] MEDS ORDERED: Zolpidem TAB* 10 MG PO PRN (14:08)
[2018-01-08] MEDS ORDERED: TIAGABINE PO SCH (21:00)
[2018-01-08] MEDS: Gabapentin CAP(*) 100 MG PO SCH (21:02)
[2018-01-08] MEDS: carBAMazepine TAB(*) 200 MG PO SCH (21:02)
[2018-01-08] MEDS: Ibuprofen TAB* 200 MG PO PRN (21:03)
[2018-01-08] MEDS ORDERED: QUEtiapine TAB* 100 MG PO SCH (22:00)
[2018-01-09] MEDS: Levothyroxine TAB* 100 MCG TAB PO SCH (05:29)
[2018-01-09] MEDS: Ibuprofen TAB* 200 MG PO PRN (05:35)
[2018-01-09] MEDS: BuPROPion XL* 150 MG TAB.XL PO SCH (08:50)
[2018-01-09] MEDS: carBAMazepine TAB(*) 200 MG PO SCH (08:50)
[2018-01-09] MEDS: Folic Acid TAB* 1 MG PO SCH (08:50)
[2018-01-09] MEDS: amLODIPine TAB* 5 MG PO SCH (08:50)
[2018-01-09] MEDS: Gabapentin CAP(*) 100 MG PO SCH (08:50)
[2018-01-09] MEDS: Lisinopril TAB* 10 MG PO SCH (08:51)
[2018-01-09] MEDS: Aspirin EC TAB* 81 MG TAB.EC PO SCH (08:51)
[2018-01-09] MEDS ORDERED: Ibuprofen TAB* 600 MG PO PRN (10:44)
[2018-01-09] MEDS ORDERED: Ibuprofen TAB* 600 MG ONE (10:53)
[2018-01-09] MEDS: CANAGLIFLOZIN 100 MG PO SCH (13:22)
[2018-01-09] MEDS: Naproxen TAB* 250 MG PO PRN (16:45)
[2018-01-09] MEDS: Polyethylene Glycol 3350* 17 GM PACKET PO PRN (17:48)
[2018-01-09] MEDS: carBAMazepine CHEW TAB(*) 100 MG PO SCH (20:20)
[2018-01-09] MEDS: hydrOXYzine HCL TAB* 50 MG PO SCH (20:21)
[2018-01-09] MEDS: Melatonin 3 MG TAB PO SCH (20:22)
[2018-01-09] MEDS: QUEtiapine TAB* 100 MG PO SCH (20:23)
--- NOTE | 2018-01-09 20:42 | HP ---
HISTORY AND PHYSICAL: DATE OF ADMISSION: 01/08/18 PROVIDER: Miesha Roche NP, in Psychiatry. SUPERVISING PHYSICIAN: Keith Fernandez MD * (DICTATED BY MIESHA ROCHE NP ) JUSTIFICATION FOR ADMISSION: The patient is in need of 24-hour supervision and care secondary to suicidal ideation including hanging himself or jumping from a balcony. CHIEF COMPLAINT: "I'm in so much pain, I can't stand it." HISTORY OF PRESENT ILLNESS: The patient is a 62-year-old white male with a history of panic and bipolar disorders, who arrives brought in by an ambulance after he called 911 thinking that he was going to harm himself. Apparently, he had attempted to be admitted to the hospital on Saturday, but did not have a method in mind of ending his life. Instead, 24 hours later, he called 911 instead of the mobile crisis team and he then came to the hospital. Wei is a disabled man who is complaining of disabling panic attacks as well as disabling pain in his right hip and right foot. At the same time, he also had all of his top teeth pulled due to them being infected and decaying. He states in the hospital he only sleeps 4 or 5 hours at night and he does not sleep too much. He does not have any energy. He is unenthusiastic about anything. He finds people to be overwhelming and he is sensitive to too much noise. He is highly anxious. He states he has panic attacks that are becoming more severe. He does not know their origin. Despite Wei's history of bipolar disorder, he is not exhibiting any manic symptoms at this time, in fact he is with the exception of not sleeping as much as he would like, quite depressed. PAST PSYCHIATRIC HISTORY: [place] [facility] [place] be his third [place]. He has been admitted 6 times in [place] where he used to live. Right now, he is being treated at [facility]. He sees Debo Panda NP and Shabbir Payne RN, as his therapist. He has had suicidal ideation many times in the past. He tends not to attempt, although he did jump from his balcony and received facial fractures at one point when he was living in the [facility]. He does not have access to weapons. TRAUMA HISTORY: Includes the fact that his brother and mother suicided. TBI: He did hit his head very hard when he jumped from his balcony. PAST MEDICAL HISTORY: Includes the following problems: Diabetes; asthma; hypothyroidism; GERD; hypertension; obstructive sleep apnea with surgery in the past; history of ulcers in the 1970s; sinusitis; history of TBIs playing football growing up, no loss of consciousness, denies history of seizures; chronic back pain; nasal fracture; and pain in his right hip and right foot. In addition, he had all of his upper teeth extracted due to infection and decay. MEDICATIONS: Previous psychiatric meds included Prozac and Ambien. At this time, he is unable to recall what medications he has taken in the past. The note that I have from his visiting nurse, Lacey Singh, from [facility], is that he is takin. Bupropion HCl 150 mg daily. 2. Levothyroxine 100 mcg daily. 3. Folic acid 1 mg daily. 4. Carbamazepine 200 mg b.i.d. 5. Lisinopril 20 mg. 6. Amlodipine 10 mg. 7. Zolpidem 10 mg. 8. Gabapentin 100 mg t.i.d. 9. Invokana 100 mg. 10. Aspirin 81 mg. 11. Melatonin 10 mg. 12. Tiagabine 4 mg. 13. Quetiapine 200 mg. FAMILY PSYCHIATRIC HISTORY: Brother and mother completed suicide, 1 by hanging and 1 by gunshot I believe. SOCIAL HISTORY: Wei was born in [place] and raised in [place], [place]. He was raised by both parents. He has 2 younger brothers. 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 He last worked in 2007. He has been on disability for his mental health issues. He financially gets by with Social Security and Disability. He has been 3 times. He has father and a brother who live around here. He lives next door to his dad. He has 4 children, 2 boys and 2 girls, with 2 different women. REVIEW OF SYSTEMS: The patient reports feeling fatigued. He denies shortness of breath. He is cold. He does not have chest pain or abdominal pain. He denies neurological symptoms. He denies fevers or changes in weight. He does have pain in his right hip and right foot and seems to be quite uncomfortable. PHYSICAL EXAMINATION VITAL SIGNS: On 01/09/18 at 7:44 in the morning, temp was 97.2, pulse 71, respirations 16, O2 sat 95%, blood pressure was 88/61. For further exam data, please see emergency department records. LABORATORY DATA: On 01/08/18, his abnormal lab values included MCV at 97 which is high, MCH is high at 33, MPV is low at 6.7, lymphocyte percentage is 13.2 which is low, monocyte percentage is 7.1 which is high. Sodium is low at 131, chloride is low at 98, glucose was high at 137. Hemoglobin A1c is 5.9. Triglycerides are 215, cholesterol 210, LDL cholesterol 128, HDL cholesterol 39.2. TSH is 0.46. Urine glucose is positive. Opiates are positive presumably due to tramadol, he states he has been getting prescribed by Dr. Lowry. MENTAL STATUS EXAMINATION: This is a tall man who has a rather large belly and facial hair. He is found lying in his bed wearing short sleeve shirt and appearing to be cold and shivering. He is anxious, but cooperative. He requests that I stay longer to talk with him. His speech rate is a normal rate. His tone is quavering. His volume is soft. He is dysthymic and dysphoric. He is anxious. His thought processes appear to be logical. There are no delusions. There is suicidal ideation. He does not plan on attempting suicide in the hospital. He is not homicidal. He does not have any hallucinations. His insight, I would say, is poor. His judgment is fair. He is alert and oriented x3. DIAGNOSES: Mission I: Bipolar 1 disorder, potentially rule out panic disorder. Mission II: Rule out dependent personality disorder. IMPRESSION: Wei is a 62-year-old man who struggles to deal successfully with his panic and his fear of not sleeping. He came in following wanting to jump off his balcony or hang himself at his apartment. This is especially disheartening as his brother and his mother both suicided. PLAN: The patient is admitted to the adult behavioral health unit and placed on a q.15-minute check for his own safety. He is encouraged to participate in supportive milieu, individual, and group therapies. Estimated length of stay is 5 to 7 days. We will titrate medications to efficacy and monitor for mood and thought content. We will include family involvement and outpatient providers in discharge planning. MIESHA ROCHE, SHIRLEY [id number]/CPS #: [id number] DENEEN
[2018-01-09] MEDS ORDERED: QUEtiapine TAB* 100 MG PO SCH (21:00)
[2018-01-09] MEDS ORDERED: Zolpidem TAB* 5 MG PO ONE (21:00)
[2018-01-10] MEDS: hydrOXYzine HCL TAB* 25 MG PO PRN ×2 (01:14→08:22)
[2018-01-10] MEDS ORDERED: Gabapentin CAP(*) 100 MG PO ONE (04:00)
[2018-01-10] MEDS: Levothyroxine TAB* 100 MCG TAB PO SCH (05:42)
[2018-01-10] MEDS: Naproxen TAB* 250 MG PO PRN ×2 (05:42→18:05)
[2018-01-10] MEDS: Folic Acid TAB* 1 MG PO SCH (08:17)
[2018-01-10] MEDS: amLODIPine TAB* 5 MG PO SCH (08:17)
[2018-01-10] MEDS: Aspirin EC TAB* 81 MG TAB.EC PO SCH (08:17)
[2018-01-10] MEDS: carBAMazepine CHEW TAB(*) 100 MG PO SCH ×2 (08:18→20:57)
[2018-01-10] MEDS: BuPROPion XL* 150 MG TAB.XL PO SCH (08:18)
[2018-01-10] MEDS: Lisinopril TAB* 10 MG PO SCH (08:18)
[2018-01-10] MEDS: CANAGLIFLOZIN 100 MG PO SCH (08:33)
[2018-01-10] MEDS ORDERED: Sertraline* 50 MG TAB PO SCH (09:00)
[2018-01-10] MEDS: Polyethylene Glycol 3350* 17 GM PACKET PO PRN (09:52)
[2018-01-10] MEDS: Gabapentin CAP(*) 300 MG PO SCH ×2 (13:04→20:58)
[2018-01-10] MEDS ORDERED: Magnesium CITRATE* 300 ML BTL PO ONE (14:55)
--- NOTE | 2018-01-10 19:16 | PN ---
Subjective - Subjective Date of Service: 01/10/18 Service Type: 11537 Hosp care 25 min moderate complexity Subjective: Sudhakar is miserable both physically and mentally. He worries constantly and is distressed and depressed. In addition he states he is experiencing pain that cannot be described or limited to certain areas or groups of symptoms. Sudhakar worries himself to tears from topics ranging from sleep to how he will feel relief from pain. In addition, his pain varies in location and scope. Objective - Appearance Appearance: Obese Dysmorphic Features: No Hygiene: Normal Grooming: Disheveled - Behavior Psychomotor Activities: Abnormal-Decreased Exhibits Abnormal Movement: No - Attitude and Relatedness Attitude and Relatedness: Needy Eye Contact: Fair - Speech Quality: Unpressured Latencies: Normal Quantity: Appropriate - Mood Patient's Decription of Mood: "Upset" - Affect Observed Affect: Tearful Affect Consistent with: Dysphoria - Thought Process Patient's Thought Process: Coherent Thought Content: Yes Passive Wish, Yes Suicidal Planning, No Homicidal Ideation, No Paranoid Ideation - Sensorium Experiencing Hallucinations: No, Sensorium is Clear Type of Hallucinations: Visual: No, Auditory: No, Command: No - Level of Consciousness Level of Consciousness: Agitated Orientation: Yes Intact, Yes Orientated to Time, Yes Orientated to Place, Yes Orientated to Person - Impulse Control Impulse Control: Tenuous - Insight and Judgement Insight and Judgement: Poor - Group Participation Particating in Group Activities: No - Medication Management Medication Management Adherence: Yes - Additional Observations Comments: One of Sudhakar's strengths is that he is willing to take medication. He struggles with symptoms that sometimes elude treatment. At this time, his physical discomfort is overwhelming his psychiatric symptoms (right side hip and ankle pain, neuropathy in his hands and feet, constipation, insomnia). Assessment - Assessment Merits Inpatient Hospitalization: For Immediate Safety Inpatient DSM-V Dx: F31.4 Clinical Impression: Sudhakar feels miserable and has symptoms of severe depression as well as an addictive-type relationship with many medications. His discomfort, while both physical and emotional, has been soothed, in the past, with successful treatment of bipolar disorder. His current status as a depressed man who is aging makes his treatment more complex in that his physical ailments must be addressed in addition to the psychiatric illness he is suffering with. Plan - Plan Treatment Plan: Name: SUDHAKAR HILL Birthdate: 1955 [id number] Continued Medication Management: Different Medication Medications: Current Medications Amlodipine Besylate (Norvasc Tab*) 10 mg PO DAILY [facility] Last Admin: 01/10/18 08:17 Dose: 10 mg Aspirin (Aspirin Ec Tab*) 81 mg PO DAILY [facility] Last Admin: 01/10/18 08:17 Dose: 81 mg Bupropion HCl (Wellbutrin Xl *) 150 mg PO DAILY YESSY; Protocol Last Admin: 01/10/18 08:18 Dose: 150 mg Canagliflozin (Invokana (Nf)) 100 mg PO DAILY [facility] Last Admin: 01/10/18 08:33 Dose: Not Given Carbamazepine (Tegretol Chew Tab(*)) 100 mg PO BID [facility] Last Admin: 01/10/18 08:18 Dose: 100 mg Duloxetine HCl (Cymbalta Cap*) 60 mg PO DAILY [facility] Duloxetine HCl (Cymbalta Cap*) 30 mg PO ONCE ONE Stop: 01/10/18 21:01 Folic Acid (Folvite Tab*) 1 mg PO DAILY [facility] Last Admin: 01/10/18 08:17 Dose: 1 mg Gabapentin (Neurontin Cap(*)) 300 mg PO TID [facility] Last Admin: 01/10/18 13:04 Dose: 300 mg Hydroxyzine HCl (Atarax Tab*) 25 mg PO Q4H PRN PRN Reason: ANXIETY Last Admin: 01/10/18 08:22 Dose: 25 mg Hydroxyzine HCl (Atarax Tab*) 50 mg PO BEDTIME [facility] Last Admin: 01/09/18 20:21 Dose: 50 mg Levothyroxine Sodium (Synthroid Tab*) 100 mcg PO 0600 [facility] Last Admin: 01/10/18 05:42 Dose: 100 mcg Lisinopril (Prinivil Tab*) 20 mg PO DAILY [facility] Last Admin: 01/10/18 08:18 Dose: 20 mg Melatonin (Melatonin) 9 mg PO BEDTIME [facility]; Protocol Last Admin: 01/09/18 20:22 Dose: 9 mg Naproxen (Naprosyn Tab*) 500 mg PO Q12H PRN PRN Reason: PAIN Last Admin: 01/10/18 18:05 Dose: 500 mg Polyethylene Glycol/Electrolytes (Miralax*) 17 gm PO DAILY PRN PRN Reason: CONSTIPATION Last Admin: 01/10/18 09:52 Dose: 17 gm Quetiapine Fumarate (Seroquel Tab*) 300 mg PO 2100 [facility] Last Admin: 01/09/18 20:23 Dose: 300 mg Zolpidem Tartrate (Ambien Tab*) 10 mg PO BEDTIME PRN PRN Reason: INSOMNIA - Discharge Plan Discharge Plan: Outpatient Follow Up Additional Comments: Sudhakar's medications will be significantly changed. Tegretol will be discontinued , Seroquel will be increased to 300 mg nightly. Cymbalta will be added (in addition to the Wellbutrin he is already taking) to address lingering depression and nerve pain that he has described. Ambien will, perhaps, be discontinued. There will be consideration of drug rehab due to his reliance on medications to solve problems.
[2018-01-10] MEDS: Melatonin 3 MG TAB PO SCH (20:59)
[2018-01-10] MEDS: hydrOXYzine HCL TAB* 50 MG PO SCH (20:59)
[2018-01-10] MEDS ORDERED: DULoxetine DR CAP* 30 MG CAP.DR PO ONE (21:00)
[2018-01-10] MEDS: QUEtiapine TAB* 100 MG PO SCH (21:00)
[2018-01-10] MEDS: Zolpidem TAB* 10 MG PO PRN (21:02)
[2018-01-11] MEDS: Levothyroxine TAB* 100 MCG TAB PO SCH (05:53)
[2018-01-11] MEDS: hydrOXYzine HCL TAB* 25 MG PO PRN ×3 (05:53→17:50)
[2018-01-11] MEDS: amLODIPine TAB* 5 MG PO SCH (08:25)
[2018-01-11] MEDS: DULoxetine DR CAP* 60 MG CAP.DR PO SCH (08:26)
[2018-01-11] MEDS: BuPROPion XL* 150 MG TAB.XL PO SCH (08:26)
[2018-01-11] MEDS: CANAGLIFLOZIN 100 MG PO SCH (08:26)
[2018-01-11] MEDS: carBAMazepine CHEW TAB(*) 100 MG PO SCH ×2 (08:26→20:41)
[2018-01-11] MEDS: Aspirin EC TAB* 81 MG TAB.EC PO SCH (08:26)
[2018-01-11] MEDS: Folic Acid TAB* 1 MG PO SCH (08:26)
[2018-01-11] MEDS: Gabapentin CAP(*) 300 MG PO SCH ×3 (08:27→20:42)
[2018-01-11] MEDS: Lisinopril TAB* 10 MG PO SCH (08:27)
[2018-01-11] MEDS: Naproxen TAB* 250 MG PO PRN ×2 (08:27→20:46)
[2018-01-11] MEDS: Loperamide CAP* 2 MG PO PRN (11:00)
--- NOTE | 2018-01-11 13:00 | PN ---
Subjective - Subjective Date of Service: 01/11/18 Service Type: [id number] Hosp care 15 min low complexity Subjective: Wei is seen in weekend coverage for NPP, Miesha Roche. He remains highly somatic, coming up with myriad physical complaints, including constipation, which turned into diarrhea, circulatory problems in his right leg and a new- onset rash on this right neck. He requests antibiotic cream for this. The patient remains depressed and unable to contract for safety if discharged, although he denies SI here on the unit. Objective - Appearance Appearance: Well Developed/Nourished Dysmorphic Features: No Hygiene: Normal Grooming: Fairly Well Kept - Behavior Psychomotor Activities: Abnormal-Decreased Exhibits Abnormal Movement: No - Attitude and Relatedness Attitude and Relatedness: Needy Eye Contact: Fair - Speech Quality: Unpressured Latencies: Normal Quantity: Appropriate - Mood Patient's Decription of Mood: "Terrible" - Affect Observed Affect: Constricted Affect Consistent with: Dysphoria - Thought Process Patient's Thought Process: Coherent Thought Content: Yes Passive Wish, No Suicidal Planning, No Homicidal Ideation, No Paranoid Ideation - Sensorium Experiencing Hallucinations: No, Sensorium is Clear Type of Hallucinations: Visual: No, Auditory: No, Command: No - Level of Consciousness Level of Consciousness: Alert Orientation: Yes Intact, Yes Orientated to Time, Yes Orientated to Place, Yes Orientated to Person - Impulse Control Impulse Control: Poor - Insight and Judgement Insight and Judgement: Impaired - Group Participation Particating in Group Activities: No - Medication Management Medication Management Adherence: Yes Assessment - Assessment Merits Inpatient Hospitalization: For Immediate Safety, For Stabilization Inpatient DSM-V Dx: F31.4 Clinical Impression: Wei feels miserable and has symptoms of severe depression as well as an addictive-type relationship with many medications. His discomfort, while both physical and emotional, has been soothed, in the past, with successful treatment of bipolar disorder. His current status as a depressed man who is aging makes his treatment more complex in that his physical ailments must be addressed in addition to the psychiatric illness he is suffering with. Plan - Plan Treatment Plan: Name: WEI HILL Birthdate: 1955 [id number] We have continued Wei's outpatient regimen, including carbamazepine, bupropion HCL, zolpidem, melatonin and quetiapine. We have added gabapentin for improved mood and analgesia. Will monitor rash closely. Continue inpatient services. Continued Medication Management: Different Medication Medications: Current Medications Amlodipine Besylate (Norvasc Tab*) 10 mg PO DAILY [facility] Last Admin: 01/11/18 08:25 Dose: 10 mg Aspirin (Aspirin Ec Tab*) 81 mg PO DAILY [facility] Last Admin: 01/11/18 08:26 Dose: 81 mg Bupropion HCl (Wellbutrin Xl *) 150 mg PO DAILY [facility]; Protocol Last Admin: 01/11/18 08:26 Dose: 150 mg Canagliflozin (Invokana (Nf)) 100 mg PO DAILY [facility] Last Admin: 01/11/18 08:26 Dose: Not Given Carbamazepine (Tegretol Chew Tab(*)) 100 mg PO BID [facility] Last Admin: 01/11/18 08:26 Dose: 100 mg Duloxetine HCl (Cymbalta Cap*) 60 mg PO DAILY [facility] Last Admin: 01/11/18 08:26 Dose: 60 mg Folic Acid (Folvite Tab*) 1 mg PO DAILY [facility] Last Admin: 01/11/18 08:26 Dose: 1 mg Gabapentin (Neurontin Cap(*)) 300 mg PO TID [facility] Last Admin: 01/11/18 08:27 Dose: 300 mg Hydroxyzine HCl (Atarax Tab*) 25 mg PO Q4H PRN PRN Reason: ANXIETY Last Admin: 01/11/18 05:53 Dose: 25 mg Hydroxyzine HCl (Atarax Tab*) 50 mg PO BEDTIME [facility] Last Admin: 01/10/18 20:59 Dose: 50 mg Levothyroxine Sodium (Synthroid Tab*) 100 mcg PO 0600 [facility] Last Admin: 01/11/18 05:53 Dose: 100 mcg Lisinopril (Prinivil Tab*) 20 mg PO DAILY [facility] Last Admin: 01/11/18 08:27 Dose: 20 mg Loperamide HCl (Imodium Cap*) 2 mg PO Q6H PRN PRN Reason: DIARRHEA Last Admin: 01/11/18 11:00 Dose: 2 mg Melatonin (Melatonin) 9 mg PO BEDTIME [facility]; Protocol Last Admin: 01/10/18 20:59 Dose: 9 mg Mupirocin (Bactroban 2% Cream*) 1 applic TOPICAL TID PRN PRN Reason: RASH Naproxen (Naprosyn Tab*) 500 mg PO Q12H PRN PRN Reason: PAIN Last Admin: 01/11/18 08:27 Dose: 500 mg Polyethylene Glycol/Electrolytes (Miralax*) 17 gm PO DAILY PRN PRN Reason: CONSTIPATION Last Admin: 01/10/18 09:52 Dose: 17 gm Quetiapine Fumarate (Seroquel Tab*) 300 mg PO 2100 [facility] Last Admin: 01/10/18 21:00 Dose: 300 mg Zolpidem Tartrate (Ambien Tab*) 10 mg PO BEDTIME PRN PRN Reason: INSOMNIA Last Admin: 01/10/18 21:02 Dose: 10 mg - Discharge Plan Discharge Plan: Inpatient Hospitalization Lab Results - Lab Results Lab Results: 01/08/18 01/08/18 01/09/18 11:53 12:00 07:30 Sodium 131 L Potassium 4.5 Chloride 98 L Carbon Dioxide 24 Anion Gap 9 BUN 21 Creatinine 1.15 Est GFR ( Amer) 78.2 Est GFR (Non-Af Amer) 64.7 BUN/Creatinine Ratio 18.3 Glucose 137 H Hemoglobin A1c Calcium 9.6 Total Bilirubin 0.30 AST 15 ALT 17 Alkaline Phosphatase 102 Total Protein 7.2 Albumin 4.1 Globulin 3.1 Albumin/Globulin Ratio 1.3 Triglycerides 215 Cholesterol 210 LDL Cholesterol 128 HDL Cholesterol 39.2 TSH 0.46 Urine Color Straw Urine Appearance Clear Urine pH 5.0 Ur Specific [place] 1.009 L Urine Protein Negative Urine Ketones Negative Urine Blood Negative Urine Nitrate Negative Urine Bilirubin Negative Urine Urobilinogen Negative Ur Leukocyte Esterase Negative Urine Glucose 3+(>=500 mg/dl) A 01/09/18 07:30 Sodium Potassium Chloride Carbon Dioxide Anion Gap BUN Creatinine Est GFR ( Amer) Est GFR (Non-Af Amer) BUN/Creatinine Ratio Glucose Hemoglobin A1c 5.9 H Calcium Total Bilirubin AST ALT Alkaline Phosphatase Total Protein Albumin Globulin Albumin/Globulin Ratio Triglycerides Cholesterol LDL Cholesterol HDL Cholesterol TSH Urine Color Urine Appearance Urine pH Ur Specific [place] Urine Protein Urine Ketones Urine Blood Urine Nitrate Urine Bilirubin Urine Urobilinogen Ur Leukocyte Esterase Urine Glucose
[2018-01-11] MEDS: Mupirocin 2% CREAM* 15 GM TOPICAL PRN (13:45)
[2018-01-11] MEDS: hydrOXYzine HCL TAB* 50 MG PO SCH (20:41)
[2018-01-11] MEDS: Melatonin 3 MG TAB PO SCH (20:41)
[2018-01-11] MEDS: Zolpidem TAB* 10 MG PO PRN (20:42)
[2018-01-11] MEDS: QUEtiapine TAB* 100 MG PO SCH (20:42)
[2018-01-12] MEDS: hydrOXYzine HCL TAB* 25 MG PO PRN ×2 (04:07→18:12)
[2018-01-12] MEDS: Levothyroxine TAB* 100 MCG TAB PO SCH (08:42)
[2018-01-12] MEDS: amLODIPine TAB* 5 MG PO SCH (08:44)
[2018-01-12] MEDS: DULoxetine DR CAP* 60 MG CAP.DR PO SCH (08:45)
[2018-01-12] MEDS: carBAMazepine CHEW TAB(*) 100 MG PO SCH ×2 (08:45→21:40)
[2018-01-12] MEDS: CANAGLIFLOZIN 100 MG PO SCH ×2 (08:45→14:11)
[2018-01-12] MEDS: BuPROPion XL* 150 MG TAB.XL PO SCH (08:45)
[2018-01-12] MEDS: Aspirin EC TAB* 81 MG TAB.EC PO SCH (08:45)
[2018-01-12] MEDS: Lisinopril TAB* 10 MG PO SCH (08:46)
[2018-01-12] MEDS: Gabapentin CAP(*) 300 MG PO SCH ×3 (08:46→21:40)
[2018-01-12] MEDS: Folic Acid TAB* 1 MG PO SCH (08:46)
[2018-01-12] MEDS: Naproxen TAB* 250 MG PO PRN ×2 (10:10→21:46)
[2018-01-12] MEDS: Mupirocin 2% CREAM* 15 GM TOPICAL PRN ×2 (14:59→18:13)
[2018-01-12] MEDS: Melatonin 3 MG TAB PO SCH (21:41)
[2018-01-12] MEDS: QUEtiapine TAB* 100 MG PO SCH (21:42)
[2018-01-12] MEDS: Zolpidem TAB* 10 MG PO PRN (21:45)
[2018-01-12] MEDS: hydrOXYzine HCL TAB* 50 MG PO SCH (21:47)
[2018-01-13] MEDS: hydrOXYzine HCL TAB* 25 MG PO PRN (04:34)
[2018-01-13] MEDS: CANAGLIFLOZIN 100 MG PO SCH (09:06)
[2018-01-13] MEDS: BuPROPion XL* 150 MG TAB.XL PO SCH (09:06)
[2018-01-13] MEDS: carBAMazepine CHEW TAB(*) 100 MG PO SCH (09:06)
[2018-01-13] MEDS: Levothyroxine TAB* 100 MCG TAB PO SCH (09:07)
[2018-01-13] MEDS: DULoxetine DR CAP* 60 MG CAP.DR PO SCH (09:07)
[2018-01-13] MEDS: Gabapentin CAP(*) 300 MG PO SCH ×3 (09:07→21:43)
[2018-01-13] MEDS: Folic Acid TAB* 1 MG PO SCH (09:08)
[2018-01-13] MEDS: amLODIPine TAB* 5 MG PO SCH (09:08)
[2018-01-13] MEDS: Lisinopril TAB* 10 MG PO SCH (09:08)
[2018-01-13] MEDS: Aspirin EC TAB* 81 MG TAB.EC PO SCH (09:09)
[2018-01-13] MEDS: Mupirocin 2% CREAM* 15 GM TOPICAL PRN (09:15)
[2018-01-13] MEDS: Naproxen TAB* 250 MG PO PRN (13:36)
--- NOTE | 2018-01-13 14:00 | PN ---
MHU: Group Therapy Note - Service Type Service Type: [id number] Group Psychotherapy - Cognitive Behavioral Group Therapy ( CBT):Patient was attentive and participatory in CBT programming this morning, and remained in good behavioral control. Patient expressed positive insights regarding relevant treatment interventions and goals.
--- NOTE | 2018-01-13 14:17 | PN ---
Subjective - Subjective Date of Service: 01/13/18 Service Type: [id number] Hosp care 15 min low complexity Subjective: Sudhakar is out of bed today and has fewer somatic complaints, but only by a small margin. He complains of anxiety and unhappiness. He is unable to retain information that contains specifics. He can, however, retain bigger ideas and those that pertain to medication. We are considering cognitive testing as his inability to focus could be related to depression, anxiety, dementia, or some other problem. He is anxious in the milieu and requests to see me multiple times. Objective - Appearance Appearance: Obese Dysmorphic Features: No Hygiene: Normal Grooming: Disheveled - Behavior Psychomotor Activities: Normal Exhibits Abnormal Movement: No - Attitude and Relatedness Attitude and Relatedness: Needy Eye Contact: Good - Speech Quality: Unpressured Latencies: Normal Quantity: Appropriate - Mood Patient's Decription of Mood: "Anxious" - Affect Observed Affect: Depressed Affect Consistent with: Dysphoria - Thought Process Patient's Thought Process: Coherent Thought Content: Yes Passive Wish, Yes Suicidal Planning, No Homicidal Ideation, No Paranoid Ideation - Sensorium Experiencing Hallucinations: No, Sensorium is Clear Type of Hallucinations: Visual: No, Auditory: No, Command: No - Level of Consciousness Level of Consciousness: Alert Orientation: Yes Intact, Yes Orientated to Time, Yes Orientated to Place, Yes Orientated to Person - Impulse Control Impulse Control: Tenuous - Insight and Judgement Insight and Judgement: Poor - Group Participation Particating in Group Activities: No - Medication Management Medication Management Adherence: Yes - Additional Observations Comments: One of Sudhakar's strengths is that he is willing to take medication. He struggles with symptoms that sometimes elude treatment. At this time, his physical discomfort is overwhelming his psychiatric symptoms (right side hip and ankle pain, neuropathy in his hands and feet, constipation, insomnia). His mood seems to be mildly improving. He is interested in feeling better and now that many of his ailments are addressed, it will be interesting to see what symptoms erupt. Assessment - Assessment Merits Inpatient Hospitalization: For Immediate Safety, For Discharge Planning Inpatient DSM-V Dx: F31.4 Clinical Impression: 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 His discomfort, while both physical and emotional, has been soothed, in the past, with successful treatment of bipolar disorder. His current status as a depressed man who is aging makes his treatment more complex in that his physical ailments must be addressed in addition to the psychiatric illness he is suffering with. Sudhakar currently needs treatment for depression and anxiety. These treatments need to be encouraged over the physical ailments which tend to be distracting him from the current problems, which include his inability to solve his own problems. Plan - Plan Treatment Plan: Name: SUDHAKAR HILL Birthdate: 1955 [id number] Continued Medication Management: Different Medication Medications: Current Medications Amlodipine Besylate (Norvasc Tab*) 10 mg PO DAILY [facility] Last Admin: 01/13/18 09:08 Dose: 10 mg Aspirin (Aspirin Ec Tab*) 81 mg PO DAILY [facility] Last Admin: 01/13/18 09:09 Dose: 81 mg Bupropion HCl (Wellbutrin Xl *) 150 mg PO DAILY [facility]; Protocol Last Admin: 01/13/18 09:06 Dose: 150 mg Canagliflozin (Invokana (Nf)) 100 mg PO DAILY [facility] Last Admin: 01/13/18 09:06 Dose: 100 mg Carbamazepine (Tegretol Chew Tab(*)) 100 mg PO BID [facility] Last Admin: 01/13/18 09:06 Dose: 100 mg Duloxetine HCl (Cymbalta Cap*) 60 mg PO DAILY [facility] Last Admin: 01/13/18 09:07 Dose: 60 mg Folic Acid (Folvite Tab*) 1 mg PO DAILY [facility] Last Admin: 01/13/18 09:08 Dose: 1 mg Gabapentin (Neurontin Cap(*)) 300 mg PO TID [facility] Last Admin: 01/13/18 09:07 Dose: 300 mg Hydroxyzine HCl (Atarax Tab*) 25 mg PO Q4H PRN PRN Reason: ANXIETY Last Admin: 01/13/18 04:34 Dose: 25 mg Hydroxyzine HCl (Atarax Tab*) 50 mg PO BEDTIME [facility] Last Admin: 01/12/18 21:47 Dose: Not Given Levothyroxine Sodium (Synthroid Tab*) 100 mcg PO 0600 [facility] Last Admin: 01/13/18 09:07 Dose: 100 mcg Lisinopril (Prinivil Tab*) 20 mg PO DAILY [facility] Last Admin: 01/13/18 09:08 Dose: 20 mg Loperamide HCl (Imodium Cap*) 2 mg PO Q6H PRN PRN Reason: DIARRHEA Last Admin: 01/11/18 11:00 Dose: 2 mg Melatonin (Melatonin) 9 mg PO BEDTIME [facility]; Protocol Last Admin: 01/12/18 21:41 Dose: 9 mg Mupirocin (Bactroban 2% Cream*) 1 applic TOPICAL TID PRN PRN Reason: RASH Last Admin: 01/13/18 09:15 Dose: 1 applic Naproxen (Naprosyn Tab*) 500 mg PO Q12H PRN PRN Reason: PAIN Last Admin: 01/13/18 13:36 Dose: 500 mg Polyethylene Glycol/Electrolytes (Miralax*) 17 gm PO DAILY PRN PRN Reason: CONSTIPATION Last Admin: 01/10/18 09:52 Dose: 17 gm Quetiapine Fumarate (Seroquel Tab*) 300 mg PO 2100 [facility] Last Admin: 01/12/18 21:42 Dose: 300 mg Zolpidem Tartrate (Ambien Tab*) 10 mg PO BEDTIME PRN PRN Reason: INSOMNIA Last Admin: 01/12/18 21:45 Dose: 10 mg - Discharge Plan Additional Comments: Sudhakar's medications will be significantly changed. Tegretol will be discontinued , Seroquel will be increased to 300 mg nightly. Cymbalta will be added (in addition to the Wellbutrin he is already taking) to address lingering depression and nerve pain that he has described. Ambien will, perhaps, be discontinued in the future, but Sudhakar is unenthusiastic about this and in fact cried when I said I would take it away. There will be consideration of ECT if his mood does not improve.
[2018-01-13] MEDS ORDERED: cloNIDine TAB* 0.1 MG PO ONE (14:58)
[2018-01-13] MEDS: Melatonin 3 MG TAB PO SCH (21:42)
[2018-01-13] MEDS: QUEtiapine TAB* 100 MG PO SCH (21:43)
[2018-01-13] MEDS: cloNIDine TAB* 0.1 MG PO SCH (21:43)
[2018-01-13] MEDS: Zolpidem TAB* 10 MG PO PRN (21:46)
[2018-01-13] MEDS ORDERED: Al Hydrox/Mg Hydrox/Simet LIQ* 30 ML UDC ONE (21:55)
[2018-01-13] MEDS ORDERED: Al Hydrox/Mg Hydrox/Simet LIQ* 30 ML UDC PO PRN (22:04)
[2018-01-14] MEDS: Levothyroxine TAB* 100 MCG TAB PO SCH (05:24)
[2018-01-14] MEDS: Naproxen TAB* 250 MG PO PRN ×2 (05:24→20:41)
[2018-01-14] MEDS: hydrOXYzine HCL TAB* 25 MG PO PRN ×2 (05:26→14:11)
[2018-01-14] MEDS: amLODIPine TAB* 5 MG PO SCH (09:20)
[2018-01-14] MEDS: CANAGLIFLOZIN 100 MG PO SCH (09:20)
[2018-01-14] MEDS: BuPROPion XL* 150 MG TAB.XL PO SCH (09:21)
[2018-01-14] MEDS: Aspirin EC TAB* 81 MG TAB.EC PO SCH (09:21)
[2018-01-14] MEDS: DULoxetine DR CAP* 60 MG CAP.DR PO SCH (09:22)
[2018-01-14] MEDS: Folic Acid TAB* 1 MG PO SCH (09:22)
[2018-01-14] MEDS: Lisinopril TAB* 10 MG PO SCH (09:25)
[2018-01-14] MEDS: cloNIDine TAB* 0.1 MG PO SCH ×2 (09:27→20:39)
[2018-01-14] MEDS: Mupirocin 2% CREAM* 15 GM TOPICAL PRN (11:18)
[2018-01-14] MEDS: Polyethylene Glycol 3350* 17 GM PACKET PO PRN (12:37)
--- NOTE | 2018-01-14 14:16 | PN ---
MHU: Group Therapy Note - Service Type Service Type: [id number] Group Psychotherapy - Cognitive Behavioral Group Therapy ( CBT):Patient attended CBT programming this morning and presented with flat affect that did not vary with discussion. Although responsive to direct prompts to respond to questions, patient did not engage in spontaneous conversation.
--- NOTE | 2018-01-14 15:28 | PN ---
Subjective - Subjective Date of Service: 01/14/18 Service Type: [id number] Hosp care 15 min low complexity Subjective: Sudhakar's mood has deteriorated from the bump in happiness that he experienced yesterday. He's very anxious. He states he knows how to manage his anxiety: deep breathing, keeping busy, and mindfulness. He states he is utilizing these skills. Nevertheless, he cannot manage his anxiety effectively. Objective - Appearance Appearance: Obese Dysmorphic Features: No Hygiene: Normal Grooming: Disheveled - Behavior Psychomotor Activities: Normal Exhibits Abnormal Movement: No - Attitude and Relatedness Attitude and Relatedness: Needy Eye Contact: Good - Speech Quality: Unpressured Latencies: Normal Quantity: Appropriate - Mood Patient's Decription of Mood: "Anxious" - Affect Observed Affect: Depressed Affect Consistent with: Dysphoria - Thought Process Patient's Thought Process: Impoverished Thought Content: Yes Passive Wish, No Suicidal Planning, No Homicidal Ideation, No Paranoid Ideation - Sensorium Experiencing Hallucinations: No, Sensorium is Clear Type of Hallucinations: Visual: No, Auditory: No, Command: No - Level of Consciousness Level of Consciousness: Lethargic Orientation: Yes Intact, Yes Orientated to Time, Yes Orientated to Place, Yes Orientated to Person - Impulse Control Impulse Control: Impaired - Insight and Judgement Insight and Judgement: Poor - Group Participation Particating in Group Activities: Yes - Medication Management Medication Management Adherence: Yes - Additional Observations Comments: One of Sudhakar's strengths is that he is willing to take medication. He struggles with symptoms that sometimes elude treatment. He is demonstrating significant depressive symptoms such as often saying, "I don't know" and finding it difficult to solve problems. Assessment - Assessment Merits Inpatient Hospitalization: For Immediate Safety Inpatient DSM-V Dx: F31.4 Clinical Impression: 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 His discomfort, while both physical and emotional, has been soothed, in the past, with successful treatment of bipolar disorder. His current status as a depressed man who is aging makes his treatment more complex in that his physical ailments must be addressed in addition to the psychiatric illness he is suffering with. Sudhakar currently needs treatment for depression and anxiety. These treatments need to be encouraged over the physical ailments which tend to be distracting him from the current problems, which include his inability to solve his own problems. ECT was discussed with him and now he is perseverating on whether it will be a good idea. This is indicative of his state of illness. Plan - Plan Treatment Plan: Name: SUDHAKAR HILL Birthdate: 1955 [id number] Medications: Current Medications Al Hydrox/Mg Hydrox/Simethicone (Maalox Plus*) 30 ml PO Q4H PRN PRN Reason: INDIGESTION Amlodipine Besylate (Norvasc Tab*) 10 mg PO DAILY [facility] Last Admin: 01/14/18 09:20 Dose: 10 mg Aspirin (Aspirin Ec Tab*) 81 mg PO DAILY [facility] Last Admin: 01/14/18 09:21 Dose: 81 mg Bupropion HCl (Wellbutrin Xl *) 150 mg PO DAILY [facility]; Protocol Last Admin: 01/14/18 09:21 Dose: 150 mg Canagliflozin (Invokana (Nf)) 100 mg PO DAILY [facility] Last Admin: 01/14/18 09:20 Dose: 100 mg Clonidine HCl (Catapres Tab*) 0.1 mg PO BID [facility] Last Admin: 01/14/18 09:27 Dose: 0.1 mg Duloxetine HCl (Cymbalta Cap*) 60 mg PO DAILY [facility] Last Admin: 01/14/18 09:22 Dose: 60 mg Folic Acid (Folvite Tab*) 1 mg PO DAILY [facility] Last Admin: 01/14/18 09:22 Dose: 1 mg Gabapentin (Neurontin Cap(*)) 300 mg PO BEDTIME [facility] Last Admin: 01/13/18 21:43 Dose: 300 mg Hydroxyzine HCl (Atarax Tab*) 25 mg PO Q4H PRN PRN Reason: ANXIETY Last Admin: 01/14/18 14:11 Dose: 25 mg Levothyroxine Sodium (Synthroid Tab*) 100 mcg PO 0600 [facility] Last Admin: 01/14/18 05:24 Dose: 100 mcg Lisinopril (Prinivil Tab*) 20 mg PO DAILY [facility] Last Admin: 01/14/18 09:25 Dose: 20 mg Loperamide HCl (Imodium Cap*) 2 mg PO Q6H PRN PRN Reason: DIARRHEA Last Admin: 01/11/18 11:00 Dose: 2 mg Melatonin (Melatonin) 9 mg PO BEDTIME [facility]; Protocol Last Admin: 01/13/18 21:42 Dose: 9 mg Mupirocin (Bactroban 2% Cream*) 1 applic TOPICAL TID PRN PRN Reason: RASH Last Admin: 01/14/18 11:18 Dose: 1 applic Naproxen (Naprosyn Tab*) 500 mg PO Q12H PRN PRN Reason: PAIN Last Admin: 01/14/18 05:24 Dose: 500 mg Polyethylene Glycol/Electrolytes (Miralax*) 17 gm PO DAILY PRN PRN Reason: CONSTIPATION Last Admin: 01/14/18 12:37 Dose: 17 gm Quetiapine Fumarate (Seroquel Tab*) 300 mg PO 2100 [facility] Last Admin: 01/13/18 21:43 Dose: 300 mg Zolpidem Tartrate (Ambien Tab*) 10 mg PO BEDTIME PRN PRN Reason: INSOMNIA Last Admin: 01/13/18 21:46 Dose: 10 mg - Discharge Plan Discharge Plan: Inpatient Hospitalization Additional Comments: Sudhakar's medications will be significantly changed. Tegretol will be discontinued , Seroquel will be increased to 300 mg nightly. Cymbalta will be added (in addition to the Wellbutrin he is already taking) to address lingering depression and nerve pain that he has described. ECT is being considered. Sudhakar is likely interested. We will pursue referral.
[2018-01-14] MEDS: Loperamide CAP* 2 MG PO PRN (19:31)
[2018-01-14] MEDS: Melatonin 3 MG TAB PO SCH (20:37)
[2018-01-14] MEDS: Gabapentin CAP(*) 300 MG PO SCH (20:39)
[2018-01-14] MEDS: QUEtiapine TAB* 100 MG PO SCH (20:39)
[2018-01-14] MEDS: Zolpidem TAB* 10 MG PO PRN (20:43)
[2018-01-15] MEDS: Levothyroxine TAB* 100 MCG TAB PO SCH (05:19)
[2018-01-15] MEDS: hydrOXYzine HCL TAB* 25 MG PO PRN ×2 (05:19→19:52)
[2018-01-15] MEDS ORDERED: Acetaminophen TAB* 325 MG ONE (05:55)
[2018-01-15] MEDS: Mupirocin 2% CREAM* 15 GM TOPICAL PRN (07:44)
[2018-01-15] MEDS: Aspirin EC TAB* 81 MG TAB.EC PO SCH (09:30)
[2018-01-15] MEDS: BuPROPion XL* 150 MG TAB.XL PO SCH (09:30)
[2018-01-15] MEDS: CANAGLIFLOZIN 100 MG PO SCH (09:30)
[2018-01-15] MEDS: amLODIPine TAB* 5 MG PO SCH (09:30)
[2018-01-15] MEDS: cloNIDine TAB* 0.1 MG PO SCH ×2 (09:31→20:56)
[2018-01-15] MEDS: DULoxetine DR CAP* 60 MG CAP.DR PO SCH (09:31)
[2018-01-15] MEDS: Folic Acid TAB* 1 MG PO SCH (09:33)
[2018-01-15] MEDS: Lisinopril TAB* 10 MG PO SCH (09:33)
[2018-01-15] MEDS: Acetaminophen TAB* 325 MG PO PRN ×2 (12:48→17:49)
--- NOTE | 2018-01-15 13:38 | PN ---
Subjective - Subjective Date of Service: 01/15/18 Service Type: 83653 Hosp care 25 min moderate complexity Subjective: Sudhakar continues to have somatic complaints in addition to psychiatric ones. He didn't sleep much last night due to a roommate who snores excessively. Sudhakar also is reported to have a widely varying heart rate even at rest. An EKG and orthostatic blood pressures were ordered. Sudhakar is eager to leave here, as he finds the people who are hospitalized along with him are too symptomatic for him to manage. He is irritable and bothered by others. He has little tolerance and few coping strategies to manage this environment. Objective - Appearance Appearance: Obese Dysmorphic Features: No Hygiene: Normal Grooming: Disheveled - Behavior Psychomotor Activities: Normal Exhibits Abnormal Movement: No - Attitude and Relatedness Attitude and Relatedness: Needy Eye Contact: Fair - Speech Quality: Unpressured Latencies: Normal Quantity: Terse - Mood Patient's Decription of Mood: "Terrible" - Affect Observed Affect: Depressed Affect Consistent with: Dysphoria - Thought Process Patient's Thought Process: Coherent, Impoverished Thought Content: No Passive Wish, No Suicidal Planning, No Homicidal Ideation, No Paranoid Ideation - Sensorium Experiencing Hallucinations: No, Sensorium is Clear Type of Hallucinations: Visual: No, Auditory: No, Command: No - Level of Consciousness Level of Consciousness: Alert Orientation: Yes Intact, Yes Orientated to Time, Yes Orientated to Place, Yes Orientated to Person - Impulse Control Impulse Control: Tenuous - Insight and Judgement Insight and Judgement: Fair - Group Participation Particating in Group Activities: Yes - Medication Management Medication Management Adherence: Yes - Additional Observations Comments: One of Sudhakar's strengths is that he is willing to take medication. He struggles with symptoms that sometimes elude treatment. He is demonstrating significant depressive symptoms such as often saying, "I don't know" and finding it difficult to solve problems. Today he is quite irritable and distressed. He feels like he is not important enough here and that his needs are not being met. 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 His discomfort, while both physical and emotional, has been soothed, in the past, with successful treatment of bipolar disorder. His current status as a depressed man who is aging makes his treatment more complex in that his physical ailments must be addressed in addition to the psychiatric illness he is suffering with. Sudhakar currently needs treatment for depression and anxiety. These treatments need to be encouraged over the physical ailments which tend to be distracting him from the current problems, which include his inability to solve his own problems. ECT was discussed with him and now he is perseverating on whether it will be a good idea. This is indicative of his state of illness. Although he denies suicidality, he is not convincing in his ability to name coping strategies or in how to manage his own medications without help from a visiting nurse service. He is also in a social environment here: although he does not like it, it does provide stimulus he does not have at home. A repeat discharge plan from the last time he was here will likely result in the same outcome of hospitalization or in harm to Sudhakar. Plan - Plan Treatment Plan: Name: SUDHAKAR HILL Birthdate: 1955 [id number] Medications: Current Medications Acetaminophen (Tylenol Tab*) 650 mg PO Q4H PRN PRN Reason: PAIN/FEVER Last Admin: 01/15/18 12:48 Dose: 650 mg Al Hydrox/Mg Hydrox/Simethicone (Maalox Plus*) 30 ml PO Q4H PRN PRN Reason: INDIGESTION Amlodipine Besylate (Norvasc Tab*) 10 mg PO DAILY [facility] Last Admin: 01/15/18 09:30 Dose: 10 mg Aspirin (Aspirin Ec Tab*) 81 mg PO DAILY [facility] Last Admin: 01/15/18 09:30 Dose: 81 mg Bupropion HCl (Wellbutrin Xl *) 150 mg PO DAILY [facility]; Protocol Last Admin: 01/15/18 09:30 Dose: 150 mg Canagliflozin (Invokana (Nf)) 100 mg PO DAILY [facility] Last Admin: 01/15/18 09:30 Dose: 100 mg Clonidine HCl (Catapres Tab*) 0.1 mg PO BID [facility] Last Admin: 01/15/18 09:31 Dose: Not Given Duloxetine HCl (Cymbalta Cap*) 60 mg PO DAILY [facility] Last Admin: 01/15/18 09:31 Dose: 60 mg Folic Acid (Folvite Tab*) 1 mg PO DAILY [facility] Last Admin: 01/15/18 09:33 Dose: 1 mg Gabapentin (Neurontin Cap(*)) 300 mg PO BEDTIME [facility] Last Admin: 01/14/18 20:39 Dose: 300 mg Hydroxyzine HCl (Atarax Tab*) 25 mg PO Q4H PRN PRN Reason: ANXIETY Last Admin: 01/15/18 05:19 Dose: 25 mg Levothyroxine Sodium (Synthroid Tab*) 100 mcg PO 0600 [facility] Last Admin: 01/15/18 05:19 Dose: 100 mcg Lisinopril (Prinivil Tab*) 20 mg PO DAILY [facility] Last Admin: 01/15/18 09:33 Dose: Not Given Loperamide HCl (Imodium Cap*) 2 mg PO Q6H PRN PRN Reason: DIARRHEA Last Admin: 01/14/18 19:31 Dose: 2 mg Melatonin (Melatonin) 9 mg PO BEDTIME [facility]; Protocol Last Admin: 01/14/18 20:37 Dose: 9 mg Mupirocin (Bactroban 2% Cream*) 1 applic TOPICAL TID PRN PRN Reason: RASH Last Admin: 01/15/18 07:44 Dose: 1 applic Naproxen (Naprosyn Tab*) 500 mg PO Q12H PRN PRN Reason: PAIN Last Admin: 01/14/18 20:41 Dose: 500 mg Polyethylene Glycol/Electrolytes (Miralax*) 17 gm PO DAILY PRN PRN Reason: CONSTIPATION Last Admin: 01/14/18 12:37 Dose: 17 gm Quetiapine Fumarate (Seroquel Tab*) 300 mg PO 2100 [facility] Last Admin: 01/14/18 20:39 Dose: 300 mg Zolpidem Tartrate (Ambien Tab*) 10 mg PO BEDTIME PRN PRN Reason: INSOMNIA Last Admin: 01/14/18 20:43 Dose: 10 mg - Discharge Plan Discharge Plan: Inpatient Hospitalization Additional Comments: Sudhakar's medications will be significantly changed. Tegretol will be discontinued , Seroquel will be increased to 300 mg nightly. Cymbalta will be added (in addition to the Wellbutrin he is already taking) to address lingering depression and nerve pain that he has described. ECT is the next step we will pursue. The referral is in process, which will suit Sudhakar well as he is struggling with the acute environment here.
[2018-01-15] MEDS: Naproxen TAB* 250 MG PO PRN (20:53)
[2018-01-15] MEDS: QUEtiapine TAB* 100 MG PO SCH (20:53)
[2018-01-15] MEDS: Zolpidem TAB* 10 MG PO PRN (20:54)
[2018-01-15] MEDS: Gabapentin CAP(*) 300 MG PO SCH (20:54)
[2018-01-15] MEDS: Melatonin 3 MG TAB PO SCH (20:54)
--- NOTE | 2018-01-15 21:29 | CONS ---
CC: Dr. Robles CONSULTATION REPORT: ADDENDUM: DATE OF CONSULT: 01/15/18 ASSESSMENT AND PLAN: 1. Nausea. As mentioned above in review of systems, the patient did complain of nausea. The patient attributes this to constipation and recent treatment for constipation with MiraLAX and mag citrate yesterday. The patient reports he did have a bowel movement after these treatments and nausea is improving. 2. In reviewing the patient's chart, it was noted that his cholesterol is elevated. I would recommend the patient have an evaluation with this as outpatient with his PCP and consider statin therapy. 3. Obstructive sleep apnea. The patient mentions he cannot tolerate mask. Discussed risks of untreated sleep apnea with the patient. I would recommend followup with PCP regarding obstructive sleep apnea. LOLI BURGOS, SHIRLEY [id number]/[facility] #: [id number] DENEEN
--- NOTE | 2018-01-15 22:44 | CONS ---
ADDENDUM NOW INCLUDED ON THIS REPORT CONSULTATION REPORT: DATE OF CONSULT: 01/15/18 PROVIDER IN THE HOSPITAL: Miesha Roche NP, in Psychiatry. MY SUPERVISING PHYSICIAN: Dr. Robles (dictated by Loli Burgos NP). PROVIDER REQUESTING CONSULT: Miesha Roche NP REASON FOR CONSULT: Abnormal EKG. HISTORY OF PRESENT ILLNESS: Mr. Flower is a 62-year-old male patient, was admitted to the mental health unit due to suicidal ideation, who this morning was found to have a low pulse while staff on the mental health unit were checking his pulse via the pulse oximetry monitor. He reports he was asymptomatic at that time. EKG was obtained and was read to reveal atrial fibrillation, although this EKG did have substantial artifact. Due to the reading of EKG, the hospitalist service was consulted. I met with the patient this afternoon who recalled the event. He denies any symptoms at the time. EKG was repeated and this EKG is normal sinus rhythm. Also, it should be noted on previous EKG, the patient was noted to have PVCs; therefore, the low pulse found on the pulse oximetry could have been from PVCs obscuring the pulse oximetry pulse read. PAST MEDICAL HISTORY: Mr. Flower has a past medical history of: 1. TBI. 2. Panic disorder. 3. Diabetes. 4. Hypothyroid. 5. GERD. 6. Hypertension. 7. Obstructive sleep apnea, which is not treated as the patient reports he cannot tolerate the CPAP machine. 8. Ulcer. HOME MEDICATIONS: As for home medications, the patient is on: 1. Bupropion 150 mg daily. 2. Levothyroxine 100 mcg daily. 3. Tegretol 200 mg b.i.d. 4. Folic acid 1 mg daily. 5. Lisinopril 20 mg daily. 6. Amlodipine 10 mg daily. 7. Zolpidem 10 mg daily. 8. Gabapentin 100 mg t.i.d. 9. Invokana 100 mg daily. 10. ASA 81 mg daily. 11. Melatonin 10 mg h.s. 12. Tiagabine 4 mg daily. 13. Seroquel 200 mg daily. FAMILY HISTORY: Mother and brother committed suicide. Other than that, the patient did not report other significant family history. SOCIAL HISTORY: Mr. Flower is disabled. He lives alone. He reports he smoked for about 6 months and quit about 6 months ago. Therefore, no significant smoking history. He denies any illicit drug use and reports rare alcohol use. REVIEW OF SYSTEMS: The patient denies headache. HEENT: The patient denies sore throat, ear pain, visual changes. Respiratory: The patient denies cough, wheezing, shortness of breath. Cardiac: The patient denies chest pain, palpitations. GI: The patient denies vomiting. He reports some nausea and intermittent diarrhea. Neuro: The patient denies dizziness, numbness, and tingling. Musculoskeletal: The patient denies muscle or joint pain and further review of systems was completed and all remaining were negative. PHYSICAL EXAM: Blood pressure was 139/80, pulse rate is 93, respiratory rate is 16, O2 sat is 100%, temperature was 97.9. Appearance: The patient was alert , appeared to be in no acute distress. Head: Normocephalic, atraumatic. HEENT : EOMs intact. Cardiac: Rate and rhythm are regular. S1 and S2 normal. There are no murmurs, rubs, or gallops. Respiratory: There is no accessory muscle use. Lungs are clear to auscultation bilaterally. Abdomen is soft, nontender, nondistended. Bowel sounds are positive in all quadrants. Extremities: There is trace lower extremity edema. Pulses +2 in all extremities. Musculoskeletal: Equal strength in all extremities. Psych: The patient is calm and cooperative. DIAGNOSTIC STUDIES/LAB DATA: As mentioned in the HPI, EKG was repeated and was normal sinus rhythm. I suspect reading of atrial fibrillation was due to artifact and PVCs. Last labs were drawn on 01/08/18. WBC was 8.4, RBC 4.53, hemoglobin 14.8, hematocrit 44. Sodium was 131, potassium was 4.5, chloride 98, glucose 137. TSH was 0.46. IMPRESSION: This is a 62-year-old male patient who is currently admitted on mental health unit due to suicidal ideation with past medical history significant for hypertension, hypothyroid, diabetes, and obstructive sleep apnea. Hospitalists were asked to assist in management of this patient due to abnormal EKG reading. PLAN: 1. Bradycardia. I suspect the bradycardia noted during pulse assessment with pulse oximetry was due to PVCs. 2. Abnormal EKG. Initial EKG obtained was read with AFib possibly due to artifacts and PVCs. This was not true AFib. EKG repeated and compared to previous EKGs from earlier this year and noted to be stable. 3. PVCs. It is noted that the patient does have PVCs on EKG. Therefore, going forward, we will monitor CMP, TSH, and magnesium. If CMPs are abnormal such as potassium, we will replace. If magnesium is abnormal, we will replace. If TSH is abnormal, we will adjust levothyroxine. 4. Hypothyroid. We will test his TSH as mentioned above. 5. Hypertension. The patient's blood pressure on assessment was 139/80. He is currently on lisinopril and amlodipine. We will not adjust his meds at this time. 6. The patient is full code. 7. Disposition. Thank you very much for this consultation. Labs were ordered and plan as mentioned above. If you need any further assistance, please contact us as needed. TIME SPENT: Time spent for this consultation was 60 minutes and half the time was spent with the patient discussing medications, past medical history, and the events leading up to the consultation. LOLI BURGOS NP ADDENDUM: DATE OF CONSULT: 01/15/18 ASSESSMENT AND PLAN: 1. Nausea. As mentioned above in review of systems, the patient did complain of nausea. The patient attributes this to constipation and recent treatment for constipation with MiraLAX and mag citrate yesterday. The patient reports he did have a bowel movement after these treatments and nausea is improving. 2. In reviewing the patient's chart, it was noted that his cholesterol is elevated. I would recommend the patient have an evaluation with this as outpatient with his PCP and consider statin therapy. 3. Obstructive sleep apnea. The patient mentions he cannot tolerate mask. Discussed risks of untreated sleep apnea with the patient. I would recommend followup with PCP regarding obstructive sleep apnea. LOLI BURGOS NP [id number]/[facility] #: [id number] Susana-[id number]/[facility] #: [id number] DENEEN
[2018-01-16] MEDS: Acetaminophen TAB* 325 MG PO PRN ×3 (03:05→14:58)
[2018-01-16] MEDS: hydrOXYzine HCL TAB* 25 MG PO PRN ×3 (03:05→16:48)
[2018-01-16] MEDS: cloNIDine TAB* 0.1 MG PO SCH ×2 (09:41→20:52)
[2018-01-16] MEDS: Levothyroxine TAB* 100 MCG TAB PO SCH (09:41)
[2018-01-16] MEDS: CANAGLIFLOZIN 100 MG PO SCH (09:41)
[2018-01-16] MEDS: Folic Acid TAB* 1 MG PO SCH (09:41)
[2018-01-16] MEDS: BuPROPion XL* 150 MG TAB.XL PO SCH (09:42)
[2018-01-16] MEDS: amLODIPine TAB* 5 MG PO SCH (09:42)
[2018-01-16] MEDS: Lisinopril TAB* 10 MG PO SCH (09:42)
[2018-01-16] MEDS: Aspirin EC TAB* 81 MG TAB.EC PO SCH (09:42)
[2018-01-16] MEDS: DULoxetine DR CAP* 60 MG CAP.DR PO SCH (09:42)
[2018-01-16] MEDS: Gabapentin CAP(*) 300 MG PO SCH (20:52)
[2018-01-16] MEDS: Melatonin 3 MG TAB PO SCH (20:54)
[2018-01-16] MEDS: QUEtiapine TAB* 100 MG PO SCH (20:54)
[2018-01-16] MEDS: Zolpidem TAB* 10 MG PO PRN (20:57)
[2018-01-16] MEDS: Naproxen TAB* 250 MG PO PRN (20:58)
[2018-01-16] MEDS ORDERED: NS 0.9% 1000 ML* 1,000 ML IV ONE (22:49)
--- NOTE | 2018-01-16 22:59 | PN ---
Hospitalist Progress Note Pt fell asleep in a chair. Tech woke him up to bring back to room. Stereo Operator was assisting patient walking when he fell back into chair. He was helped up again then legs gave out and he lowered himself to ground. No head trauma. CAT called. Pt chief complaint of dizziness. Initial BP 69/46 -> 63/47. at 9pm his vitals were 119/80 HR 105. He did get clonodine 0.1mg , gabapendtin 300mg, seroquel 300mg. Of note patient reports he should not be on clonidine as it drops his blood pressure too low. Also on amlodpine 10mg and lisinopril 20mg. Denies chest pain. No focal neuro deficits. [place] labs drawn, IV established, getting 1L NS. Transferring to ICU. Likely orthostatic hypotension. EKG with NSR, PACs. Addendum: Patient stabilized with a total of 2.5L NS. Stepping down to floor. antihypertensives continue to be held.
[2018-01-16 23:32] LABS: ABS Basophils 0.1 10^3/ul (0-0.2); ABS Eosinophils 0.1 10^3/ul (0-0.6); ABS Lymphocytes 2.4 10^3/ul (1.0-4.8); ABS Monocytes 0.6 10^3/ul (0-0.8); ABS Neutrophils 5.3 10^3/ul (1.5-7.7); ABS Nucleated RBC 0 10^3/ul; Eosinophil % 1.3 % (0-6); Hematocrit 40 % (42-52); Hemoglobin 13.4 g/dl (14.0-18.0); Lymphocyte % 28.5 % (25-47); Mean Corpuscular HGB Conc 34 g/dl (31-36); Mean Corpuscular Hemoglobin 33 pg (27-31); Mean Corpuscular Volume 98 fL (80-94); Mean Platelet Volume 6.8 um3 (7.4-10.4); Nucleated Red Blood Cells % 0.1; Platelet Count 347 10^3/ul (150-450); Red Blood Count 4.05 10^6/ul (4.00-5.40); Red Cell Distribution Width 13 % (10.5-15); White Blood Count 8.5 10^3/ul (3.5-10.8)
[2018-01-16 23:41] LABS: EGFR Non-African American 62.1 (>60)
[2018-01-17] MEDS ORDERED: NS 0.9% 1000 ML* 1,000 ML IV ONE (00:01)
[2018-01-17] MEDS ORDERED: NS 0.9% 250 ML* 250 ML IV ONE (02:20)
[2018-01-17] MEDS: Levothyroxine TAB* 100 MCG TAB PO SCH (05:26)
[2018-01-17] MEDS: CANAGLIFLOZIN 100 MG PO SCH (08:33)
[2018-01-17] MEDS: Aspirin EC TAB* 81 MG TAB.EC PO SCH (08:33)
[2018-01-17] MEDS: BuPROPion XL* 150 MG TAB.XL PO SCH (08:33)
[2018-01-17] MEDS: Folic Acid TAB* 1 MG PO SCH (08:33)
[2018-01-17] MEDS: DULoxetine DR CAP* 60 MG CAP.DR PO SCH (08:33)
[2018-01-17] MEDS: hydrOXYzine HCL TAB* 25 MG PO PRN ×2 (10:09→15:37)
[2018-01-17] MEDS: Naproxen TAB* 250 MG PO PRN ×2 (10:10→21:10)
--- NOTE | 2018-01-17 12:17 | PN ---
Subjective Date of Service: 01/17/18 Interval History: Mr. Flower reports feeling better today. Denies dizziness, headaches, blurred vision, chest pain or SOB. Events noted from last night. BP improved after 2, 500 ml IVF bolus. Amlodipine and Lisinopril continue to be on hold for now. He ambulated well OOB, using bathroom. He has no complaints today. Family History: Unchanged from Admission Social History: Unchanged from Admission Past Medical History: Unchanged from Admission Objective Active Medications: Acetaminophen (Tylenol Tab*) 650 mg PO Q4H PRN PRN Reason: PAIN/FEVER Last Admin: 01/16/18 14:58 Dose: 650 mg Al Hydrox/Mg Hydrox/Simethicone (Maalox Plus*) 30 ml PO Q4H PRN PRN Reason: INDIGESTION Aspirin (Aspirin Ec Tab*) 81 mg PO DAILY [facility] Last Admin: 01/17/18 08:33 Dose: 81 mg Bupropion HCl (Wellbutrin Xl *) 150 mg PO DAILY [facility]; Protocol Last Admin: 01/17/18 08:33 Dose: 150 mg Canagliflozin (Invokana (Nf)) 100 mg PO DAILY [facility] Last Admin: 01/17/18 08:33 Dose: 100 mg Duloxetine HCl (Cymbalta Cap*) 60 mg PO DAILY [facility] Last Admin: 01/17/18 08:33 Dose: 60 mg Folic Acid (Folvite Tab*) 1 mg PO DAILY [facility] Last Admin: 01/17/18 08:33 Dose: 1 mg Gabapentin (Neurontin Cap(*)) 300 mg PO BEDTIME [facility] Last Admin: 01/16/18 20:52 Dose: 300 mg Hydroxyzine HCl (Atarax Tab*) 25 mg PO Q4H PRN PRN Reason: ANXIETY Last Admin: 01/17/18 10:09 Dose: 25 mg Levothyroxine Sodium (Synthroid Tab*) 100 mcg PO 0600 [facility] Last Admin: 01/17/18 05:26 Dose: 100 mcg Loperamide HCl (Imodium Cap*) 2 mg PO Q6H PRN PRN Reason: DIARRHEA Last Admin: 01/14/18 19:31 Dose: 2 mg Melatonin (Melatonin) 9 mg PO BEDTIME [facility]; Protocol Last Admin: 01/16/18 20:54 Dose: 9 mg Mupirocin (Bactroban 2% Cream*) 1 applic TOPICAL TID PRN PRN Reason: RASH Last Admin: 01/15/18 07:44 Dose: 1 applic Naproxen (Naprosyn Tab*) 500 mg PO Q12H PRN PRN Reason: PAIN Last Admin: 01/17/18 10:10 Dose: 500 mg Polyethylene Glycol/Electrolytes (Miralax*) 17 gm PO DAILY PRN PRN Reason: CONSTIPATION Last Admin: 01/14/18 12:37 Dose: 17 gm Quetiapine Fumarate (Seroquel Tab*) 300 mg PO 2100 [facility] Last Admin: 01/16/18 20:54 Dose: 300 mg Zolpidem Tartrate (Ambien Tab*) 10 mg PO BEDTIME PRN PRN Reason: INSOMNIA Last Admin: 01/16/18 20:57 Dose: 10 mg Vital Signs - 8 hr 01/17/18 01/17/18 01/17/18 04:15 07:49 09:51 Temperature 97.2 F 97.6 F Pulse Rate 87 74 Respiratory 18 16 16 Rate Blood Pressure 127/78 101/66 (mmHg) O2 Sat by Pulse 99 98 Oximetry Oxygen Devices in Use Now: None Appearance: Appears comfortable and in NAD Eyes: No Scleral Icterus, PERRLA Ears/Nose/Mouth/Throat: Clear Oropharnyx, Mucous Membranes Moist Neck: NL Appearance and Movements; NL JVP, Trachea Midline Respiratory: Symmetrical Chest Expansion and Respiratory Effort, Clear to Auscultation Cardiovascular: NL Sounds; No Murmurs; No JVD, RRR Abdominal: NL Sounds; No Tenderness; No Distention Extremities: No Edema Neurological: Alert and Oriented x 3 Nutrition: Taking PO's Result Diagrams: 01/16/18 22:50 01/16/18 22:50 Assess/Plan/Problems-Billing Assessment: A 62 y/o male with H psychiatric admission due to suicidal ideation, HTN, hypothyroidism, DM and TINO, who was found to be hypotensive yesterday, clinically improved after IVF bolus, likely orthostatic hypotension. - Patient Problems (1) Orthostatic hypotension Current Visit: Yes Status: Acute Comment: - Clinically improved after IVF bolus - Continue to hold Clonidine, Amlodipine and Lisinopril - Discussed with attending, Dr. Abbi Mata, who agreed to plans. - Patient will be discharged to [facility] for ECT, recommend F/U with hospitalist their to determine when patient can resume his BP meds (2) Diabetes mellitus Current Visit: Yes Status: Acute Comment: - Continue outpatient meds (3) Hypothyroidism Current Visit: Yes Status: Acute Comment: - Continue Levothyroxine - TSH rechecked and WNL (4) Full code status Current Visit: Yes Status: Acute Status and Disposition: - Patient is cleared for discharge per psychiatric medicine team, will be transferred to [facility] today in anticipation for ECT - Recommend withholding all BP meds (Lisinopril, Amlodipine and Clonidine) - Recommend patient to follow with hospitalist services at [facility] to determine appropriate time to resume his BP meds, possibly adjust doses if indicated. - Thank you for this consultation.
--- NOTE | 2018-01-17 15:25 | PN ---
Progress Note - Progress Note Date of Service: 01/17/18 Note: I was asked to see Mr Flower today for a pre-ECT medical evaluation, cardiac risk assessment. The patient was admitted to the [facility] on 01/08/18 for depression and suicidal ideation. A medical consultation was requested earlier this hospitalization for concerns of an abnormal EKG. The EKG showed bradycardia with PVCs and a RBBB. No evidence of Afib as was initially thought. The patient' s electrolytes were within good range. On the evening of 01/16/18 at ~2300 the patient was noted to be hypotensive. He had received melatonin 9mg, seroquel 300mg, ambien and gabapentin at about 2100. He also received clonidine 0.1mg at 2051. He reports being sensitive to clonidine and having low BP related to taking that medication. His BP has rebounded after holding all antihypertensives and giving him 2.5L IVF. At this point the patient is feeling back to normal. In terms of cardiac risk the patient has had PVCs but no significant arrhythmia on EKG. Last EKG NSR with RBBB and no PVCs. He underwent a chemical nuclear stress test in 11/2016 that did not reveal any evidence of ischemia by EKG criteria or on nuclear imaging. The patient denies any chest pain with ambulation. Generally he is a poor historian and did not even remember having the stress test done last year. At this point the patient is medically stable. His revised cardiac risk index of 0 or a perioperatice cardiac risk percentage of 0.4%. At this point the patient is medically optimized for ECT and the anesthesia required for the ECT.
[2018-01-17] MEDS: Acetaminophen TAB* 325 MG PO PRN (15:50)
[2018-01-17] MEDS: LORazepam TAB(*) 1 MG PO PRN (20:37)
[2018-01-17] MEDS: Zolpidem TAB* 10 MG PO PRN (21:07)
[2018-01-17] MEDS: Gabapentin CAP(*) 300 MG PO SCH (21:07)
[2018-01-17] MEDS: Melatonin 3 MG TAB PO SCH (21:08)
[2018-01-17] MEDS: QUEtiapine TAB* 100 MG PO SCH (21:08)
[2018-01-18] MEDS: Levothyroxine TAB* 100 MCG TAB PO SCH (04:12)
[2018-01-18] MEDS: LORazepam TAB(*) 1 MG PO PRN (04:12)
[2018-01-18] MEDS: Acetaminophen TAB* 325 MG PO PRN ×3 (04:13→21:00)
[2018-01-18] MEDS: Aspirin EC TAB* 81 MG TAB.EC PO SCH (07:59)
[2018-01-18] MEDS: BuPROPion XL* 150 MG TAB.XL PO SCH (07:59)
[2018-01-18] MEDS: DULoxetine DR CAP* 60 MG CAP.DR PO SCH (07:59)
[2018-01-18] MEDS: Folic Acid TAB* 1 MG PO SCH (07:59)
[2018-01-18] MEDS: CANAGLIFLOZIN 100 MG PO SCH (08:00)
[2018-01-18] MEDS: Naproxen TAB* 250 MG PO PRN (09:27)
--- NOTE | 2018-01-18 09:53 | PN ---
Subjective Date of Service: 01/18/18 Interval History: Pt is feeling fine. He has no complaints other than he has not had a BM in a couple days. Objective Active Medications: Acetaminophen (Tylenol Tab*) 650 mg PO Q4H PRN PRN Reason: PAIN/FEVER Last Admin: 01/18/18 07:59 Dose: 650 mg Al Hydrox/Mg Hydrox/Simethicone (Maalox Plus*) 30 ml PO Q4H PRN PRN Reason: INDIGESTION Aspirin (Aspirin Ec Tab*) 81 mg PO DAILY [facility] Last Admin: 01/18/18 07:59 Dose: 81 mg Bupropion HCl (Wellbutrin Xl *) 150 mg PO DAILY [facility]ESS[facility]; Protocol Last Admin: 01/18/18 07:59 Dose: 150 mg Canagliflozin (Invokana (Nf)) 100 mg PO DAILY [facility]ESSY Last Admin: 01/18/18 08:00 Dose: 100 mg Duloxetine HCl (Cymbalta Cap*) 60 mg PO DAILY [facility]ESSY Last Admin: 01/18/18 07:59 Dose: 60 mg Folic Acid (Folvite Tab*) 1 mg PO DAILY [facility]ESS[facility] Last Admin: 01/18/18 07:59 Dose: 1 mg Gabapentin (Neurontin Cap(*)) 300 mg PO BEDTIME [facility]ESSY Last Admin: 01/17/18 21:07 Dose: 300 mg Hydroxyzine HCl (Atarax Tab*) 25 mg PO Q4H PRN PRN Reason: ANXIETY Last Admin: 01/17/18 15:37 Dose: 25 mg Levothyroxine Sodium (Synthroid Tab*) 100 mcg PO 0600 YESSY Last Admin: 01/18/18 04:12 Dose: 100 mcg Loperamide HCl (Imodium Cap*) 2 mg PO Q6H PRN PRN Reason: DIARRHEA Last Admin: 01/14/18 19:31 Dose: 2 mg Lorazepam (Ativan Tab(*)) 1 mg PO Q6H PRN PRN Reason: ANXIETY Last Admin: 01/18/18 04:12 Dose: 1 mg Melatonin (Melatonin) 9 mg PO BEDTIME YESSY; Protocol Last Admin: 01/17/18 21:08 Dose: 9 mg Mupirocin (Bactroban 2% Cream*) 1 applic TOPICAL TID PRN PRN Reason: RASH Last Admin: 01/15/18 07:44 Dose: 1 applic Naproxen (Naprosyn Tab*) 500 mg PO Q12H PRN PRN Reason: PAIN Last Admin: 01/18/18 09:27 Dose: 500 mg Polyethylene Glycol/Electrolytes (Miralax*) 17 gm PO DAILY PRN PRN Reason: CONSTIPATION Last Admin: 01/14/18 12:37 Dose: 17 gm Quetiapine Fumarate (Seroquel Tab*) 300 mg PO 2100 YESSY Last Admin: 01/17/18 21:08 Dose: 300 mg Zolpidem Tartrate (Ambien Tab*) 10 mg PO BEDTIME PRN PRN Reason: INSOMNIA Last Admin: 01/17/18 21:07 Dose: 10 mg Vital Signs - 8 hr 01/18/18 01/18/18 01/18/18 03:22 04:12 07:57 Temperature 97.9 F 97.9 F Pulse Rate 93 81 Respiratory 16 16 19 Rate Blood Pressure 141/86 107/61 (mmHg) O2 Sat by Pulse 98 94 Oximetry 01/18/18 01/18/18 08:03 08:05 Temperature Pulse Rate Respiratory 16 16 Rate Blood Pressure (mmHg) O2 Sat by Pulse Oximetry Oxygen Devices in Use Now: None Appearance: Middle aged male sitting up in bed, watching TV, NAD Eyes: No Scleral Icterus Ears/Nose/Mouth/Throat: Mucous Membranes Moist Respiratory: Symmetrical Chest Expansion and Respiratory Effort, Clear to Auscultation Cardiovascular: NL Sounds; No Murmurs; No JVD, RRR, No Edema Abdominal: NL Sounds; No Tenderness; No Distention Extremities: No Clubbing, Cyanosis Skin: No Nodules or Sclerosis Neurological: Alert and Oriented x 3, - - flat affect Result Diagrams: 01/16/18 22:50 01/16/18 22:50 Assess/Plan/Problems-Billing Mr Flower is a 62 y/o male with PMHx of depression, suicidal ideation, HTN, hypothyroidism, DM and TINO who was admitted to the [facility] for suicidal ideation and subsequently had anear syncopal episode secondary to marked hypotension after receiving a dose of clonidine. - Patient Problems (1) Syncope Current Visit: Yes Status: Acute Code(s): R55 - SYNCOPE AND COLLAPSE SNOMED Code(s): 255934044 Comment: Pt with near syncopal event while up walking and was found to be markedly hypotensive. He had received clonidine which the patient is sensitive to. He was likley orthostatic in addition. Pt had his antihypertensives held and received IVF. No further symptoms. Pt is stable for transfer for ECT tomorrow. (2) Bipolar 1 disorder Current Visit: Yes Status: Chronic Code(s): F31.9 - BIPOLAR DISORDER, UNSPECIFIED SNOMED Code(s): 363333871 Comment: Continue current psychiatric medication regimen. Plan is for the patient to go to [place] for ECT tomorrow. (3) Diabetes mellitus Current Visit: Yes Status: Acute Code(s): E11.9 - TYPE 2 DIABETES MELLITUS WITHOUT COMPLICATIONS SNOMED Code(s): 20569597 Comment: Continue invokana. Start checking sugars AC. (4) Hypothyroidism Current Visit: Yes Status: Acute Code(s): E03.9 - HYPOTHYROIDISM, UNSPECIFIED SNOMED Code(s): 12801188 Comment: Continue current dose of synthroid. (5) DVT prophylaxis Current Visit: Yes Status: Acute Code(s): NWP1571 - SNOMED Code(s): 921072002 Comment: Start SQ heparin (6) Full code status Current Visit: Yes Status: Acute Code(s): Z78.9 - OTHER SPECIFIED HEALTH STATUS SNOMED Code(s): 545752382 Status and Disposition: - Patient is cleared for discharge per psychiatric medicine team, will be transferred to [facility] today in anticipation for ECT - Recommend withholding all BP meds (Lisinopril, Amlodipine and Clonidine) - Recommend patient to follow with hospitalist services at [facility] to determine appropriate time to resume his BP meds, possibly adjust doses if indicated. - Thank you for this consultation.
[2018-01-18] MEDS: hydrOXYzine HCL TAB* 25 MG PO PRN ×3 (10:38→21:00)
[2018-01-18] MEDS: Gabapentin CAP(*) 300 MG PO SCH (20:58)
[2018-01-18] MEDS: Melatonin 3 MG TAB PO SCH (20:59)
[2018-01-18] MEDS: Heparin VIAL(*) 5000 UNITS/ML VIAL (FIVE THOUSAND) SUBCUT SCH (20:59)
[2018-01-18] MEDS: QUEtiapine TAB* 100 MG PO SCH (20:59)
[2018-01-19] MEDS: Zolpidem TAB* 10 MG PO PRN (00:43)
[2018-01-19] MEDS: Acetaminophen TAB* 325 MG PO PRN ×2 (06:10→15:03)
[2018-01-19] MEDS: Levothyroxine TAB* 100 MCG TAB PO SCH (06:10)
[2018-01-19] MEDS: hydrOXYzine HCL TAB* 25 MG PO PRN ×3 (06:11→15:01)
[2018-01-19] MEDS: Folic Acid TAB* 1 MG PO SCH (09:39)
[2018-01-19] MEDS: Aspirin EC TAB* 81 MG TAB.EC PO SCH (09:39)
[2018-01-19] MEDS: Heparin VIAL(*) 5000 UNITS/ML VIAL (FIVE THOUSAND) SUBCUT SCH (09:39)
[2018-01-19] MEDS: DULoxetine DR CAP* 60 MG CAP.DR PO SCH (09:39)
[2018-01-19] MEDS: BuPROPion XL* 150 MG TAB.XL PO SCH (09:39)
[2018-01-19 09:44] VITALS: BP 116/85
[2018-01-19] MEDS: CANAGLIFLOZIN 100 MG PO SCH (14:18)
[2018-01-19] MEDS ORDERED: LORazepam TAB(*) 0.5 MG PO PRN (15:46)
--- NOTE | 2018-01-19 17:44 | PN ---
Subjective - Subjective Date of Service: 01/19/18 Service Type: [id number] Hosp care 15 min low complexity Subjective: Transferred from medical floor last evening with medical clearance with a hope to be transferred to [facility] this evening for ECT. Case discussed with Dr. Douglas and now awaiting doc to doc and ambulance. Objective - Appearance Appearance: Obese Dysmorphic Features: No Hygiene: Normal Grooming: Disheveled - Behavior Psychomotor Activities: Abnormal-Decreased Exhibits Abnormal Movement: No - Attitude and Relatedness Attitude and Relatedness: Appropriate Eye Contact: Fair - Speech Quality: Unpressured Latencies: Normal Quantity: Appropriate - Mood Patient's Decription of Mood: "Anxious" - Affect Observed Affect: Constricted Affect Consistent with: Dysphoria - Thought Process Patient's Thought Process: Coherent, Goal Directed Thought Content: No Passive Wish, No Suicidal Planning, No Homicidal Ideation, No Paranoid Ideation - Sensorium Experiencing Hallucinations: No, Sensorium is Clear Type of Hallucinations: Visual: No, Auditory: No, Command: No - Level of Consciousness Level of Consciousness: Alert Orientation: Yes Intact, Yes Orientated to Time, Yes Orientated to Place, Yes Orientated to Person - Impulse Control Impulse Control: Intact - Insight and Judgement Insight and Judgement: Poor - Group Participation Particating in Group Activities: No - Medication Management Medication Management Adherence: Yes Assessment - Assessment Merits Inpatient Hospitalization: For Immediate Safety, For Stabilization, Pending Safe DC Plan Inpatient DSM-V Dx: F31.4 Clinical Impression: 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 His discomfort, while both physical and emotional, has been soothed, in the past, with successful treatment of bipolar disorder. His current status as a depressed man who is aging makes his treatment more complex in that his physical ailments must be addressed in addition to the psychiatric illness he is suffering with. Sudhakar currently needs treatment for depression and anxiety. These treatments need to be encouraged over the physical ailments which tend to be distracting him from the current problems, which include his inability to solve his own problems. ECT was discussed with him and now he is perseverating on whether it will be a good idea. This is indicative of his state of illness. Although he denies suicidality, he is not convincing in his ability to name coping strategies or in how to manage his own medications without help from a visiting nurse service. He is also in a social environment here: although he does not like it, it does provide stimulus he does not have at home. A repeat discharge plan from the last time he was here will likely result in the same outcome of hospitalization or in harm to Sudhakar. Plan - Plan Treatment Plan: Name: SUDHAKAR HILL Birthdate: 1955 [id number] Continued Medication Management: Continue Outpt Medication Medications: Current Medications Acetaminophen (Tylenol Tab*) 650 mg PO Q4H PRN PRN Reason: PAIN/FEVER Last Admin: 01/19/18 15:03 Dose: 650 mg Al Hydrox/Mg Hydrox/Simethicone (Maalox Plus*) 30 ml PO Q4H PRN PRN Reason: INDIGESTION Aspirin (Aspirin Ec Tab*) 81 mg PO DAILY [facility] Last Admin: 01/19/18 09:39 Dose: 81 mg Bupropion HCl (Wellbutrin Xl *) 150 mg PO DAILY [facility]; Protocol Last Admin: 01/19/18 09:39 Dose: 150 mg Canagliflozin (Invokana (Nf)) 100 mg PO DAILY [facility] Last Admin: 01/19/18 14:18 Dose: Not Given Duloxetine HCl (Cymbalta Cap*) 60 mg PO DAILY [facility] Last Admin: 01/19/18 09:39 Dose: 60 mg Folic Acid (Folvite Tab*) 1 mg PO DAILY [facility] Last Admin: 01/19/18 09:39 Dose: 1 mg Gabapentin (Neurontin Cap(*)) 300 mg PO BEDTIME [facility] Last Admin: 01/18/18 20:58 Dose: 300 mg Heparin Sodium (Porcine) (Heparin Vial(*)) 5,000 units SUBCUT Q12HR [facility] Last Admin: 01/19/18 09:39 Dose: Not Given Hydroxyzine HCl (Atarax Tab*) 25 mg PO Q4H PRN PRN Reason: ANXIETY Last Admin: 01/19/18 15:01 Dose: 25 mg Levothyroxine Sodium (Synthroid Tab*) 100 mcg PO 0600 YESSY Last Admin: 01/19/18 06:10 Dose: 100 mcg Loperamide HCl (Imodium Cap*) 2 mg PO Q6H PRN PRN Reason: DIARRHEA Last Admin: 01/14/18 19:31 Dose: 2 mg Lorazepam (Ativan Tab(*)) 0.5 mg PO ONCE PRN PRN Reason: ANXIETY Stop: 01/19/18 23:59 Melatonin (Melatonin) 9 mg PO BEDTIME [facility]ESSY; Protocol Last Admin: 01/18/18 20:59 Dose: 9 mg Mupirocin (Bactroban 2% Cream*) 1 applic TOPICAL TID PRN PRN Reason: RASH Last Admin: 01/15/18 07:44 Dose: 1 applic Naproxen (Naprosyn Tab*) 500 mg PO Q12H PRN PRN Reason: PAIN Last Admin: 01/18/18 09:27 Dose: 500 mg Polyethylene Glycol/Electrolytes (Miralax*) 17 gm PO DAILY PRN PRN Reason: CONSTIPATION Last Admin: 01/14/18 12:37 Dose: 17 gm Quetiapine Fumarate (Seroquel Tab*) 300 mg PO 2100 [facility]ESSY Last Admin: 01/18/18 20:59 Dose: 300 mg Zolpidem Tartrate (Ambien Tab*) 10 mg PO BEDTIME PRN PRN Reason: INSOMNIA Last Admin: 01/19/18 00:43 Dose: 10 mg - Discharge Plan Discharge Plan: Inpatient Hospitalization
--- NOTE | 2018-01-21 00:34 | DS ---
DISCHARGE SUMMARY: DATE OF ADMISSION: 01/08/18 DATE OF DISCHARGE: 01/19/18 PROVIDER: Miesha Roche NP, in Psychiatry. SUPERVISING PHYSICIAN: Dr. Keith Fernandez. DIAGNOSIS: [place] I: Bipolar I disorder, rule out generalized anxiety disorder. CONDITION AT THE TIME OF DISCHARGE: Somewhat improved, psychiatrically cleared for transfer to [facility] for ECG. He is stable. He participated in groups and was social with peers, alt ramez he did eventually step back and stopped socializing. His father is agreeable to his transfer. He has done okay here psychiatrically, although he is not fully improved. He tolerated some meds we ll. He was given clonidine for anxiety, which caused him to have a hypotensive event which caused him to go to the ICU and then the 4th floor and then he was returned to this behavioral health unit. MENTAL STATUS EXAM: At the time of discharge, Wei is calm, cooperative, and makes good eye contact . He is alert and oriented x3, his grooming is adequate. His speech pace is normal. His thought pro cesses are logical. He is not psychotic or delusional. He denies AH, VH, S1, and HI. His insight a nd judgment are fair. He is willing to follow up and he is going to the hospital in [place] to rec eive a CT. DISCHARGE INSTRUCTIONS TO THE PATIENT: A. Medications that he was taking upon discharge to the [facility]: 1. Tylenol 650 q.4 hours. 2. Maalox 30 mL q.4 hours p.r.n. indigestion. 3. Aspirin 81 mg daily. 4. Wellbutrin 150 mg daily. 5. Invokana 100 mg daily. 6. Cymbalta 60 mg daily. 7. Folic acid 1 mg daily. 8. Gabapentin 300 mg at bedtime. 9. Hydroxyzine 25 mg q.4 hours p.r.n. anxiety. 10. Levothyroxine 100 mcg. 11. Imodium capsule 2 mg q.6 hours p.r.n. diarrhea. 12. Lorazepam 0.5 once p.r.n. anxiety. 13. Melatonin 9 mg at bedtime. 14. Bactroban 2% cream 1 application topically t.i.d. p.r.n. rash. 15. Naproxen 500 mg q.12 hours p.r.n. pain. 16. MiraLAX 17 g p.o. daily p.r.n. constipation. 17. Seroquel 300 mg at bedtime. 18. Ambien 10 mg p.r.n. insomnia at bedtime. B. Diet is diabetic. C. Activities as tolerated. He is a nonsmoker. There are no studies pending at the time of dischar ge. D. Followup care. He is being transferred for ECT. After that, I presume he will be going to [facility]. Substance abuse followup is not indicated at this time. HOSPITAL COURSE: Part-A. Chief Complaint: "I am in so much pain, I can't stand it." The patient is a 62-year-old white male with a history of panic and bipolar disorders, who was brought in by ambulance after he called 911 thinking that he was going to harm himself. Apparently, he had atte mpted to be admitted to the hospital on Saturday, but did not have a method in mind of ending his life . Instead 24 hours later, he called 911 instead of the mobile crisis team and [facility]. Wei is a disabled man, who is complaining of disabling panic attacks as well as disabling pain in his right hip and right foot. At the same time, he also had all of his top teeth pulled due to them being infected and decaying. He states in the hospital he only sleeps 4 or 5 hours at night and he does not sleep too much. He does not have any energy. He is unenthusiastic about anything. He finds people to be overwhelming and he is sensitive to too much noise. He is highly anxious. He states he has panic attacks that are becoming more severe. He does not know their origin. Despite Vivek lisa's history of bipolar disorder, he is not exhibiting any manic symptoms at this time. In fact, jt ochoa is with the exception of not sleeping as much as he would like, quite depressed. Part-B. Psychiatric Treatment was rendered. Wei was admitted to the adult behavioral health unit and placed on 15-minute checks for safety. Wei improved moderately on the unit going to some group s, interacting with some peers, but he found the environment to be generally intolerable as some peop le were pacing outside of his room and others were making too much noise as well as having a roommate , who snored significantly. He was given clonidine for anxiety, which caused him to have a hypotensi ve episode, which sent him to the ICU and then the 4th floor. Other medications were stopped such as carbamazepine. Gabapentin was increased from 100 mg t.i.d. to 300 mg at bedtime. Melatonin was red uced to 9 mg due to what was available in the hospital. Tiagabine was discontinued as collateral fro m the visiting nurse service stated that it has never been helpful to him. Quetiapine was increased to 300 as he was significantly depressed and also not sleeping. Zolpidem was attempted to be stopped , but when I dropped it to 5 mg, he did not sleep well. When I suggested that we stop it entirely he began to sob and so we reinstated zolpidem. In general, Wei did not improve significantly. He is focused on somatic complaints. He is easily frustrated. He is not focused on getting well. 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 Because Wei is on Seroquel, it sh ould be noted that his hemoglobin A1c is 5.9, his triglycerides are 215, cholesterol 210, LDL cholest vivian 128, HDL cholesterol 39.2. His TSH has ranged from 0.46 to 2.18. Consults were entered for his hypotensive episodes as well as his pain and other physical concerns that were not able to be manage d on this unit without additional input. He is somewhat improved and is an excellent candidate for E CT as his depression has not lifted and his anxiety is high. MIESHA ROCHE, SHIRLEY [id number]/[facility] #: [id number]
== END 2018-01-19 18:56 | disposition short-term general hospital (02) | DRG 885 ==
LOC: ED 10:11 → BSU 14:43 → ICU 01-16 23:42 → MED 01-17 04:42 → BSU 01-18 19:39
PROVIDERS: ADMIT Psychiatry & Neurology Psychiatry; ATTEND Psychiatry & Neurology Psychiatry
DX: F31.4 Bipolar disorder, current episode depressed, severe, without psychotic features (principal); R45.851 Suicidal ideations; E11.9 Type 2 diabetes mellitus without complications; E03.9 Hypothyroidism, unspecified; I49.3 Ventricular premature depolarization; I10 Essential (primary) hypertension; G47.33 Obstructive sleep apnea (adult) (pediatric); I95.1 Orthostatic hypotension; E66.9 Obesity, unspecified; F41.0 Panic disorder [episodic paroxysmal anxiety]; K21.9 Gastro-esophageal reflux disease without esophagitis; J45.909 Unspecified asthma, uncomplicated; Z87.891 Personal history of nicotine dependence; Z87.820 Personal history of traumatic brain injury; Z79.84 Long term (current) use of oral hypoglycemic drugs; Z79.82 Long term (current) use of aspirin; Z79.899 Other long term (current) drug therapy; Z81.8 Family history of other mental and behavioral disorders
CPT/HCPCS: 36415; 80048; 80053; 80061; 80307; 80320; 80329; 81003; 83036; 83605; 83735; 84443; 84484; 85025; 90686; 90853; 93005; 99222; 99231; 99232; 99233; 99238; 99284; A9270-GY; G0480

== ENCOUNTER 2018-03-25 22:45 | Observation (INO) | payer MEDICARE, MEDICAID ==
[2018-03-25] MEDS ORDERED: Aspirin 81 mg CHEW TAB* 81 MG TAB.CHEW PO ONE (23:12)
--- NOTE | 2018-03-25 23:14 | ED ---
HPI Chest Pain - HPI Summary HPI Summary: 62-year-old male presents with chest pain today for the past 2 hours. He states that it is sharp and radiates into his left arm. He states he has a history of angina and a previous heart attack. He states that pain does not go to his back. Denies any shortness breath. He denies any diaphoresis. No nausea or vomiting. He admits to palpitations. No bowel pain. He was given aspirin by EMS. He has history of high blood pressure and diabetes. His father from a heart attack in his 60s. He denies any recent illness. No fevers. No dizziness. Nothing makes the pain better or worse. he used to smoke. he has been having frequent episodes of chest pain but has not had a stress test in a while. - History of Current Complaint Chief Complaint: EDChestPainROMI Time Seen by Provider: 03/25/18 23:05 Pain Intensity: 6 - Additional Pertinent History Primary Care Physician: VITALY - Allergy/Home Medications Allergies/Adverse Reactions: Allergies Allergy/AdvReac Type Severity Reaction Status Date / Time ampicillin Allergy Unknown Rash And Verified 03/25/18 23:01 Itching propranolol Allergy Unknown Rash And Verified 03/25/18 23:01 Itching divalproex sodium Allergy Unknown Verified 03/25/18 23:01 [From Depakote] Reaction Details PMH/Surg Hx/FS Hx/Imm Hx Endocrine/Hematology History: Reports: Hx Diabetes, Hx Thyroid Disease - hypothyroid medicated with synthroid 75 mcg Cardiovascular History: Reports: Hx Angina, Hx Cardiac Arrest, Hx Hypercholesterolemia, Hx Hypotension, Hx Hypertension, Other Cardiovascular Problems/Disorders - CAD, IDDM II, HIGH CHOLESTEROL Denies: Hx Coronary Artery Disease, Hx Myocardial Infarction, Hx Pacemaker/ ICD, Hx Valvular Heart Disease Respiratory History: Reports: Hx Asthma, Hx Sleep Apnea Denies: Hx Chronic Obstructive Pulmonary Disease (COPD) GI History: Reports: Hx Gastroesophageal Reflux Disease History: Denies: Hx Renal Disease Musculoskeletal History: Reports: Other Musculoskeletal History - Hx Rt hip fracture Denies: Hx Arthritis, Hx Osteoporosis Sensory History: Denies: Hx Cataracts, Hx Contacts or Glasses, Hx Eye Injury, Hx Hearing Aid, Hx Hearing Problem, Other Sensory Impairments Opthamlomology History: Denies: Hx Cataracts, Hx Contacts or Glasses, Hx Eye Injury, Other Sensory Impairments Neurological History: Reports: Hx Migraine, Other Neuro Impairments/Disorders - parkinson's Psychiatric History: Reports: Hx Anxiety, Hx Depression, Hx Inpatient Treatment - multiple in [place], [place], Hx Bipolar Disorder Denies: Hx Eating Disorder, Hx Panic Disorder, Hx of Violent Episodes Against Others - Surgical History Surgery Procedure, Year, and Place: tonsillectomy, hyiod suspension 10 years ago Hx Anesthesia Reactions: No - Immunization History Date of Tetanus Vaccine: UTD Date of Influenza Vaccine: 01/2017 Infectious Disease History: No Infectious Disease History: Denies: Hx of Known/Suspected MRSA, Traveled Outside the [place] in Last 30 Days - Family History Known Family History: Positive: Cardiac Disease, Hypertension, Other - Positive bipolar and schizophrenia - Social History Alcohol Use: Rare Alcohol Amount: 1beer/1 drink daily for a long time Hx Substance Use: No Substance Use Type: Reports: None Substance Use Comment - Amount & Last Used: uses 1-2 drinks of alcohol daily and several bowls of marijuana daily. Hx Tobacco Use: Yes Smoking Status (MU): Former Smoker Type: Cigarettes Have You Smoked in the Last Year: No Review of Systems Negative: Fever, Skin Diaphoresis Positive: Chest Pain Negative: Shortness Of Breath, Cough Negative: Abdominal Pain, Vomiting, Nausea All Other Systems Reviewed And Are Negative: Yes Physical Exam Triage Information Reviewed: Yes Vital Signs On Initial Exam: Initial Vitals Temp Pulse Resp BP Pulse Ox 98.1 F 107 16 106/71 96 03/25/18 22:50 03/25/18 22:50 03/25/18 22:50 03/25/18 22:50 03/25/18 22:50 Vital Signs Reviewed: Yes Appearance: Positive: Well-Appearing Skin: Positive: Warm, Dry Head/Face: Positive: Normal Head/Face Inspection Eyes: Positive: Normal, EOMI, KIRA, Conjunctiva Clear ENT: Positive: Normal ENT inspection, Pharynx normal, TMs normal Respiratory/Lung Sounds: Positive: Clear to Auscultation, Breath Sounds Present , Other - nonreproducible chest pain Cardiovascular: Positive: Normal, RRR Abdomen Description: Positive: Soft, Other: - mild tenderness epigastric Bowel Sounds: Positive: Present Musculoskeletal: Positive: Normal Neurological: Positive: Normal Psychiatric: Positive: Normal Diagnostics - Vital Signs Vital Signs Temp Pulse Resp BP Pulse Ox 03/25/18 22:59 107 23 106/71 93 03/25/18 22:50 98.1 F 107 16 106/71 96 - Laboratory Result Diagrams: 03/25/18 23:16 03/25/18 23:16 Lab Statement: Any lab studies that have been ordered have been reviewed, and results considered in the medical decision making process. - Radiology chest Radiology Interpretation Completed By: ED Physician Summary of Radiographic Findings: nad - EKG No standard instances Cardiac Rate: Tachycardia EKG Rhythm: Sinus Tachycardia Summary of EKG Findings: sinsu tachycarydia, RBBB, similiar to previous Re-Evaluation - Re-Evaluation First Eval Re-Evaluation Time: 23:36 Change: Unchanged Comment: pain still present Second Eval Re-Evaluation Time: 00:16 Change: Improved Comment: pain resolved with psych Chest Pain Course/Dx - Course Course Of Treatment: 62 year old male with extensive cardiac history presents with left side chest pain that radiates to left arm for past two hours. was given 81mg of aspirin by EMS. denies any SOB, n/v or diaphoresis. on exam is tachycardia. lungs CTA. abd mild epigastric tenderness. ekg sinus tachycardia with RBBB. similiar to previous. chest xray read by me as normal. d-dimer normal. wbc normal. first troponin is zero. with risk factors asked hospitalist to admit for cardiac work up. patient was agreeable to such. patient then says needs to go home and can not stay as needs ECT in the morning. patient warned of risk of leaving including cardiac arrest and . patient understand risk and signed AMA paperwork and is fully A&OX3. informed needs to follow up with primary to get stress test and told if anything changes to return. - Chest Pain Differential Diagnosis/HQI/PQRI: Acute [place], GI Disease, Pulmonary Edema - Diagnoses Provider Diagnoses: Chest pain Discharge - Sign-Out/Discharge Documenting (check all that apply): Patient Departure - Discharge Plan Condition: Stable Disposition: AGAINST MEDICAL ADVICE - Billing Disposition and Condition Condition: STABLE Disposition: Against Medical Advice
[2018-03-25 23:24] LABS: ABS Basophils 0.1 10^3/ul (0-0.2); ABS Eosinophils 0.7 10^3/ul (0-0.6); ABS Lymphocytes 2.3 10^3/ul (1.0-4.8); ABS Monocytes 0.7 10^3/ul (0-0.8); ABS Neutrophils 4.7 10^3/ul (1.5-7.7); ABS Nucleated RBC 0 10^3/ul; Eosinophil % 8.1 %; Hematocrit 39 % (42-52); Hemoglobin 13.4 g/dl (14.0-18.0); Lymphocyte % 27.5 %; Mean Corpuscular HGB Conc 34 g/dl (31-36); Mean Corpuscular Hemoglobin 32 pg (27-31); Mean Corpuscular Volume 95 fL (80-94); Mean Platelet Volume 6.9 fL (7.4-10.4); Nucleated Red Blood Cells % 0.1; Platelet Count 329 10^3/ul (150-450); Red Blood Count 4.14 10^6/ul (4.00-5.40); Red Cell Distribution Width 13 % (10.5-15); White Blood Count 8.4 10^3/ul (3.5-10.8)
[2018-03-25] MEDS ORDERED: Nitroglycerin TAB 0.3 MG* 0.3 MG TAB SL ONE (23:35)
--- OUTSIDE RECORDS SUMMARY | 2018-03-25 23:41 | XMS REPORT | Continuity of Care Document ---
:1955 External Reference #:[id number] Author Name Fay Valderrama Care Team Providers Name Role Phone Collin Lowry MD Primary Care Physician Unavailable Payers Type Date Identification Numbers Payment Provider Subscriber Policy Number: [id number] Medicare Wei Flower PayID: [id number] [address] [place] [address] Policy Number: [id number] Medicaid Wei Flower Group Name: 1 1 [address] PayID: [id number] [place] [address] Effective: 2015 Policy Number: [id number] Wei Flower Expires: 2017 Group Number: 90% [address] [facility] PayID: [id number] [address] Advance Directives Description No Information Available Problems Date Description Provider Status Onset: 10/21/2015 Abnormal involuntary movement Maria Eugenia Mcgowan MD Active Onset: 09/20/2016 Bipolar disorder Maria Eugenia Mcgowan MD Active Onset: 02/05/2017 Secondary parkinsonism Maria Eugenia Mcgowan MD Active Onset: 02/05/2017 Nervous system symptoms Maria Eugenia Mcgowan MD Active Onset: 05/22/2017 Unspecified dementia without Maria Eugenia Mcgowan MD Active behavioral disturbance Onset: 08/30/2017 Essential tremor Maria Eugenia Mcgowan MD Active Onset: 03/11/2018 Premature beats Stepan Walker M.D. Active Onset: 03/11/2018 Type 2 diabetes mellitus Stepan Walker M.D. Active Family History Date Family Member(s) Problem(s) Comments General Diabetes General Heart Disease Father Diabetes Father Heart Disease Mother Bipolar Disorder committed suicide age 70 Social History Type Date Description Comments Sex Unknown Hand Dominance Left-handed ETOH Use Occasionally consumes alcohol Tobacco Use Start: Unknown Patient has never smoked Smoking Status Reviewed: 03/11/18 Patient has never smoked Allergies, Adverse Reactions, Alerts Date Description Reaction Status Severity Comments 03/09/2013 Inderal caused low blood pressure Active 03/09/2013 Ampicillin rash Active Medications Medication Date Status Form Strength Qnty SIG Indications Ordering Provider Aspirin Low 03/09 Active Chewtabs 81mg qd Stanton /2012 Tong Clifton M.D., [facility], [facility] Fluzone PF Active done at [facility] Unknown [id number] pharmacy Lisinopril Active Tablets 20mg 90tab 1 po qd Essence, sandoval Polanco MD [place]abine HCL Active Tablets 4mg 1 tab po qhs Folic Acid Active Tablets 1mg 1 by mouth Unknown every day Invokana Active Tablets 100mg 1 by mouth Unknown every day before breakfast Synthroid Active Tablets 100mcg 1 by mouth Unknown every day Seroquel Active Tablets 200mg 1 tab by Unknown / mouth every night at bedtime Tegretol Active Tablets 200mg take one Unknown 0000 tablet by mouth 2x times a day Melatonin ER Active Tablets 3mg 1 tablet at Unknown / ER night Amlodipine Active Tablets 5mg 2 by mouth Unknown every day Ambien Active Tablets 10mg 1 tablet by Unknown /0000 mouth nightly at bedime as needed maximum daily dose of 1 per day Tramadol HCL Active Tablets 50mg 1-2 tablets Unknown by mouth every 6 hours as needed pain Tizanidine HCL Active Tablets 2mg Take 1 Unknown /0000 Tablet By Mouth Twice A Day Duloxetine HCL Active Caps DR 60mg Take 1 Unknown Part Capsule By Mouth Every Day Bupropion HCL ER Active Tablets 150mg Take 1 Unknown (XL) / ER 24HR Tablet By Mouth Every Day Carbidopa-Levodopa 01/17 Hx Tablets 25-100mg 135ta 1.5 tablets R25.1 bs three times MD Roslyn - a day 05/21 Atorvastatin Hx Tablets 40mg 30tab 1 po qd Essence, sandoval Polanco MD - 05/21 Divalproex Sodium 00/00 Hx Tablets 500mg 60tab [address] /0000 DR s Bryan frey, - 05/21 Glimepiride Hx Tablets 4mg 90tab 1 po qd Essence, /0000 sandoval Polanco MD - 10/19 Lantus Solostar Hx Solution 100Unit/M 6unit inject 40 Essence, /0000 L s units MD Collin - subcutaneou 09/13 sly hs Levothyroxine Hx Tablets 100mcg 30tab 1 po qd Essence, Sodium /0000 s MD Collin - 05/21 Metoprolol Hx Tablets 25mg 180ta 1 po qd Essence, Tartrate / bs MD Collin - 10/19 Quetiapine Hx Tablets 200mg 30tab take one Bezirgani Fumarate /0000 s tablet by Bryan frey, - mouth at [place] 05/21 bedtime Sudafed Hx Tablets 30mg 60tab 2 tab by Unknown /0000 s mouth every - 4 hours as 09/13 Requip Hx Tablets 0.25mg 150ta 1 in the Maria Eugenia /0000 bs morning MD Roslyn - 08/22 Hydrochlorothiazid Hx Capsules 12.5mg 1 by mouth Unknown e /0000 every day - 05/21 Ropinirole HCL Hx Tablets 0.25mg 1 tablets Unknown /0000 by mouth - tid 09/20 Melatonin ER Hx Tablets 12mg 1 by mouth Unknown /0000 ER every night - at bedtime 05/21 Ropinirole HCL 0000 Hx Tablets 0.5mg 1 tablet Unknown /0000 tid - 05/21 Ropinirole HCL 0000 Hx Tablets 0.25mg 1 tab in Unknown /0000 afternoon - 05/21 Protonix Hx Tablets 40mg 1 by mouth Unknown /0000 DR every day - 03/10 Gabitril Hx Tablets 4mg 1 po qd Unknown /0000 - 05/22 Lipitor Hx Tablets 40mg 1 by mouth Unknown /0000 in am - 10/01 Depakote 00/00 Hx Tablets 500mg 1 by mouth Unknown / DR at - 05/21 Miralax Hx Powder 1/2 cap Unknown /0000 every other - day 08/29 Sennosides-Docusat Hx Tablets 8.6-50mg 1-2 by Unknown e Sodium /0000 mouth twice - a day 08/29 Oxycodone HCL Hx Capsules 5mg 1-2 tabs by Unknown /0000 mouth every - 4-6 hours 10/01 as needed /2018 pain Ondansetron Hx Tablets 4mg dissolve Unknown /0000 Dispers one tablet - orally 03/10 every hours as needed for nausea. Divalproex Sodium Hx Tablets 500mg [address] /0000 DR - 05/21 Trazodone HCL Hx Tablets 100mg take 1 Unknown / tablet by - mouth at 09/29 bedtime /2017 Sucralfate Hx Tablets 1gm Unknown / - 03/10 Medications Administered in Office Medication Date Status Form Strength Qnty SIG Indications Ordering Provider Depomedrol Administered Injection Vini 40MG 018 Judith Durán Immunizations Description No Information Available Vital Signs Date Vital Result Comment 03/11/2018 11:17am Height 71 inches 5'11" 08 Weight 230.00 lb Heart Rate 84 /min BP Systolic 114 mmHg BP Diastolic 74 mmHg Respiratory Rate 16 /min BMI (Body Mass Index) 32.1 kg/m2 10/02/2017 2:24pm Height 71 inches 5'11" 08 Weight 234.50 lb Heart Rate 76 /min BP Systolic 108 mmHg BP Diastolic 70 mmHg Respiratory Rate 14 /min Body Temperature 97.3 F Pain Level 8 BMI (Body Mass Index) 32.7 kg/m2 08/30/2017 1:01pm Height 71 inches 5'11" Weight 239.00 lb Heart Rate 78 /min BP Systolic Sitting 136 mmHg BP Diastolic Sitting 88 mmHg Respiratory Rate 16 /min BMI (Body Mass Index) 33.3 kg/m2 05/22/2017 10:43am Height 71 inches 5'11" Weight 246.00 lb Heart Rate 72 /min BP Systolic 138 mmHg BP Diastolic 104 mmHg BMI (Body Mass Index) 34.3 kg/m2 02/05/2017 11:55am Height 71 inches 5'11" Weight 255.12 lb Heart Rate 76 /min BP Systolic 138 mmHg BP Diastolic 86 mmHg BMI (Body Mass Index) 35.6 kg/m2 09/20/2016 3:52pm Height 71 inches 5'11" Weight 258.00 lb Heart Rate 80 /min BP Systolic Sitting 110 mmHg BP Diastolic Sitting 76 mmHg Respiratory Rate 17 /min BMI (Body Mass Index) 36.0 kg/m2 06/05/2016 2:06pm Height 71 inches 5'11" Weight 260.00 lb Heart Rate 80 /min BP Systolic Sitting 122 mmHg BP Diastolic Sitting 86 mmHg Respiratory Rate 14 /min BMI (Body Mass Index) 36.3 kg/m2 01/18/2016 2:56pm Height 71 inches 5'11" Weight 260.00 lb Heart Rate 64 /min BP Systolic Sitting 126 mmHg BP Diastolic Sitting 78 mmHg Respiratory Rate 14 /min BMI (Body Mass Index) 36.3 kg/m2 10/21/2015 1:05pm Height 71 inches 5'11" Weight 269.00 lb Heart Rate 68 /min BP Systolic Sitting 122 mmHg BP Diastolic Sitting 92 mmHg Respiratory Rate 14 /min BMI (Body Mass Index) 37.5 kg/m2 03/09/2013 2:23pm Height 611 inches 50'11" Weight 279.00 lb with shoes Heart Rate 98 /min reg BP Systolic Sitting 126 mmHg R arm lg cuff BP Diastolic Sitting 90 mmHg R arm lg cuff BP Systolic Standing 132 mmHg R arm lg cuff BP Diastolic Standing 96 mmHg R arm lg cuff Respiratory Rate 17 /min BMI (Body Mass Index) 0.5 kg/m2 Results Description No Information Available Procedures Date Code Description Status 01/15/2018 91416 EKG, Interpretation Only Completed 10/02/2017 93278 Inject/Drain Joint/Bursa Major W/O US Completed 04/01/2017 37804 Nerve Conduction 05-06 Studies Completed 04/01/2017 83702 Needle Electromyography Each Extremity W/Related Completed Paraspinal Areas 12/04/2016 53255 Treadmill Interp/Report Only Completed 12/04/2016 12965 Stress Test Supervsn W/Out I/R Completed 12/04/2016 57679 EKG, Interpretation Only Completed 01/13/2015 28880 EKG, Interpretation Only Completed 02/27/2013 91779 ECHO Transthoracic, Real-Time 2D With Doppler And Color Completed Flow 09/04/2012 94902 EKG Tracing & Interpretation Completed 08/06/2012 26493 Treadmill Interp/Report Only Completed 08/06/2012 28952 Stress Test Supervsn W/Out I/R Completed Encounters Type Date Location Provider Dx Diagnosis Office Visit 01/18/2018 [facility] Abbi Adolfo, I95.1 Orthostatic 10:23a Assoc,pc D.OPoonam hypotension Hospitalists W19.xxxA Unspecified fall, initial encounter Office Visit 01/17/2018 [facility] I95.1 Orthostatic 10:22a Assoc,pc LOY Muniz hypotension Hospitalists E11.9 Type 2 diabetes mellitus without complications E03.9 Hypothyroidism, unspecified G47.33 Obstructive sleep apnea (adult) (pediatric) Office Visit 01/16/2018 10:20a [facility] Payam Manley MD R55 Syncope and Assoc,pc Hospitalists collapse I95.1 Orthostatic hypotension W19.xxxA Unspecified fall, initial encounter Office Visit 01/15/[address] [facility] I49.3 Ventricular 11:02a Assoctyra NP premature Hospitalists depolarization R94.31 Abnormal electrocardiogram [ECG] [EKG] R11.0 Nausea Office Visit 10/02/2017 [facility] Vini M70.61 Trochanteric 2:00p Of Artur Durán M.D. bursitis, right hip Office Visit 08/30/2017 [facility] Maria Eugenia Mcgowan, G25.1 Drug-induced 1:00p Clinic tremor F03.90 Unspecified dementia without behavioral disturbance Office Visit 05/22/2017 [facility] Maria Eugenia Mcgowan, F03.90 Unspecified 10:30a Clinic dementia without behavioral disturbance R25.1 Tremor, unspecified G31.9 Degenerative disease of nervous system, unspecified Office Visit 04/17/2017 [facility] Sharri R41.82 Altered mental 9:02a Asstyra lim NP status, Hospitalists unspecified E11.9 Type 2 diabetes mellitus without complications K59.01 Slow transit constipation F31.9 Bipolar disorder, unspecified Office Visit 04/16/2017 [facility] Jordan Cullen R41.82 Altered mental 9:01a Assoc,pc II, M.D. status, Hospitalists unspecified E11.9 Type 2 diabetes mellitus without complications K59.01 Slow transit constipation F31.9 Bipolar disorder, unspecified Office 04/02/2017 [facility] Stepan M62.81 Muscle weakness Visit 1:33p Clinic Judith Walker (generalized) R29.6 Repeated falls R25.1 Tremor, unspecified Office 04/01/2017 [facility] Stepan M62.81 Muscle weakness Visit 1:32p Clinic Judith Walker (generalized) R29.6 Repeated falls R25.1 Tremor, unspecified Office 03/31/2017 [facility] Baudilio M62.81 Muscle weakness Visit 1:28p Clinic MD Ruthie (generalized) R29.6 Repeated falls R74.8 Abnormal levels of other serum enzymes Office Visit 03/30/2017 12:53p [facility] Zenia Robles, R29.6 Repeated falls Assoc,tyra Wong Hospitalists R25.1 Tremor, unspecified T79.6xxA Traumatic ischemia of muscle, initial encounter W19.xxxA Unspecified fall, initial encounter Office Visit 02/05/2017 [facility] Maria Eugenia G21.19 Other drug 11:30a Clinic MD Roslyn induced secondary parkinsonism R29.6 Repeated falls F31.9 Bipolar disorder, unspecified Office Visit 01/02/2017 3:01p [facility] Payam Manley, G21.19 Other drug induced Assoc,tyra WEISS secondary Hospitalists parkinsonism R29.6 Repeated falls F31.9 Bipolar disorder, unspecified 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 movement disorder, Hospitalists unspecified E03.9 Hypothyroidism, unspecified R29.6 Repeated falls F31.70 Bipolar disord, currently in remis, most recent episode unsp Office Visit 12/04/2016 3:16p [facility] Pavan R06.02 Shortness of Assoc,tyra Maldonado MD breath Hospitalists R06.02 Shortness of breath R74.8 Abnormal levels of other serum enzymes E11.9 Type 2 diabetes mellitus without complications R74.8 Abnormal levels of other serum enzymes I10 Essential (primary) hypertension I10 Essential (primary) hypertension Office Visit 12/03/2016 [facility] Jordan Cullen R06.02 Shortness of 3:15p Assoctyra II, M.D. breath Hospitalists R06.02 Shortness of breath R74.8 Abnormal levels of other serum enzymes R74.8 Abnormal levels of other serum enzymes E11.9 Type 2 diabetes mellitus without complications I10 Essential (primary) hypertension I10 Essential (primary) hypertension Office Visit 09/20/2016 4:00p [facility] Maria Eugenia Mcgowan, R25.1 Tremor , Services Of Paige WEISS unspecified F31.9 Bipolar disorder, unspecified Office Visit 06/05/2016 2:00p [facility] Maria Eugenia Mcgowan, R25.1 Tremor , Services Of Paige WEISS unspecified F31.9 Bipolar disorder, unspecified Office Visit 01/18/2016 3:00p [facility] Maria Eugenia Mcgowan, R25.1 Tremor , Services Of Paige WEISS unspecified Office Visit 10/21/2015 1:00p [facility] Maria Eugenia Mcgowan, R25.1 Tremor , Services Of [facility] unspecified Office Visit 03/02[facility]2015 [facility] D72.829 Elevated white Assoc,pc Micheal, N.P. blood cell count, Hospitalists unspecified D72.829 Elevated white blood cell count, unspecified E11.9 Type 2 diabetes mellitus without complications E11.9 Type 2 diabetes mellitus without complications S02.2xxA Fracture of nasal bones, init encntr for closed fracture S02.2xxA Fracture of nasal bones, init encntr for closed fracture I10 Essential (primary) hypertension Office Visit 01/12/2015 10:28a [facility] Alice Lund 786.50 Pain Chest Assoc,pc Micheal, N.P. Unspec Hospitalists 786.50 Pain Chest Unspec 250.00 Diabetes Mellitus W/O Compl Type II Or Unspec Controlled 250.00 Diabetes Mellitus W/O Compl Type II Or Unspec Controlled 296.80 Bipolar Disorder NOS 296.80 Bipolar Disorder NOS Office Visit 03/09/2013 2:45p [facility] Stanton Fortune 786.50 Pain Chest Of Paige Clifton M.D., Unspec FACC, FASNC Office Visit 09/04/2012 10:30a [facility] Stanton Fortune 786.50 Pain Chest Of Paige Clifton M.D., Unspec FACC, FASNC Office Visit 08/06/2012 10:56a [facility] Shabbir Mackay, 786.51 Pain Precordial Assoc,tyra Wong Hospitalists 250.00 Diabetes Mellitus W/O Compl Type II Or Unspec Controlled 278.01 Obesity Morbid 780.53 Hypersomnia W/ Sleep Apnea Unspecified Office Visit 08/06/2012 11:32a [facility] Stanton Fortune 786.50 Pain Chest Of Paige Clifton M.D., Unspec FACC, FASNC 794.31 Electrocardiogram (ECG) (EKG) Abnormal 412 Myocardial Infarction Old Office Visit 2012 10:55a [facility] Krystal Mohamud, 786.51 Pain Precordial Assoc,pc N.P. Hospitalists 250.00 Diabetes Mellitus W/O Compl Type II Or Unspec Controlled 278.01 Obesity Morbid 780.53 Hypersomnia W/ Sleep Apnea Unspecified Plan of Treatment Future Appointment(s):09/11/2018 2:00 pm - Stepan Walker M.D. at [facility]03/11/2018 - Stepan Walker M.D.E11.9 Type 2 diabetes mellitus without complicationsFollow up:Follow up in 6 jpmzuvJ46.3 Ventricular premature gzikanuqusghyvF25.1 Tremor, lmaykzpcclaN91.9 Bipolar disorder, ifaicqdictrZ22.3 Other amnesia
[2018-03-25 23:45] LABS: EGFR Non-African American 107.5 (>60)
[2018-03-25] MEDS ORDERED: Nitroglycerin TAB 0.4 MG* 0.4 MG TAB SL ONE (23:46)
[2018-03-25] MEDS ORDERED: Nitroglycerin TAB 0.4 MG* 0.4 MG TAB ONE (23:47)
[2018-03-26] MEDS ORDERED: NS 0.9% 1000 ML* 1,000 ML IV SCH (01:00)
[2018-03-26 01:07] VITALS: BP 120/85
[2018-03-26] MEDS ORDERED: Insulin REGULAR(*) 1 UNITS UNIT SUBCUT SCH (06:00)
[2018-03-26] MEDS ORDERED: Levothyroxine TAB* 100 MCG TAB PO SCH (06:00)
[2018-03-26] MEDS ORDERED: Nitroglycerin 2% OINT* 1 GM PAK TOPICAL SCH (06:00)
[2018-03-26] MEDS ORDERED: Aspirin EC TAB* 81 MG TAB.EC PO SCH (09:00)
[2018-03-26] MEDS ORDERED: Folic Acid TAB* 1 MG PO SCH (09:00)
[2018-03-26] MEDS ORDERED: QUEtiapine TAB* 100 MG PO SCH (09:00)
[2018-03-26] MEDS ORDERED: Gabapentin CAP(*) 100 MG PO SCH (09:00)
[2018-03-26] MEDS ORDERED: Canagliflozin (NF) 100 MG TAB PO SCH (09:00)
[2018-03-26] MEDS ORDERED: amLODIPine TAB* 5 MG PO SCH (09:00)
[2018-03-26] MEDS ORDERED: Nitro Patch/OINT Remove TOPICAL SCH (18:00)
== END 2018-03-26 01:27 | disposition left against medical advice (07) ==
LOC: ED 22:45 → MEDTELE 03-26 00:48
PROVIDERS: ADMIT Internal Medicine; ATTEND Internal Medicine
DX: R07.9 Chest pain, unspecified (principal); Z87.891 Personal history of nicotine dependence
CPT/HCPCS: 36415; 71045; 80053; 82553; 83605; 83880; 84484; 85025; 85379; 93005; 99284; A9270-GY

== ENCOUNTER 2018-04-03 05:19 | Emergency (ER) | payer MEDICARE, MEDICAID ==
[2018-04-03] MEDS ORDERED: Gabapentin CAP(*) 300 MG PO ONE (05:28)
[2018-04-03] MEDS ORDERED: oxyCODONE/Acetamin 5/325 MG* TAB PO ONE (05:28)
[2018-04-03 05:29] VITALS: BP 144/92
--- NOTE | 2018-04-03 05:33 | ED ---
Neurological HPI - HPI Summary HPI Summary: A 62 y/o M presents to ED with c/o pain, numbness, and burning in bilat hands and bilat feet onset approx 0622-9441 this date. Pt says he woke up in extreme pain feeling like this hands and feet were burning. He took two Alleve FISCAL AGENT to no relief. Pert PMHx: HTN, DM, diabetic neuropathy. He takes Gabapentin 100mg TID, but has not taken it this AM. Medications discussed. Pt went to a [facility]nice[facility] class for the first time in a few years yesterday. Pt does not take insulin. Non -smoker. He sees Dr. Lowry, PCP. He gets ECT with Dr. Fernandez, psych, about every three weeks. - History of Current Complaint Chief Complaint: EDExtremityUpper Stated Complaint: GENERAL ILLNESS Time Seen by Provider: 04/03/18 05:21 Hx Obtained From: Patient Onset/Duration: Started hours ago, Still Present Timing: Constant Number of Seizures: 0 Pain Intensity: 10 Pain Scale Used: 0-10 Numeric Associated Signs and Symptoms: Positive: Negative - Additional Pertinent History Primary Care Physician: VITALY - Allergy/Home Medications Allergies/Adverse Reactions: Allergies Allergy/AdvReac Type Severity Reaction Status Date / Time ampicillin Allergy Unknown Rash And Verified 04/03/18 05:24 Itching propranolol Allergy Unknown Rash And Verified 04/03/18 05:24 Itching divalproex sodium Allergy Unknown Verified 04/03/18 05:24 [From Depakote] Reaction Details PMH/Surg Hx/FS Hx/Imm Hx Previously Healthy: No Endocrine/Hematology History: Reports: Hx Diabetes, Hx Thyroid Disease - hypothyroid medicated with synthroid 75 mcg Cardiovascular History: Reports: Hx Angina, Hx Cardiac Arrest, Hx Hypercholesterolemia, Hx Hypotension, Hx Hypertension, Other Cardiovascular Problems/Disorders - CAD, IDDM II, HIGH CHOLESTEROL Denies: Hx Coronary Artery Disease, Hx Myocardial Infarction, Hx Pacemaker/ ICD, Hx Valvular Heart Disease Respiratory History: Reports: Hx Asthma, Hx Sleep Apnea Denies: Hx Chronic Obstructive Pulmonary Disease (COPD) GI History: Reports: Hx Gastroesophageal Reflux Disease History: Denies: Hx Renal Disease Musculoskeletal History: Reports: Other Musculoskeletal History - Hx Rt hip fracture Denies: Hx Arthritis, Hx Osteoporosis Sensory History: Denies: Hx Cataracts, Hx Contacts or Glasses, Hx Eye Injury, Hx Hearing Aid, Hx Hearing Problem, Other Sensory Impairments Opthamlomology History: Denies: Hx Cataracts, Hx Contacts or Glasses, Hx Eye Injury, Other Sensory Impairments Neurological History: Reports: Hx Migraine, Other Neuro Impairments/Disorders - parkinson's Psychiatric History: Reports: Hx Anxiety, Hx Depression, Hx Inpatient Treatment - multiple in [place], [place], Hx Bipolar Disorder Denies: Hx Eating Disorder, Hx Panic Disorder, Hx of Violent Episodes Against Others - Surgical History Surgery Procedure, Year, and Place: tonsillectomy, hyiod suspension 10 years ago Hx Anesthesia Reactions: No - Immunization History Date of Tetanus Vaccine: UTD Date of Influenza Vaccine: 01/2017 Infectious Disease History: No Infectious Disease History: Denies: Hx of Known/Suspected MRSA, Traveled Outside the [place] in Last 30 Days - Family History Known Family History: Positive: Cardiac Disease, Hypertension, Other - Positive bipolar and schizophrenia - Social History Occupation: Disabled Lives: With Family Alcohol Use: Rare Alcohol Amount: 1beer/1 drink daily for a long time Hx Substance Use: No Substance Use Type: Reports: None Substance Use Comment - Amount & Last Used: uses 1-2 drinks of alcohol daily and several bowls of marijuana daily. Hx Tobacco Use: Yes Smoking Status (MU): Former Smoker Type: Cigarettes Have You Smoked in the Last Year: No Review of Systems Negative: Fever Musculoskeletal: Other - pos: pain in bilat hands and feet Positive: Numbness - and burning in hands and feet All Other Systems Reviewed And Are Negative: Yes Physical Exam - Summary Physical Exam Summary: Appearance: Well appearing, no pain distress Skin: warm, dry, reflects adequate perfusion Head/face: normal Eyes: EOMI, KIRA ENT: mucous membranes moist Neck: supple, non-tender Respiratory: CTA, breath sounds present Cardiovascular: RRR, pulses symmetrical Abdomen: non-tender, soft Bowel Sounds: present Musculoskeletal: normal, strength/ROM intact Neuro: normal, sensory motor intact, A&Ox3; tenderness in stocking-glove distribution Triage Information Reviewed: Yes Vital Signs On Initial Exam: Initial Vitals Temp Pulse Resp BP Pulse Ox 98.6 F 92 16 142/111 97 04/03/18 05:21 04/03/18 05:21 04/03/18 05:21 04/03/18 05:21 04/03/18 05:21 Vital Signs Reviewed: Yes Diagnostics - Vital Signs Vital Signs Temp Pulse Resp BP Pulse Ox 04/03/18 05:29 144/92 04/03/18 05:21 98.6 F 92 16 142/111 97 - Laboratory Lab Statement: Any lab studies that have been ordered have been reviewed, and results considered in the medical decision making process. Course/Dx - Course Course Of Treatment: Nurse's note reviewed. Patient with chronic long-standing diabetic neuropathy presents as exacerbation. He states that he went to [facility] class yesterday which has exacerbated his symptoms. He took Aleve at home with minimal improvement. He was treated with increased dose of gabapentin and a single dose of Percocet. He is instructed to call his doctor today to inquire about increased dosing of gabapentin. He will hydrate well and use Tylenol, Aleve. - Differential Dx Differential Diagnoses Neuro: Positive: Other - Chronic pain, diabetic neuropathy - Diagnoses Provider Diagnoses: Diabetic neuropathy Discharge - Sign-Out/Discharge Documenting (check all that apply): Patient Departure - DC - Discharge Plan Condition: Improved Disposition: HOME Patient Education Materials: Diabetic Peripheral Neuropathy (ED) Referrals: Collin Lowry MD [Primary Care Provider] - Additional Instructions: you were given gabapentin 300mg here. Do not take your morning dose. Call your doctor today to schedule reevaluation and possible adjustment of your gabapentin. This should be used to treat your neuropathy. Additionally, Tylenol can be taken along with the Aleve that you have been taking. Return if worse, new symptoms or other concerns. - Billing Disposition and Condition Condition: IMPROVED Disposition: Home - Attestation Statements Document Initiated by Cliveibgabriela: Yes Documenting Scribe: Carlton Sandoval Provider For Whom Henna is Documenting (Include Credential): Dr. Jeff North MD Scribe Attestation: Carlton Farias scribed for Dr. Jeff North MD on 04/03/18 at 0647. Scribe Documentation Reviewed: Yes Provider Attestation: The documentation as recorded by the Carlton bean accurately reflects the service I personally performed and the decisions made by me, Dr. Jeff North MD Status of Scribe Document: Viewed
== END 2018-04-03 05:41 | disposition home or self-care (01) ==
LOC: ED 05:19
DX: E11.40 Type 2 diabetes mellitus with diabetic neuropathy, unspecified (principal); Z87.891 Personal history of nicotine dependence; E03.9 Hypothyroidism, unspecified; E78.00 Pure hypercholesterolemia, unspecified; I25.10 Atherosclerotic heart disease of native coronary artery without angina pectoris; K21.9 Gastro-esophageal reflux disease without esophagitis
CPT/HCPCS: 99281; A9270-GY

== ENCOUNTER 2018-04-04 04:05 | Observation (INO) | payer MEDICARE, MEDICAID ==
--- NOTE | 2018-04-04 04:18 | ED ---
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 The pain woke him up while he was sleeping. Patient reports that he felt okay when he went to sleep last night. His CP has improved since arriving in the ED. The patient repeatedly falls asleep while talking to the ED physician. He has not had a stress test done before. The patient took Seroquel before he went to sleep. PMHX Diabtetes, HTN. SHX tobacco use. Vitals in the room: HR 102 bpm, BP 134/76. - History of Current Complaint Chief Complaint: EDChestPainROMI Hx Obtained From: Patient Onset/Duration: Started Minutes Ago Character: Tightness Associated Signs and Symptoms: Positive: Chest Pain - Additional Pertinent History Primary Care Physician: VITALY - Allergy/Home Medications Allergies/Adverse Reactions: Allergies Allergy/AdvReac Type Severity Reaction Status Date / Time ampicillin Allergy Unknown Rash And Verified 04/03/18 05:24 Itching propranolol Allergy Unknown Rash And Verified 04/03/18 05:24 Itching divalproex sodium Allergy Unknown Verified 04/03/18 05:24 [From Depakote] Reaction Details PMH/Surg Hx/FS Hx/Imm Hx Endocrine/Hematology History: Reports: Hx Diabetes, Hx Thyroid Disease - hypothyroid medicated with synthroid 75 mcg Cardiovascular History: Reports: Hx Angina, Hx Cardiac Arrest, Hx Hypercholesterolemia, Hx Hypotension, Hx Hypertension, Other Cardiovascular Problems/Disorders - CAD, IDDM II, HIGH CHOLESTEROL Denies: Hx Coronary Artery Disease, Hx Myocardial Infarction, Hx Pacemaker/ ICD, Hx Valvular Heart Disease Respiratory History: Reports: Hx Asthma, Hx Sleep Apnea Denies: Hx Chronic Obstructive Pulmonary Disease (COPD) GI History: Reports: Hx Gastroesophageal Reflux Disease History: Denies: Hx Renal Disease Musculoskeletal History: Reports: Other Musculoskeletal History - Hx Rt hip fracture Denies: Hx Arthritis, Hx Osteoporosis Sensory History: Denies: Hx Cataracts, Hx Contacts or Glasses, Hx Eye Injury, Hx Hearing Aid, Hx Hearing Problem, Other Sensory Impairments Opthamlomology History: Denies: Hx Cataracts, Hx Contacts or Glasses, Hx Eye Injury, Other Sensory Impairments Neurological History: Reports: Hx Migraine, Other Neuro Impairments/Disorders - parkinson's Psychiatric History: Reports: Hx Anxiety, Hx Depression, Hx Inpatient Treatment - [facility] in [place], [place], Hx Bipolar Disorder Denies: Hx Eating Disorder, Hx Panic Disorder, Hx of Violent Episodes Against Others - Surgical History Surgery Procedure, Year, and Place: tonsillectomy, hyiod suspension 10 years ago Hx Anesthesia Reactions: No - Immunization History Date of Tetanus Vaccine: UTD Date of Influenza Vaccine: 01/2017 Infectious Disease History: Denies: Hx of Known/Suspected MRSA - Family History Known Family History: Positive: Cardiac Disease, Hypertension, Other - Positive bipolar and schizophrenia - Social History Alcohol Use: Rare Alcohol Amount: 1beer/1 drink daily for a long time Hx Substance Use: No Substance Use Type: Reports: None Substance Use Comment - Amount & Last Used: uses 1-2 drinks of alcohol daily and several bowls of marijuana daily. Hx Tobacco Use: Yes Type: Cigarettes Have You Smoked in the Last Year: No Review of Systems Positive: Chest Pain Neurological: Other - very drowsy All Other Systems Reviewed And Are Negative: Yes Physical Exam - Summary Physical Exam Summary: Appearance: Well-appearing, Well-nourished, lying in bed comfortably. Somnolent , had to be aroused several times over the course of the history. Skin: Warm, dry, no obvious rash Eyes: sclera anicteric, no conjunctival pallor ENT: mucous membranes moist, pharynx appears normal Neck: Supple, nontender Respiratory: Clear to auscultation, no signs of respiratory distress Cardiovascular: Normal S1, S2. No murmurs. Normal distal pulses in tibial and radial bilaterally. Abdomen: Soft, nontender, normal active bowel sounds present Musculoskeletal: Normal, Strength/ROM Intact Neurological: A&Ox3, awake and alert, mentation is normal, speech is fluent and appropriate Psychiatric: affect is normal, does not appear anxious or depressed Triage Information Reviewed: Yes Vital Signs Reviewed: Yes Diagnostics - Laboratory Result Diagrams: 04/04/18 04:25 04/04/18 04:25 Lab Statement: Any lab studies that have been ordered have been reviewed, and results considered in the medical decision making process. 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 The pain woke him up while he was sleeping. An EKG reveals NSR 99, RBBB, Q waves III, AVF, no change from . I have reviewed his chart in some detail and can find no documentation of coronary disease, but the patient does certainly have risk factors for this. His presentation tonight is considered the atypical for anginal pain, and his electrocardiogram is unchanged. His first troponin is 0. I await his second troponin. Given his extensive risk factor history and recurrent presentation for chest pain as well as his significant psychiatric comorbidity which will likely impair his ability to complete an outpatient workup, I think it is reasonable to admit him for provocative testing and cardiology consultation and hopefully the issue to rest. Test results with no significant abnormalities. In the ED course the patient was given Lorazepam. We discussed patient care with Dr. Mata and they recommended admission. Patient will be admitted. The patient is agreeable with this plan. - Diagnoses Provider Diagnoses: Chest pain, Neurocognitive disorder, Diabetes - Provider Notifications Discussed Care Of Patient With: Abbi Mata Time Discussed With Above Provider: 06:48 Instructed by Provider To: Admit As Inpatient Discharge - Sign-Out/Discharge Documenting (check all that apply): Patient Departure - admission - Discharge Plan Condition: Fair Disposition: ADMITTED TO [facility] - Billing Disposition and Condition Condition: FAIR Disposition: Admitted to [facility] - Attestation Statements Document Initiated by Henna: Yes Documenting Scribe: Jose Vu Provider For Whom Henna is Documenting (Include Credential): Porfirio Garcia MD Scribgabriela Attestation: Jose Farias, scribed for Porfirio Garcia MD on 04/06/18 at 1109. Scribe Documentation Reviewed: Yes Provider Attestation: The documentation as recorded by the Jose bean accurately reflects the service I personally performed and the decisions made by me, Porfirio Garcia MD Status of Scribgabriela Document: Viewed
[2018-04-04 04:39] LABS: ABS Basophils 0.1 10^3/ul (0-0.2); ABS Eosinophils 0.6 10^3/ul (0-0.6); ABS Lymphocytes 1.6 10^3/ul (1.0-4.8); ABS Monocytes 0.5 10^3/ul (0-0.8); ABS Neutrophils 5.8 10^3/ul (1.5-7.7); ABS Nucleated RBC 0 10^3/ul; Eosinophil % 6.5 %; Hematocrit 39 % (42-52); Hemoglobin 12.7 g/dl (14.0-18.0); Lymphocyte % 19.1 %; Mean Corpuscular HGB Conc 33 g/dl (31-36); Mean Corpuscular Hemoglobin 32 pg (27-31); Mean Corpuscular Volume 97 fL (80-94); Mean Platelet Volume 7.2 fL (7.4-10.4); Nucleated Red Blood Cells % 0.1; Platelet Count 298 10^3/ul (150-450); Red Blood Count 3.97 10^6/ul (4.00-5.40); Red Cell Distribution Width 14 % (10.5-15); White Blood Count 8.6 10^3/ul (3.5-10.8)
[2018-04-04 04:56] LABS: Albumin 3.6 g/dL (3.2-5.2); Albumin/Globulin Ratio 1.3 (1-3); Calcium 8.9 mg/dL (8.6-10.3); EGFR Non-African American 102.7 (>60); Globulin 2.8 g/dL (2-4); Potassium 4.1 mmol/L (3.5-5.0); Total Bilirubin 0.3 mg/dL (0.2-1.0); Total Protein 6.4 g/dL (6.4-8.9)
[2018-04-04] MEDS ORDERED: LORazepam TAB(*) 1 MG PO ONE (05:04)
[2018-04-04] MEDS: Gabapentin CAP(*) 100 MG PO SCH ×2 (08:13→13:10)
[2018-04-04] MEDS ORDERED: Aspirin EC TAB* 81 MG TAB.EC PO SCH (09:00)
[2018-04-04] MEDS ORDERED: Folic Acid TAB* 1 MG PO SCH (09:00)
[2018-04-04] MEDS ORDERED: Levothyroxine TAB* 100 MCG TAB PO SCH (09:00)
[2018-04-04] MEDS ORDERED: amLODIPine TAB* 5 MG PO SCH (09:00)
[2018-04-04] MEDS ORDERED: CANAGLIFLOZIN 100 MG PO SCH (09:00)
[2018-04-04] MEDS ORDERED: Heparin VIAL(*) 5000 UNITS/ML VIAL (FIVE THOUSAND) SUBCUT SCH (14:00)
--- NOTE | 2018-04-04 16:57 | ECHO ---
Patient: SUDHAKAR HILL [facility] Rec#: [id number] : 1955 Date: 04/04/2018 Age: 62y Height: 180 cm / 70.9 in Weight: 109.1 kg / 240.5 lbs Sex: M BSA: 2.28 Room#: [facility] Admit Date#: 04/04/2018 Type: Inpatient Referring: Abbi Mata DO Reading: Arun Herrera MD Sole Filler: Cristina Perez RDCS CC: Collin Lowry MD Transthoracic Echocardiogram Indication: Chest pain BP: 107/67 HR: 95 Rhythm: NSR with PVCs Findings History: HTN, obesity, DM, prior cardiac arrest, HLD, CAD, TINO, RBBB. Technical Comments: The study quality is fair. Completed at 1445. Left Ventricle: The left ventricular chamber size is normal. Mild concentric left ventricular hypertrophy is observed. There is normal left ventricular systolic function. The estimated ejection fraction is 55-60%. There is septal flattening of the interventricular septum consistent with right ventricular volume or pressure overload. There is a left ventricular septal wall motion abnormality observed, possibly due to the presence of a right bundle branch block. Abnormal left ventricular diastolic function is observed. Abnormal left ventricular diastolic filling is observed, consistent with impaired relaxation. Left Atrium: The left atrium is mildly dilated. Right Ventricle: Moderator Band present. The right ventricle is mild to moderately dilated. The right ventricular global systolic function is mildly reduced. Right Atrium: The right atrial cavity size is normal. Aortic Valve: The aortic valve is trileaflet. The aortic valve leaflets are mildly thickened. There is a trace of aortic regurgitation. There is no evidence of aortic stenosis. Mitral Valve: There is mitral annular calcification. The mitral valve leaflets are mildly thickened. There is a trace of mitral regurgitation. There is no evidence of mitral stenosis. Tricuspid Valve: The tricuspid valve leaflets are normal. There is trace tricuspid regurgitation. Unable to estimate the right ventricular systolic pressure. There is no tricuspid stenosis. Pulmonic Valve: The pulmonic valve appears normal. There is a trace pulmonic regurgitation. There is no pulmonic stenosis. Pericardium: There is no significant pericardial effusion. A pericardial fat pad is visualized. Aorta: There is mild dilatation of the ascending aorta. There is no dilatation of the aortic arch. There is mild dilatation of the aortic root. Pulmonary Artery: The main pulmonary artery is not well visualized. Venous: The inferior vena cava appears normal in size. There is a greater than 50% respiratory change in the inferior vena cava dimension. Conclusions The study quality is fair. Mild concentric left ventricular hypertrophy is observed. The estimated ejection fraction is 55-60%. There is septal flattening of the interventricular septum consistent with right ventricular volume or pressure overload. There is a left ventricular septal wall motion abnormality observed, possibly due to the presence of a right bundle branch block. Abnormal left ventricular diastolic filling is observed, consistent with impaired relaxation. The left atrium is mildly dilated. The right ventricle is mild to moderately dilated. The right ventricular global systolic function is mildly reduced. There is a trace of aortic regurgitation. The aortic valve leaflets are mildly thickened. There is a trace of mitral regurgitation. There is a trace pulmonic regurgitation. There is mild dilatation of the ascending aorta. There is mild dilatation of the aortic root. Findings c/w hypertensive heart disease and possible cor pulmonale. Similar to 02/2013 except that the RV was normal in size and function then. Measurements Name Value Normal Range RVIDd (AP) 2D 3.5 cm (0.9 - 2.6) RVDdMajor (2D) 5.2 cm (2.2 - 4.4) RAd ISD 4CH 4.9 cm (3.4 - 4.9) RA (A4C)W 4.2 cm (2.9 - 4.6) IVSd (2D) 1.1 cm (0.6 - 1) LVPWd (2D) 1.1 cm (0.6 - 1) LVIDd (2D) 4.8 cm (3.6 - 5.4) LVIDs (2D) 3.8 cm - LV FS (2D) 20 % (25 - 45) Aortic Annulus 2.2 cm (1.4 - 2.6) Ao root diameter (2D) 3.9 cm (2.1 - 3.5) Ascending Ao 4 cm (2.1 - 3.4) Aortic arch 2.8 cm (1.8 - 3.4) LA dimension (AP) 2D 3.5 cm (2.3 - 3.8) LAd ISD 4CH 4.5 cm (2.9 - 5.3) LA ISD 4CH W 3.9 cm (2.5 - 4.5) Name Value Normal Range LA ESV BP (A/L) index 35 ml/m2 - Name Value Normal Range MV E-wave Vmax 0.7 m/sec - MV deceleration time 225 msec - MV A-wave Vmax 0.9 m/sec - MV E:A ratio 0.7 ratio - LV septal e' Vmax 0.08 m/sec - LV lateral e' Vmax 0.12 m/sec - LV E:e' septal ratio 8.7 ratio - LV E:e' lateral ratio 5.8 ratio - Name Value Normal Range AV Vmax 1.4 m/sec - AV VTI 26 cm - AV peak gradient 8 mmHg - AV mean gradient 4 mmHg - LVOT Vmax 0.9 m/sec - LVOT VTI 18 cm - LVOT peak gradient 3 mmHg - LVOT mean gradient 2 mmHg - LINDA Vmax 0.8 m/sec - Name Value Normal Range IVC diameter 1.8 cm - Name Value Normal Range PV Vmax 1 m/sec - PV peak gradient 4 mmHg -
[2018-04-04 17:28] VITALS: BP 143/83
[2018-04-04] MEDS ORDERED: QUEtiapine TAB* 100 MG PO SCH (21:00)
--- NOTE | 2018-04-05 17:41 | HP ---
CC: Dr. Lowry; Dr. Carbajal * HISTORY AND PHYSICAL: DATE OF ADMISSION: 04/04/18 PRIMARY CARE PROVIDER: Dr. Lowry. GREEN BUILDING ENERGY ENGINEER: Dr. Carbajal. CHIEF COMPLAINT: Chest pain. HISTORY OF PRESENT ILLNESS: Mr. Flower is a 62-year-old male, who presented to the emergency room with complaints of chest pain. The patient is quite groggy right now and falls asleep repeatedly during my questioning. It is difficult to get accurate history, but he states that he was awakened from sleep at approximately 2 a.m. with tightness in his chest. He believes that it lasted for approximately 1 hour or so. He had associated shortness of breath and cold sweats with the chest discomfort. He states that he has never had anything like this in the past. He does not know if he has ever had a stress test in the past. The patient has no other complaints at this time and again is very sleepy and unable to carry on a regular conversation due to receiving Ativan in the emergency room. PAST MEDICAL HISTORY: 1. Type 2 diabetes. 2. Hypertension. 3. Hyperlipidemia. 4. Asthma. 5. Bipolar 1 disorder. 6. Hypothyroidism. 7. GERD. PAST SURGICAL HISTORY: 1. Tonsillectomy. 2. Hyoid suspension. MEDICATIONS: 1. Synthroid 100 mcg p.o. daily. 2. Folic acid 1 mg p.o. daily. 3. Invokana 100 mg p.o. daily. 4. Aspirin 81 mg p.o. daily. 5. Amlodipine 10 mg p.o. daily. 6. Seroquel 200 mg p.o. daily. 7. Gabapentin 100 mg p.o. t.i.d. ALLERGIES: INDERAL and AMPICILLIN. FAMILY HISTORY: Mom of suicide. Dad is living, he is in his 80s. His dad has coronary disease. The patient has 2 brothers neither of which have coronary disease. SOCIAL HISTORY: The patient is a former smoker. He quit approximately 6 months ago. He smoked about 1 pack per day for a year. He denies any alcohol use. He is retired. He is . He has 3 children. He indicates that his brother, Paresh Flower, would be his healthcare proxy. REVIEW OF SYSTEMS: The patient denies any fevers, chills, or anorexia. He does state he has lost 30 pounds over the last several months, though he has been trying. He admits to the chest pain as above. He also notes that he has had lower extremity edema, but he is unable to tell me how long this has been going on for. He admits to shortness of breath with the chest pain, but has no cough or sputum production. No abdominal pain, nausea, vomiting, or diarrhea. No hematochezia. No hematuria, no dysuria. No focal weakness or sensory loss. No sudden changes in vision. No dysphagia. No joint pains or muscle pains out of the ordinary. No rashes. He admits to his history of bipolar disorder and being depressed at times. PHYSICAL EXAMINATION GENERAL: The patient is a well-developed, obese, middle-aged male, lying in the bed sleeping, awakens briefly to my prompting, but then quickly falls back asleep. VITAL SIGNS: Blood pressure 108/72, pulse 83, respirations 18, temp 98.3, O2 sat 94% on room air. HEENT: Pupils are equal and round. Extraocular muscles are intact. Oropharynx is clear. Oral mucosa is moist. NECK: There is no submandibular, cervical, or supraclavicular adenopathy. Thyroid is not enlarged. No thyroid nodules noted. PULMONARY: Lungs are clear to auscultation bilaterally. CARDIAC: Normal S1, S2. Regular rate and rhythm. I do not appreciate any murmurs. There is 1 to 2+ bilateral lower extremity pitting edema. ABDOMEN: Bowel sounds are present. Abdomen is soft, nontender, nondistended. MUSCULOSKELETAL: There is no cyanosis or clubbing of the digits. There is full active range of motion of all 4 extremities. NEURO: Cranial nerves II through XII are grossly intact. Sensation is intact to light touch throughout. Strength is 5/5 and symmetric in both upper and lower extremities bilaterally. PSYCH: The patient is sleepy. He appears to be oriented to situation. SKIN: Warm and dry. There are no rashes. DIAGNOSTIC STUDIES/LAB DATA: WBC 8.6, hemoglobin 12.7, hematocrit 39, platelets 298. D-dimer less than 200. Sodium 136, potassium 4.1, chloride 107 , CO2 of 22, BUN 20, creatinine 0.77, glucose 147, calcium 8.9. Bilirubin 0.3, AST 17, ALT 15, alk phos 71. Troponin 0.01 x3, then 0.02. Albumin 3.6. EKG reveals sinus rhythm with a right bundle branch block. ASSESSMENT AND PLAN: Mr. Flower is a 62-year-old male with a history of obesity, diabetes, hypertension and hyperlipidemia, who presents to the emergency room with complaints of chest pain. 1. Chest pain. The patient will be admitted and ruled out for an acute coronary syndrome with an additional troponin and EKG. If these are negative, the patient will undergo exercise nuclear stress test. If the stress test is negative, the patient will be discharged home later this afternoon; if positive , cardiology consultation will be requested. 2. Type 2 diabetes. I expect the patient will be hospitalized for only a matter of several hours and will resume his Invokana on discharge. 3. Hypertension. We will continue amlodipine. 4. Hypothyroidism. Continue Synthroid. 5. Bipolar disorder. Continue Seroquel. 6. DVT prophylaxis: According to the Adult Thrombosis Prophylaxis Risk Factor Assessment Guide, the patient has a total risk factor score of 3 making him high risk. Heparin 5000 units subcutaneous q.8 hours will be utilized as DVT prophylaxis. 7. Code status is full. TIME SPENT: 50 minutes was spent admitting this patient. [id number]/[id number] #: [id number] DENEEN
--- NOTE | 2018-04-05 21:38 | DS ---
CC: Dr. Lowry; Dr. Carbajal * DISCHARGE SUMMARY: DATE OF ADMISSION: 04/04/18 DATE OF DISCHARGE: 04/04/18 PRIMARY CARE PROVIDER: Dr. Lowry. SUPERVISOR EDGING: Dr. Carbajal. PRINCIPAL DIAGNOSES: 1. Noncardiac chest. 2. Lower extremity edema. SECONDARY DIAGNOSES: 1. Bipolar disorder 2. Type 2 diabetes. 3. Hypertension. 4. Hyperlipidemia. 5. Hypothyroidism. DISCHARGE MEDICATIONS: Unchanged from admission earlier today. HOSPITAL COURSE: Mr. Flower is a 62-year-old male with the above-listed medical problems, who presented to the emergency room with complaints of chest pain. He was ruled out for an acute acute coronary syndrome with serial troponins and EKGs. He underwent an exercise nuclear stress test, which did not reveal any evidence of ischemia. The patient did have reports of chest pain at rest and with exertion on the treadmill, but this did not correlate to any findings on the EKG portion of a stress test. The patient also underwent transthoracic echocardiogram given what the patient describes as relatively new lower extremity edema. He was found to have an EF of 55% to 60% with mild concentric LVH. There was septal flattening of the interventricular septum consistent with a right ventricular volume or pressure overload. There was left ventricular septal wall motion abnormality observed possibly due to the presence of a right bundle-branch block. Abnormal left ventricular diastolic filling is observed. Right ventricle is [id number]-iw-soyvmxkyue dilated. Right ventricular globus systolic function is mildly reduced. There was evidence of trace aortic regurgitation, trace mitral regurgitation, trace pulmonic regurgitation, mild dilation of the ascending aorta, and mild dilation of the aortic root. Findings are felt to be consistent with hypertensive heart disease and cor pulmonale similar to February 2013 except RV was normal in size and function at that point. The patient did have a negative D-dimer, which I believe rules out pulmonary embolism as the cause of the RV strain seen on echo. The patient should follow up with Dr. Carbajal in the next several weeks. The patient has been up and ambulating the pedro without any difficulty. At this point, the patient is stable for discharge home. FOLLOWUP CONCERNS: The patient is being discharged to home on 04/04/18. ACTIVITY LEVEL: As tolerated. DIET: Heart healthy, diabetic. CONDITION ON DISCHARGE: Stable. FOLLOWUP: The patient has been recommended to follow up with Dr. Lowry in the next 4 to [address] Carbajal in the next 1 to 2 weeks. TIME SPENT: Twenty minutes spent discharging this patient. [id number] #: [id number] MTDD
== END 2018-04-04 18:50 | disposition home or self-care (01) ==
LOC: ED 04:05 → MEDTELE 08:34
PROVIDERS: ADMIT Hospitalist; ATTEND Hospitalist
DX: R07.9 Chest pain, unspecified (principal); Z88.0 Allergy status to penicillin; R60.0 Localized edema; F31.9 Bipolar disorder, unspecified; E11.9 Type 2 diabetes mellitus without complications; I10 Essential (primary) hypertension; E78.5 Hyperlipidemia, unspecified; E03.9 Hypothyroidism, unspecified; K21.9 Gastro-esophageal reflux disease without esophagitis; Z79.82 Long term (current) use of aspirin; Z87.891 Personal history of nicotine dependence
CPT/HCPCS: 36415; 78452; 80053; 84484; 85025; 85379; 93005; 93017; 93306; 96372; 99285; A9270-GY; A9502; G0378; J1644

== ENCOUNTER → 2018-04-10 03:10 | Emergency (ER) | payer MEDICARE, MEDICAID ==
[~2018-04-10 03:10] MED LIST: Albuterol 2.5 MG/3 ML NEB.SOL* (0.083%) INH SCH; Albuterol/Ipratropium NEB.SOL* Albuterol 2.5 MG/Ipratropium 0.5 MG 3 ML INH ONE; Azithromycin TAB* 250 MG PO ONE; Levofloxacin 750 MG IVPREMIX(* 750 MG/150 ML BAG IVPB ONE; Magnesium Sulfate 2 GM IV* 2 GM/50 ML BAG IVPB ONE; NS 0.9% 1000 ML* 1,000 ML IV ONE; diPHENhydraMINE PO* 25 MG PO ONE; methylPREDNISolone 125 MG* 2 ML VIAL IV ONE
--- NOTE | 2018-04-10 03:28 | ED ---
Respiratory - HPI Summary HPI Summary: This patient is a 62 year old M BIB EMS presenting to [facility] with a chief complaint of difficulty breathing since this morning. He states he had a head cold and post-nasal drip. This morning he states he started wheezing. EMS gave him breathing treatments via nebulizer TRACK SWEEPER and he states they have helped. Patient reports Hx of asthma. - History of Current Complaint Stated Complaint: SOB Time Seen by Provider: 04/10/18 03:11 Hx Obtained From: Patient Onset/Duration: Gradual Onset, Lasting Days Current Severity: None Pain Intensity: 0 Character: Wheezing Alleviating Factor(s): Neb. Bronchodilators (Frequency Of Use) Associated Signs and Symptoms: SOB, Wheezing, Nasal Congestion - Allergy/Home Medications Allergies/Adverse Reactions: Allergies Allergy/AdvReac Type Severity Reaction Status Date / Time ampicillin Allergy Unknown Rash And Verified 04/03/18 05:24 Itching propranolol Allergy Unknown Rash And Verified 04/03/18 05:24 Itching divalproex sodium Allergy Unknown Verified 04/03/18 05:24 [From Depakote] Reaction Details PMH/Surg Hx/FS Hx/Imm Hx Endocrine/Hematology History: Reports: Hx Diabetes, Hx Thyroid Disease - hypothyroid medicated with synthroid 75 mcg Cardiovascular History: Reports: Hx Angina, Hx Cardiac Arrest, Hx Hypercholesterolemia, Hx Hypotension, Hx Hypertension, Other Cardiovascular Problems/Disorders - CAD, IDDM II, HIGH CHOLESTEROL Denies: Hx Coronary Artery Disease, Hx Myocardial Infarction, Hx Pacemaker/ ICD, Hx Valvular Heart Disease Respiratory History: Reports: Hx Asthma, Hx Sleep Apnea Denies: Hx Chronic Obstructive Pulmonary Disease (COPD) GI History: Reports: Hx Gastroesophageal Reflux Disease History: Denies: Hx Renal Disease Musculoskeletal History: Reports: Other Musculoskeletal History - Hx Rt hip fracture Denies: Hx Arthritis, Hx Osteoporosis Sensory History: Denies: Hx Cataracts, Hx Contacts or Glasses, Hx Eye Injury, Hx Hearing Aid, Hx Hearing Problem, Other Sensory Impairments Opthamlomology History: Denies: Hx Cataracts, Hx Contacts or Glasses, Hx Eye Injury, Other Sensory Impairments Neurological History: Reports: Hx Migraine, Other Neuro Impairments/Disorders - parkinson's Psychiatric History: Reports: Hx Anxiety, Hx Depression, Hx Inpatient Treatment - multiple in [place], [place], Hx Bipolar Disorder Denies: Hx Eating Disorder, Hx Panic Disorder, Hx of Violent Episodes Against Others - Surgical History Surgery Procedure, Year, and Place: tonsillectomy, hyiod suspension 10 years ago Hx Anesthesia Reactions: No - Immunization History Date of Tetanus Vaccine: UTD Date of Influenza Vaccine: 01/2017 Infectious Disease History: No Infectious Disease History: Denies: Hx of Known/Suspected MRSA, Traveled Outside the [place] in Last 30 Days - Family History Known Family History: Positive: Cardiac Disease, Hypertension, Other - Positive bipolar and schizophrenia - Social History Alcohol Use: Occasionally Alcohol Amount: 1beer/1 drink daily for a long time Hx Substance Use: No Substance Use Type: Reports: None Substance Use Comment - Amount & Last Used: uses 1-2 drinks of alcohol daily and several bowls of marijuana daily. Hx Tobacco Use: Yes Smoking Status (MU): Former Smoker Type: Cigarettes Have You Smoked in the Last Year: No Review of Systems Positive: Nasal Discharge Positive: Shortness Of Breath - Wheezing All Other Systems Reviewed And Are Negative: Yes Physical Exam - Summary Physical Exam Summary: VITAL SIGNS: Reviewed. GENERAL: Patient is a well-developed and nourished MALE who is lying comfortable in the stretcher. Patient is not in any acute respiratory distress. HEAD AND FACE: No signs of trauma. No ecchymosis, hematomas or skull depressions. No sinus tenderness. EYES: PERRLA, EOMI x 2, No injected conjunctiva, no nystagmus. EARS: Hearing grossly intact. Ear canals and tympanic membranes are within normal limits. MOUTH: Oropharynx within normal limits. NECK: Supple, trachea is midline, no adenopathy, no JVD, no carotid bruit, no c- spine tenderness, neck with full ROM. CHEST: Symmetric, no tenderness at palpation LUNGS: Clear to auscultation bilaterally. Bilateral expiratory wheezes. CVS: Regular rate and rhythm, S1 and S2 present, no murmurs or gallops appreciated. ABDOMEN: Soft, non-tender. No signs of distention. No rebound no guarding, and no masses palpated. Bowel sounds are normal. EXTREMITIES: FROM in all major joints, no edema, no cyanosis or clubbing. NEURO: Alert and oriented x 3. No acute neurological deficits. Speech is normal and follows commands. SKIN: Dry and warm Triage Information Reviewed: Yes Vital Signs On Initial Exam: Initial Vitals Temp Pulse Resp BP Pulse Ox 99.6 F 88 15 175/97 98 04/10/18 03:18 04/10/18 03:18 04/10/18 03:18 04/10/18 03:18 04/10/18 03:18 Vital Signs Reviewed: Yes Diagnostics - Vital Signs Vital Signs Temp Pulse Resp BP Pulse Ox 04/10/18 03:18 99.6 F 88 15 175/97 98 - Laboratory Result Diagrams: 04/10/18 03:41 04/10/18 03:41 Lab Statement: Any lab studies that have been ordered have been reviewed, and results considered in the medical decision making process. - Radiology CXR Radiology Interpretation Completed By: ED Physician Summary of Radiographic Findings: No acute process. Pending official radiologist report. - EKG 0312 Cardiac Rate: NL EKG Rhythm: Sinus Rhythm - 90 BPM Summary of EKG Findings: !st degree AV block, RBBB, Q-wave in inferior leads. Re-Evaluation - Re-Evaluation First Eval Re-Evaluation Time: 05:50 Comment: Patient says he feels itchy. Disposition - Course Course Of Treatment: This patient is a 62 year old M BIB EMS presenting to [facility] with a chief complaint of difficulty breathing since this morning. Rapid testing was unremarkable for Influenza A and B. CXR and EKG were unremarkable for acute cardiopulmonary problems. The patient will be treated and discharged with a Dx of bronchitis and asthma. This plan was discussed with the patient and he was agreeable with this plan. - Diagnoses Provider Diagnoses: Bronchitis, Asthma Discharge - Sign-Out/Discharge Documenting (check all that apply): Patient Departure - Discharge - Discharge Plan Condition: Stable Disposition: HOME Patient Education Materials: Acute Bronchitis (ED), Asthma (ED) Referrals: Collin Lowry MD [Primary Care Provider] - Additional Instructions: Return to ED with any new or worsening symptoms. - Attestation Statements Document Initiated by Scribe: Yes Documenting Scribe: Hieu Campbell Provider For Whom Scribe is Documenting (Include Credential): Pawan Rodriguez MD Scribe Attestation: Hieu Farias scribed for Pawan Rodriguez MD on 04/10/18 at 0605. Status of Scribe Document: Ready
[2018-04-10 03:57] LABS: ABS Basophils 0.1 10^3/ul (0-0.2); ABS Eosinophils 0.7 10^3/ul (0-0.6); ABS Lymphocytes 2.4 10^3/ul (1.0-4.8); ABS Monocytes 0.7 10^3/ul (0-0.8); ABS Neutrophils 4.5 10^3/ul (1.5-7.7); ABS Nucleated RBC 0 10^3/ul; Eosinophil % 8.4 %; Hematocrit 41 % (42-52); Hemoglobin 13.9 g/dl (14.0-18.0); Lymphocyte % 28.1 %; Mean Corpuscular HGB Conc 34 g/dl (31-36); Mean Corpuscular Hemoglobin 32 pg (27-31); Mean Corpuscular Volume 97 fL (80-94); Nucleated Red Blood Cells % 0; Platelet Count 371 10^3/ul (150-450); Red Blood Count 4.27 10^6/ul (4.00-5.40); Red Cell Distribution Width 14 % (10.5-15); White Blood Count 8.4 10^3/ul (3.5-10.8)
[2018-04-10 04:04] LABS: Activated Partial Thrombo Time 42.7 seconds (26.0-36.3); INR 0.9 (0.77-1.02)
[2018-04-10 04:12] LABS: Albumin 3.9 g/dL (3.2-5.2); Albumin/Globulin Ratio 1.3 (1-3); BUN/Creatinine Ratio 18.8 (8-20); Calcium 9.1 mg/dL (8.6-10.3); EGFR Non-African American 79.6 (>60); Globulin 2.9 g/dL (2-4); Potassium 3.9 mmol/L (3.5-5.0); Total Bilirubin 0.3 mg/dL (0.2-1.0); Total Protein 6.8 g/dL (6.4-8.9)
[2018-04-10 06:24] VITALS: BP 149/76
== END | disposition home or self-care (01) ==
LOC: ED 03:10
DX: J45.909 Unspecified asthma, uncomplicated (principal); I44.0 Atrioventricular block, first degree; I45.10 Unspecified right bundle-branch block; Z87.891 Personal history of nicotine dependence; E11.9 Type 2 diabetes mellitus without complications; E03.9 Hypothyroidism, unspecified; E78.00 Pure hypercholesterolemia, unspecified; I10 Essential (primary) hypertension; I25.10 Atherosclerotic heart disease of native coronary artery without angina pectoris; K21.9 Gastro-esophageal reflux disease without esophagitis
CPT/HCPCS: 36415; 71045; 80053; 83605; 83880; 84484; 85025; 85610; 85730; 87040; 93005; 96361; 96374; 96375; 99283; A9270-GY; J2930; J3475

== ENCOUNTER → 2018-04-18 11:28 | Emergency (ER) | payer MEDICARE, MEDICAID ==
--- NOTE | 2018-04-18 12:04 | ED ---
HPI Chest Pain - HPI Summary HPI Summary: A 62 y/o male brought in by ambulance presents to the ED c/o chest pain. Additionally c/o SOB. In the ED room, the patient has a pulse of 101 BPM. As per triage, "chest tightness, sharp pain to central cehst with radiating pain down left arm. SOB, nausea. history of same, x2 NM, HTN, states he has PVCs. bilateral edema to lower extremities noted this AM. x1 nitro tab by EMS. also c/ o headache". According to the patient, the CP and SOB started approximately 2 hours ago. He stated that he feels like "someone is sitting on my chest". He characterizes the chest pain as pressure and tightness, but does get sharp pains in the middle infrequently. He noted that the edema in his legs and feet started today when he woke up this morning. Patient denies any double vision, ear ache, abdominal pain, however, he does have headache, sore throat, blurred vision, vomiting, burning with urination, fever (couple night ago of 103.0 F). He stated that he was recently diagnosed with a lung infection (not sure if it is bronchitis or pneumonia), but he was placed on antibiotics. He stated that he has fluid in his lungs and is coughing up green flem. PMHx of stents, no pacemaker and open heart surgery. Patient had flu shot. Travel Services Professional is Dr. Guzmná at [facility]. - History of Current Complaint Chief Complaint: EDChestPainROMI Hx Obtained From: Patient Onset/Duration: Started Hours Ago, Still Present Timing: Constant, Lasting Hours Initial Severity: Severe Current Severity: Severe Pain Intensity: 8 Pain Scale Used: 0-10 Numeric Chest Pain Location: Mid Sternal Chest Pain Radiates: No Character: Cough, Productive, Dyspnea at Rest, Pressure/Squeezing, Sharp/ Stabbing Aggravating Factor(s): Nothing Alleviating Factor(s): Nothing Associated Signs and Symptoms: Positive: Chest Pain, Vision Changes - BLURRED VISION, Headaches, Shortness of Breath, Fever, Lightheadedness, Productive Cough , Vomiting, Edema. Negative: Nausea, Back Pain, Abdominal Pain - Additional Pertinent History Primary Care Physician: VITALY - Allergy/Home Medications Allergies/Adverse Reactions: Allergies Allergy/AdvReac Type Severity Reaction Status Date / Time ampicillin Allergy Unknown Rash And Verified 04/18/18 11:40 Itching propranolol Allergy Unknown Rash And Verified 04/18/18 11:40 Itching divalproex sodium Allergy Unknown Verified 04/18/18 11:40 [From Depakote] Reaction Details Home Medications: Home Medications Albuterol Sulfate [Ventolin Hfa] 2 puff INH Q4H PRN 04/18/18 [History Confirmed 04/18/18] Atorvastatin* [Lipitor*] 20 mg PO DAILY 04/18/18 [History Confirmed 04/18/18] DULoxetine CAP* [Cymbalta CAP*] 60 mg PO DAILY 04/18/18 [History Confirmed ] Furosemide TAB* [Lasix TAB*] 40 mg PO DAILY 04/18/18 [History Confirmed 04/18/18 ] Lisinopril 20 mg PO DAILY 04/18/18 [History Confirmed 04/18/18] Tramadol HCl 50 mg PO TID PRN 04/18/18 [History Confirmed 04/18/18] hydroCHLOROthiazide [Hydrochlorothiazide] 12.5 mg PO DAILY 04/18/18 [History Confirmed 04/18/18] PMH/Surg Hx/FS Hx/Imm Hx Endocrine/Hematology History: Reports: Hx Diabetes, Hx Thyroid Disease - hypothyroid medicated with synthroid 75 mcg Cardiovascular History: Reports: Hx Angina, Hx Cardiac Arrest, Hx Hypercholesterolemia, Hx Hypotension, Hx Hypertension, Other Cardiovascular Problems/Disorders - CAD, IDDM II, HIGH CHOLESTEROL Denies: Hx Coronary Artery Disease, Hx Myocardial Infarction, Hx Pacemaker/ ICD, Hx Valvular Heart Disease Respiratory History: Reports: Hx Asthma, Hx Sleep Apnea Denies: Hx Chronic Obstructive Pulmonary Disease (COPD) GI History: Reports: Hx Gastroesophageal Reflux Disease History: Denies: Hx Renal Disease Musculoskeletal History: Reports: Other Musculoskeletal History - Hx Rt hip fracture Denies: Hx Arthritis, Hx Osteoporosis Sensory History: Denies: Hx Cataracts, Hx Contacts or Glasses, Hx Eye Injury, Hx Hearing Aid, Hx Hearing Problem, Other Sensory Impairments Opthamlomology History: Denies: Hx Cataracts, Hx Contacts or Glasses, Hx Eye Injury, Other Sensory Impairments Neurological History: Reports: Hx Migraine, Other Neuro Impairments/Disorders - parkinson's Psychiatric History: Reports: Hx Anxiety, Hx Depression, Hx Inpatient Treatment - multiple in [place], [place], Hx Bipolar Disorder Denies: Hx Eating Disorder, Hx Panic Disorder, Hx of Violent Episodes Against Others - Surgical History Surgery Procedure, Year, and Place: tonsillectomy, hyiod suspension 10 years ago Hx Anesthesia Reactions: No - Immunization History Date of Tetanus Vaccine: UTD Date of Influenza Vaccine: 01/2017 Infectious Disease History: No Infectious Disease History: Denies: Hx of Known/Suspected MRSA, Traveled Outside the [place] in Last 30 Days - Family History Known Family History: Positive: Cardiac Disease, Hypertension, Other - Positive bipolar and schizophrenia - Social History Alcohol Use: Weekly Alcohol Amount: 1beer/1 drink daily for a long time Hx Substance Use: No Substance Use Type: Reports: Cocaine, Marijuana Substance Use Comment - Amount & Last Used: uses 1-2 drinks of alcohol daily and several bowls of marijuana daily. Hx Tobacco Use: Yes Smoking Status (MU): Former Smoker Type: Cigarettes Have You Smoked in the Last Year: No Review of Systems Positive: Fever - RESOLVED. COUPLE NIGHTS AGO IT WAS 103.0 F Positive: Blurred Vision, Other - NEGATIVE: DOUBLE VISION Positive: Sore Throat. Negative: Ear Ache Positive: Chest Pain Positive: Shortness Of Breath Positive: Vomiting, Other - NEGATIVE: BLOOD IN STOOL, CONSTIPATION. Negative: Abdominal Pain, Diarrhea, Nausea Positive: burning. Negative: dysuria, hematuria Positive: Edema, Other - NEGATIVE: BACK PAIN, NECK PAIN Negative: Rash, Bruising Positive: Headache All Other Systems Reviewed And Are Negative: No Physical Exam - Summary Physical Exam Summary: Appearance: Alert, conversive, nontoxic appearing Skin: Warm, dry, no mottling, no rashes, no contusions HEENT: EOMI, PERRL, moist mucous membranes Neck: No masses on the neck, supple Respiratory: breath sounds present, no rales, no rhonchi, no wheezes, occasional intermittent crackles. Cardiovascular: RRR, pulses are symmetrical in both lower and upper extremities Abdomen: Soft, non-tender Bowel Sounds: Present Musculoskeletal: No CVA tenderness, no obvious deformity, moving all extremities in a grossly normal manner, significant bilateral lower extremity edema and pedal edema. Neurological: A&Ox3, CN II-XII Intact, moving all extremities symmetrically Psychiatric: Normal affect and mood Triage Information Reviewed: Yes Vital Signs On Initial Exam: Initial Vitals Temp Pulse Resp BP Pulse Ox 97 F 96 12 128/77 97 04/18/18 11:29 04/18/18 11:29 04/18/18 11:29 04/18/18 11:29 04/18/18 11:29 Vital Signs Reviewed: Yes Diagnostics - Vital Signs Vital Signs Temp Pulse Resp BP Pulse Ox 04/18/18 11:32 96 12 96 04/18/18 11:29 97 F 96 12 128/77 97 - Laboratory Result Diagrams: 04/18/18 13:47 04/18/18 14:29 Lab Statement: Any lab studies that have been ordered have been reviewed, and results considered in the medical decision making process. - Radiology CXR Radiology Interpretation Completed By: Radiologist Summary of Radiographic Findings: No evidence for pulmonary edema. No evidence for acute intrathoracic disease. ED PHYSICIAN REVIEWED THIS RADIOLOGY REPORT. - EKG 1129 Cardiac Rate: NL - [address] Segment: Non-Specific - NON-SPECIFIC T-WAVE CHANGES Summary of EKG Findings: QRS WIDENED, RBBB, NON-SPECIFIC T-WAVE CHANGES, NO AMI. Re-Evaluation - Re-Evaluation First Eval Re-Evaluation Time: 12:55 Change: Unchanged Comment: POLICE INFORMED ED MD THAT PATIENT IS UNDER ARREST FOR TRESPASSING. Chest Pain Course/Dx - Course Course Of Treatment: A 62 y/o male brought in by ambulance presents to the ED c/ o chest pain. Additionally c/o SOB. In the ED room, the patient has a pulse of 101 BPM. According to the patient, the CP and SOB started approximately 2 hours ago. He stated that he feels like "someone is sitting on my chest". He characterizes the chest pain as pressure and tightness, but does get sharp pains in the middle infrequently. He noted that the edema in his legs and feet started today when he woke up this morning. Physical examination findings significant for significant bilateral lower extremity edema and pedal edema, occasional intermittent crackles. A CXR revealed no evidence for pulmonary edema , no svidence for acute intrathoracic disease. An EKG revealed a NSR rate of 97 BPM, QRS is widened, RBBB, non-specific T-wave changes, no AMI. Hematology, coagulation, Chemistry, urinalysis, and serology screens were done. No significant laboratory abnormalities were found except hyperglycemia at 120 mg/ dL. Influenza screens were negative. In the ED course, the patient received no medications. Patient will be discharged with a diagnosis of chest pain and peripheral edema. Patient is agreeable with this plan. - Diagnoses Provider Diagnoses: Chest pain, Peripheral edema Discharge - Sign-Out/Discharge Documenting (check all that apply): Patient Departure - DISCHARGE - Discharge Plan Condition: Stable Disposition: HOME Patient Education Materials: Chest Pain (ED) Referrals: Collin Lowry MD [Primary Care Provider] - Additional Instructions: Please follow up with your primary care physician and your professional caster next week. return if worse or any new symptoms. Take all medications as previously instructed. - Attestation Statements Document Initiated by Scribe: Yes Documenting Scribe: Diaz Stanley Provider For Whom Cliveibe is Documenting (Include Credential): Kaela Hatch MD Scribe Attestation: Diaz Farias, scribed for Kaela Hatch MD on 04/18/18 at 1606. Status of Scribe Document: Ready
[2018-04-18 12:42] LABS: ALT 24 U/L (7-52); Albumin 3.8 g/dL (3.2-5.2); Albumin/Globulin Ratio 1.1 (1-3); Alkaline Phosphatase 87 U/L (34-104); BUN/Creatinine Ratio 19.6 (8-20); Blood Urea Nitrogen 19 mg/dL (6-24); CO2 Carbon Dioxide 27 mmol/L (22-32); Calcium 9.6 mg/dL (8.6-10.3); Chloride 96 mmol/L (101-111); EGFR Non-African American 78.7 (>60); Globulin 3.6 g/dL (2-4); Glucose 120 mg/dL (70-100); Sodium 133 mmol/L (135-145); Total Protein 7.4 g/dL (6.4-8.9)
[2018-04-18 13:28] LABS: TSH (Thyroid Stimulating Horm) 2.27 mcIU/mL (0.34-5.60)
[2018-04-18 14:00] LABS: Hematocrit 45 % (42-52); Hemoglobin 14.8 g/dl (14.0-18.0); Mean Corpuscular HGB Conc 33 g/dl (31-36); Mean Corpuscular Hemoglobin 32 pg (27-31); Mean Corpuscular Volume 97 fL (80-94); Mean Platelet Volume 6.8 fL (7.4-10.4); Platelet Count 406 10^3/ul (150-450); Red Blood Count 4.63 10^6/ul (4.00-5.40); Red Cell Distribution Width 14 % (10.5-15); White Blood Count 12.6 10^3/ul (3.5-10.8)
[2018-04-18 14:03] LABS: Anion Gap 10 mmol/L (2-11)
[2018-04-18 14:15] LABS: Activated Partial Thrombo Time 37.2 seconds (26.0-36.3); INR 0.89 (0.77-1.02)
[2018-04-18 14:24] LABS: ABS Basophils 0.2 10^3/ul (0-0.2); ABS Eosinophils 0.4 10^3/ul (0-0.6); ABS Lymphocytes 1.9 10^3/ul (1.0-4.8); ABS Monocytes 0.7 10^3/ul (0-0.8); ABS Neutrophils 9.4 10^3/ul (1.5-7.7); ABS Nucleated RBC 0 10^3/ul; Eosinophil % 3.1 %; Lymphocyte % 15.4 %; Nucleated Red Blood Cells % 0.1
[2018-04-18 14:27] LABS: Urine Appearance Clear; Urine Bilirubin Negative (Negative); Urine Blood Negative (Negative); Urine Color Yellow; Urine Glucose 3+(>=500 mg/dL) (Negative); Urine Ketones Negative (Negative); Urine Nitrite Negative (Negative); Urine Protein Negative (Negative); Urine Specific Gravity 1.006 (1.010-1.030); Urine Urobilinogen Negative (Negative)
[2018-04-18 15:30] VITALS: BP 127/86
== END | disposition home or self-care (01) ==
LOC: ED 11:28
DX: R07.9 Chest pain, unspecified (principal); R60.9 Edema, unspecified; R06.02 Shortness of breath; Z87.891 Personal history of nicotine dependence; R50.9 Fever, unspecified; H53.8 Other visual disturbances; J02.9 Acute pharyngitis, unspecified
CPT/HCPCS: 36415; 71045; 80053; 81003; 83605; 83880; 84443; 84484; 85025; 85610; 85730; 87040; 93005; 99284

== ENCOUNTER 2018-04-21 13:50 | Inpatient (IN) | payer MEDICARE, OTHER ==
[2018-04-21] MEDS ORDERED: Nicotine Inhaler* 10 MG AMP INH PRN (14:01)
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
[2018-04-21 14:23] LABS: Hematocrit 39 % (42-52); Hemoglobin 13.2 g/dl (14.0-18.0); Mean Corpuscular HGB Conc 34 g/dl (31-36); Mean Corpuscular Hemoglobin 33 pg (27-31); Mean Corpuscular Volume 97 fL (80-94); Mean Platelet Volume 6.8 fL (7.4-10.4); Platelet Count 370 10^3/ul (150-450); Red Blood Count 4.05 10^6/ul (4.00-5.40); Red Cell Distribution Width 14 % (10.5-15); White Blood Count 10.9 10^3/ul (3.5-10.8)
[2018-04-21 14:44] LABS: ALT 18 U/L (7-52); AST 16 U/L (13-39); Albumin 3.9 g/dL (3.2-5.2); Albumin/Globulin Ratio 1.4 (1-3); Alkaline Phosphatase 90 U/L (34-104); Anion Gap 7 mmol/L (2-11); BUN/Creatinine Ratio 24.5 (8-20); Blood Urea Nitrogen 23 mg/dL (6-24); CO2 Carbon Dioxide 27 mmol/L (22-32); Calcium 9.3 mg/dL (8.6-10.3); Chloride 100 mmol/L (101-111); EGFR Non-African American 81.6 (>60); Globulin 2.7 g/dL (2-4); Glucose 104 mg/dL (70-100); Potassium 4.2 mmol/L (3.5-5.0); Sodium 134 mmol/L (135-145); Total Protein 6.6 g/dL (6.4-8.9)
[2018-04-21 14:51] LABS: ABS Basophils 0.1 10^3/ul (0-0.2); ABS Eosinophils 0.4 10^3/ul (0-0.6); ABS Monocytes 0.7 10^3/ul (0-0.8); ABS Neutrophils 7.6 10^3/ul (1.5-7.7); ABS Nucleated RBC 0 10^3/ul; Eosinophil % 3.8 %; Lymphocyte % 18.6 %; Nucleated Red Blood Cells % 0
[2018-04-21 15:05] LABS: Acetaminophen < 15 mcg/mL; Alcohol < 10 mg/dL (<10); Salicylate < 2.50 mg/dL (<30)
[2018-04-21 15:20] LABS: TSH (Thyroid Stimulating Horm) 1.26 mcIU/mL (0.34-5.60)
[2018-04-21] MEDS ORDERED: LORazepam TAB(*) 1 MG PO ONE (16:09)
[2018-04-21] MEDS ORDERED: Haloperidol TAB* 5 MG PO ONE (16:09)
[2018-04-21] MEDS ORDERED: diPHENhydraMINE PO* 50 MG PO ONE (16:09)
[2018-04-21] MEDS ORDERED: traMADol TAB* 50 MG PO ONE (16:10)
[2018-04-21 16:38] LABS: Urine Appearance Clear; Urine Bacteria Absent (Absent); Urine Bilirubin Negative (Negative); Urine Blood Negative (Negative); Urine Color Straw; Urine Glucose 3+(>=500 mg/dL) (Negative); Urine Ketones Negative (Negative); Urine Nitrite Negative (Negative); Urine Protein Negative (Negative); Urine Red Blood Cell Trace(0-2/hpf) (Absent); Urine Specific Gravity 1.006 (1.010-1.030); Urine Urobilinogen Negative (Negative); Urine White Blood Cell 2+(11-20/hpf) (Absent)
[2018-04-21 16:57] LABS: Barbiturates Urine Screen None Detected (None Detect); Benzodiazepine Urine Screen None Detected (None Detect); Urine Cannabinoids Screen None Detected (None Detect)
[2018-04-21] MEDS ORDERED: Albuterol HFA INHALER* 8 gm MDI INH ONE (16:58)
[2018-04-21] MEDS ORDERED: Gabapentin CAP(*) 300 MG PO ONE (16:59)
[2018-04-21] MEDS ORDERED: Acetaminophen TAB* 325 MG PO ONE (23:08)
--- NOTE | 2018-04-21 23:08 | ED ---
Progress - Progress Note Progress Note: This patient was signed out from Dr. Pérez awaiting MHE. Re-Evaluation - Re-Evaluation First Eval Re-Evaluation Time: 14:15 Change: Unchanged Comment: Cleared for MHE. Second Eval Re-Evaluation Time: 16:00 Change: Unchanged Comment: Patient requesting pain medication. Course/Dx - Course Course Of Treatment: A 62 y/o male brought in by police and [facility] ambulance has a chief complaint of being brought in on a 945 on 04/21/18. The physical exam revealed that the patient had rhonchi. CXR impression: Stigmata of obstructive lung disease. No acute pulmonary or cardiac process evident. Lab results obtained and WNL. The patient has been cleared for MHE. In the ED course the patient was given Neurontin, Haldol, Ativan, Ultram and Benadryl PO and Albuterol and Nicotine INH. This patient will be signed out to Dr. Rodriguez upon shift change at 19:00 04/21/18 pending MHE. - Diagnoses Provider Diagnoses: Gely Discharge - Sign-Out/Discharge Documenting (check all that apply): Receiving Sign-Out Receiving patient FROM: Adis Pérez - Discharge Plan Condition: Stable Referrals: Collin Lowry MD [Primary Care Provider] - - Attestation Statements Document Initiated by Scribe: Yes Documenting Scribe: Manny King Provider For Whom Scribe is Documenting (Include Credential): Pawan Rodriguez MD Scribe Attestation: Manny Farias , scribed for Pawan Rodriguez MD on 04/21/18 at 2596.
[2018-04-22] MEDS ORDERED: Gabapentin CAP(*) 300 MG PO ONE (01:16)
[2018-04-22] MEDS ORDERED: traMADol TAB* 50 MG PO ONE (01:18)
--- NOTE | 2018-04-22 03:28 | ED ---
Progress - Progress Note Progress Note: This patient was signed out from Dr. Anthony awaiting MHE - Consult/PCP Time Called: 00:00 Re-Evaluation - Re-Evaluation First Eval Re-Evaluation Time: 14:15 Change: Unchanged Comment: Cleared for MHE. Second Eval Re-Evaluation Time: 16:00 Change: Unchanged Comment: Patient requesting pain medication. Course/Dx - Course Course Of Treatment: After a MHE by Dr. Yu the patient will be admitted for bipolar disorder. - Diagnoses Provider Diagnoses: Bipolar disorder Discharge - Sign-Out/Discharge Documenting (check all that apply): Patient Departure, Receiving Sign-Out Receiving patient FROM: Seun Anthony - Discharge Plan Condition: Stable Referrals: Collin Lowry MD [Primary Care Provider] - - Attestation Statements Document Initiated by Scribe: Yes Documenting Scribe: nilsa padilla Provider For Whom Scribe is Documenting (Include Credential): Pawan Rodriguez MD Scribe Attestation: Inilsa , scribed for Pawan Rodriguez MD on 04/22/18 at 0328. Status of Scribe Document: Ready
[2018-04-22] MEDS: Levothyroxine TAB* 100 MCG TAB PO SCH (06:41)
[2018-04-22] MEDS: traMADol TAB* 50 MG PO PRN ×2 (06:42→14:05)
[2018-04-22] MEDS ORDERED: DULoxetine DR CAP* 20 MG CAP.DR PO SCH (09:00)
[2018-04-22] MEDS: Acetaminophen TAB* 325 MG PO PRN (09:31)
[2018-04-22] MEDS: Hydrochlorothiazide TAB* 25 MG PO SCH (09:32)
[2018-04-22] MEDS: Lisinopril TAB* 10 MG PO SCH (09:33)
[2018-04-22] MEDS: Atorvastatin* 20 MG TAB PO SCH (09:34)
[2018-04-22] MEDS: Folic Acid TAB* 1 MG PO SCH (09:34)
[2018-04-22] MEDS: Famotidine TAB* 20 MG PO SCH ×2 (09:36→20:43)
[2018-04-22] MEDS: Furosemide TAB* 40 MG PO SCH (09:36)
[2018-04-22] MEDS: Vitamin THERAPEUTIC TAB PO SCH (09:36)
[2018-04-22] MEDS: Aspirin 81 mg CHEW TAB* 81 MG TAB.CHEW PO SCH (09:36)
[2018-04-22] MEDS: amLODIPine TAB* 5 MG PO SCH (09:37)
[2018-04-22] MEDS: Gabapentin CAP(*) 300 MG PO SCH ×3 (09:37→20:44)
[2018-04-22] MEDS: PTO: Canagliflozin (NF) 100 MG TAB PO SCH (09:38)
--- NOTE | 2018-04-22 11:44 | PN ---
MHU: Group Therapy Note - Service Type Service Type: 90054 Group Psychotherapy - Cognitive Behavioral Group Therapy ( CBT):Patient was attentive and participatory in CBT programming this morning, and remained in good behavioral control. Patient expressed positive insights regarding relevant treatment interventions and goals. He impressed as having elevated mood in cbt this morning.
[2018-04-22] MEDS ORDERED: Benzocaine (DENTAL) 10%* TOP.GEL TOPICAL PRN (15:06)
[2018-04-22] MEDS ORDERED: LORazepam TAB(*) 1 MG ONE (15:15)
[2018-04-22] MEDS ORDERED: Haloperidol TAB* 5 MG ONE (15:15)
[2018-04-22] MEDS ORDERED: diPHENhydraMINE PO* 50 MG ONE (15:15)
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
[2018-04-22] MEDS: QUEtiapine TAB* 300 MG PO SCH (20:43)
[2018-04-22] MEDS: Melatonin 3 MG TAB PO SCH (20:43)
[2018-04-22] MEDS: LORazepam TAB(*) 1 MG PO SCH (20:44)
[2018-04-22] MEDS: QUEtiapine TAB* 100 MG PO SCH (20:44)
[2018-04-22] MEDS ORDERED: QUEtiapine TAB* 300 MG PO SCH (21:00)
[2018-04-22] MEDS ORDERED: QUEtiapine TAB* 100 MG PO SCH (21:00)
[2018-04-23] MEDS: traMADol TAB* 50 MG PO PRN (05:49)
[2018-04-23] MEDS: Levothyroxine TAB* 100 MCG TAB PO SCH (05:49)
[2018-04-23] MEDS: Furosemide TAB* 40 MG PO SCH (10:00)
[2018-04-23] MEDS: Lisinopril TAB* 10 MG PO SCH (10:01)
[2018-04-23] MEDS: PTO: Canagliflozin (NF) 100 MG TAB PO SCH (10:03)
[2018-04-23] MEDS: Folic Acid TAB* 1 MG PO SCH (10:04)
[2018-04-23] MEDS: amLODIPine TAB* 5 MG PO SCH (10:04)
[2018-04-23] MEDS: Vitamin THERAPEUTIC TAB PO SCH (10:04)
[2018-04-23] MEDS: Famotidine TAB* 20 MG PO SCH ×2 (10:04→21:56)
[2018-04-23] MEDS: Gabapentin CAP(*) 300 MG PO SCH ×3 (10:04→21:55)
[2018-04-23] MEDS: Aspirin 81 mg CHEW TAB* 81 MG TAB.CHEW PO SCH (10:04)
[2018-04-23] MEDS: Atorvastatin* 20 MG TAB PO SCH (10:05)
[2018-04-23] MEDS: Acetaminophen TAB* 325 MG PO PRN ×3 (10:08→23:30)
[2018-04-23] MEDS: Polyethylene Glycol 3350* 17 GM PACKET PO SCH (10:10)
[2018-04-23] MEDS ORDERED: Pneumococcal *Vac Polyvalent 0.5 ML VIAL IM ONE (12:00)
[2018-04-23] MEDS ORDERED: Albuterol 0.5% CONC NEB.SOL* 5 MG/ML 20 ml BOT INH ONE (12:14)
[2018-04-23] MEDS ORDERED: Albuterol 2.5 MG/3 ML NEB.SOL* (0.083%) INH ONE (12:36)
[2018-04-23] MEDS: Albuterol 2.5 MG/3 ML NEB.SOL* (0.083%) INH PRN (12:36)
[2018-04-23] MEDS: Hydrochlorothiazide TAB* 25 MG PO SCH (12:47)
--- NOTE | 2018-04-23 12:53 | PN ---
MHU: Group Therapy Note - Service Type Service Type: 93943 Group Psychotherapy - Cognitive Behavioral Group Therapy ( CBT):Patient presented in CBT programming as disorganized and disruptive in discussion and needed repeated redirection to attend to presented materials.
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
[2018-04-23] MEDS: LORazepam TAB(*) 1 MG PO SCH (21:53)
[2018-04-23] MEDS: QUEtiapine TAB* 300 MG PO SCH (21:54)
[2018-04-23] MEDS: QUEtiapine TAB* 100 MG PO SCH (21:55)
[2018-04-23] MEDS: Melatonin 3 MG TAB PO SCH (21:56)
[2018-04-24] MEDS: Albuterol HFA INHALER* 8 gm MDI INH PRN ×2 (00:13→06:29)
[2018-04-24] MEDS: traMADol TAB* 50 MG PO PRN ×2 (00:13→18:30)
[2018-04-24] MEDS: Levothyroxine TAB* 100 MCG TAB PO SCH (06:29)
[2018-04-24] MEDS: Albuterol 2.5 MG/3 ML NEB.SOL* (0.083%) INH PRN ×2 (09:00→22:47)
[2018-04-24] MEDS: Atorvastatin* 20 MG TAB PO SCH (10:34)
[2018-04-24] MEDS: Gabapentin CAP(*) 300 MG PO SCH ×3 (10:34→22:31)
[2018-04-24] MEDS: Lisinopril TAB* 10 MG PO SCH (10:34)
[2018-04-24] MEDS: Vitamin THERAPEUTIC TAB PO SCH (10:34)
[2018-04-24] MEDS: Folic Acid TAB* 1 MG PO SCH (10:34)
[2018-04-24] MEDS: amLODIPine TAB* 5 MG PO SCH (10:34)
[2018-04-24] MEDS: Famotidine TAB* 20 MG PO SCH ×2 (10:34→22:31)
[2018-04-24] MEDS: Aspirin 81 mg CHEW TAB* 81 MG TAB.CHEW PO SCH (10:35)
[2018-04-24] MEDS: Hydrochlorothiazide TAB* 25 MG PO SCH (10:35)
[2018-04-24] MEDS: PTO: Canagliflozin (NF) 100 MG TAB PO SCH (10:38)
[2018-04-24] MEDS: Polyethylene Glycol 3350* 17 GM PACKET PO SCH (10:39)
[2018-04-24] MEDS: Furosemide TAB* 40 MG PO SCH (10:39)
[2018-04-24] MEDS: Acetaminophen TAB* 325 MG PO PRN (18:31)
--- NOTE | 2018-04-24 20:08 | PN ---
Subjective - Subjective Date of Service: 04/24/18 Service Type: 16386 Hosp care 25 min moderate complexity Subjective: Wei and Jarrett began talking and then he left to use the bathroom and was gone for quite some time. Following that break in contact, we did not reconnect. He then became extremely irritable with staff, shouting and threatening. Further, he seems to have had a mild cardiac event which will precipitate reduction in Seroquel from 400 mg to [address] Dago Manley. Wei is also making inappropriate comments to women, both staff and peers. Clearly his manic/hypomanic behaviors are getting in the way of his getting well. Further, his somatic complaints are complicating this process. Objective - Appearance Appearance: Obese Dysmorphic Features: No Hygiene: Normal Grooming: Fairly Well Kept - Behavior Psychomotor Activities: Normal Exhibits Abnormal Movement: No - Attitude and Relatedness Attitude and Relatedness: Irritable Eye Contact: Fair - Speech Quality: Pressured Latencies: Normal Quantity: Copious - Mood Patient's Decription of Mood: "Angry" - Affect Observed Affect: Labile Affect Consistent with: Dysphoria - Thought Process Patient's Thought Process: Coherent, Goal Directed, Circumstantial Thought Content: No Passive Wish, No Suicidal Planning, No Homicidal Ideation, No Paranoid Ideation - Sensorium Experiencing Hallucinations: No, Sensorium is Clear Type of Hallucinations: Visual: No, Auditory: No, Command: No - Level of Consciousness Level of Consciousness: Agitated Orientation: Yes Intact, Yes Orientated to Time, Yes Orientated to Place, Yes Orientated to Person - Impulse Control Impulse Control: Poor - Insight and Judgement Insight and Judgement: Poor - Group Participation Particating in Group Activities: Yes - Medication Management Medication Management Adherence: Yes Assessment - Assessment Merits Inpatient Hospitalization: For Immediate Safety Inpatient DSM-V Dx: F31.0 Clinical Impression: Wei is a 62-year-old man with a long history of bipolar 1 disorder who has been disabled due to mental illness since approximately 2007 who comes to the hospital from [facility] on a 9.39 status due to erratic behavior including "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 His is manic at this time and in need of treatment. Plan - Plan Treatment Plan: Name: WEI HILL Birthdate: 1955 [id number] Continued Medication Management: Different Medication Medications: Current Medications Acetaminophen (Tylenol Tab*) 650 mg PO Q4H PRN PRN Reason: PAIN or TEMP > 101 F Last Admin: 04/24/18 18:31 Dose: 650 mg Al Hydrox/Mg Hydrox/Simethicone (Maalox Plus*) 30 ml PO Q4H PRN PRN Reason: INDIGESTION Albuterol (Ventolin Hfa Inhaler*) 2 puff INH Q4H PRN PRN Reason: WHEEZING Last Admin: 04/24/18 06:29 Dose: 2 puff Albuterol (Ventolin 2.5 Mg/3 Ml Neb.Eli*) 2.5 mg INH Q4H PRN PRN Reason: SOB/WHEEZING Last Admin: 04/24/18 09:00 Dose: 2.5 mg Amlodipine Besylate (Norvasc Tab*) 5 mg PO DAILY [facility] Last Admin: 04/24/18 10:34 Dose: 5 mg Aspirin (Aspirin 81 Mg Chew Tab*) 81 mg PO DAILY [facility] Last Admin: 04/24/18 10:35 Dose: 81 mg Atorvastatin Calcium (Lipitor*) 20 mg PO DAILY [facility] Last Admin: 04/24/18 10:34 Dose: 20 mg Benzocaine (Orajel 10%*) 1 applic TOPICAL QID PRN PRN Reason: PAIN Canagliflozin (Invokana (Nf)) 100 mg PO DAILY [facility] Last Admin: 04/24/18 10:38 Dose: 100 mg Diphenhydramine HCl (Benadryl Po*) 50 mg PO Q6H PRN PRN Reason: Agiation/Anxiety Famotidine (Pepcid Tab*) 20 mg PO BID [facility] Last Admin: 04/24/18 10:34 Dose: 20 mg Folic Acid (Folvite Tab*) 1 mg PO DAILY [facility] Last Admin: 04/24/18 10:34 Dose: 1 mg Furosemide (Lasix Tab*) 40 mg PO DAILY [facility] Last Admin: 04/24/18 10:39 Dose: 40 mg Gabapentin (Neurontin Cap(*)) 300 mg PO TID [facility] Last Admin: 04/24/18 15:27 Dose: Not Given Haloperidol (Haldol Tab*) 5 mg PO Q6H PRN PRN Reason: AGITATION Hydrochlorothiazide (Hydrodiuril Tab*) 12.5 mg PO DAILY [facility] Last Admin: 04/24/18 10:35 Dose: 12.5 mg Levothyroxine Sodium (Synthroid Tab*) 100 mcg PO DAILY@0600 [facility] Last Admin: 04/24/18 06:29 Dose: 100 mcg Lisinopril (Prinivil Tab*) 20 mg PO DAILY [facility] Last Admin: 04/24/18 10:34 Dose: 20 mg Lorazepam (Ativan Tab(*)) 2 mg PO Q6H PRN PRN Reason: AGITATION Melatonin (Melatonin) 3 mg PO BEDTIME [facility] Last Admin: 04/23/18 21:56 Dose: 3 mg Multivitamins (Theragran Tab*) 1 tab PO DAILY [facility] Last Admin: 04/24/18 10:34 Dose: 1 tab Nicotine (Nicotine Inhaler*) 10 mg INH Q2H PRN PRN Reason: CRAVING Polyethylene Glycol/Electrolytes (Miralax*) 17 gm PO DAILY [facility] Last Admin: 04/24/18 10:39 Dose: Not Given Promethazine HCl (Phenergan Tab*) 25 mg PO Q6H PRN PRN Reason: NAUSEA Quetiapine Fumarate (Seroquel Tab*) 300 mg PO BEDTIME [facility] Last Admin: 04/23/18 21:54 Dose: 300 mg Quetiapine Fumarate (Seroquel Tab*) 100 mg PO BEDTIME [facility] Last Admin: 04/23/18 21:55 Dose: 100 mg Tramadol HCl (Ultram*) 50 mg PO Q8H PRN PRN Reason: PAIN Last Admin: 04/24/18 18:30 Dose: 50 mg - Discharge Plan Outpatient Program: [facility] Additional Comments: Wei has been stable in the past on Depakote and Seroquel. We will increase the Seroquel to 400 mg and discontinue the Cymbalta he was started on following ECT for vegetative depressive symptoms. Depakote is listed as an allergy. We will undertake to find out if that is a true allergy. 04/24/18: Wei had a very bad evening an day. He is incredibly irritable and also having somatic complaints including cardiac problems. We will adjust his medications tomorrow.
[2018-04-24] MEDS: Melatonin 3 MG TAB PO SCH (22:31)
[2018-04-24] MEDS: QUEtiapine TAB* 100 MG PO SCH (22:32)
[2018-04-24] MEDS: QUEtiapine TAB* 300 MG PO SCH (22:32)
[2018-04-24] MEDS ORDERED: LORazepam INJ* 2 MG/ML 1 ML VIAL IM ONE (23:43)
[2018-04-24] MEDS ORDERED: LORazepam INJ* 2 MG/ML 1 ML VIAL ONE (23:50)
--- NOTE | 2018-04-25 00:24 | CONSULT ---
Subjective Date of Service: 04/25/18 Interval History: Called by Dr. Douglas to evaluate Pt for complaint of chest pain. PMH bipolar with hypomania, borderline personality disorder, CAD. Per nursing staff patient has had behavioral issues all day and was refusing to take his Seroquel. He was observed to roomate to smack the wall of his bathroom with his hand and then go to the ground. He then complained of cramping pain in his left arm. He is found surrounded by security staff, sitting on the ground. He complains of sharp stabbing substernal chest pain. Radiation to left arm. He can't tell me with specificity when it started. Complaint of feet edema and later some right leg twitching. Review of Systems - Measurements Intake and Output: Intake and Output Last 24 Hours 04/22/18 04/23/18 04/24/18 04/25/18 06:59 06:59 06:59 06:59 Weight 97.522 kg 109.86 kg Objective Active Medications: Acetaminophen (Tylenol Tab*) 650 mg PO Q4H PRN PRN Reason: PAIN or TEMP > 101 F Last Admin: 04/24/18 18:31 Dose: 650 mg Al Hydrox/Mg Hydrox/Simethicone (Maalox Plus*) 30 ml PO Q4H PRN PRN Reason: INDIGESTION Albuterol (Ventolin Hfa Inhaler*) 2 puff INH Q4H PRN PRN Reason: WHEEZING Last Admin: 04/24/18 06:29 Dose: 2 puff Albuterol (Ventolin 2.5 Mg/3 Ml Neb.Eli*) 2.5 mg INH Q4H PRN PRN Reason: SOB/WHEEZING Last Admin: 04/24/18 22:47 Dose: 2.5 mg Amlodipine Besylate (Norvasc Tab*) 5 mg PO DAILY [facility] Last Admin: 04/24/18 10:34 Dose: 5 mg Aspirin (Aspirin 81 Mg Chew Tab*) 81 mg PO DAILY [facility] Last Admin: 04/24/18 10:35 Dose: 81 mg Atorvastatin Calcium (Lipitor*) 20 mg PO DAILY [facility] Last Admin: 04/24/18 10:34 Dose: 20 mg Benzocaine (Orajel 10%*) 1 applic TOPICAL QID PRN PRN Reason: PAIN Canagliflozin (Invokana (Nf)) 100 mg PO DAILY [facility] Last Admin: 04/24/18 10:38 Dose: 100 mg Diphenhydramine HCl (Benadryl Po*) 50 mg PO Q6H PRN PRN Reason: Agiation/Anxiety Famotidine (Pepcid Tab*) 20 mg PO BID [facility] Last Admin: 04/24/18 22:31 Dose: Not Given Folic Acid (Folvite Tab*) 1 mg PO DAILY [facility] Last Admin: 04/24/18 10:34 Dose: 1 mg Furosemide (Lasix Tab*) 40 mg PO DAILY [facility] Last Admin: 04/24/18 10:39 Dose: 40 mg Gabapentin (Neurontin Cap(*)) 300 mg PO TID [facility] Last Admin: 04/24/18 22:31 Dose: Not Given Haloperidol (Haldol Tab*) 5 mg PO Q6H PRN PRN Reason: AGITATION Hydrochlorothiazide (Hydrodiuril Tab*) 12.5 mg PO DAILY [facility] Last Admin: 04/24/18 10:35 Dose: 12.5 mg Levothyroxine Sodium (Synthroid Tab*) 100 mcg PO DAILY@0600 [facility] Last Admin: 04/24/18 06:29 Dose: 100 mcg Lisinopril (Prinivil Tab*) 20 mg PO DAILY [facility] Last Admin: 04/24/18 10:34 Dose: 20 mg Lorazepam (Ativan Tab(*)) 2 mg PO Q6H PRN PRN Reason: AGITATION Melatonin (Melatonin) 3 mg PO BEDTIME [facility] Last Admin: 04/24/18 22:31 Dose: Not Given Multivitamins (Theragran Tab*) 1 tab PO DAILY [facility] Last Admin: 04/24/18 10:34 Dose: 1 tab Nicotine (Nicotine Inhaler*) 10 mg INH Q2H PRN PRN Reason: CRAVING Polyethylene Glycol/Electrolytes (Miralax*) 17 gm PO DAILY [facility] Last Admin: 04/24/18 10:39 Dose: Not Given Promethazine HCl (Phenergan Tab*) 25 mg PO Q6H PRN PRN Reason: NAUSEA Quetiapine Fumarate (Seroquel Tab*) 300 mg PO BEDTIME [facility] Last Admin: 04/24/18 22:32 Dose: Not Given Quetiapine Fumarate (Seroquel Tab*) 100 mg PO BEDTIME [facility] Last Admin: 04/24/18 22:32 Dose: Not Given Tramadol HCl (Ultram*) 50 mg PO Q8H PRN PRN Reason: PAIN Last Admin: 04/24/18 18:30 Dose: 50 mg Vital Signs - 8 hr 04/24/18 04/24/18 04/24/18 18:30 22:18 23:08 Pulse Rate 114 Respiratory 16 16 20 Rate O2 Sat by Pulse 98 Oximetry Oxygen Devices in Use Now: None Appearance: NAD, sitting on floor. Eyes: No Scleral Icterus Neck: NL Appearance and Movements; NL JVP Cardiovascular: - - tachycardic, regular. no m/r/g Extremities: - - 1+ nonpitting pedal edema b/l Skin: No Rash or Ulcers Neurological: Alert and Oriented x 3 Result Diagrams: 04/21/18 13:22 04/21/18 13:22 Microbiology and Other Data: Microbiology 04/21/18 16:16 Urine Culture - Final Urine No Growth (<1,000 CFU/mL) Assessment/Plan - Billing Plan By Medical Problem: 1. Chest Pain vs. Pt has had extensive recent chest pain workup with ECHO (pEF, right ventricular volume/pressure volume overload) and exercise nuclear stress test on 04/04. EKGs showed RBB chronic inferior Q waves. Troponins have been negative 04/04 and repeat 04/18. Low Risk stress test. CXR 04/22 no acute process. Repeat EKG without e/o new ischemic changes. Tachycardic to 122. QTc 579 from 474. Will get troponin now and in 6 hours. BMP, Mag. Repeat EKG 0800 and if QTc still prolonged would recommend dose reduction in Seroquel from his current 400mg qhs back to original 200mg qhs.
[2018-04-25] MEDS: Melatonin 3 MG TAB PO SCH ×2 (00:25→20:10)
[2018-04-25] MEDS: QUEtiapine TAB* 300 MG PO SCH (00:25)
[2018-04-25] MEDS: Famotidine TAB* 20 MG PO SCH ×3 (00:25→20:08)
[2018-04-25] MEDS: QUEtiapine TAB* 100 MG PO SCH ×2 (00:25→20:10)
[2018-04-25] MEDS: Gabapentin CAP(*) 300 MG PO SCH ×4 (00:25→20:09)
[2018-04-25 01:35] LABS: Calcium 9.8 mg/dL (8.6-10.3); EGFR Non-African American 71.8 (>60); Magnesium 2.2 mg/dL (1.9-2.7); Potassium 4.1 mmol/L (3.5-5.0)
[2018-04-25] MEDS: Acetaminophen TAB* 325 MG PO PRN ×4 (02:50→20:14)
[2018-04-25] MEDS: traMADol TAB* 50 MG PO PRN ×3 (02:50→20:15)
[2018-04-25] MEDS: Levothyroxine TAB* 100 MCG TAB PO SCH (06:30)
[2018-04-25] MEDS: Albuterol 2.5 MG/3 ML NEB.SOL* (0.083%) INH PRN ×3 (06:41→21:38)
[2018-04-25] MEDS: Furosemide TAB* 40 MG PO SCH (07:54)
[2018-04-25] MEDS: Vitamin THERAPEUTIC TAB PO SCH (07:54)
[2018-04-25] MEDS: amLODIPine TAB* 5 MG PO SCH (07:54)
[2018-04-25] MEDS: Aspirin 81 mg CHEW TAB* 81 MG TAB.CHEW PO SCH (07:55)
[2018-04-25] MEDS: Folic Acid TAB* 1 MG PO SCH (07:55)
[2018-04-25] MEDS: Lisinopril TAB* 10 MG PO SCH (07:55)
[2018-04-25] MEDS: Atorvastatin* 20 MG TAB PO SCH (07:55)
[2018-04-25] MEDS: Hydrochlorothiazide TAB* 25 MG PO SCH (07:55)
[2018-04-25] MEDS: PTO: Canagliflozin (NF) 100 MG TAB PO SCH (07:56)
[2018-04-25] MEDS: Polyethylene Glycol 3350* 17 GM PACKET PO SCH ×2 (08:00→15:56)
[2018-04-25] MEDS ORDERED: Valproic Acid LIQ(*) 250 MG/5 ML UDC PO ONE (10:06)
[2018-04-25] MEDS ORDERED: diPHENhydraMINE LIQ* 12.5 MG/5 ML UDC PO PRN (10:17)
[2018-04-25] MEDS ORDERED: diPHENhydraMINE PO* 50 MG PO PRN (10:17)
[2018-04-25] MEDS: Al Hydrox/Mg Hydrox/Simet LIQ* 30 ML UDC PO PRN (13:55)
--- NOTE | 2018-04-25 14:21 | PN ---
Subjective Date of Service: 04/25/18 Interval History: Patient is having issues with intermittent chest pain, worse with breathing, reproducible with palpation. Patient has a flat affect and is feeling anxious about his psychiatric care. Patient is having intermittent SOB which happens chronically. Patient denies F/C, CP, N/V, abdominal pain, diarrhea, dysuria, dizziness, palpitations, or other pain. Family History: Unchanged from Admission Social History: Unchanged from Admission Past Medical History: Unchanged from Admission Objective Active Medications: Acetaminophen (Tylenol Tab*) 650 mg PO Q4H PRN PRN Reason: PAIN or TEMP > 101 F Last Admin: 04/25/18 11:57 Dose: 650 mg Al Hydrox/Mg Hydrox/Simethicone (Maalox Plus*) 30 ml PO Q4H PRN PRN Reason: INDIGESTION Last Admin: 04/25/18 13:55 Dose: 30 ml Albuterol (Ventolin Hfa Inhaler*) 2 puff INH Q4H PRN PRN Reason: WHEEZING Last Admin: 04/24/18 06:29 Dose: 2 puff Albuterol (Ventolin 2.5 Mg/3 Ml Neb.Eli*) 2.5 mg INH Q4H PRN PRN Reason: SOB/WHEEZING Last Admin: 04/25/18 14:01 Dose: 2.5 mg Amlodipine Besylate (Norvasc Tab*) 5 mg PO DAILY [facility] Last Admin: 04/25/18 07:54 Dose: 5 mg Aspirin (Aspirin 81 Mg Chew Tab*) 81 mg PO DAILY [facility] Last Admin: 04/25/18 07:55 Dose: 81 mg Atorvastatin Calcium (Lipitor*) 20 mg PO DAILY [facility] Last Admin: 04/25/18 07:55 Dose: 20 mg Benzocaine (Orajel 10%*) 1 applic TOPICAL QID PRN PRN Reason: PAIN Canagliflozin (Invokana (Nf)) 100 mg PO DAILY [facility] Last Admin: 04/25/18 07:56 Dose: 100 mg Diphenhydramine HCl (Benadryl Po*) 50 mg PO Q6H PRN PRN Reason: Agiation/Anxiety Diphenhydramine HCl (Benadryl Liq*) 50 mg PO Q6H PRN PRN Reason: Allergy Symptoms Diphenhydramine HCl (Benadryl Po*) 50 mg PO Q6H PRN PRN Reason: Allergy Symptoms Divalproex Sodium (Depakote Dr Tab(*)) 500 mg PO BID [facility] Famotidine (Pepcid Tab*) 20 mg PO BID [facility] Last Admin: 04/25/18 07:54 Dose: 20 mg Folic Acid (Folvite Tab*) 1 mg PO DAILY [facility] Last Admin: 04/25/18 07:55 Dose: 1 mg Furosemide (Lasix Tab*) 40 mg PO DAILY [facility] Last Admin: 04/25/18 07:54 Dose: 40 mg Gabapentin (Neurontin Cap(*)) 300 mg PO TID [facility] Last Admin: 04/25/18 13:54 Dose: 300 mg Haloperidol (Haldol Tab*) 5 mg PO Q6H PRN PRN Reason: AGITATION Hydrochlorothiazide (Hydrodiuril Tab*) 12.5 mg PO DAILY [facility] Last Admin: 04/25/18 07:55 Dose: 12.5 mg Levothyroxine Sodium (Synthroid Tab*) 100 mcg PO DAILY@0600 [facility] Last Admin: 04/25/18 06:30 Dose: 100 mcg Lisinopril (Prinivil Tab*) 20 mg PO DAILY [facility] Last Admin: 04/25/18 07:55 Dose: 20 mg Lorazepam (Ativan Tab(*)) 2 mg PO Q6H PRN PRN Reason: AGITATION Melatonin (Melatonin) 3 mg PO BEDTIME [facility] Last Admin: 04/25/18 00:25 Dose: 3 mg Multivitamins (Theragran Tab*) 1 tab PO DAILY [facility] Last Admin: 04/25/18 07:54 Dose: 1 tab Nicotine (Nicotine Inhaler*) 10 mg INH Q2H PRN PRN Reason: CRAVING Polyethylene Glycol/Electrolytes (Miralax*) 17 gm PO DAILY [facility] Last Admin: 04/25/18 08:00 Dose: Not Given Promethazine HCl (Phenergan Tab*) 25 mg PO Q6H PRN PRN Reason: NAUSEA Quetiapine Fumarate (Seroquel Tab*) 200 mg PO BEDTIME [facility] Tramadol HCl (Ultram*) 50 mg PO Q8H PRN PRN Reason: PAIN Last Admin: 04/25/18 11:56 Dose: 50 mg Vital Signs - 8 hr 04/25/18 04/25/18 04/25/18 06:41 07:55 08:39 Temperature 98.9 F Pulse Rate 99 109 Respiratory 20 18 16 Rate Blood Pressure 129/84 (mmHg) O2 Sat by Pulse 98 100 Oximetry 04/25/18 04/25/18 04/25/18 10:48 11:56 13:34 Temperature Pulse Rate Respiratory 18 18 18 Rate Blood Pressure (mmHg) O2 Sat by Pulse Oximetry 04/25/18 04/25/18 13:54 14:11 Temperature Pulse Rate Respiratory 20 20 Rate Blood Pressure (mmHg) O2 Sat by Pulse Oximetry Oxygen Devices in Use Now: None Appearance: Patient is a 62yo male who appears stated age and is sitting in the bed in NAD. Eyes: No Scleral Icterus, PERRLA Ears/Nose/Mouth/Throat: NL Teeth, Lips, Gums, Clear Oropharnyx, Mucous Membranes Moist Neck: NL Appearance and Movements; NL JVP, Trachea Midline Respiratory: Symmetrical Chest Expansion and Respiratory Effort, Clear to Auscultation Cardiovascular: NL Sounds; No Murmurs; No JVD, RRR, No Edema Abdominal: NL Sounds; No Tenderness; No Distention, No Hepatosplenomegaly Lymphatic: No Cervical Adenopathy Extremities: No Edema, No Clubbing, Cyanosis Skin: No Rash or Ulcers, No Nodules or Sclerosis Neurological: Alert and Oriented x 3, NL Sensation, NL Muscle Strength and Tone , - - CN II-XII intact. Result Diagrams: 04/21/18 13:22 04/25/18 00:45 Microbiology and Other Data: Microbiology 04/21/18 16:16 Urine Culture - Final Urine No Growth (<1,000 CFU/mL) Assess/Plan/Problems-Billing Plan By Medical Problem: 1. Chest Pain vs. Pt has had extensive recent chest pain workup with ECHO (pEF, right ventricular volume/pressure volume overload) and exercise nuclear stress test on 04/04. EKGs showed RBB chronic inferior Q waves. Troponins have been negative 04/04 and repeat 04/18. Low Risk stress test. CXR 04/22 no acute process. Repeat EKG without e/o new ischemic changes. Tachycardic to 122. QTc 579 from 474. Will get troponin now and in 6 hours. BMP, Mag. Repeat EKG 0800 and if QTc still prolonged would recommend dose reduction in Seroquel from his current 400mg qhs back to original 200mg qhs. - Patient Problems (1) Chest pain Current Visit: No Status: Acute Code(s): R07.9 - CHEST PAIN, UNSPECIFIED SNOMED Code(s): 24400127 Comment: - Troponin wnl x 2, no ECG changes. - Recent normal stress test. - Reproducible with palpation - Likely musculoskeletal, no need for further testing. (2) QT prolongation Current Visit: Yes Status: Acute Code(s): R94.31 - ABNORMAL ELECTROCARDIOGRAM [ECG] [EKG] SNOMED Code(s): 553039622 Comment: - QTc 460 this AM, no need to dicontinue seroquel, avoid further AT prolonging drugs. (3) Mood disorder Current Visit: No Status: Acute Priority: High Onset Date: 02/28/15 Comment: - Management per primary team - Possible EPS from Seroquel Status and Disposition: Inpatient psych, We will sign off at this time, Thank you for this consult, Feel free to call with nay questions.
[2018-04-25] MEDS: Divalproex DR TAB(*) 500 MG PO SCH (20:08)
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
[2018-04-26] MEDS: Acetaminophen TAB* 325 MG PO PRN ×2 (00:25→11:27)
[2018-04-26] MEDS: LORazepam TAB(*) 1 MG PO PRN ×4 (02:10→22:42)
[2018-04-26] MEDS: Albuterol 2.5 MG/3 ML NEB.SOL* (0.083%) INH PRN ×3 (02:14→21:50)
[2018-04-26] MEDS: traMADol TAB* 50 MG PO PRN ×2 (02:45→11:27)
[2018-04-26] MEDS: diPHENhydraMINE PO* 50 MG PO PRN ×3 (02:47→22:40)
[2018-04-26] MEDS: Promethazine TAB* 25 MG PO PRN (06:20)
[2018-04-26] MEDS: Levothyroxine TAB* 100 MCG TAB PO SCH (06:20)
[2018-04-26] MEDS: Vitamin THERAPEUTIC TAB PO SCH (08:15)
[2018-04-26] MEDS: PTO: Canagliflozin (NF) 100 MG TAB PO SCH (08:15)
[2018-04-26] MEDS: Lisinopril TAB* 10 MG PO SCH (08:15)
[2018-04-26] MEDS: Famotidine TAB* 20 MG PO SCH ×2 (08:16→21:14)
[2018-04-26] MEDS: Hydrochlorothiazide TAB* 25 MG PO SCH (08:16)
[2018-04-26] MEDS: Divalproex DR TAB(*) 500 MG PO SCH ×2 (08:16→21:14)
[2018-04-26] MEDS: Atorvastatin* 20 MG TAB PO SCH (08:17)
[2018-04-26] MEDS: Aspirin 81 mg CHEW TAB* 81 MG TAB.CHEW PO SCH (08:17)
[2018-04-26] MEDS: amLODIPine TAB* 5 MG PO SCH (08:17)
[2018-04-26] MEDS: Folic Acid TAB* 1 MG PO SCH (08:17)
[2018-04-26] MEDS: Furosemide TAB* 40 MG PO SCH (08:17)
[2018-04-26] MEDS: Gabapentin CAP(*) 300 MG PO SCH ×3 (08:18→21:14)
[2018-04-26] MEDS: Polyethylene Glycol 3350* 17 GM PACKET PO SCH (08:19)
[2018-04-26] MEDS: Haloperidol TAB* 5 MG PO PRN (13:32)
--- NOTE | 2018-04-26 14:23 | PN ---
Subjective - Subjective Date of Service: 04/26/18 Service Type: 34001 Hosp care 15 min low complexity Subjective: Wei is seen in weekend coverage for NPP, Miesha Roche. The patient has been easily agitated and getting into shouting matches with another male peer. On exam he demands that he be given his phone to retrieve phone numbers of various people he'd like to call "Including my girlfriend!" He is reminded that his phone privileges were taken away earlier in this hospital stay when he used it to access social media. All necessary phone numbers were written down at that time. "Well, I lost that piece of paper. This is bullshit! That other guys gets to use his phone. It's because he's a black male. This is so racist!" He is difficult to redirect and very little of value occurs during my interaction with him. Objective - Appearance Appearance: Obese Dysmorphic Features: No Hygiene: Normal Grooming: Fairly Well Kept - Behavior Psychomotor Activities: Abnormal-Increased Exhibits Abnormal Movement: No - Attitude and Relatedness Attitude and Relatedness: Psychotically Related Eye Contact: Poor - Speech Quality: Pressured Latencies: Short Quantity: Copious - Mood Patient's Decription of Mood: "Angry" - Affect Observed Affect: Labile Affect Consistent with: Dysphoria - Thought Process Patient's Thought Process: Goal Directed Thought Content: Yes Paranoid Ideation, No Passive Wish, No Suicidal Planning, No Homicidal Ideation - Sensorium Experiencing Hallucinations: No, Sensorium is Clear Type of Hallucinations: Visual: No, Auditory: No, Command: No - Level of Consciousness Level of Consciousness: Agitated Orientation: Yes Intact, Yes Orientated to Time, Yes Orientated to Place, Yes Orientated to Person - Impulse Control Impulse Control: Poor - Insight and Judgement Insight and Judgement: Impaired - Group Participation Particating in Group Activities: No - Medication Management Medication Management Adherence: Yes Assessment - Assessment Merits Inpatient Hospitalization: For Immediate Safety, For Stabilization Inpatient DSM-V Dx: F31.0 Clinical Impression: Wei is a 62-year-old man with a long history of bipolar 1 disorder who has been disabled due to mental illness since approximately 2007 who comes to the hospital from [facility] on a 9.39 status due to erratic behavior including "dining and dashing," not paying a truck driver rubbish collector, taking his father's car without asking several times and being reported to the police, spending too much money, sending sexually explicit photos. His is manic at this time and in need of treatment. Plan - Plan Treatment Plan: Name: WEI HILL Birthdate: 1955 [id number] The patient is receiving quetiapine and Depakote. Remains manic and unsafe. Continue inpatient level care. Continued Medication Management: Different Medication Medications: Current Medications Acetaminophen (Tylenol Tab*) 650 mg PO Q4H PRN PRN Reason: PAIN or TEMP > 101 F Last Admin: 04/26/18 11:27 Dose: 650 mg Al Hydrox/Mg Hydrox/Simethicone (Maalox Plus*) 30 ml PO Q4H PRN PRN Reason: INDIGESTION Last Admin: 04/25/18 13:55 Dose: 30 ml Albuterol (Ventolin Hfa Inhaler*) 2 puff INH Q4H PRN PRN Reason: WHEEZING Last Admin: 04/24/18 06:29 Dose: 2 puff Albuterol (Ventolin 2.5 Mg/3 Ml Neb.Eli*) 2.5 mg INH Q4H PRN PRN Reason: SOB/WHEEZING Last Admin: 04/26/18 02:14 Dose: 2.5 mg Amlodipine Besylate (Norvasc Tab*) 5 mg PO DAILY [facility] Last Admin: 04/26/18 08:17 Dose: 5 mg Aspirin (Aspirin 81 Mg Chew Tab*) 81 mg PO DAILY [facility] Last Admin: 04/26/18 08:17 Dose: 81 mg Atorvastatin Calcium (Lipitor*) 20 mg PO DAILY [facility] Last Admin: 04/26/18 08:17 Dose: 20 mg Benzocaine (Orajel 10%*) 1 applic TOPICAL QID PRN PRN Reason: PAIN Canagliflozin (Invokana (Nf)) 100 mg PO DAILY [facility] Last Admin: 04/26/18 08:15 Dose: 100 mg Diphenhydramine HCl (Benadryl Po*) 50 mg PO Q6H PRN PRN Reason: Agiation/Anxiety Last Admin: 04/26/18 13:32 Dose: 50 mg Diphenhydramine HCl (Benadryl Liq*) 50 mg PO Q6H PRN PRN Reason: Allergy Symptoms Diphenhydramine HCl (Benadryl Po*) 50 mg PO Q6H PRN PRN Reason: Allergy Symptoms Divalproex Sodium (Depakote Dr Tab(*)) 500 mg PO BID [facility] Last Admin: 04/26/18 08:16 Dose: 500 mg Famotidine (Pepcid Tab*) 20 mg PO BID [facility] Last Admin: 04/26/18 08:16 Dose: 20 mg Folic Acid (Folvite Tab*) 1 mg PO DAILY [facility] Last Admin: 04/26/18 08:17 Dose: 1 mg Furosemide (Lasix Tab*) 40 mg PO DAILY [facility] Last Admin: 04/26/18 08:17 Dose: 40 mg Gabapentin (Neurontin Cap(*)) 300 mg PO TID [facility] Last Admin: 04/26/18 13:32 Dose: 300 mg Haloperidol (Haldol Tab*) 5 mg PO Q6H PRN PRN Reason: AGITATION Last Admin: 04/26/18 13:32 Dose: 5 mg Hydrochlorothiazide (Hydrodiuril Tab*) 12.5 mg PO DAILY [facility] Last Admin: 04/26/18 08:16 Dose: 12.5 mg Levothyroxine Sodium (Synthroid Tab*) 100 mcg PO DAILY@0600 [facility] Last Admin: 04/26/18 06:20 Dose: 100 mcg Lisinopril (Prinivil Tab*) 20 mg PO DAILY [facility] Last Admin: 04/26/18 08:15 Dose: 20 mg Lorazepam (Ativan Tab(*)) 2 mg PO Q6H PRN PRN Reason: AGITATION Last Admin: 04/26/18 10:46 Dose: 2 mg Melatonin (Melatonin) 3 mg PO BEDTIME [facility] Last Admin: 04/25/18 20:10 Dose: 3 mg Multivitamins (Theragran Tab*) 1 tab PO DAILY [facility] Last Admin: 04/26/18 08:15 Dose: 1 tab Nicotine (Nicotine Inhaler*) 10 mg INH Q2H PRN PRN Reason: CRAVING Polyethylene Glycol/Electrolytes (Miralax*) 17 gm PO DAILY [facility] Last Admin: 04/26/18 08:19 Dose: Not Given Promethazine HCl (Phenergan Tab*) 25 mg PO Q6H PRN PRN Reason: NAUSEA Last Admin: 04/26/18 06:20 Dose: 25 mg Quetiapine Fumarate (Seroquel Tab*) 200 mg PO BEDTIME [facility] Last Admin: 04/25/18 20:10 Dose: 200 mg Tramadol HCl (Ultram*) 50 mg PO Q8H PRN PRN Reason: PAIN Last Admin: 04/26/18 11:27 Dose: 50 mg - Discharge Plan Discharge Plan: Inpatient Hospitalization Lab Results - Lab Results Lab Results: 04/23/18 04/23/18 04/24/18 16:29 22:02 06:34 Sodium Potassium Chloride Carbon Dioxide Anion Gap BUN Creatinine Est GFR ( Amer) Est GFR (Non-Af Amer) BUN/Creatinine Ratio Glucose POC Glucose (mg/dL) 134 H 118 H 142 H Calcium Magnesium Troponin I HIV 1&2 Antibody 04/25/18 04/25/18 04/25/18 00:45 00:45 07:52 Sodium 133 L Potassium 4.1 Chloride 97 L Carbon Dioxide 27 Anion Gap 9 BUN 22 Creatinine 1.05 Est GFR ( Amer) 86.9 Est GFR (Non-Af Amer) 71.8 BUN/Creatinine Ratio 21.0 H Glucose 166 H POC Glucose (mg/dL) 144 H Calcium 9.8 Magnesium 2.2 Troponin I 0.02 HIV 1&2 Antibody Nonreactive 04/25/18 04/25/18 04/25/18 10:13 11:55 13:58 Sodium Potassium Chloride Carbon Dioxide Anion Gap BUN Creatinine Est GFR ( Amer) Est GFR (Non-Af Amer) BUN/Creatinine Ratio Glucose POC Glucose (mg/dL) 124 H 139 H Calcium Magnesium Troponin I 0.01 HIV 1&2 Antibody 04/25/18 04/26/18 04/26/18 17:25 08:05 12:15 Sodium Potassium Chloride Carbon Dioxide Anion Gap BUN Creatinine Est GFR ( Amer) Est GFR (Non-Af Amer) BUN/Creatinine Ratio Glucose POC Glucose (mg/dL) 161 H 117 H 148 H Calcium Magnesium Troponin I HIV 1&2 Antibody
[2018-04-26] MEDS: Al Hydrox/Mg Hydrox/Simet LIQ* 30 ML UDC PO PRN (15:17)
[2018-04-26] MEDS: QUEtiapine TAB* 100 MG PO SCH (21:13)
[2018-04-26] MEDS: Melatonin 3 MG TAB PO SCH (21:14)
[2018-04-27] MEDS: traMADol TAB* 50 MG PO PRN ×2 (01:28→16:36)
[2018-04-27] MEDS: Acetaminophen TAB* 325 MG PO PRN ×2 (04:24→16:36)
[2018-04-27] MEDS: Levothyroxine TAB* 100 MCG TAB PO SCH (04:24)
[2018-04-27] MEDS: Albuterol 2.5 MG/3 ML NEB.SOL* (0.083%) INH PRN ×3 (05:48→18:32)
[2018-04-27] MEDS: Albuterol HFA INHALER* 8 gm MDI INH PRN (07:38)
[2018-04-27] MEDS: Lisinopril TAB* 10 MG PO SCH (09:38)
[2018-04-27] MEDS: Famotidine TAB* 20 MG PO SCH ×2 (09:39→19:57)
[2018-04-27] MEDS: amLODIPine TAB* 5 MG PO SCH (09:39)
[2018-04-27] MEDS: Aspirin 81 mg CHEW TAB* 81 MG TAB.CHEW PO SCH (09:39)
[2018-04-27] MEDS: Vitamin THERAPEUTIC TAB PO SCH (09:39)
[2018-04-27] MEDS: Folic Acid TAB* 1 MG PO SCH (09:39)
[2018-04-27] MEDS: Atorvastatin* 20 MG TAB PO SCH (09:39)
[2018-04-27] MEDS: Gabapentin CAP(*) 300 MG PO SCH ×3 (09:39→19:56)
[2018-04-27] MEDS: Hydrochlorothiazide TAB* 25 MG PO SCH (09:40)
[2018-04-27] MEDS: Polyethylene Glycol 3350* 17 GM PACKET PO SCH (10:34)
[2018-04-27] MEDS: PTO: Canagliflozin (NF) 100 MG TAB PO SCH (10:34)
[2018-04-27] MEDS: Furosemide TAB* 40 MG PO SCH (10:35)
[2018-04-27] MEDS: LORazepam TAB(*) 1 MG PO PRN ×2 (11:37→19:59)
[2018-04-27] MEDS: Divalproex DR TAB(*) 500 MG PO SCH ×2 (11:43→19:57)
[2018-04-27] MEDS: Melatonin 3 MG TAB PO SCH (19:57)
[2018-04-27] MEDS: QUEtiapine TAB* 100 MG PO SCH (19:57)
[2018-04-28] MEDS: Albuterol HFA INHALER* 8 gm MDI INH PRN (00:19)
[2018-04-28] MEDS: Levothyroxine TAB* 100 MCG TAB PO SCH (05:23)
[2018-04-28] MEDS: LORazepam TAB(*) 1 MG PO PRN ×3 (06:35→20:21)
[2018-04-28] MEDS: Polyethylene Glycol 3350* 17 GM PACKET PO SCH (10:10)
[2018-04-28] MEDS: Gabapentin CAP(*) 300 MG PO SCH ×3 (10:11→20:19)
[2018-04-28] MEDS: amLODIPine TAB* 5 MG PO SCH (10:12)
[2018-04-28] MEDS: Vitamin THERAPEUTIC TAB PO SCH (10:12)
[2018-04-28] MEDS: Folic Acid TAB* 1 MG PO SCH (10:12)
[2018-04-28] MEDS: Famotidine TAB* 20 MG PO SCH ×2 (10:13→20:19)
[2018-04-28] MEDS: Atorvastatin* 20 MG TAB PO SCH (10:13)
[2018-04-28] MEDS: Lisinopril TAB* 10 MG PO SCH (10:13)
[2018-04-28] MEDS: Hydrochlorothiazide TAB* 25 MG PO SCH (10:14)
[2018-04-28] MEDS: Furosemide TAB* 40 MG PO SCH (10:15)
[2018-04-28] MEDS: Aspirin 81 mg CHEW TAB* 81 MG TAB.CHEW PO SCH (10:15)
[2018-04-28] MEDS: Divalproex DR TAB(*) 500 MG PO SCH ×2 (10:15→20:19)
[2018-04-28] MEDS: PTO: Canagliflozin (NF) 100 MG TAB PO SCH (10:16)
[2018-04-28] MEDS: diPHENhydraMINE PO* 50 MG PO PRN (10:19)
[2018-04-28] MEDS: traMADol TAB* 50 MG PO PRN (13:37)
[2018-04-28] MEDS: Acetaminophen TAB* 325 MG PO PRN (13:38)
--- NOTE | 2018-04-28 15:00 | PN ---
Subjective - Subjective Date of Service: 04/28/18 Service Type: 93211 Hosp care 15 min low complexity Subjective: Sudhakar says he is "terrible" today. He is wearing his hat with his hoodie up over it. He is irritable about being here and wants to return to [facility] for ECT and repeats this several times. His father also called and wanted to know why it wasn't possible to transfer him there. Because Sudhakar's presentation is unstable, because he could be having some irritability symptoms caused by withdrawal from duloxetine, and because he was so clearly manic before today (and is irritable and unreasonable enough to be considered that, as well, today) Sudhakar will continue today in the same hospital. We will start Latuda today and discontinue Seroquel due to the inability to increase the dose further based on his cardiac history and presentation. Latuda does not have the same cardiac profile as Seroquel. Objective - Appearance Appearance: Obese Dysmorphic Features: No Hygiene: Normal Grooming: Disheveled - Behavior Psychomotor Activities: Normal Exhibits Abnormal Movement: No - Attitude and Relatedness Attitude and Relatedness: Irritable Eye Contact: Fair - Speech Quality: Unpressured Latencies: Normal Quantity: Terse - Mood Patient's Decription of Mood: "Terrible" - Affect Observed Affect: Tense Affect Consistent with: Dysphoria - Thought Process Patient's Thought Process: Goal Directed Thought Content: No Passive Wish, No Suicidal Planning, No Homicidal Ideation, No Paranoid Ideation - Sensorium Experiencing Hallucinations: No, Sensorium is Clear Type of Hallucinations: Visual: No, Auditory: No, Command: No - Level of Consciousness Level of Consciousness: Agitated Orientation: Yes Intact, Yes Orientated to Time, Yes Orientated to Place, Yes Orientated to Person - Impulse Control Impulse Control: Poor - Insight and Judgement Insight and Judgement: Poor - Group Participation Particating in Group Activities: Yes - Medication Management Medication Management Adherence: Yes Assessment - Assessment Merits Inpatient Hospitalization: For Immediate Safety, For Stabilization Inpatient DSM-V Dx: F31.0 Clinical Impression: Sudhakar is a 62-year-old man with a long history of bipolar 1 disorder who has been disabled due to mental illness since approximately 2007 who comes to the hospital from [facility] on a 9.39 status due to erratic behavior including "dining and dashing," not paying a limb driver, taking his father's car without asking several times and being reported to the police, spending too much money, sending sexually explicit photos. His is manic at this time and in need of treatment. Plan - Plan Treatment Plan: Name: SUDHAKAR HILL Birthdate: 1955 [id number] Continued Medication Management: Different Medication Medications: Current Medications Acetaminophen (Tylenol Tab*) 650 mg PO Q4H PRN PRN Reason: PAIN or TEMP > 101 F Last Admin: 04/28/18 13:38 Dose: 650 mg Al Hydrox/Mg Hydrox/Simethicone (Maalox Plus*) 30 ml PO Q4H PRN PRN Reason: INDIGESTION Last Admin: 04/26/18 15:17 Dose: 30 ml Albuterol (Ventolin Hfa Inhaler*) 2 puff INH Q4H PRN PRN Reason: WHEEZING Last Admin: 04/28/18 00:19 Dose: 2 puff Albuterol (Ventolin 2.5 Mg/3 Ml Neb.Eli*) 2.5 mg INH Q4H PRN PRN Reason: SOB/WHEEZING Last Admin: 04/27/18 18:32 Dose: 2.5 mg Amlodipine Besylate (Norvasc Tab*) 5 mg PO DAILY [facility] Last Admin: 04/28/18 10:12 Dose: 5 mg Aspirin (Aspirin 81 Mg Chew Tab*) 81 mg PO DAILY [facility] Last Admin: 04/28/18 10:15 Dose: 81 mg Atorvastatin Calcium (Lipitor*) 20 mg PO DAILY [facility] Last Admin: 04/28/18 10:13 Dose: 20 mg Benzocaine (Orajel 10%*) 1 applic TOPICAL QID PRN PRN Reason: PAIN Canagliflozin (Invokana (Nf)) 100 mg PO DAILY [facility] Last Admin: 04/28/18 10:16 Dose: 100 mg Diphenhydramine HCl (Benadryl Po*) 50 mg PO Q6H PRN PRN Reason: Agiation/Anxiety Last Admin: 04/28/18 10:19 Dose: 50 mg Diphenhydramine HCl (Benadryl Liq*) 50 mg PO Q6H PRN PRN Reason: Allergy Symptoms Diphenhydramine HCl (Benadryl Po*) 50 mg PO Q6H PRN PRN Reason: Allergy Symptoms Divalproex Sodium (Depakote Dr Tab(*)) 500 mg PO BID [facility] Last Admin: 04/28/18 10:15 Dose: Not Given Famotidine (Pepcid Tab*) 20 mg PO BID [facility] Last Admin: 04/28/18 10:13 Dose: 20 mg Folic Acid (Folvite Tab*) 1 mg PO DAILY [facility] Last Admin: 04/28/18 10:12 Dose: 1 mg Furosemide (Lasix Tab*) 40 mg PO DAILY [facility] Last Admin: 04/28/18 10:15 Dose: 40 mg Gabapentin (Neurontin Cap(*)) 300 mg PO TID [facility] Last Admin: 04/28/18 13:36 Dose: 300 mg Haloperidol (Haldol Tab*) 5 mg PO Q6H PRN PRN Reason: AGITATION Last Admin: 04/26/18 13:32 Dose: 5 mg Hydrochlorothiazide (Hydrodiuril Tab*) 12.5 mg PO DAILY [facility] Last Admin: 04/28/18 10:14 Dose: 12.5 mg Levothyroxine Sodium (Synthroid Tab*) 100 mcg PO DAILY@0600 [facility] Last Admin: 04/28/18 05:23 Dose: 100 mcg Lisinopril (Prinivil Tab*) 20 mg PO DAILY [facility] Last Admin: 04/28/18 10:13 Dose: 20 mg Lorazepam (Ativan Tab(*)) 2 mg PO Q6H PRN PRN Reason: AGITATION Last Admin: 04/28/18 13:36 Dose: 2 mg Lurasidone HCl (Latuda) 80 mg PO 1700 [facility] Melatonin (Melatonin) 3 mg PO BEDTIME [facility] Last Admin: 04/27/18 19:57 Dose: 3 mg Multivitamins (Theragran Tab*) 1 tab PO DAILY [facility] Last Admin: 04/28/18 10:12 Dose: 1 tab Nicotine (Nicotine Inhaler*) 10 mg INH Q2H PRN PRN Reason: CRAVING Polyethylene Glycol/Electrolytes (Miralax*) 17 gm PO DAILY [facility] Last Admin: 04/28/18 10:10 Dose: 17 gm Promethazine HCl (Phenergan Tab*) 25 mg PO Q6H PRN PRN Reason: NAUSEA Last Admin: 04/26/18 06:20 Dose: 25 mg Tramadol HCl (Ultram*) 50 mg PO Q8H PRN PRN Reason: PAIN Last Admin: 04/28/18 13:37 Dose: 50 mg - Discharge Plan Discharge Plan: Outpatient Follow Up Outpatient Program: [facility] Additional Comments: Sudhakar has been stable in the past on Depakote and Seroquel. We will increase the Seroquel to 400 mg and discontinue the Cymbalta he was started on following ECT for vegetative depressive symptoms. Depakote is listed as an allergy. We will undertake to find out if that is a true allergy. 04/24/18: Sudhakar had a very bad evening an day. He is incredibly irritable and also having somatic complaints including cardiac problems. We will adjust his medications tomorrow. 04/25/18: Depakote was started. Sudhakar will be considered for [facility] as he has been [place] [facility] [place] times for psychiatric reasons in six months. Seroquel was reduced to 200 mg based on hospitalist recommendation. 04/28/18: Sudhakar will be changed from Seroquel to Latuda 80 mg in deference to his cardiac history and Latuda's reduced likelihood to cause cardiac problems. Although Sudhakar feels like Depakote isn't working, it has only been a few days. We will continue to monitor his progress.
[2018-04-28] MEDS ORDERED: Lurasidone(*) 80 MG TAB PO SCH (17:00)
[2018-04-28] MEDS: Melatonin 3 MG TAB PO SCH (20:19)
[2018-04-29] MEDS: Acetaminophen TAB* 325 MG PO PRN (00:18)
[2018-04-29] MEDS: traMADol TAB* 50 MG PO PRN (03:53)
[2018-04-29] MEDS: Lisinopril TAB* 10 MG PO SCH (08:57)
[2018-04-29] MEDS: PTO: Canagliflozin (NF) 100 MG TAB PO SCH (08:58)
[2018-04-29] MEDS: Vitamin THERAPEUTIC TAB PO SCH (08:58)
[2018-04-29] MEDS: Folic Acid TAB* 1 MG PO SCH (08:58)
[2018-04-29] MEDS: Furosemide TAB* 40 MG PO SCH (08:59)
[2018-04-29] MEDS: Famotidine TAB* 20 MG PO SCH ×2 (08:59→20:57)
[2018-04-29] MEDS: amLODIPine TAB* 5 MG PO SCH (08:59)
[2018-04-29] MEDS: Atorvastatin* 20 MG TAB PO SCH (08:59)
[2018-04-29] MEDS: Levothyroxine TAB* 100 MCG TAB PO SCH (09:00)
[2018-04-29] MEDS: Divalproex DR TAB(*) 500 MG PO SCH (09:00)
[2018-04-29] MEDS: Aspirin 81 mg CHEW TAB* 81 MG TAB.CHEW PO SCH (09:00)
[2018-04-29] MEDS: Hydrochlorothiazide TAB* 25 MG PO SCH (09:01)
[2018-04-29] MEDS: Gabapentin CAP(*) 300 MG PO SCH ×3 (09:01→20:58)
[2018-04-29] MEDS: Polyethylene Glycol 3350* 17 GM PACKET PO SCH (09:02)
--- NOTE | 2018-04-29 13:12 | PN ---
Subjective - Subjective Date of Service: 04/29/18 Service Type: 73444 Hosp care 15 min low complexity Subjective: Sudhakar stated, "I'm depressed and good." He declined to speak further and walked away, scuffing his feet. Sudhakar is being referred to [facility] to continue ECT. His this hospitalization's presentation is completely different from his previous one. Although he came to us clearly manic and enjoying life, his descent into irritability and hostility merits treatment, including ECT. Objective - Appearance Appearance: Obese Dysmorphic Features: No Hygiene: Normal Grooming: Disheveled - Behavior Psychomotor Activities: Normal Exhibits Abnormal Movement: No - Attitude and Relatedness Attitude and Relatedness: Minimally Cooperative Eye Contact: Fair - Speech Quality: Unpressured Latencies: Normal Quantity: Terse - Mood Patient's Decription of Mood: "Good" - Affect Observed Affect: Constricted Affect Consistent with: Dysphoria - Thought Process Patient's Thought Process: Coherent, Goal Directed Thought Content: Yes Passive Wish, No Suicidal Planning, No Homicidal Ideation, No Paranoid Ideation - Sensorium Experiencing Hallucinations: No, Sensorium is Clear Type of Hallucinations: Visual: No, Auditory: No, Command: No - Level of Consciousness Level of Consciousness: Alert Orientation: Yes Intact, Yes Orientated to Time, Yes Orientated to Place, Yes Orientated to Person - Impulse Control Impulse Control: Poor - Insight and Judgement Insight and Judgement: Poor - Group Participation Particating in Group Activities: Yes - Medication Management Medication Management Adherence: Yes Assessment - Assessment Merits Inpatient Hospitalization: For Immediate Safety, For Discharge Planning Inpatient DSM-V Dx: F31.0 Clinical Impression: Sudhakar is a 62-year-old man with a long history of bipolar 1 disorder who has been disabled due to mental illness since approximately 2007 who comes to the hospital from [facility] on a 9.39 status due to erratic behavior including "dining and dashing," 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 His is manic at this time and in need of treatment. Plan - Plan Treatment Plan: Name: SUDHAKAR HILL Birthdate: 1955 [id number] Medications: Current Medications Acetaminophen (Tylenol Tab*) 650 mg PO Q4H PRN PRN Reason: PAIN or TEMP > 101 F Last Admin: 04/29/18 00:18 Dose: 650 mg Al Hydrox/Mg Hydrox/Simethicone (Maalox Plus*) 30 ml PO Q4H PRN PRN Reason: INDIGESTION Last Admin: 04/26/18 15:17 Dose: 30 ml Albuterol (Ventolin Hfa Inhaler*) 2 puff INH Q4H PRN PRN Reason: WHEEZING Last Admin: 04/28/18 00:19 Dose: 2 puff Albuterol (Ventolin 2.5 Mg/3 Ml Neb.Eli*) 2.5 mg INH Q4H PRN PRN Reason: SOB/WHEEZING Last Admin: 04/27/18 18:32 Dose: 2.5 mg Amlodipine Besylate (Norvasc Tab*) 5 mg PO DAILY [facility] Last Admin: 04/29/18 08:59 Dose: 5 mg Aspirin (Aspirin 81 Mg Chew Tab*) 81 mg PO DAILY [facility] Last Admin: 04/29/18 09:00 Dose: 81 mg Atorvastatin Calcium (Lipitor*) 20 mg PO DAILY [facility] Last Admin: 04/29/18 08:59 Dose: 20 mg Benzocaine (Orajel 10%*) 1 applic TOPICAL QID PRN PRN Reason: PAIN Canagliflozin (Invokana (Nf)) 100 mg PO DAILY [facility] Last Admin: 04/29/18 08:58 Dose: 100 mg Diphenhydramine HCl (Benadryl Po*) 50 mg PO Q6H PRN PRN Reason: Agiation/Anxiety Last Admin: 04/28/18 10:19 Dose: 50 mg Diphenhydramine HCl (Benadryl Liq*) 50 mg PO Q6H PRN PRN Reason: Allergy Symptoms Diphenhydramine HCl (Benadryl Po*) 50 mg PO Q6H PRN PRN Reason: Allergy Symptoms Divalproex Sodium (Depakote Dr Tab(*)) 500 mg PO BID [facility] Last Admin: 04/29/18 09:00 Dose: 500 mg Famotidine (Pepcid Tab*) 20 mg PO BID [facility] Last Admin: 04/29/18 08:59 Dose: 20 mg Folic Acid (Folvite Tab*) 1 mg PO DAILY [facility] Last Admin: 04/29/18 08:58 Dose: 1 mg Furosemide (Lasix Tab*) 40 mg PO DAILY [facility] Last Admin: 04/29/18 08:59 Dose: 40 mg Gabapentin (Neurontin Cap(*)) 300 mg PO TID [facility] Last Admin: 04/29/18 09:01 Dose: 300 mg Haloperidol (Haldol Tab*) 5 mg PO Q6H PRN PRN Reason: AGITATION Last Admin: 04/26/18 13:32 Dose: 5 mg Hydrochlorothiazide (Hydrodiuril Tab*) 12.5 mg PO DAILY [facility] Last Admin: 04/29/18 09:01 Dose: 12.5 mg Levothyroxine Sodium (Synthroid Tab*) 100 mcg PO DAILY@0600 [facility] Last Admin: 04/29/18 09:00 Dose: 100 mcg Lisinopril (Prinivil Tab*) 20 mg PO DAILY [facility] Last Admin: 04/29/18 08:57 Dose: 20 mg Lorazepam (Ativan Tab(*)) 2 mg PO Q6H PRN PRN Reason: AGITATION Last Admin: 04/28/18 20:21 Dose: 2 mg Lurasidone HCl (Latuda) 80 mg PO 1700 [facility] Last Admin: 04/28/18 18:06 Dose: 80 mg Melatonin (Melatonin) 3 mg PO BEDTIME [facility] Last Admin: 04/28/18 20:19 Dose: 3 mg Multivitamins (Theragran Tab*) 1 tab PO DAILY [facility] Last Admin: 04/29/18 08:58 Dose: 1 tab Nicotine (Nicotine Inhaler*) 10 mg INH Q2H PRN PRN Reason: CRAVING Polyethylene Glycol/Electrolytes (Miralax*) 17 gm PO DAILY [facility] Last Admin: 04/29/18 09:02 Dose: 17 gm Promethazine HCl (Phenergan Tab*) 25 mg PO Q6H PRN PRN Reason: NAUSEA Last Admin: 04/26/18 06:20 Dose: 25 mg Tramadol HCl (Ultram*) 50 mg PO Q8H PRN PRN Reason: PAIN Last Admin: 04/29/18 03:53 Dose: 50 mg - Discharge Plan Discharge Plan: Inpatient Hospitalization Additional Comments: Sudhakar has been stable in the past on Depakote and Seroquel. We will increase the Seroquel to 400 mg and discontinue the Cymbalta he was started on following ECT for vegetative depressive symptoms. Depakote is listed as an allergy. We will undertake to find out if that is a true allergy. 04/24/18: Sudhakar had a very bad evening an day. He is incredibly irritable and also having somatic complaints including cardiac problems. We will adjust his medications tomorrow. 04/25/18: Depakote was started. Sudhakar will be considered for [facility] as he has been at [facility] three times for psychiatric reasons in six months. Seroquel was reduced to 200 mg based on hospitalist recommendation. 04/28/18: Sudhakar will be changed from Seroquel to Latuda 80 mg in deference to his cardiac history and Latuda's reduced likelihood to cause cardiac problems. Although Sudhakar feels like Depakote isn't working, it has only been a few days. We will continue to monitor his progress. 04/29/18: Sudhakar is being referred for ECT at [facility].
[2018-04-29] MEDS: Al Hydrox/Mg Hydrox/Simet LIQ* 30 ML UDC PO PRN (13:20)
[2018-04-29] MEDS ORDERED: LORazepam TAB(*) 1 MG PO PRN (14:51)
[2018-04-29] MEDS: Melatonin 3 MG TAB PO SCH (21:00)
[2018-04-29] MEDS: Lithium Carbonate CAP 150 MG ** CAPSULE PO SCH (21:00)
[2018-04-29] MEDS: LORazepam TAB(*) 1 MG PO PRN (21:01)
[2018-04-29] MEDS: Albuterol 2.5 MG/3 ML NEB.SOL* (0.083%) INH PRN (22:35)
[2018-04-29] MEDS: diPHENhydraMINE PO* 50 MG PO PRN (23:30)
[2018-04-29] MEDS: Haloperidol TAB* 5 MG PO PRN (23:30)
[2018-04-30] MEDS: traMADol TAB* 50 MG PO PRN ×3 (02:45→21:47)
[2018-04-30] MEDS: Promethazine TAB* 25 MG PO PRN (02:45)
[2018-04-30] MEDS: Levothyroxine TAB* 100 MCG TAB PO SCH (06:25)
[2018-04-30] MEDS: Acetaminophen TAB* 325 MG PO PRN ×3 (06:25→20:42)
[2018-04-30] MEDS: Albuterol 2.5 MG/3 ML NEB.SOL* (0.083%) INH PRN ×3 (06:37→22:16)
[2018-04-30] MEDS: Aspirin 81 mg CHEW TAB* 81 MG TAB.CHEW PO SCH (08:39)
[2018-04-30] MEDS: Lisinopril TAB* 10 MG PO SCH (08:40)
[2018-04-30] MEDS: Famotidine TAB* 20 MG PO SCH ×2 (08:40→21:42)
[2018-04-30] MEDS: Folic Acid TAB* 1 MG PO SCH (08:40)
[2018-04-30] MEDS: Atorvastatin* 20 MG TAB PO SCH (08:40)
[2018-04-30] MEDS: Lithium Carbonate CAP 150 MG ** CAPSULE PO SCH ×2 (08:40→21:44)
[2018-04-30] MEDS: amLODIPine TAB* 5 MG PO SCH (08:40)
[2018-04-30] MEDS: Vitamin THERAPEUTIC TAB PO SCH (08:40)
[2018-04-30] MEDS: Furosemide TAB* 40 MG PO SCH (08:40)
[2018-04-30] MEDS: Gabapentin CAP(*) 300 MG PO SCH ×3 (08:40→21:43)
[2018-04-30] MEDS: PTO: Canagliflozin (NF) 100 MG TAB PO SCH (08:41)
[2018-04-30] MEDS: Hydrochlorothiazide TAB* 25 MG PO SCH (08:41)
[2018-04-30] MEDS: Polyethylene Glycol 3350* 17 GM PACKET PO SCH (09:13)
--- NOTE | 2018-04-30 10:57 | PN ---
MHU: Group Therapy Note - Service Type Service Type: 26260 Group Psychotherapy - Cognitive Behavioral Group Therapy ( CBT):Patient was attentive and participatory in CBT programming this morning, and remained in good behavioral control. Patient expressed positive insights regarding relevant treatment interventions and goals.
[2018-04-30] MEDS: LORazepam TAB(*) 1 MG PO PRN (15:55)
[2018-04-30] MEDS: diPHENhydraMINE PO* 50 MG PO PRN ×2 (15:55→21:46)
--- NOTE | 2018-04-30 18:08 | PN ---
Subjective - Subjective Date of Service: 04/30/18 Service Type: 37983 Hosp care 25 min moderate complexity Subjective: Sudhakar remains irritable and grouchy and unable to maintain attention. Topics in conversation shift from one topic to another without completion of the one before. I spoke with his home restoration service cleaner, Candida, who is frustrated with him and feels like he is a different person: collateral that has been confirmed by all others who interact with him. Somatic complaints continue, today about edema in his feet. [place] was started two days ago with consultation from pharmacy, as there are interactions in his medications, thus the very low doses. Sudhakar attempted to influence this, as he does with most medications, without understanding the implications. Further, he has the expectation that medications will work over night. Objective - Appearance Appearance: Obese Dysmorphic Features: No Hygiene: Normal Grooming: Disheveled - Behavior Psychomotor Activities: Normal Exhibits Abnormal Movement: No - Attitude and Relatedness Attitude and Relatedness: Irritable Eye Contact: Fair - Speech Quality: Unpressured Latencies: Normal Quantity: Appropriate - Mood Patient's Decription of Mood: "Terrible" - Affect Observed Affect: Depressed Affect Consistent with: Dysphoria - Thought Process Patient's Thought Process: Coherent, Circumstantial Thought Content: No Passive Wish, No Suicidal Planning, No Homicidal Ideation, No Paranoid Ideation - Sensorium Experiencing Hallucinations: No, Sensorium is Clear Type of Hallucinations: Visual: No, Auditory: No, Command: No - Level of Consciousness Level of Consciousness: Agitated Orientation: Yes Intact, Yes Orientated to Time, Yes Orientated to Place, Yes Orientated to Person - Impulse Control Impulse Control: Impaired - Insight and Judgement Insight and Judgement: Fair - Group Participation Particating in Group Activities: Yes - Medication Management Medication Management Adherence: Yes Assessment - Assessment Merits Inpatient Hospitalization: For Immediate Safety, For Discharge Planning Inpatient DSM-V Dx: F31.0 Clinical Impression: Sudhakar is a 62-year-old man with a long history of bipolar 1 disorder who has been disabled due to mental illness since approximately 2007 who comes to the hospital from [facility] on a 9.39 status due to erratic behavior including "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 His is manic at this time and in need of treatment. Plan - Plan Treatment Plan: Name: SUDHAKAR HILL Birthdate: 1955 [id number] Medications: Current Medications Acetaminophen (Tylenol Tab*) 650 mg PO Q4H PRN PRN Reason: PAIN or TEMP > 101 F Last Admin: 04/30/18 13:24 Dose: 650 mg Al Hydrox/Mg Hydrox/Simethicone (Maalox Plus*) 30 ml PO Q4H PRN PRN Reason: INDIGESTION Last Admin: 04/29/18 13:20 Dose: 30 ml Albuterol (Ventolin Hfa Inhaler*) 2 puff INH Q4H PRN PRN Reason: WHEEZING Last Admin: 04/28/18 00:19 Dose: 2 puff Albuterol (Ventolin 2.5 Mg/3 Ml Neb.Eli*) 2.5 mg INH Q4H PRN PRN Reason: SOB/WHEEZING Last Admin: 04/30/18 16:34 Dose: 2.5 mg Amlodipine Besylate (Norvasc Tab*) 5 mg PO DAILY [facility] Last Admin: 04/30/18 08:40 Dose: 5 mg Aspirin (Aspirin 81 Mg Chew Tab*) 81 mg PO DAILY [facility] Last Admin: 04/30/18 08:39 Dose: 81 mg Atorvastatin Calcium (Lipitor*) 20 mg PO DAILY [facility] Last Admin: 04/30/18 08:40 Dose: 20 mg Benzocaine (Orajel 10%*) 1 applic TOPICAL QID PRN PRN Reason: PAIN Canagliflozin (Invokana (Nf)) 100 mg PO DAILY [facility] Last Admin: 04/30/18 08:41 Dose: 100 mg Diphenhydramine HCl (Benadryl Po*) 50 mg PO Q6H PRN PRN Reason: Agiation/Anxiety Last Admin: 04/30/18 15:55 Dose: 50 mg Diphenhydramine HCl (Benadryl Liq*) 50 mg PO Q6H PRN PRN Reason: Allergy Symptoms Diphenhydramine HCl (Benadryl Po*) 50 mg PO Q6H PRN PRN Reason: Allergy Symptoms Famotidine (Pepcid Tab*) 20 mg PO BID [facility] Last Admin: 04/30/18 08:40 Dose: 20 mg Folic Acid (Folvite Tab*) 1 mg PO DAILY [facility] Last Admin: 04/30/18 08:40 Dose: 1 mg Furosemide (Lasix Tab*) 40 mg PO DAILY [facility] Last Admin: 04/30/18 08:40 Dose: 40 mg Gabapentin (Neurontin Cap(*)) 300 mg PO TID [facility] Last Admin: 04/30/18 13:23 Dose: 300 mg Haloperidol (Haldol Tab*) 5 mg PO Q6H PRN PRN Reason: AGITATION Last Admin: 04/29/18 23:30 Dose: 5 mg Hydrochlorothiazide (Hydrodiuril Tab*) 12.5 mg PO DAILY [facility] Last Admin: 04/30/18 08:41 Dose: 12.5 mg Levothyroxine Sodium (Synthroid Tab*) 100 mcg PO DAILY@0600 [facility] Last Admin: 04/30/18 06:25 Dose: 100 mcg Lisinopril (Prinivil Tab*) 20 mg PO DAILY [facility] Last Admin: 04/30/18 08:40 Dose: 20 mg [place] Carbonate ([place] Carbonate Cap) 150 mg PO BID [facility] Last Admin: 04/30/18 08:40 Dose: 150 mg Lorazepam (Ativan Tab(*)) 2 mg PO Q6H PRN PRN Reason: AGITATION Last Admin: 04/30/18 15:55 Dose: 2 mg Lorazepam (Ativan Tab(*)) 2 mg PO BEDTIME PRN PRN Reason: INSOMNIA Last Admin: 04/29/18 23:30 Dose: 2 mg Melatonin (Melatonin) 3 mg PO BEDTIME [facility] Last Admin: 04/29/18 21:00 Dose: 3 mg Multivitamins (Theragran Tab*) 1 tab PO DAILY [facility] Last Admin: 04/30/18 08:40 Dose: 1 tab Nicotine (Nicotine Inhaler*) 10 mg INH Q2H PRN PRN Reason: CRAVING Polyethylene Glycol/Electrolytes (Miralax*) 17 gm PO DAILY [facility] Last Admin: 04/30/18 09:13 Dose: Not Given Promethazine HCl (Phenergan Tab*) 25 mg PO Q6H PRN PRN Reason: NAUSEA Last Admin: 04/30/18 02:45 Dose: 25 mg Tramadol HCl (Ultram*) 50 mg PO Q8H PRN PRN Reason: PAIN Last Admin: 04/30/18 11:11 Dose: 50 mg - Discharge Plan Discharge Plan: Outpatient Follow Up Outpatient Program: [facility] Additional Comments: Sudhakar has been stable in the past on Depakote and Seroquel. We will increase the Seroquel to 400 mg and discontinue the Cymbalta he was started on following ECT for vegetative depressive symptoms. Depakote is listed as an allergy. We will undertake to find out if that is a true allergy. 04/24/18: Sudhakar had a very bad evening an day. He is incredibly irritable and also having somatic complaints including cardiac problems. We will adjust his medications tomorrow. 04/25/18: Depakote was started. [facility] as [facility] has been at [facility] three times for psychiatric reasons in six months. Seroquel was reduced to 200 mg based on hospitalist recommendation. 04/28/18: Sudhakar will be changed from Seroquel to Latuda 80 mg in deference to his cardiac history and Latuda's reduced likelihood to cause cardiac problems. Although Sudhakar feels like Depakote isn't working, it has only been a few days. We will continue to monitor his progress. 04/29/18: Sudhakar is being referred for ECT at [facility]. 04/30/18:Latuda and Depakote were both discontinued as Sudhakar has complained of diarrhea, in addition, Depakote will not be a positive influence on his diabetes. [place] was started at a low dose (150 mg BID) as a mood stabilizer is necessary. Sudhakar was rejected from ECT at [facility] due to his continued somatic complaints, specifically pulmonary and cardiac complaints.
[2018-04-30] MEDS: LORazepam TAB(*) 1 MG PO SCH (21:44)
[2018-04-30] MEDS: Melatonin 3 MG TAB PO SCH (21:47)
[2018-04-30] MEDS: Haloperidol TAB* 5 MG PO PRN (23:05)
[2018-05-01] MEDS: Acetaminophen TAB* 325 MG PO PRN ×3 (00:24→21:04)
[2018-05-01] MEDS: Albuterol HFA INHALER* 8 gm MDI INH PRN (00:55)
[2018-05-01] MEDS: LORazepam TAB(*) 1 MG PO PRN (01:51)
[2018-05-01] MEDS: Hydrochlorothiazide TAB* 25 MG PO SCH (08:38)
[2018-05-01] MEDS: Famotidine TAB* 20 MG PO SCH ×2 (08:39→20:09)
[2018-05-01] MEDS: Levothyroxine TAB* 100 MCG TAB PO SCH (08:39)
[2018-05-01] MEDS: PTO: Canagliflozin (NF) 100 MG TAB PO SCH (08:39)
[2018-05-01] MEDS: Aspirin 81 mg CHEW TAB* 81 MG TAB.CHEW PO SCH (08:39)
[2018-05-01] MEDS: Folic Acid TAB* 1 MG PO SCH (08:40)
[2018-05-01] MEDS: Vitamin THERAPEUTIC TAB PO SCH (08:40)
[2018-05-01] MEDS: Atorvastatin* 20 MG TAB PO SCH (08:40)
[2018-05-01] MEDS: Lisinopril TAB* 10 MG PO SCH (08:40)
[2018-05-01] MEDS: Furosemide TAB* 40 MG PO SCH (08:41)
[2018-05-01] MEDS: Gabapentin CAP(*) 300 MG PO SCH ×3 (08:41→20:10)
[2018-05-01] MEDS: amLODIPine TAB* 5 MG PO SCH (08:41)
[2018-05-01] MEDS: Polyethylene Glycol 3350* 17 GM PACKET PO SCH (08:43)
[2018-05-01] MEDS: Lithium Carbonate CAP 150 MG ** CAPSULE PO SCH ×2 (08:45→21:04)
[2018-05-01] MEDS: traMADol TAB* 50 MG PO PRN ×2 (09:38→18:15)
[2018-05-01] MEDS: LORazepam TAB(*) 1 MG PO SCH ×3 (12:51→21:04)
[2018-05-01] MEDS: Benzocaine/Menthol LOZ* 1 LOZENGE PO PRN (13:36)
[2018-05-01] MEDS: Albuterol 2.5 MG/3 ML NEB.SOL* (0.083%) INH PRN (15:59)
[2018-05-01] MEDS: Melatonin 3 MG TAB PO SCH (20:10)
[2018-05-02] MEDS: traMADol TAB* 50 MG PO PRN ×3 (02:15→18:46)
[2018-05-02] MEDS: Benzocaine/Menthol LOZ* 1 LOZENGE PO PRN (02:17)
[2018-05-02] MEDS: Acetaminophen TAB* 325 MG PO PRN ×3 (04:22→13:51)
[2018-05-02] MEDS: Levothyroxine TAB* 100 MCG TAB PO SCH (06:19)
[2018-05-02] MEDS: Famotidine TAB* 20 MG PO SCH ×2 (09:13→20:06)
[2018-05-02] MEDS: Folic Acid TAB* 1 MG PO SCH (09:13)
[2018-05-02] MEDS: Lisinopril TAB* 10 MG PO SCH (09:14)
[2018-05-02] MEDS: Vitamin THERAPEUTIC TAB PO SCH (09:14)
[2018-05-02] MEDS: Atorvastatin* 20 MG TAB PO SCH (09:14)
[2018-05-02] MEDS: Aspirin 81 mg CHEW TAB* 81 MG TAB.CHEW PO SCH (09:17)
[2018-05-02] MEDS: Gabapentin CAP(*) 300 MG PO SCH ×3 (09:17→20:06)
[2018-05-02] MEDS: amLODIPine TAB* 5 MG PO SCH (09:17)
[2018-05-02] MEDS: Hydrochlorothiazide TAB* 25 MG PO SCH (09:18)
[2018-05-02] MEDS: Furosemide TAB* 40 MG PO SCH (09:19)
[2018-05-02] MEDS: Lithium Carbonate CAP 150 MG ** CAPSULE PO SCH (09:20)
[2018-05-02] MEDS: PTO: Canagliflozin (NF) 100 MG TAB PO SCH (09:20)
[2018-05-02] MEDS: LORazepam TAB(*) 1 MG PO SCH ×4 (09:21→20:06)
[2018-05-02] MEDS: Polyethylene Glycol 3350* 17 GM PACKET PO SCH (09:23)
--- NOTE | 2018-05-02 13:15 | PN ---
MHU: Group Therapy Note - Service Type Service Type: 82438 Group Psychotherapy - Cognitive Behavioral Group Therapy ( CBT):Patient presented in CBT programming as disorganized and disruptive in discussion and needed repeated redirection to attend to presented materials.
[2018-05-02] MEDS: Melatonin 3 MG TAB PO SCH (20:06)
[2018-05-02] MEDS: Lithium Carbonate TAB* 300 MG PO SCH (20:06)
[2018-05-02] MEDS: Albuterol 2.5 MG/3 ML NEB.SOL* (0.083%) INH PRN (21:40)
--- NOTE | 2018-05-02 22:48 | PN ---
Subjective - Subjective Date of Service: 05/02/18 Service Type: 37739 Hosp care 25 min moderate complexity Subjective: Wei continues to be irritable and to behave in a helpless, dependent fashion. There is pressure from his family to have him improve more quickly and more globally. His father, Chris, would like his internet access stopped as well as to have a screening representative payee involved. Wei is not agreeable to a [facility] memory care program director. APS may be asked to be involved. Objective - Appearance Appearance: Obese Dysmorphic Features: No Hygiene: Normal Grooming: Disheveled - Behavior Psychomotor Activities: Normal Exhibits Abnormal Movement: No - Attitude and Relatedness Attitude and Relatedness: Needy Eye Contact: Fair - Speech Quality: Unpressured Latencies: Short Quantity: Appropriate - Mood Patient's Decription of Mood: "Great" - Affect Observed Affect: Constricted Affect Consistent with: Dysphoria - Thought Process Patient's Thought Process: Coherent, Tangential, Circumstantial Thought Content: No Passive Wish, No Suicidal Planning, No Homicidal Ideation, No Paranoid Ideation - Sensorium Experiencing Hallucinations: No, Sensorium is Clear Type of Hallucinations: Visual: No, Auditory: No, Command: No - Level of Consciousness Level of Consciousness: Alert Orientation: Yes Intact, Yes Orientated to Time, Yes Orientated to Place, Yes Orientated to Person - Impulse Control Impulse Control: Impaired - Insight and Judgement Insight and Judgement: Poor - Group Participation Particating in Group Activities: Yes - Medication Management Medication Management Adherence: Yes Assessment - Assessment Inpatient DSM-V Dx: F31.0 Clinical Impression: Wei is a 62-year-old man with a long history of bipolar 1 disorder who has been disabled due to mental illness since approximately 2007 who comes to the hospital from [facility] on a 9.39 status due to erratic behavior including "dining and dashing," 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 His is manic at this time and in need of treatment. Plan - Plan Treatment Plan: Name: WEI HILL Birthdate: 1955 [id number] Medications: Current Medications Acetaminophen (Tylenol Tab*) 650 mg PO Q4H PRN PRN Reason: PAIN or TEMP > 101 F Last Admin: 05/02/18 13:51 Dose: 650 mg Al Hydrox/Mg Hydrox/Simethicone (Maalox Plus*) 30 ml PO Q4H PRN PRN Reason: INDIGESTION Last Admin: 04/29/18 13:20 Dose: 30 ml Albuterol (Ventolin Hfa Inhaler*) 2 puff INH Q4H PRN PRN Reason: WHEEZING Last Admin: 05/01/18 00:55 Dose: 2 puff Albuterol (Ventolin 2.5 Mg/3 Ml Neb.Eli*) 2.5 mg INH Q4H PRN PRN Reason: SOB/WHEEZING Last Admin: 05/02/18 21:40 Dose: 2.5 mg Amlodipine Besylate (Norvasc Tab*) 5 mg PO DAILY [facility] Last Admin: 05/02/18 09:17 Dose: 5 mg Aspirin (Aspirin 81 Mg Chew Tab*) 81 mg PO DAILY [facility] Last Admin: 05/02/18 09:17 Dose: 81 mg Atorvastatin Calcium (Lipitor*) 20 mg PO DAILY [facility] Last Admin: 05/02/18 09:14 Dose: 20 mg Benzocaine (Orajel 10%*) 1 applic TOPICAL QID PRN PRN Reason: PAIN Canagliflozin (Invokana (Nf)) 100 mg PO DAILY [facility] Last Admin: 05/02/18 09:20 Dose: 100 mg Diphenhydramine HCl (Benadryl Po*) 50 mg PO Q6H PRN PRN Reason: Agiation/Anxiety Last Admin: 04/30/18 21:46 Dose: 50 mg Diphenhydramine HCl (Benadryl Liq*) 50 mg PO Q6H PRN PRN Reason: Allergy Symptoms Diphenhydramine HCl (Benadryl Po*) 50 mg PO Q6H PRN PRN Reason: Allergy Symptoms Famotidine (Pepcid Tab*) 20 mg PO BID [facility] Last Admin: 05/02/18 20:06 Dose: 20 mg Folic Acid (Folvite Tab*) 1 mg PO DAILY [facility] Last Admin: 05/02/18 09:13 Dose: 1 mg Furosemide (Lasix Tab*) 40 mg PO DAILY [facility] Last Admin: 05/02/18 09:19 Dose: 40 mg Gabapentin (Neurontin Cap(*)) 300 mg PO TID [facility] Last Admin: 05/02/18 20:06 Dose: 300 mg Haloperidol (Haldol Tab*) 5 mg PO Q6H PRN PRN Reason: AGITATION Last Admin: 04/30/18 23:05 Dose: 5 mg Hydrochlorothiazide (Hydrodiuril Tab*) 12.5 mg PO DAILY [facility] Last Admin: 05/02/18 09:18 Dose: 12.5 mg Levothyroxine Sodium (Synthroid Tab*) 100 mcg PO DAILY@0600 [facility] Last Admin: 05/02/18 06:19 Dose: 100 mcg Lisinopril (Prinivil Tab*) 20 mg PO DAILY [facility] Last Admin: 05/02/18 09:14 Dose: 20 mg [place] Carbonate ([place] Carbonate Tab*) 300 mg PO BEDTIME [facility] Last Admin: 05/02/18 20:06 Dose: 300 mg [place] Carbonate ([place] Carbonate Cap) 150 mg PO QAM [facility] Lorazepam (Ativan Tab(*)) 2 mg PO BEDTIME [facility] Last Admin: 05/02/18 20:06 Dose: 2 mg Lorazepam (Ativan Tab(*)) 1 mg PO 0900,1300,1700 [facility] Last Admin: 05/02/18 16:14 Dose: 1 mg Melatonin (Melatonin) 3 mg PO BEDTIME [facility] Last Admin: 05/02/18 20:06 Dose: 3 mg Multivitamins (Theragran Tab*) 1 tab PO DAILY [facility] Last Admin: 05/02/18 09:14 Dose: 1 tab Nicotine (Nicotine Inhaler*) 10 mg INH Q2H PRN PRN Reason: CRAVING Polyethylene Glycol/Electrolytes (Miralax*) 17 gm PO DAILY [facility] Last Admin: 05/02/18 09:23 Dose: 17 gm Promethazine HCl (Phenergan Tab*) 25 mg PO Q6H PRN PRN Reason: NAUSEA Last Admin: 04/30/18 02:45 Dose: 25 mg Throat Lozenges (Chloraseptic Maria Del Rosario*) 1 maria del rosario PO Q6H PRN PRN Reason: SORE THROAT Last Admin: 05/02/18 02:17 Dose: 1 maria del rosario Tramadol HCl (Ultram*) 50 mg PO Q8H PRN PRN Reason: PAIN Last Admin: 05/02/18 18:46 Dose: 50 mg - Discharge Plan Discharge Plan: Outpatient Follow Up Outpatient Program: [facility] Additional Comments: Wei has been stable in the past on Depakote and Seroquel. We will increase the Seroquel to 400 mg and discontinue the Cymbalta he was started on following ECT for vegetative depressive symptoms. Depakote is listed as an allergy. We will undertake to find out if that is a true allergy. 04/24/18: Wei had a very bad evening an day. He is incredibly irritable and also having somatic complaints including cardiac problems. We will adjust his medications tomorrow. 04/25/18: Depakote was started. [facility] has been at [facility] three times for psychiatric reasons in six months. Seroquel was reduced to 200 mg based on hospitalist recommendation. 04/28/18: Wei will be changed from Seroquel to Latuda 80 mg in deference to his cardiac history and Latuda's reduced likelihood to cause cardiac problems. Although Wei feels like Depakote isn't working, it has only been a few days. We will continue to monitor his progress. 04/29/18: Wei is being referred for ECT at [facility]. 04/30/18:Latuda and Depakote were both discontinued as Wei has complained of diarrhea, in addition, Depakote will not be a positive influence on his diabetes. [place] was started at a low dose (150 mg BID) as a mood stabilizer is necessary. Wei was rejected from ECT at [facility] due to his continued somatic complaints, specifically pulmonary and cardiac complaints. 05/02/18: [place] is increased to 150 QAM and 300 QHS as his lithium level is only 0.11. We are making plans to contact Adult Protective Services. A lab draw is planned for Saturday.
[2018-05-03] MEDS: Acetaminophen TAB* 325 MG PO PRN ×5 (00:37→21:42)
[2018-05-03] MEDS: traMADol TAB* 50 MG PO PRN ×3 (00:43→23:40)
[2018-05-03] MEDS: diPHENhydraMINE PO* 50 MG PO PRN (01:32)
[2018-05-03] MEDS: Haloperidol TAB* 5 MG PO PRN (01:33)
[2018-05-03] MEDS: Benzocaine/Menthol LOZ* 1 LOZENGE PO PRN ×4 (04:04→22:16)
[2018-05-03] MEDS: Hydrochlorothiazide TAB* 25 MG PO SCH (08:58)
[2018-05-03] MEDS: Aspirin 81 mg CHEW TAB* 81 MG TAB.CHEW PO SCH (08:58)
[2018-05-03] MEDS: Folic Acid TAB* 1 MG PO SCH (08:59)
[2018-05-03] MEDS: Gabapentin CAP(*) 300 MG PO SCH ×3 (08:59→20:09)
[2018-05-03] MEDS: Atorvastatin* 20 MG TAB PO SCH (08:59)
[2018-05-03] MEDS: Lisinopril TAB* 10 MG PO SCH (08:59)
[2018-05-03] MEDS: Vitamin THERAPEUTIC TAB PO SCH (09:00)
[2018-05-03] MEDS: Famotidine TAB* 20 MG PO SCH ×2 (09:00→20:10)
[2018-05-03] MEDS: amLODIPine TAB* 5 MG PO SCH (09:00)
[2018-05-03] MEDS: Furosemide TAB* 40 MG PO SCH (09:02)
[2018-05-03] MEDS: PTO: Canagliflozin (NF) 100 MG TAB PO SCH (09:02)
[2018-05-03] MEDS: Lithium Carbonate CAP 150 MG ** CAPSULE PO SCH (09:02)
[2018-05-03] MEDS: LORazepam TAB(*) 1 MG PO SCH ×4 (09:03→22:13)
[2018-05-03] MEDS: Levothyroxine TAB* 100 MCG TAB PO SCH (09:24)
[2018-05-03] MEDS: Polyethylene Glycol 3350* 17 GM PACKET PO SCH (09:25)
[2018-05-03] MEDS: Albuterol 2.5 MG/3 ML NEB.SOL* (0.083%) INH PRN ×2 (09:35→16:30)
[2018-05-03] MEDS: Lithium Carbonate TAB* 300 MG PO SCH (20:09)
[2018-05-03] MEDS: Melatonin 3 MG TAB PO SCH (20:10)
[2018-05-04] MEDS: Benzocaine/Menthol LOZ* 1 LOZENGE PO PRN ×2 (03:10→09:25)
[2018-05-04] MEDS: Acetaminophen TAB* 325 MG PO PRN ×4 (03:10→20:44)
[2018-05-04] MEDS: Levothyroxine TAB* 100 MCG TAB PO SCH (06:00)
[2018-05-04] MEDS: Lisinopril TAB* 10 MG PO SCH (08:52)
[2018-05-04] MEDS: Gabapentin CAP(*) 300 MG PO SCH ×3 (08:52→20:38)
[2018-05-04] MEDS: amLODIPine TAB* 5 MG PO SCH (08:52)
[2018-05-04] MEDS: Atorvastatin* 20 MG TAB PO SCH (08:52)
[2018-05-04] MEDS: Folic Acid TAB* 1 MG PO SCH (08:52)
[2018-05-04] MEDS: Famotidine TAB* 20 MG PO SCH ×2 (08:53→20:39)
[2018-05-04] MEDS: Hydrochlorothiazide TAB* 25 MG PO SCH (08:53)
[2018-05-04] MEDS: Vitamin THERAPEUTIC TAB PO SCH (08:53)
[2018-05-04] MEDS: Lithium Carbonate CAP 150 MG ** CAPSULE PO SCH (08:55)
[2018-05-04] MEDS: Furosemide TAB* 40 MG PO SCH (08:55)
[2018-05-04] MEDS: PTO: Canagliflozin (NF) 100 MG TAB PO SCH (08:55)
[2018-05-04] MEDS: Aspirin 81 mg CHEW TAB* 81 MG TAB.CHEW PO SCH (09:03)
[2018-05-04] MEDS: LORazepam TAB(*) 1 MG PO SCH ×5 (09:03→20:39)
[2018-05-04] MEDS: Polyethylene Glycol 3350* 17 GM PACKET PO SCH (09:03)
[2018-05-04] MEDS: traMADol TAB* 50 MG PO PRN (09:04)
[2018-05-04] MEDS: Albuterol 2.5 MG/3 ML NEB.SOL* (0.083%) INH PRN (14:40)
[2018-05-04] MEDS: Melatonin 3 MG TAB PO SCH (20:38)
[2018-05-04] MEDS: Lithium Carbonate TAB* 300 MG PO SCH (20:39)
[2018-05-04] MEDS: Albuterol HFA INHALER* 8 gm MDI INH PRN (20:47)
[2018-05-05] MEDS: traMADol TAB* 50 MG PO PRN ×2 (00:16→08:05)
[2018-05-05] MEDS: Acetaminophen TAB* 325 MG PO PRN ×4 (02:10→13:06)
[2018-05-05] MEDS: Haloperidol TAB* 5 MG PO PRN (02:40)
[2018-05-05] MEDS: Promethazine TAB* 25 MG PO PRN (02:40)
[2018-05-05] MEDS: diPHENhydraMINE PO* 50 MG PO PRN (02:40)
[2018-05-05] MEDS: Levothyroxine TAB* 100 MCG TAB PO SCH (05:30)
[2018-05-05 07:55] VITALS: BP 114/85
[2018-05-05] MEDS: PTO: Canagliflozin (NF) 100 MG TAB PO SCH (08:00)
[2018-05-05] MEDS: Hydrochlorothiazide TAB* 25 MG PO SCH (08:01)
[2018-05-05] MEDS: Gabapentin CAP(*) 300 MG PO SCH ×2 (08:02→13:03)
[2018-05-05] MEDS: Vitamin THERAPEUTIC TAB PO SCH (08:02)
[2018-05-05] MEDS: Folic Acid TAB* 1 MG PO SCH (08:04)
[2018-05-05] MEDS: Atorvastatin* 20 MG TAB PO SCH (08:04)
[2018-05-05] MEDS: Famotidine TAB* 20 MG PO SCH (08:04)
[2018-05-05] MEDS: Furosemide TAB* 40 MG PO SCH (08:05)
[2018-05-05] MEDS: amLODIPine TAB* 5 MG PO SCH (08:05)
[2018-05-05] MEDS: Polyethylene Glycol 3350* 17 GM PACKET PO SCH (08:06)
[2018-05-05] MEDS: Lisinopril TAB* 10 MG PO SCH (08:06)
[2018-05-05] MEDS: LORazepam TAB(*) 1 MG PO SCH ×2 (08:12→13:03)
[2018-05-05] MEDS: Aspirin 81 mg CHEW TAB* 81 MG TAB.CHEW PO SCH (08:12)
[2018-05-05] MEDS: Lithium Carbonate CAP 150 MG ** CAPSULE PO SCH (09:55)
[2018-05-05] MEDS: Benzocaine/Menthol LOZ* 1 LOZENGE PO PRN (09:55)
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
== END 2018-05-05 12:25 | disposition home or self-care (01) | DRG 885 ==
LOC: ED 13:50 → BSU 04-22 05:13
PROVIDERS: ADMIT Psychiatry & Neurology Psychiatry; ATTEND Psychiatry & Neurology Psychiatry
DX: F31.63 Bipolar disorder, current episode mixed, severe, without psychotic features (principal); E11.9 Type 2 diabetes mellitus without complications; J45.909 Unspecified asthma, uncomplicated; E03.9 Hypothyroidism, unspecified; K21.9 Gastro-esophageal reflux disease without esophagitis; I10 Essential (primary) hypertension; G47.33 Obstructive sleep apnea (adult) (pediatric); J32.9 Chronic sinusitis, unspecified; M54.9 Dorsalgia, unspecified; M17.0 Bilateral primary osteoarthritis of knee; F17.210 Nicotine dependence, cigarettes, uncomplicated; F12.90 Cannabis use, unspecified, uncomplicated; R94.31 Abnormal electrocardiogram [ECG] [EKG]; F60.3 Borderline personality disorder; R07.9 Chest pain, unspecified; Z87.820 Personal history of traumatic brain injury; Z81.8 Family history of other mental and behavioral disorders; Z88.1 Allergy status to other antibiotic agents; Z88.8 Allergy status to other drugs, medicaments and biological substances; Z79.84 Long term (current) use of oral hypoglycemic drugs; Z79.51 Long term (current) use of inhaled steroids; Z79.899 Other long term (current) drug therapy
CPT/HCPCS: 36415; 71046; 80048; 80053; 80178; 80307; 80320; 80329; 81003; 81015; 83735; 84443; 84484; 85025; 86703; 87086; 90732; 90853; 93005; 94640; 99222; 99231; 99232; 99238; 99285; A9270-GY; G0480; J2060

== ENCOUNTER 2018-05-05 23:52 | Emergency (ER) | payer MEDICARE, MEDICAID ==
[2018-05-06] MEDS ORDERED: Nicotine Inhaler* 10 MG AMP INH PRN
[2018-05-06 00:22] LABS: Hematocrit 40 % (42-52); Hemoglobin 13.8 g/dl (14.0-18.0); Mean Corpuscular HGB Conc 35 g/dl (31-36); Mean Corpuscular Hemoglobin 33 pg (27-31); Mean Corpuscular Volume 94 fL (80-94); Mean Platelet Volume 6.5 fL (7.4-10.4); Platelet Count 498 10^3/ul (150-450); Red Blood Count 4.25 10^6/ul (4.00-5.40); Red Cell Distribution Width 14 % (10.5-15); White Blood Count 9.9 10^3/ul (3.5-10.8)
[2018-05-06 00:39] LABS: ALT 18 U/L (7-52); Albumin 3.6 g/dL (3.2-5.2); Albumin/Globulin Ratio 1.1 (1-3); Alkaline Phosphatase 92 U/L (34-104); BUN/Creatinine Ratio 22.1 (8-20); Blood Urea Nitrogen 25 mg/dL (6-24); CO2 Carbon Dioxide 24 mmol/L (22-32); Calcium 9.4 mg/dL (8.6-10.3); Chloride 98 mmol/L (101-111); Globulin 3.3 g/dL (2-4); Glucose 178 mg/dL (70-100); Sodium 130 mmol/L (135-145); Total Protein 6.9 g/dL (6.4-8.9)
[2018-05-06 00:42] LABS: Urine Appearance Clear; Urine Bilirubin Negative (Negative); Urine Blood Negative (Negative); Urine Color Straw; Urine Glucose 3+(>=500 mg/dL) (Negative); Urine Ketones Negative (Negative); Urine Nitrite Negative (Negative); Urine Protein Negative (Negative); Urine Specific Gravity 1.005 (1.010-1.030); Urine Urobilinogen Negative (Negative)
[2018-05-06 00:46] LABS: Immature Granulocytes 2 % (0-9); Lymphocytes % 30 %; Metamyelocytes % 1 % (0-2); Monocytes % 9 %; Myelocytes % 1 % (0-1); Neutrophil % 58 %
[2018-05-06 00:47] LABS: ABS Basophils 0.1 10^3/ul (0-0.2); ABS Eosinophils 0.2 10^3/ul (0-0.6); ABS Monocytes 0.9 10^3/ul (0-0.8); ABS Neutrophils 5.7 10^3/ul (1.5-7.7); ABS Nucleated RBC 0 10^3/ul; Nucleated Red Blood Cells % 0.1
[2018-05-06 00:53] LABS: Barbiturates Urine Screen None Detected (None Detect); Benzodiazepine Urine Screen None Detected (None Detect); Urine Cannabinoids Screen None Detected (None Detect)
[2018-05-06 01:05] LABS: Acetaminophen < 15 mcg/mL; Alcohol < 10 mg/dL (<10); Salicylate < 2.50 mg/dL (<30)
[2018-05-06 01:13] LABS: Anion Gap 8 mmol/L (2-11)
[2018-05-06 01:19] LABS: TSH (Thyroid Stimulating Horm) 2.18 mcIU/mL (0.34-5.60)
--- NOTE | 2018-05-06 01:40 | ED ---
Medical Screening - HPI Summary HPI Summary: Patient was discharged from [facility] returns to the ED today complaining of feeling stressed out. Denies physical symptoms, SI, HI. Patient states she he is overwhelmed by the fact that he is expecting to be released to be born. Patient admits to consumption of 2 mixed drinks today, denies recreational drug use. Patient states he is compliant with meds. Denies fever, cough, sore throat, CP, SOB, N/V/D, abdominal pain, change in urine, change in BM. Medical history is bipolar, DM, hypothyroid, HDL. - History of Current Complaint Chief Complaint: EDMentalHealth Stated Complaint: MHE Time Seen by Provider: 05/05/18 23:59 Onset/Duration: Started Hours Ago Severity: moderate PMH/Surg Hx/FS Hx/Imm Hx Endocrine/Hematology History: Reports: Hx Diabetes, Hx Thyroid Disease - hypothyroid medicated with synthroid 75 mcg Cardiovascular History: Reports: Hx Angina, Hx Cardiac Arrest, Hx Hypercholesterolemia, Hx Hypotension, Hx Hypertension, Other Cardiovascular Problems/Disorders - CAD, IDDM II, HIGH CHOLESTEROL Denies: Hx Coronary Artery Disease, Hx Myocardial Infarction, Hx Pacemaker/ ICD, Hx Valvular Heart Disease Respiratory History: Reports: Hx Asthma, Hx Sleep Apnea Denies: Hx Chronic Obstructive Pulmonary Disease (COPD) GI History: Reports: Hx Gastroesophageal Reflux Disease History: Denies: Hx Renal Disease Musculoskeletal History: Reports: Other Musculoskeletal History - Hx Rt hip fracture Denies: Hx Arthritis, Hx Osteoporosis Sensory History: Denies: Hx Cataracts, Hx Contacts or Glasses, Hx Eye Injury, Hx Hearing Aid, Hx Hearing Problem, Other Sensory Impairments Opthamlomology History: Denies: Hx Cataracts, Hx Contacts or Glasses, Hx Eye Injury, Other Sensory Impairments Neurological History: Reports: Hx Migraine, Other Neuro Impairments/Disorders - parkinson's Psychiatric History: Reports: Hx Anxiety, Hx Depression, Hx Inpatient Treatment - multiple in [place], [place], Hx Bipolar Disorder Denies: Hx Eating Disorder, Hx Panic Disorder, Hx of Violent Episodes Against Others - Surgical History Surgery Procedure, Year, and Place: tonsillectomy, hyiod suspension 10 years ago Hx Anesthesia Reactions: No - Immunization History Date of Tetanus Vaccine: UTD Date of Influenza Vaccine: 01/2017 Infectious Disease History: No Infectious Disease History: Denies: Hx of Known/Suspected MRSA, Traveled Outside the [place] in Last 30 Days - Family History Known Family History: Positive: Cardiac Disease, Hypertension, Other - Positive bipolar and schizophrenia - Social History Alcohol Use: Weekly Alcohol Amount: 1beer/1 drink daily for a long time Hx Substance Use: No Substance Use Type: Reports: Cocaine, Marijuana Substance Use Comment - Amount & Last Used: uses 1-2 drinks of alcohol daily and several bowls of marijuana daily. Hx Tobacco Use: Yes Smoking Status (MU): Former Smoker Type: Cigarettes Have You Smoked in the Last Year: No Review of Systems Constitutional: Negative Eyes: Negative ENT: Negative Cardiovascular: Negative Respiratory: Negative Gastrointestinal: Negative Genitourinary: Negative Musculoskeletal: Negative Skin: Negative Neurological: Negative Positive: Anxious All Other Systems Reviewed And Are Negative: Yes Physical Exam Triage Information Reviewed: Yes Vital Signs On Initial Exam: Initial Vitals Temp Pulse Resp BP Pulse Ox 98.6 F 74 15 121/70 97 05/05/18 23:55 05/05/18 23:55 05/05/18 23:55 05/05/18 23:55 05/05/18 23:55 Vital Signs Reviewed: Yes Appearance: Positive: Well-Appearing Skin: Positive: Warm Head/Face: Positive: Normal Head/Face Inspection Eyes: Positive: Normal ENT: Positive: Normal ENT inspection Neck: Positive: Supple Respiratory/Lung Sounds: Positive: Clear to Auscultation Cardiovascular: Positive: Normal Abdomen Description: Positive: Nontender Musculoskeletal: Positive: Normal Neurological: Positive: Normal Psychiatric: Positive: Normal AVPU Assessment: Alert - [place] Coma Scale Best Eye Response: 4 - Spontaneous Best Motor Response: 6 - Obeys Commands Best Verbal Response: 5 - Oriented Coma Scale Total: 15 Diagnostics - Vital Signs Vital Signs Temp Pulse Resp BP Pulse Ox 05/05/18 23:55 98.6 F 74 15 121/70 97 - Laboratory Lab Results: Lab Results 05/06/18 05/06/18 05/06/18 Range/Units 00:09 00:09 00:15 WBC 9.9 (3.5-10.8) 10^3/ul RBC 4.25 (4.00-5.40) 10^6/ul Hgb 13.8 L (14.0-18.0) g/dl Hct 40 L (42-52) % MCV 94 (80-94) fL MCH 33 H (27-31) pg MCHC 35 (31-36) g/dl RDW 14 (10.5-15) % Plt Count 498 H D (150-450) 10^3/ul MPV 6.5 L (7.4-10.4) fL Neut % (Auto) Not Reportable Lymph % (Auto) Not Reportable Crisp % (Auto) Not Reportable Eos % (Auto) Not Reportable Baso % (Auto) Not Reportable Absolute Neuts (auto) 5.7 (1.5-7.7) 10^3/ul Absolute Lymphs (auto) 3.0 (1.0-4.8) 10^3/ul Absolute Monos (auto) 0.9 H (0-0.8) 10^3/ul Absolute Eos (auto) 0.2 (0-0.6) 10^3/ul Absolute Basos (auto) 0.1 (0-0.2) 10^3/ul Absolute Nucleated RBC 0 10^3/ul Immature Gran % 2 (0-9) % Neutrophils % 58 % Lymphocytes % 30 % Monocytes % 9 % Eosinophils % 1 % Metamyelocytes % 1 (0-2) % Myelocytes % 1 (0-1) % Nucleated RBC % 0.1 Normal RBC Morphology Normal (Normal) Sodium (135-145) mmol/L Potassium Chloride (101-111) mmol/L Carbon Dioxide (22-32) mmol/L Anion Gap (2-11) mmol/L BUN (6-24) mg/dL Creatinine (0.67-1.17) mg/dL Est GFR ( Amer) (>60) Est GFR (Non-Af Amer) (>60) BUN/Creatinine Ratio (8-20) Glucose (70-100) mg/dL Calcium (8.6-10.3) mg/dL Total Bilirubin (0.2-1.0) mg/dL AST ALT (7-52) U/L Alkaline Phosphatase (34-104) U/L Total Protein (6.4-8.9) g/dL Albumin (3.2-5.2) g/dL Globulin (2-4) g/dL Albumin/Globulin Ratio (1-3) TSH (0.34-5.60) mcIU/mL Urine Color Straw Urine Appearance Clear Urine pH 7.0 (5-9) Ur Specific [place] 1.005 L (1.010-1.030) Urine Protein Negative (Negative) Urine Ketones Negative (Negative) Urine Blood Negative (Negative) Urine Nitrate Negative (Negative) Urine Bilirubin Negative (Negative) Urine Urobilinogen Negative (Negative) Ur Leukocyte Esterase Negative (Negative) Urine Glucose 3+(>=500 mg/dl) A (Negative) Salicylates (<30) mg/dL Urine Opiates Screen None detected (None Detect) Acetaminophen mcg/mL Ur Barbiturates Screen None detected (None Detect) Ur Phencyclidine Scrn None detected (None Detect) Ur Amphetamines Screen None detected (None Detect) U Benzodiazepines Scrn None detected (None Detect) Urine Cocaine Screen None detected (None Detect) U Cannabinoids Screen None detected (None Detect) Serum Alcohol (<10) mg/dL 05/06/18 Range/Units 00:15 WBC (3.5-10.8) 10^3/ul RBC (4.00-5.40) 10^6/ul Hgb (14.0-18.0) g/dl Hct (42-52) % MCV (80-94) fL MCH (27-31) pg MCHC (31-36) g/dl RDW (10.5-15) % Plt Count (150-450) 10^3/ul MPV (7.4-10.4) fL Neut % (Auto) Lymph % (Auto) Crisp % (Auto) Eos % (Auto) Baso % (Auto) Absolute Neuts (auto) (1.5-7.7) 10^3/ul Absolute Lymphs (auto) (1.0-4.8) 10^3/ul Absolute Monos (auto) (0-0.8) 10^3/ul Absolute Eos (auto) (0-0.6) 10^3/ul Absolute Basos (auto) (0-0.2) 10^3/ul Absolute Nucleated RBC 10^3/ul Immature Gran % (0-9) % Neutrophils % % Lymphocytes % % Monocytes % % Eosinophils % % Metamyelocytes % (0-2) % Myelocytes % (0-1) % Nucleated RBC % Normal RBC Morphology (Normal) Sodium 130 L (135-145) mmol/L Potassium TNP Chloride 98 L (101-111) mmol/L Carbon Dioxide 24 (22-32) mmol/L Anion Gap 8 (2-11) mmol/L BUN 25 H (6-24) mg/dL Creatinine 1.13 (0.67-1.17) mg/dL Est GFR ( Amer) 79.8 (>60) Est GFR (Non-Af Amer) 66.0 (>60) BUN/Creatinine Ratio 22.1 H (8-20) Glucose 178 H (70-100) mg/dL Calcium 9.4 (8.6-10.3) mg/dL Total Bilirubin 0.20 (0.2-1.0) mg/dL AST TNP ALT 18 (7-52) U/L Alkaline Phosphatase 92 (34-104) U/L Total Protein 6.9 (6.4-8.9) g/dL Albumin 3.6 (3.2-5.2) g/dL Globulin 3.3 (2-4) g/dL Albumin/Globulin Ratio 1.1 (1-3) TSH 2.18 (0.34-5.60) mcIU/mL Urine Color Urine Appearance Urine pH (5-9) Ur Specific [place] (1.010-1.030) Urine Protein (Negative) Urine Ketones (Negative) Urine Blood (Negative) Urine Nitrate (Negative) Urine Bilirubin (Negative) Urine Urobilinogen (Negative) Ur Leukocyte Esterase (Negative) Urine Glucose (Negative) Salicylates < 2.50 (<30) mg/dL Urine Opiates Screen (None Detect) Acetaminophen < 15 mcg/mL Ur Barbiturates Screen (None Detect) Ur Phencyclidine Scrn (None Detect) Ur Amphetamines Screen (None Detect) U Benzodiazepines Scrn (None Detect) Urine Cocaine Screen (None Detect) U Cannabinoids Screen (None Detect) Serum Alcohol < 10 (<10) mg/dL Result Diagrams: 05/06/18 00:15 05/06/18 01:29 Lab Statement: Any lab studies that have been ordered have been reviewed, and results considered in the medical decision making process. Course/Dx - Course Course Of Treatment: Patient was discharged from [facility] returns to the ED today complaining of feeling stressed out. Denies physical symptoms, SI, HI. Patient states she he is overwhelmed by the fact that he is expecting to be released to be born. Patient admits to consumption of 2 mixed drinks today, denies recreational drug use. Patient states he is compliant with meds. Denies fever, cough, sore throat, CP, SOB, N/V/D, abdominal pain, change in urine, change in BM. Medical history is bipolar, DM, hypothyroid, HDL. Physical exam unremarkable. Vital signs within normal limits. Labs unremarkable. [place] level improving. Patient has existing appointment on May 10 with [facility]. Patient discharged by mental health after evaluation. - Diagnoses Provider Diagnoses: Anxiety Discharge - Sign-Out/Discharge Documenting (check all that apply): Patient Departure - Discharge Plan Condition: Stable Disposition: HOME Patient Education Materials: Anxiety (ED) Referrals: [facility] [Outside] (Please follow up with your scheduled appt on 05/10/18) Collin Lowry MD [Primary Care Provider] - Additional Instructions: Follow-up with her appointment on May 10 with [facility] for further evaluation of stress management. Return to the ED for any new or worsening symptoms - Billing Disposition and Condition Condition: STABLE Disposition: Home
[2018-05-06] MEDS ORDERED: Mouth Piece, Nicotine* 1 EACH CARTRIDGE INH ONE (02:00)
[2018-05-06] MEDS ORDERED: Acetaminophen TAB* 325 MG PO ONE (02:12)
[2018-05-06 02:24] LABS: Lithium 0.44 mmol/L (0.6-1.2)
[2018-05-06 02:35] VITALS: BP 143/68
== END 2018-05-06 02:34 | disposition home or self-care (01) ==
LOC: ED 23:52
DX: F41.9 Anxiety disorder, unspecified (principal); Z87.891 Personal history of nicotine dependence; E11.9 Type 2 diabetes mellitus without complications; I25.2 Old myocardial infarction; I25.10 Atherosclerotic heart disease of native coronary artery without angina pectoris; F31.9 Bipolar disorder, unspecified; E78.6 Lipoprotein deficiency
CPT/HCPCS: 36415; 80053; 80178; 80307; 80320; 80329; 81003; 84443; 85025; 99284; A9270-GY; G0480

== ENCOUNTER → 2018-05-08 09:10 | Emergency (ER) | payer MEDICARE, OTHER ==
--- NOTE | 2018-05-08 09:44 | ED ---
HPI Chest Pain - HPI Summary HPI Summary: This patient is a 62 year old M presenting to the emergency room after being brought in by EMS with a cc of CP that woke him up at 0300 this morning. He states he has a similar pain in the past and was seen in [facility] on 05-05-17. He was admitted and had an echo and nuclear stress test at this. He rates the pain 6/10 currently and describes it as mid sternal and compares it to a dull pressure. He states that nothing he does makes it better or worse. He was given 324 ASA and two NTG by EMS. The patient started lithium 10 days ago hand began tremors in UEs since. The patient is a poor historian. - History of Current Complaint Chief Complaint: EDChestWallPain Time Seen by Provider: 05/08/18 09:16 Hx Obtained From: Patient Onset/Duration: Started Hours Ago, Still Present Time of Onset: 03:00 Timing: Constant Initial Severity: Moderate Current Severity: Moderate Pain Intensity: 6 Pain Scale Used: 0-10 Numeric Chest Pain Location: Mid Sternal Chest Pain Radiates: No Character: Dull/Aching, Pressure/Squeezing Aggravating Factor(s): Nothing Alleviating Factor(s): Nothing Associated Signs and Symptoms: Positive: Other: - tremors - Additional Pertinent History Primary Care Physician: VITALY - Allergy/Home Medications Allergies/Adverse Reactions: Allergies Allergy/AdvReac Type Severity Reaction Status Date / Time ampicillin Allergy Unknown Rash And Verified 04/22/18 05:34 Itching propranolol Allergy Unknown Rash And Verified 04/22/18 05:34 Itching divalproex sodium Allergy Unknown Verified 04/22/18 05:34 [From Depakote] Reaction Details PMH/Surg Hx/FS Hx/Imm Hx Endocrine/Hematology History: Reports: Hx Diabetes, Hx Thyroid Disease - hypothyroid medicated with synthroid 75 mcg Cardiovascular History: Reports: Hx Angina, Hx Cardiac Arrest, Hx Hypercholesterolemia, Hx Hypotension, Hx Hypertension, Other Cardiovascular Problems/Disorders - CAD, IDDM II, HIGH CHOLESTEROL Denies: Hx Coronary Artery Disease, Hx Myocardial Infarction, Hx Pacemaker/ ICD, Hx Valvular Heart Disease Respiratory History: Reports: Hx Asthma, Hx Sleep Apnea Denies: Hx Chronic Obstructive Pulmonary Disease (COPD) GI History: Reports: Hx Gastroesophageal Reflux Disease History: Denies: Hx Renal Disease Musculoskeletal History: Reports: Other Musculoskeletal History - Hx Rt hip fracture Denies: Hx Arthritis, Hx Osteoporosis Sensory History: Denies: Hx Cataracts, Hx Contacts or Glasses, Hx Eye Injury, Hx Hearing Aid, Hx Hearing Problem, Other Sensory Impairments Opthamlomology History: Denies: Hx Cataracts, Hx Contacts or Glasses, Hx Eye Injury, Other Sensory Impairments Neurological History: Reports: Hx Migraine, Other Neuro Impairments/Disorders - parkinson's Psychiatric History: Reports: Hx Anxiety, Hx Depression, Hx Inpatient Treatment - multiple in [place], [place], Hx Bipolar Disorder Denies: Hx Eating Disorder, Hx Panic Disorder, Hx of Violent Episodes Against Others - Surgical History Surgery Procedure, Year, and Place: tonsillectomy, hyiod suspension 10 years ago Hx Anesthesia Reactions: No - Immunization History Date of Tetanus Vaccine: UTD Date of Influenza Vaccine: 01/2017 Infectious Disease History: No Infectious Disease History: Denies: Hx of Known/Suspected MRSA, Traveled Outside the in Last 30 Days - Family History Known Family History: Positive: Cardiac Disease, Hypertension, Other - Positive bipolar and schizophrenia - Social History Alcohol Use: Occasionally Alcohol Amount: 1beer/1 drink daily for a long time Hx Substance Use: No Substance Use Type: Reports: Cocaine, Marijuana Substance Use Comment - Amount & Last Used: uses 1-2 drinks of alcohol daily and several bowls of marijuana daily. Hx Tobacco Use: Yes Smoking Status (MU): Former Smoker Type: Cigarettes Have You Smoked in the Last Year: No Review of Systems Positive: Chest Pain Positive: Other - tremors All Other Systems Reviewed And Are Negative: Yes Physical Exam - Summary Physical Exam Summary: Appearance: The patient is well-nourished in no acute distress and in no acute pain. Skin: The skin is warm and dry and skin color reflects adequate perfusion. HEENT: The head is normocephalic and atraumatic. The pupils are equal and reactive. The conjunctivae are clear and without drainage. Nares are patent and without drainage. Mouth reveals moist mucous membranes and the throat is without erythema and exudate. The external ears are intact. The ear canals are patent and without drainage. The tympanic membranes are intact. Neck: The neck is supple with full range of motion and non-tender. There are no carotid bruits. There is no neck vein distension. Respiratory: Chest is non-tender. Lungs are clear to auscultation and breath sounds are symmetrical and equal. Cardiovascular: Heart is regular rate and rhythm. There is no murmur or rub auscultated. There is no peripheral edema and pulses are symmetrical and equal. Abdomen: The abdomen is soft and non-tender. There are normal bowel sounds heard in all four quadrants and there is no organomegaly palpated. Musculoskeletal: There is no back tenderness noted. Extremities are non-tender with full range of motion. There is good capillary refill. There is no peripheral edema or calf tenderness elicited. There is a fine tremor Neurological: Patient is alert and oriented to person, place and time. The patient has symmetrical motor strength in all four extremities. Cranial nerves are grossly intact. Deep tendon reflexes are symmetrical and equal in all four extremities. Psychiatric: The patient has an appropriate affect and does not exhibit any anxiety or depression. Triage Information Reviewed: Yes Vital Signs On Initial Exam: Initial Vitals Temp Pulse Resp BP Pulse Ox 99.3 F 75 18 104/68 96 05/08/18 09:12 05/08/18 09:12 05/08/18 09:12 05/08/18 09:12 05/08/18 09:12 Vital Signs Reviewed: Yes Diagnostics - Vital Signs Vital Signs Temp Pulse Resp BP Pulse Ox 05/08/18 09:12 99.3 F 75 18 104/68 96 - Laboratory Result Diagrams: 05/08/18 09:19 05/08/18 09:19 Lab Statement: Any lab studies that have been ordered have been reviewed, and results considered in the medical decision making process. - Radiology CXR Radiology Interpretation Completed By: Radiologist Summary of Radiographic Findings: No active cardiopulmonary disease. - EKG 0913 Cardiac Rate: NL EKG Rhythm: Sinus Rhythm - at 83 BPM Summary of EKG Findings: RBBB Re-Evaluation - Re-Evaluation First Eval Re-Evaluation Time: 11:25 Change: Improved Comment: The patient states he is feeling better, is having no CP, and would like to go home. Second Eval Re-Evaluation Time: 11:52 Comment: I informed the patient I would like him to stay for a second trop and he declined. Chest Pain Course/Dx - Course Course Of Treatment: Mr. Flower presented complaining of chest pain since 4 AM. He cannot describe any exacerbating or relieving factors or associated symptoms. He had a recent admission with a cardiac workup he says. He was nontoxic in appearance on arrival with stable vital signs. Initial troponin was negative as were his EKG, chest x-ray and other labs. His pain went away while he was here in the emergency department and he requested discharge. I recommended we wait for a second troponin but he declined. I doubt that anything dangerous is happening recommended close follow-up or return. - Diagnoses Provider Diagnoses: Chest pain Discharge - Sign-Out/Discharge Documenting (check all that apply): Patient Departure - Discharge Plan Condition: Stable Disposition: HOME Patient Education Materials: Chest Pain (ED) Referrals: Collin Lowry MD [Primary Care Provider] - 2 Days Additional Instructions: RETURN TO THE EMERGENCY DEPARTMENT FOR CHANGING OR WORSENING SYMPTOMS - Billing Disposition and Condition Condition: STABLE Disposition: Home - Attestation Statements Document Initiated by [place]: Yes Documenting Scribe: Manny King Provider For Whom Abnere is Documenting (Include Credential): Porfirio Agee MD Scribe Attestation: IManny , scribed for Porfirio Agee MD on 05/08/18 at 1606. Scribe Documentation Reviewed: Yes Provider Attestation: The documentation as recorded by the Manny bean accurately reflects the service I personally performed and the decisions made by me, Porfirio Agee MD Status of Scribe Document: Viewed
[2018-05-08 10:18] LABS: ABS Basophils 0.1 10^3/ul (0-0.2); ABS Eosinophils 0.4 10^3/ul (0-0.6); ABS Lymphocytes 1.9 10^3/ul (1.0-4.8); ABS Monocytes 1.1 10^3/ul (0-0.8); ABS Neutrophils 6.6 10^3/ul (1.5-7.7); ABS Nucleated RBC 0 10^3/ul; Eosinophil % 3.9 %; Hematocrit 38 % (42-52); Hemoglobin 12.9 g/dl (14.0-18.0); Lymphocyte % 19.2 %; Mean Corpuscular HGB Conc 34 g/dl (31-36); Mean Corpuscular Hemoglobin 32 pg (27-31); Mean Corpuscular Volume 94 fL (80-94); Mean Platelet Volume 6.5 fL (7.4-10.4); Nucleated Red Blood Cells % 0; Platelet Count 416 10^3/ul (150-450); Red Cell Distribution Width 14 % (10.5-15); White Blood Count 10.1 10^3/ul (3.5-10.8)
[2018-05-08 10:25] LABS: INR 0.87 (0.77-1.02)
[2018-05-08 10:42] LABS: Albumin 3.7 g/dL (3.2-5.2); Albumin/Globulin Ratio 1.3 (1-3); BUN/Creatinine Ratio 32.7 (8-20); Calcium 9.4 mg/dL (8.6-10.3); EGFR African American 90.9 (>60); EGFR Non-African American 75.1 (>60); Globulin 2.8 g/dL (2-4); Potassium 4.6 mmol/L (3.5-5.0); Total Bilirubin 0.2 mg/dL (0.2-1.0); Total Protein 6.5 g/dL (6.4-8.9)
[2018-05-08 10:43] LABS: Troponin I 0.01 ng/mL (<0.04)
[2018-05-08 11:19] LABS: Lithium 0.38 mmol/L (0.6-1.2)
[2018-05-08 11:23] LABS: TSH (Thyroid Stimulating Horm) 2.72 mcIU/mL (0.34-5.60)
[2018-05-08 12:06] VITALS: BP 124/77
== END | disposition home or self-care (01) ==
LOC: ED 09:10
DX: R07.9 Chest pain, unspecified (principal); I45.10 Unspecified right bundle-branch block; K21.9 Gastro-esophageal reflux disease without esophagitis; J45.909 Unspecified asthma, uncomplicated; E03.9 Hypothyroidism, unspecified; E78.00 Pure hypercholesterolemia, unspecified; I10 Essential (primary) hypertension; I25.10 Atherosclerotic heart disease of native coronary artery without angina pectoris; J44.9 Chronic obstructive pulmonary disease, unspecified; Z86.74 Personal history of sudden cardiac arrest; Z88.0 Allergy status to penicillin; Z87.891 Personal history of nicotine dependence
CPT/HCPCS: 36415; 71045; 80053; 80178; 83605; 84443; 84484; 85025; 85610; 93005; 99283

== ENCOUNTER 2018-05-26 01:27 | Emergency (ER) | payer MEDICARE, OTHER ==
--- NOTE | 2018-05-26 02:16 | ED ---
Shortness of Breath - HPI Summary HPI Summary: This patient is a 62 year old M brought in by ambulance to [facility] with a chief complaint of SOB at rest since 1 day ago. The patient was recently discharged from [facility] [place] and was previously diagnosed with pneumonia. The patient rates the pain 8/10 in severity. Symptoms aggravated by nothing. Symptoms alleviated by nothing. Patient reports productive cough. Pt has hx asthma. Patient notes that he is currently on his second round of abx for pneumonia. - History of Current Complaint Chief Complaint: EDShortnessOfBreath Time Seen by Provider: 05/26/18 01:42 Hx Obtained From: Patient Onset/Duration: Gradual Onset, Lasting Days - 1 day, Still Present Timing: Constant Current Severity: Mild Dyspnea At: Rest Aggrevating Factors: Nothing Alleviating Factors: Nothing Associated Signs & Symptoms: Cough (Productive) - Allergy/Home Medications Allergies/Adverse Reactions: Allergies Allergy/AdvReac Type Severity Reaction Status Date / Time ampicillin Allergy Unknown Rash And Verified 05/09/18 14:26 Itching propranolol Allergy Unknown Rash And Verified 05/09/18 14:26 Itching divalproex sodium Allergy Unknown Verified 05/09/18 14:26 [From Depakote] Reaction Details Home Medications: Home Medications [place] Carbonate TAB* 300 mg PO BID 05/26/18 [History Confirmed 05/26/18] PMH/Surg Hx/FS Hx/Imm Hx Endocrine/Hematology History: Reports: Hx Diabetes, Hx Thyroid Disease - hypothyroid medicated with synthroid 75 mcg Cardiovascular History: Reports: Hx Angina, Hx Cardiac Arrest, Hx Hypercholesterolemia, Hx Hypotension, Hx Hypertension, Other Cardiovascular Problems/Disorders - CAD, IDDM II, HIGH CHOLESTEROL Denies: Hx Coronary Artery Disease, Hx Myocardial Infarction, Hx Pacemaker/ ICD, Hx Valvular Heart Disease Respiratory History: Reports: Hx Asthma, Hx Pneumonia - current, Hx Sleep Apnea Denies: Hx Chronic Obstructive Pulmonary Disease (COPD) GI History: Reports: Hx Gastroesophageal Reflux Disease History: Denies: Hx Renal Disease Musculoskeletal History: Reports: Other Musculoskeletal History - Hx Rt hip fracture Denies: Hx Arthritis, Hx Osteoporosis Sensory History: Reports: Hx Contacts or Glasses Denies: Hx Cataracts, Hx Eye Injury, Hx Hearing Aid, Hx Hearing Problem, Other Sensory Impairments Opthamlomology History: Reports: Hx Contacts or Glasses Denies: Hx Cataracts, Hx Eye Injury, Other Sensory Impairments Neurological History: Reports: Hx Migraine, Other Neuro Impairments/Disorders - parkinson's Psychiatric History: Reports: Hx Anxiety, Hx Depression, Hx Inpatient Treatment - [place], [place] and [facility] admits, Hx Community Mental Health Tx - [facility], Hx Bipolar Disorder, Hx Suicide Attempt - overdose Denies: Hx Eating Disorder, Hx Panic Disorder, Hx of Violent Episodes Against Others - Surgical History Surgery Procedure, Year, and Place: tonsillectomy, hyiod suspension 10 years ago Hx Anesthesia Reactions: No - Immunization History Date of Tetanus Vaccine: UTD Date of Influenza Vaccine: 01/2017 Infectious Disease History: No Infectious Disease History: Denies: Hx of Known/Suspected MRSA, Traveled Outside the [place] in Last 30 Days - Family History Known Family History: Positive: Cardiac Disease, Hypertension, Other - Positive bipolar and schizophrenia - Social History Alcohol Use: None Alcohol Amount: 1beer/1 drink daily for a long time Hx Substance Use: No Substance Use Type: Reports: None Substance Use Comment - Amount & Last Used: uses 1-2 drinks of alcohol daily and several bowls of marijuana daily. Hx Tobacco Use: Yes Smoking Status (MU): Former Smoker Type: Cigarettes Have You Smoked in the Last Year: No Review of Systems Negative: Fever Negative: Epistaxis Negative: Chest Pain Positive: Shortness Of Breath, Cough Negative: Vomiting All Other Systems Reviewed And Are Negative: Yes Physical Exam - Summary Physical Exam Summary: VITAL SIGNS: Reviewed. GENERAL: Patient is a well-developed and nourished MALE who is lying comfortable in the stretcher. Patient is not in any acute respiratory distress. HEAD AND FACE: No signs of trauma. No ecchymosis, hematomas or skull depressions. No sinus tenderness. EYES: PERRLA, EOMI x 2, No injected conjunctiva, no nystagmus. EARS: Hearing grossly intact. Ear canals and tympanic membranes are within normal limits. MOUTH: Oropharynx within normal limits. NECK: Supple, trachea is midline, no adenopathy, no JVD, no carotid bruit, no c- spine tenderness, neck with full ROM. CHEST: Symmetric, no tenderness at palpation LUNGS: Decreased breath sounds bilaterally. No wheezing or crackles. CVS: Regular rate and rhythm, S1 and S2 present, no murmurs or gallops appreciated. ABDOMEN: Soft, non-tender. No signs of distention. No rebound no guarding, and no masses palpated. Bowel sounds are normal. EXTREMITIES: FROM in all major joints, no edema, no cyanosis or clubbing. NEURO: Alert and oriented x 3. No acute neurological deficits. Speech is normal and follows commands. SKIN: Dry and warm Triage Information Reviewed: Yes Vital Signs On Initial Exam: Initial Vitals Pulse BP Pulse Ox 95 104/74 94 05/26/18 01:31 05/26/18 01:31 05/26/18 01:31 Vital Signs Reviewed: Yes Diagnostics - Vital Signs Vital Signs Temp Pulse Resp BP Pulse Ox 05/26/18 02:03 89 107/69 93 05/26/18 02:00 88 92 05/26/18 01:41 97.5 F 96 16 104/74 93 05/26/18 01:31 95 104/74 94 - Laboratory Result Diagrams: 05/26/18 02:31 05/26/18 02:31 Lab Statement: Any lab studies that have been ordered have been reviewed, and results considered in the medical decision making process. - Radiology CXR Radiology Interpretation Completed By: ED Physician - Dr. Rodriguez, pending official report Summary of Radiographic Findings: no acute process Course/Dx - Course Course Of Treatment: This patient is a 62 year old M with hx asthma brought in by ambulance to [facility] with a chief complaint of SOB at rest and productive cough since 1 day ago. The patient was recently discharged from [facility] [place] and was previously diagnosed with pneumonia. CXR reveals, per ED physician, no acute process. Test results with no significant abnormalities. In the ED course the patient was given IV fluids, albuterol duoneb, and Ventolin. Patient will be discharged home with follow up from PCP. Dx reactive airway disease. The patient is agreeable with this plan. - Diagnoses Provider Diagnoses: Reactive airway disease Discharge - Sign-Out/Discharge Documenting (check all that apply): Patient Departure - discharge home Patient Received Moderate/Deep Sedation with Procedure: No - Discharge Plan Condition: Stable Disposition: HOME Patient Education Materials: Reactive Airways Disease (ED) Referrals: Collin Lowry MD [Primary Care Provider] - Additional Instructions: Follow up with primary care physician in 1-2 days. Return to the emergency department with any new or worsening symptoms. - Attestation Statements Document Initiated by Scribe: Yes Documenting Scribe: Samantha Perkins Provider For Whom Scribe is Documenting (Include Credential): Pawan Rodriguez MD Scribe Attestation: Samantha Farias, scribed for Pawan Rodriguez MD on 05/26/18 at 0401. Status of Scribe Document: Ready
[2018-05-26] MEDS ORDERED: NS 0.9% 1000 ML** 1,000 ML IV ONE (02:18)
[2018-05-26] MEDS ORDERED: Albuterol/Ipratropium NEB.SOL* Albuterol 2.5 MG/Ipratropium 0.5 MG 3 ML INH ONE (02:24)
[2018-05-26] MEDS ORDERED: Albuterol 2.5 MG/3 ML NEB.SOL* (0.083%) INH ONE (02:25)
[2018-05-26 02:38] LABS: ABS Basophils 0.1 10^3/ul (0-0.2); ABS Eosinophils 0.2 10^3/ul (0-0.6); ABS Lymphocytes 2.2 10^3/ul (1.0-4.8); ABS Monocytes 0.5 10^3/ul (0-0.8); ABS Neutrophils 13.9 10^3/ul (1.5-7.7); ABS Nucleated RBC 0 10^3/ul; Eosinophil % 1.3 %; Hematocrit 38 % (42-52); Hemoglobin 12.4 g/dl (14.0-18.0); Lymphocyte % 13.2 %; Mean Corpuscular HGB Conc 33 g/dl (31-36); Mean Corpuscular Hemoglobin 31 pg (27-31); Mean Corpuscular Volume 95 fL (80-94); Mean Platelet Volume 6.9 fL (7.4-10.4); Nucleated Red Blood Cells % 0; Platelet Count 477 10^3/ul (150-450); Red Blood Count 3.97 10^6/ul (4.00-5.40); Red Cell Distribution Width 14 % (10.5-15); White Blood Count 16.9 10^3/ul (3.5-10.8)
[2018-05-26 02:55] LABS: Albumin 3.7 g/dL (3.2-5.2); Albumin/Globulin Ratio 1.2 (1-3); BUN/Creatinine Ratio 19.5 (8-20); C Reactive Protein 11.63 mg/L (<8.01); Calcium 9.2 mg/dL (8.6-10.3); EGFR African American 79.8 (>60); Globulin 3.2 g/dL (2-4); Potassium 3.9 mmol/L (3.5-5.0); Total Bilirubin 0.2 mg/dL (0.2-1.0); Total Protein 6.9 g/dL (6.4-8.9)
[2018-05-26 04:12] VITALS: BP 120/71
== END 2018-05-26 04:12 | disposition home or self-care (01) ==
LOC: ED 01:27
DX: J45.909 Unspecified asthma, uncomplicated (principal); R05 Cough; E03.9 Hypothyroidism, unspecified; Z88.0 Allergy status to penicillin; Z88.8 Allergy status to other drugs, medicaments and biological substances; Z87.891 Personal history of nicotine dependence
CPT/HCPCS: 36415; 71045; 80053; 85025; 86140; 96360; 99283; A9270-GY

== ENCOUNTER 2018-05-28 05:01 | Emergency (ER) | payer MEDICARE, MEDICAID ==
[2018-05-28] MEDS ORDERED: Al Hydrox/Mg Hydrox/Simet LIQ* 30 ML UDC PO ONE (06:04)
--- NOTE | 2018-05-28 06:39 | ED ---
HPI Chest Pain - HPI Summary HPI Summary: Patient is a 62-year-old male with a history of bipolar, depression, RBBB presenting to the ED with CC of R sided chest pain. He states this awoke him at 3am and was aching. He has had this in the past. He states this radiates to his L arm, but denies radiation to the back. He denies fevers, sweats, chills or recent illness. He has been seen here multiple times for a variety of complaints. Most recently seen 2 days ago for SOB. Nothing was found on labs/xray during this visit. Patient states he was given aspirin and nitro without relief. Pain is 1/10 and aching. Denies SOB. Denies abd pain, n/v/c/ d. Denies LÓPEZ or weakness. He is requesting reflux medications on arrival. - History of Current Complaint Chief Complaint: EDChestWallPain Time Seen by Provider: 05/28/18 05:37 Hx Obtained From: Patient Onset/Duration: Started Hours Ago Timing: Constant Initial Severity: Mild Current Severity: Mild Pain Intensity: 8 Pain Scale Used: 0-10 Numeric Chest Pain Location: Right Anterior Chest Pain Radiates: Yes Chest Pain Radiates To:: Arm Aggravating Factor(s): Nothing Alleviating Factor(s): Nothing Associated Signs and Symptoms: Positive: Negative - Risk Factors Pulmonary Embolism Risk Factors: Negative TAD Risk Factors: Negative - Additional Pertinent History Primary Care Physician: [id number] - Allergy/Home Medications Allergies/Adverse Reactions: Allergies Allergy/AdvReac Type Severity Reaction Status Date / Time ampicillin Allergy Unknown Rash And Verified 05/28/18 05:18 Itching propranolol Allergy Unknown Rash And Verified 05/28/18 05:18 Itching divalproex sodium Allergy Unknown Verified 05/28/18 05:18 [From Depakote] Reaction Details Home Medications: Home Medications Magnesium Oxide [Magox 400] 1 tab PO DAILY 05/28/18 [History Confirmed 05/28/18] PMH/Surg Hx/FS Hx/Imm Hx Previously Healthy: Yes Endocrine/Hematology History: Reports: Hx Diabetes, Hx Thyroid Disease - hypothyroid medicated with synthroid 75 mcg Cardiovascular History: Reports: Hx Angina, Hx Cardiac Arrest, Hx Hypercholesterolemia, Hx Hypotension, Hx Hypertension, Other Cardiovascular Problems/Disorders - CAD, IDDM II, HIGH CHOLESTEROL Denies: Hx Coronary Artery Disease, Hx Myocardial Infarction, Hx Pacemaker/ ICD, Hx Valvular Heart Disease Respiratory History: Reports: Hx Asthma, Hx Pneumonia - current, Hx Sleep Apnea Denies: Hx Chronic Obstructive Pulmonary Disease (COPD) GI History: Reports: Hx Gastroesophageal Reflux Disease History: Denies: Hx Renal Disease Musculoskeletal History: Reports: Other Musculoskeletal History - Hx Rt hip fracture Denies: Hx Arthritis, Hx Osteoporosis Sensory History: Reports: Hx Contacts or Glasses Denies: Hx Cataracts, Hx Eye Injury, Hx Hearing Aid, Hx Hearing Problem, Other Sensory Impairments Opthamlomology History: Reports: Hx Contacts or Glasses Denies: Hx Cataracts, Hx Eye Injury, Other Sensory Impairments Neurological History: Reports: Hx Migraine, Other Neuro Impairments/Disorders - parkinson's Psychiatric History: Reports: Hx Anxiety, Hx Depression, Hx Inpatient Treatment - [place], [place] and [facility] admits, Hx Community Mental Health Tx - [facility], Hx Bipolar Disorder, Hx Suicide Attempt - overdose Denies: Hx Eating Disorder, Hx Panic Disorder, Hx of Violent Episodes Against Others - Surgical History Surgery Procedure, Year, and Place: tonsillectomy, hyiod suspension 10 years ago Hx Anesthesia Reactions: No - Immunization History Date of Tetanus Vaccine: utd Date of Influenza Vaccine: fall 2017 Hx Pertussis Vaccination: No Immunizations Up to Date: Yes Infectious Disease History: No Infectious Disease History: Denies: Hx of Known/Suspected MRSA, Traveled Outside the in Last 30 Days - Family History Known Family History: Positive: Cardiac Disease, Hypertension, Other - Positive bipolar and schizophrenia - Social History Occupation: Unemployed Lives: Alone Alcohol Use: Rare Alcohol Amount: 1beer/1 drink daily for a long time Hx Substance Use: No Substance Use Type: Reports: Marijuana Substance Use Comment - Amount & Last Used: rarely, once a month Hx Tobacco Use: Yes Smoking Status (MU): Former Smoker Type: Cigarettes Have You Smoked in the Last Year: No Review of Systems Constitutional: Negative Negative: Fever, Chills, Fatigue, Skin Diaphoresis Positive: Chest Pain. Negative: Palpitations Negative: Shortness Of Breath, Cough Negative: Arthralgia, Myalgia Negative: Rash, Bruising Neurological: Negative Psychological: Normal All Other Systems Reviewed And Are Negative: Yes Physical Exam Triage Information Reviewed: Yes Vital Signs On Initial Exam: Initial Vitals Pulse Resp Pulse Ox 83 15 92 05/28/18 05:16 05/28/18 05:16 05/28/18 05:16 Vital Signs Reviewed: Yes Appearance: Positive: Well-Appearing, Well-Nourished Skin: Positive: Warm, Skin Color Reflects Adequate Perfusion Head/Face: Positive: Normal Head/Face Inspection Eyes: Positive: EOMI, KIRA, Conjunctiva Clear Neck: Positive: Supple, No Lymphadenopathy Respiratory/Lung Sounds: Positive: Clear to Auscultation, Breath Sounds Present Cardiovascular: Positive: RRR, Pulses are Symmetrical in both Upper and Lower Extremities Musculoskeletal: Positive: Normal, Strength/ROM Intact Neurological: Positive: Alert, Oriented to Person Place, Time, Speech Normal Psychiatric: Positive: Normal, Affect/Mood Appropriate AVPU Assessment: Alert Diagnostics - Vital Signs Vital Signs Temp Pulse Resp BP Pulse Ox 05/28/18 06:17 81 20 117/74 97 05/28/18 06:00 81 28 96 05/28/18 05:47 78 23 109/64 96 05/28/18 05:17 97.8 F 83 20 104/68 95 05/28/18 05:16 83 15 92 - Laboratory Result Diagrams: 05/28/18 06:55 05/28/18 06:55 Lab Statement: Any lab studies that have been ordered have been reviewed, and results considered in the medical decision making process. Chest Pain Course/Dx - Course Course Of Treatment: Arrival and the ED, patient is requesting antireflux medications. Patient is stating he awoke 3:00 this morning with right-sided chest pain which is radiating into the left arm. Symptoms were not relieved with nitroglycerin and aspirin prior to arrival by EMS. Physical examination, the pain is reproducible to deep palpation. Patient has full range of motion with all extremities. He appears comfortable, nontoxic and is requesting to sleep. X-ray was obtained within the last day so this was not repeated. Chest x-ray showed no acute cardio pulmonary findings. EKG obtained on patient's arrival with a rate of 78, normal sinus rhythm, with a right bundle branch block. This is similar to his previous EKGs. Patient sees Dr. Tovar at [place] and states they have done several studies and have not found anytihng signficiant in his heart hx other than HTN and RBBB. Physical exam is otherwise WNL. He is given maalox. Labs are WNL and trop 0.00. After Maalox. , Patient is feeling improved and would like to be discharged home. He is stable and appears well. Vital signs are stable. - Chest Pain Differential Diagnosis/HQI/PQRI: Acute DC, Angina, Chest Wall - Diagnoses Provider Diagnoses: Chest wall pain Discharge - Sign-Out/Discharge Documenting (check all that apply): Patient Departure Patient Received Moderate/Deep Sedation with Procedure: No - Discharge Plan Condition: Stable Disposition: HOME Referrals: Collin Lowry MD [Primary Care Provider] - Additional Instructions: Please return to the ED if you develop any worsening/changing symptoms - Billing Disposition and Condition Condition: STABLE Disposition: Home
[2018-05-28 07:06] LABS: ABS Basophils 0.1 10^3/ul (0-0.2); ABS Eosinophils 0.3 10^3/ul (0-0.6); ABS Lymphocytes 1.8 10^3/ul (1.0-4.8); ABS Monocytes 0.4 10^3/ul (0-0.8); ABS Neutrophils 7.4 10^3/ul (1.5-7.7); ABS Nucleated RBC 0 10^3/ul; Eosinophil % 2.8 %; Hematocrit 37 % (42-52); Hemoglobin 12.7 g/dl (14.0-18.0); Lymphocyte % 17.9 %; Mean Corpuscular HGB Conc 34 g/dl (31-36); Mean Corpuscular Hemoglobin 32 pg (27-31); Mean Corpuscular Volume 94 fL (80-94); Mean Platelet Volume 6.8 fL (7.4-10.4); Nucleated Red Blood Cells % 0; Platelet Count 505 10^3/ul (150-450); Red Blood Count 3.96 10^6/ul (4.00-5.40); Red Cell Distribution Width 14 % (10.5-15)
[2018-05-28 07:12] LABS: Activated Partial Thrombo Time 44.4 seconds (26.0-36.3); INR 0.95 (0.77-1.02)
[2018-05-28 07:26] LABS: Albumin 3.5 g/dL (3.2-5.2); BUN/Creatinine Ratio 18.9 (8-20); Calcium 9.2 mg/dL (8.6-10.3); EGFR African American 97.5 (>60); EGFR Non-African American 80.6 (>60); Globulin 3.4 g/dL (2-4); Magnesium 2.2 mg/dL (1.9-2.7); Potassium 4.1 mmol/L (3.5-5.0); Total Bilirubin 0.2 mg/dL (0.2-1.0); Total Protein 6.9 g/dL (6.4-8.9)
[2018-05-28 07:27] LABS: CKMB ng/mL 1.4 ng/mL (0.6-6.3)
[2018-05-28 07:53] VITALS: BP 126/89
== END 2018-05-28 07:55 | disposition home or self-care (01) ==
LOC: ED 05:01
DX: R07.89 Other chest pain (principal); I45.10 Unspecified right bundle-branch block; E03.9 Hypothyroidism, unspecified; F31.9 Bipolar disorder, unspecified; Z88.0 Allergy status to penicillin; Z88.8 Allergy status to other drugs, medicaments and biological substances; Z87.891 Personal history of nicotine dependence
CPT/HCPCS: 36415; 80053; 82550; 82553; 83605; 83735; 83874; 83880; 84484; 85025; 85610; 85730; 93005; 99283; A9270-GY

== ENCOUNTER → 2018-05-29 22:28 | Emergency (ER) | payer MEDICARE, OTHER ==
[~2018-05-29 22:28] MED LIST changes: -Albuterol 2.5 MG/3 ML NEB.SOL* (0.083%) INH SCH; -Albuterol/Ipratropium NEB.SOL* Albuterol 2.5 MG/Ipratropium 0.5 MG 3 ML INH ONE; -Azithromycin TAB* 250 MG PO ONE; -Levofloxacin 750 MG IVPREMIX(* 750 MG/150 ML BAG IVPB ONE; -Magnesium Sulfate 2 GM IV* 2 GM/50 ML BAG IVPB ONE; -NS 0.9% 1000 ML* 1,000 ML IV ONE; -diPHENhydraMINE PO* 25 MG PO ONE; -methylPREDNISolone 125 MG* 2 ML VIAL IV ONE; +traMADol TAB* 50 MG PO ONE
--- NOTE | 2018-05-29 23:46 | ED ---
Neck Pain - HPI Summary HPI Summary: This patient is a 62 year old male brought in by ambulance to [facility] with a chief complaint of neck pain since 2 hours ago. Patient states that he suffered a mechanical fall down 2 steps and heard a crack in his neck. Immediately afterwards, patient felt pain in his neck. Patient admits to have been drinking. The pain is rated 10/10 in severity. Symptoms aggravated by nothing. Symptoms alleviated by nothing. Patient additionally reports back pain. - History of Current Complaint Chief Complaint: EDNeckComplaint Stated Complaint: FALL Time Seen by Provider: 05/29/18 23:39 Hx Obtained From: Patient Onset/Duration Of Injury/Symptoms: Hours Mechanism Of Injury: Blunt Trauma Timing: Constant, Lasting Hours Onset/Duration: Sudden Onset Severity Currently: Severe Pain Intensity: 10 Pain Scale Used: 0-10 Numeric Aggravating Factors: Nothing Alleviating Factors: Nothing - Allergies/Home Medications Allergies/Adverse Reactions: Allergies Allergy/AdvReac Type Severity Reaction Status Date / Time ampicillin Allergy Unknown Rash And Verified 05/28/18 05:18 Itching propranolol Allergy Unknown Rash And Verified 05/28/18 05:18 Itching divalproex sodium Allergy Unknown Verified 05/28/18 05:18 [From Depakote] Reaction Details PMH/Surg Hx/FS Hx/Imm Hx Previously Healthy: No Endocrine/Hematology History: Reports: Hx Diabetes, Hx Thyroid Disease - hypothyroid medicated with synthroid 75 mcg Cardiovascular History: Reports: Hx Angina, Hx Cardiac Arrest, Hx Hypercholesterolemia, Hx Hypotension, Hx Hypertension, Other Cardiovascular Problems/Disorders - CAD, IDDM II, HIGH CHOLESTEROL Denies: Hx Coronary Artery Disease, Hx Myocardial Infarction, Hx Pacemaker/ ICD, Hx Valvular Heart Disease Respiratory History: Reports: Hx Asthma, Hx Pneumonia - current, Hx Sleep Apnea Denies: Hx Chronic Obstructive Pulmonary Disease (COPD) GI History: Reports: Hx Gastroesophageal Reflux Disease History: Denies: Hx Renal Disease Musculoskeletal History: Reports: Other Musculoskeletal History - Hx Rt hip fracture Denies: Hx Arthritis, Hx Osteoporosis Sensory History: Reports: Hx Contacts or Glasses Denies: Hx Cataracts, Hx Eye Injury, Hx Hearing Aid, Hx Hearing Problem, Other Sensory Impairments Opthamlomology History: Reports: Hx Contacts or Glasses Denies: Hx Cataracts, Hx Eye Injury, Other Sensory Impairments Neurological History: Reports: Hx Migraine, Other Neuro Impairments/Disorders - parkinson's Psychiatric History: Reports: Hx Anxiety, Hx Depression, Hx Inpatient Treatment - [place], [place] and [facility] admits, Hx Community Mental Health Tx - [facility], Hx Bipolar Disorder, Hx Suicide Attempt - overdose Denies: Hx Eating Disorder, Hx Panic Disorder, Hx of Violent Episodes Against Others - Surgical History Surgery Procedure, Year, and Place: tonsillectomy, hyiod suspension 10 years ago Hx Anesthesia Reactions: No - Immunization History Date of Tetanus Vaccine: utd Date of Influenza Vaccine: fall 2017 Infectious Disease History: No Infectious Disease History: Denies: Hx of Known/Suspected MRSA, Traveled Outside the [place] in Last 30 Days - Family History Known Family History: Positive: Cardiac Disease, Hypertension, Other - Positive bipolar and schizophrenia - Social History Lives: With Family Alcohol Use: Rare Alcohol Amount: 1beer/1 drink daily for a long time Hx Substance Use: Yes Substance Use Type: Reports: Marijuana Substance Use Comment - Amount & Last Used: rarely, once a month Hx Tobacco Use: Yes Smoking Status (MU): Former Smoker Type: Cigarettes Have You Smoked in the Last Year: No Review of Systems Negative: Fever Positive: Other - back pain Neurological: Other - neck pain All Other Systems Reviewed And Are Negative: Yes Physical Exam - Summary Physical Exam Summary: VITAL SIGNS: Reviewed. GENERAL: Patient is a well-developed and nourished male who is lying comfortable in the stretcher. Patient is not in any acute respiratory distress. HEAD AND FACE: No signs of trauma. No ecchymosis, hematomas or skull depressions. No sinus tenderness. EYES: PERRLA, EOMI x 2, No injected conjunctiva, no nystagmus. EARS: Hearing grossly intact. Ear canals and tympanic membranes are within normal limits. MOUTH: Oropharynx within normal limits. NECK: Supple, trachea is midline. C collar in place CHEST: Symmetric, no tenderness at palpation. Tenderness over the mid back LUNGS: Clear to auscultation bilaterally. No wheezing or crackles. CVS: Regular rate and rhythm, S1 and S2 present, no murmurs or gallops appreciated. ABDOMEN: Soft, non-tender. No signs of distention. No rebound no guarding, and no masses palpated. Bowel sounds are normal. EXTREMITIES: FROM in all major joints, no edema, no cyanosis or clubbing. NEURO: Intact. Alert and oriented x 3. No acute neurological deficits. Speech is normal and follows commands. SKIN: Dry and warm Triage Information Reviewed: Yes Vital Signs On Initial Exam: Initial Vitals Temp Pulse Resp BP Pulse Ox 97.9 F 109 15 155/116 98 05/29/18 22:34 05/29/18 22:34 05/29/18 22:34 05/29/18 22:34 05/29/18 22:34 Vital Signs Reviewed: Yes Diagnostics - Vital Signs Vital Signs Temp Pulse Resp BP Pulse Ox 05/29/18 22:34 97.9 F 109 15 155/116 98 - Laboratory Lab Statement: Any lab studies that have been ordered have been reviewed, and results considered in the medical decision making process. - CT CT T-Spine CT Interpretation Completed By: Radiologist Summary of CT Findings: CT T-Spine reveals, per radiologist, IMPRESSION: 1. Slight anterior wedge deformity of T8. An acute fracture line is not seen. No pre-vertebral soft tissue abnormality. 2. No evidence of acute fracture involving the thoracic vertebral bodies or posterior elements. No pathologic subluxation. ED physician has reviewed this radiology report. CT L-Spine CT Interpretation Completed By: Radiologist Summary of CT Findings: CT L-Spine reveals, per radiologist, IMPRESSION: 1. Soft tissue nodule located in the left neural foramina at L2-L3. This could represent a Tarlov cyst or I nerve rootlet anomaly. 2. No evidence of fracture involving the lumbar vertebral body or posterior elements. ED physician has reviewed this radiology report. CT C-Spine CT Interpretation Completed By: Radiologist Summary of CT Findings: CT C-Spine reveals, per radiologist, IMPRESSION: 1. No evidence of acute fracture involving the cervical vertebral body or posterior elements. No pathologic subluxation. 2. Multilevel degenerative cervical disc disease and facet disease. No significant central canal stenosis. Variable degrees of neural foraminal narrowing secondary degenerative changes of the uncovertebral joints and facet joints. ED physician has reviewed this radiology report. CT Brain CT Interpretation Completed By: Radiologist Summary of CT Findings: CT Brain reveals, per radiologist, IMPRESSION: 1. No evidence of acute intracranial hemorrhage. No adrenal mass or obstructive hydrocephalus. 2. Opacification of the right maxillary sinus with bony thickening. This raises the possibility of chronic sinusitis with possibility of associated bony osteitis. ED physician has reviewed this radiology report. Neck Course/Dx - Course Course Of Treatment: This patient is a 62 year old male brought in by ambulance to [facility] with a chief complaint of neck pain since 2 hours ago. Patient states that he suffered a mechanical fall down 2 steps and heard a crack in his neck. Immediately afterwards, patient felt pain in his neck. CT T-Spine reveals, per radiologist, IMPRESSION: 1. Slight anterior wedge deformity of T8. An acute fracture line is not seen. No pre-vertebral soft tissue abnormality. 2. No evidence of acute fracture involving the thoracic vertebral bodies or posterior elements. No pathologic subluxation. ED physician has reviewed this radiology report. CT L-Spine reveals, per radiologist, IMPRESSION: 1. Soft tissue nodule located in the left neural foramina at L2-L3. This could represent a Tarlov cyst or I nerve rootlet anomaly. 2. No evidence of fracture involving the lumbar vertebral body or posterior elements. ED physician has reviewed this radiology report. CT C-Spine reveals, per radiologist, IMPRESSION: 1. No evidence of acute fracture involving the cervical vertebral body or posterior elements. No pathologic subluxation. 2. Multilevel degenerative cervical disc disease and facet disease. No significant central canal stenosis. Variable degrees of neural foraminal narrowing secondary degenerative changes of the uncovertebral joints and facet joints. ED physician has reviewed this radiology report. CT Brain reveals, per radiologist, IMPRESSION: 1. No evidence of acute intracranial hemorrhage. No adrenal mass or obstructive hydrocephalus. 2. Opacification of the right maxillary sinus with bony thickening. This raises the possibility of chronic sinusitis with possibility of associated bony. osteitis. ED physician has reviewed this radiology report. In the ED course the patient was given Ultram. Patient will be discharged with back pain. Patient is advised to follow up with PCP in 2 days. The patient is agreeable with this plan. - Diagnoses Provider Diagnoses: Back pain Discharge - Sign-Out/Discharge Documenting (check all that apply): Patient Departure Patient Received Moderate/Deep Sedation with Procedure: No - Discharge Plan Condition: Stable Disposition: ADMITTED TO [facility] Patient Education Materials: Back Pain (ED) Referrals: Collin Lowry MD [Primary Care Provider] - 2 Days Additional Instructions: Return to the ED for any new or worsening symptoms. - Attestation Statements Document Initiated by Scribe: Yes Documenting Scribe: Jasmina Yoon Provider For Whom Scribe is Documenting (Include Credential): Pawan Rodriguez MD Scribe Attestation: Jasmina Farias scribed for Pawan Rodriguez MD on 05/30/18 at 0241. Status of Scribe Document: Ready
[2018-05-30 02:55] VITALS: BP 129/68
== END | disposition short-term general hospital (02) ==
LOC: ED 22:28
DX: M54.2 Cervicalgia (principal); M54.6 Pain in thoracic spine; M54.5 Low back pain; E03.9 Hypothyroidism, unspecified; Z88.0 Allergy status to penicillin; Z88.8 Allergy status to other drugs, medicaments and biological substances; Z87.891 Personal history of nicotine dependence
CPT/HCPCS: 70450; 72125; 72128; 72131; 99283; A9270-GY

== ENCOUNTER 2018-06-02 19:45 | Emergency (ER) | payer MEDICARE, OTHER ==
[2018-06-02] MEDS ORDERED: oxyCODONE/Acetamin 5/325 MG* TAB PO ONE (20:25)
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
[2018-06-02 22:06] VITALS: BP 145/95
== END 2018-06-02 22:30 | disposition home or self-care (01) ==
LOC: ED 19:45
DX: S02.2XXA Fracture of nasal bones, initial encounter for closed fracture (principal); Y04.0XXA Assault by unarmed brawl or fight, initial encounter; Y92.9 Unspecified place or not applicable; Z87.891 Personal history of nicotine dependence; K21.9 Gastro-esophageal reflux disease without esophagitis; F32.9 Major depressive disorder, single episode, unspecified; Z88.0 Allergy status to penicillin
CPT/HCPCS: 70450; 70486; 99282; A9270-GY